=== PATIENT | male | born 1960 | race Caucasian/White ===

== ENCOUNTER 2023-03-26 09:24 | Outpatient (OUT) | payer OTHER, SELFPAY ==
[2023-03-26 09:59] LABS: Basophils Percent Auto 0.5 % (0.2-2.0); Eosinophils Absolute Auto 0.2 10^3/uL (0.0-0.7); Eosinophils Percent Auto 2.4 % (0.9-7.0); Hematocrit 47.6 % (42.0-54.0); Hemoglobin 16.3 g/dL (14.0-18.0); Immature Granulocytes Abs Auto 0.01 10^3/uL (0.00-0.03); Immature Granulocytes Pct Auto 0.2 % (0.0-0.5); Lymphocytes Absolute Auto 1.7 10^3/uL (1.2-3.8); Lymphocytes Percent Auto 26.4 % (20.5-60.0); Mean Corpuscular HGB Conc 34.2 g/dL (29.9-35.2); Mean Corpuscular Hemoglobin 29.2 pg (25.9-34.0); Mean Corpuscular Volume 85.3 fL (80.0-94.0); Mean Platelet Volume 10.1 fL (9.5-13.5); Monocytes Absolute Auto 0.8 10^3/uL (0.3-0.8); Monocytes Percent Auto 11.4 % (1.7-12.0); Neutrophils Absolute Auto 3.9 10^3/uL (1.4-6.5); Neutrophils Percent Auto 59.1 % (43.0-75.0); Platelet Count 147 10^3/uL (150-450); Red Blood Count 5.58 10^6/uL (4.70-6.10); Red Cell Distribution Width 12.5 % (11.0-15.0); White Blood Count 6.6 10^3/uL (4.0-11.0)
[2023-03-26 10:22] LABS: Anion Gap 11.6; Carbon Dioxide 29.7 mmol/L (21.0-32.0); Chloride 99 mmol/L (98-107); Glucose 179 mg/dL (74-106); Potassium 4.3 mmol/L (3.5-5.1); Sodium 136 mmol/L (136-145)
[2023-03-26 10:23] LABS: Alanine Aminotransferase 56 U/L (16-63); Albumin Globulin Ratio 1.2; Albumin Level 4.3 g/dL (3.4-5.0); Alkaline Phosphatase 87 U/L (46-116); Aspartate Amino Transferase 30 U/L (15-37); BUN Creatinine Ratio 24.7; Bilirubin Total 0.9 mg/dL (0.2-1.0); Chol HDL Ratio 3.6; Cholesterol 97 mg/dL (<=200); Creatine Kinase 166 U/L (39-308); Estimated GFR (African America >60 (>=60); Estimated GFR (Non-African Ame >60 (>=60); Globulin 3.7 g/dL; HDL Cholesterol 27 mg/dL (40-60); Triglycerides 213 mg/dL (<=150); VLDL CHOLESTEROL 42.6 mg/dL
[2023-03-26 10:30] LABS: Microalbumin Urine Random 3.5 mg/dL (<=30.0)
[2023-03-26 10:36] LABS: Prostate Specific Antigen Scrn 0.31 ng/mL (<=4.00)
[2023-03-26 10:43] LABS: Estimated Average Glucose 151 mg/dL; Glycohemoglobin A1C 6.9 % (4.5-6.2)
== END 2023-03-26 09:25 ==
LOC: LAB 09:27
PROVIDERS: PCP Internal Medicine; Visit Provider Internal Medicine
DX: Z00.00 Encounter for general adult medical examination without abnormal findings (principal); Z12.5 Encounter for screening for malignant neoplasm of prostate
CPT/HCPCS: 36415; 80053; 80061; 82043; 82550; 83036; 85025; G0103

== ENCOUNTER 2023-06-11 08:44 | Outpatient (OUT) | payer OTHER, SELFPAY ==
--- NOTE | 2023-06-11 | CT_ITS ---
The [address] [address] Patient Name: CHELY SIDDIQI MRN: [id number] date: 1960 Sex: M Assigned Patient Location: CT Current Patient Location: CT Accession/Order Number: [id number] Exam Date: 06/11/2023 08:48 Report Date: 06/11/2023 09:44 At the request of: EMMY ARNOLD Procedure: CT abdomen pelvis wo con EXAMINATION: CT abdomen pelvis wo con HISTORY: KIDNEY STONE COMPARISON: 11/21/2021 TECHNIQUE: Axial, Coronal, and Sagittal images were created without IV contrast. Dose reduction techniques were achieved by using automated exposure control and/or adjustment of mA and/or kV according to patient size and/or use of iterative reconstruction technique. FINDINGS: LUNG BASES: Basilar solid pulmonary nodules measuring up to 5 mm, nonspecific, stable LIVER: Focal hypodensities too small to fully characterize possibly cysts BILIARY: 5 mm layering gallstone axial image [address] evidence of acute cholecystitis PANCREAS: No lesion, fluid collection, ductal dilatation, or atrophy. SPLEEN: No enlargement or focal lesion. ADRENALS: No mass or enlargement. KIDNEYS: Nonobstructing left nephrolithiasis. Left renal cortical hypodensity likely a cyst BOWEL/MESENTERY: Nonobstructive bowel gas pattern. Normal appendix AORTA/VASCULAR: No aneurysm or dissection. RETROPERITONEUM: No mass or adenopathy. LYMPH NODES: No adenopathy. URINARY BLADDER: No visible focal wall thickening, lesion, or calculus. PELVIC ORGANS: Resting calcifications ABDOMINAL WALL: No mass or hernia. BONES: Remote healed left posterior rib fractures OTHER: Negative. CT/CT abdomen pelvis wo con IMPRESSION: Nonobstructing left nephrolithiasis No obstructive uropathy Electronically authenticated by: BRIONNA RODRIGUEZ Date: 06/11/2023 09:44
== END 2023-06-11 08:45 | disposition home or self-care (01) ==
LOC: CT 08:45
PROVIDERS: PCP Internal Medicine; Visit Provider Urology
DX: N20.0 Calculus of kidney (principal)
CPT/HCPCS: 74176

== ENCOUNTER 2023-10-29 08:21 | Outpatient (OUT) | payer OTHER, SELFPAY ==
[2023-10-29 08:54] LABS: Estimated Average Glucose 148 mg/dL; Glycohemoglobin A1C 6.8 % (4.5-6.2)
== END 2023-10-29 08:22 | disposition home or self-care (01) ==
LOC: LAB 08:23
PROVIDERS: PCP Internal Medicine; Visit Provider Internal Medicine
DX: E11.65 Type 2 diabetes mellitus with hyperglycemia (principal)
CPT/HCPCS: 36415; 83036

== ENCOUNTER 2024-03-21 07:23 | Outpatient (OUT) | payer OTHER, SELFPAY ==
--- OUTSIDE RECORDS SUMMARY | 2024-03-21 07:26 | XMS_ITS | CCD ---
Author Organization [facility] Care Team Providers Care Business Administrator Name Role Phone PHYSICIAN, DEFAULT Unavailable Unavailable PHYSICIAN, DEFAULT Unavailable Unavailable EVIN BAZZI Unavailable ISHMAEL Harris Primary Care Physician [phone] Cecil, Ishmael Unavailable LENA ISAAC Consulting Unavailable LENA ISAAC Admitting Unavailable BALL, DR MEIER Primary Care Unavailable LENA ISAAC Attending Unavailable CECIL, DR MEIER Admitting Unavailable BALL, DR MEIER Attending Unavailable BALL, DR MEIER Consulting Unavailable BALL, DR MEIER Primary Care Unavailable ZIEBER, DR ZACH Ballard Consulting Unavailable BALL, DR MEIER Admitting Unavailable BALL, DR MEIER Attending Unavailable BALL, DR MEIER Consulting Unavailable BALL, DR MEIER Primary Care Unavailable BALL, DR MEIER Admitting Unavailable BALL, DR MEIER Attending Unavailable BALL, DR MEIER Consulting Unavailable BALL, DR MEIER Primary Care Unavailable WINKLER, WINCHA Consulting Unavailable REBA DUMONT Attending Unavailable LUMargaret .REBA Admitting Unavailable WINKLER, KENYETTA Consulting Unavailable BALL, DR MEIER Primary Care Unavailable REBA DUMONT Consulting Unavailable BALL, DR MEIER Admitting Unavailable BALL, DR MEIER Attending Unavailable BALL, DR MEIER Consulting Unavailable BALL, DR MEIER Primary Care Unavailable Reba Larios. Attending Unavailable Orzech, Valentina X Attending Unavailable Orzech, Valentina X Attending Unavailable Orzech, Valentina X Admitting Unavailable Reba Larios Attending Unavailable AGUILA ISAACAMAKamari Admitting Unavailable LENA ISAAC Attending Unavailable CHELSI MENARD Attending Unavailable SHUN SPARKS Attending Unavailable STACI GLASS Attending Unavailable CHELSI MENARD Attending Unavailable LENA ISAAC Referring Unavailable Allergies Allergy Classification Reported Allergen(s) Allergy Type Date of Onset Reaction(s) Facility (6 sources) HMG-CoA reductase inhibitor Drug allergy 3 Unknown Hydrelis Other (1 source) Hmg-Coa Reductase Inhibitors (Statins); Translations: [QPICORU-PZA-MA A REDUCTASE INHIBITORS] Propensity to adverse reactions to drug (disorder) 3 [facility] Repository Medications Current Medications Medication Drug Class(es) Dates Sig (Normalized) Sig (Original) 0.25 MG, 0.5 MG Dose 3 ML semaglutide 0.68 MG/ML Pen Injector [Ozempic] (3 sources) Start: 11-03-2023 Ozempic 2 mg/3 mL (0.25 mg or 0.5 mg dose) subcutaneous solution mg, SubCutaneous, qWeek Start Date: 11/03/23 Status: Ordered Start: 08-23-2023 inject 0.5 mg by sub cutaneous injection every week Ozempic (0.25 or 0.5 MG/DOSE) 2 MG/3ML 0.5MG Subcutaneous weekly for 28 days Aug, Active 3 ML semaglutide 1.34 MG/ML Pen Injector [Ozempic] (1 source) Start: 07-11-2023 inject 1 mg by subcutaneous injection every week Ozempic (1 MG/DOSE) 4 MG/3ML 1MG Subcutaneous weekly for 30 days Jul, Active amLODIPine 10 mg / benazepril hydrochloride 20 mg oral capsule (20 sources) Dihydropyridine Calcium Channel Yaquelin, Angiotensin Converting Enzyme Inhibitor Start: 03-12-2024 take 1 capsule by mouth once daily Amlodipine-Benaz epril Active 1 CAP PO Daily March 12, 2024 12:00am Start: 06-28-2022 amlodipine-wilman azepril 10 mg-20 mg oral capsule 1 cap(s) Start Date: 06/28/22 Status: Ordered take 10-20 mg by azul th once daily amLODIPine Besy-Benazepril HCl 10-20 MG TAKE 1 CAPSULE BY MOUTH EVERY DAY Active aspirin 81 mg delayed release oral tablet (20 sources) Platelet Aggregation Inhibitor, Nonsteroidal Anti-inflammatory Drug Start: 03-12-2024 take 81 mg by mouth once daily Aspirin Active 81 MG PO Daily March 12, 2024 12:00am Start: 02-15-2022 take 1 mg by mouth e very four hours aspirin 81 mg oral capsule mg cap(s), Oral, q4hr, Refills(s) 0 Start Date: 02/15/22 Status: Ordered take 1 tablet by azul th every twenty-four hours Aspirin 81 81 MG 1 tablet Orally Once a day Active take 1 tablet by azul th once daily Aspirin 81 81 MG 1 tablet Orally Once a day Active Fish Oils (20 sources) Start: 02-15-2022 take 1 mg by mouth three times daily Fish Oil 1200 mg oral capsule mg cap(s), Oral, TID, Refills(s) 0 Start Date: 02/15/22 Status: Ordered take 1 capsule by mouth once bebeto ly Fish Oil 1200 MG 1 capsule Orally Once a day Active gemfibrozil 600 mg oral tablet (20 sources) Peroxisome Proliferator Receptor alpha Agonist Start: 03-12-2024 take 600 mg by mouth twice daily Gemfibrozil Active 600 MG PO Twice daily March 12, 2024 12:00am Start: 02-15-2022 take 1 mg by mouth twice daily gemfibrozil 600 mg Tab mg tab(s), Oral, BID, Refills(s) 0 Start Date: 02/15/22 Status: Ordered hydroCHLOROthiazide 25 mg oral tablet (19 sources) Thiazide Diuretic Start: 03-12-2024 take 25 mg by mouth once daily Hydrochlorothiazide Active 25 MG PO Daily March 12, 2024 12:00am Start: 02-15-2022 take 1 mg by mouth o nce daily hydrochlorothiazide 25 mg oral tablet mg tab(s), Oral, Daily, Refills(s) 0 Start Date: 02/15/22 Status: Ordered metFORMIN hydrochloride 1000 mg oral tablet (20 sources) Biguanide Start: 11-25-2023 End: 11-25-2023 take 1000 mg by mouth twice daily at mealtime Metformin Active 1000 MG PO Twice daily with meals 180 90 November 25, 2023 4:35pm Start: 02-15-2022 take 1 mg by mouth once daily MetFORMIN (Eqv-Fortamet) 1000 mg oral tablet, extended release mg tab(s), Oral, Daily, Refills(s) 0 Start Date: 02/15/22 Status: Ordered take 1 tablet by azul th twice daily before breakfast metFORMIN HCl 1000 mg TAKE 1 TABLET BEFORE BREAKFAST AND EVENING MEAL Orally bid for 90 days Active 24 hr metoprolol succinate 25 mg extended release oral tablet (20 sources) beta-Adrenergic Yaquelin Start: 03-12-2024 take 25 mg by mouth once daily Metoprolol Succinate Active 25 MG PO Daily March 12, 2024 12:00am Start: 02-15-2022 take 1 mg by mouth once daily metoprolol 25 mg ER Tab mg tab(s), Oral, Daily, Refills(s) 0 Start Date: 02/15/22 Status: Ordered [place] 8-Kee-Rbv-Fish Oil (Fish Oil) 1,200 (144-216) mg capsule (1 source) Start: 03-12-2024 take 1 capsule by mouth once daily [place] 9-Dmo-Lsw-Fish Oil (Fish Oil) 1,200 (144-216) mg capsule Active 1 CAP PO Daily March 12, 2024 12:00am Plextronics Ultra - (17 sources) Plextronics Ultra - USE TO TEST BLOOD SUGAR EVERY DAY for 30 Active [employer] Ultra - as directed In Vitro Active Ozempic (0.25 or 0.5 MG/DOSE ) 2 MG/1.5ML (6 sources) Ozempic (0.25 or 0.5 MG/DOSE) 2 MG/1.5ML 0.5 MG Subcutaneous weekly Active Ozempic (0.25 or 0.5 MG/DOSE) 2 MG/1.5ML 0.5 MG Subcutaneous weekly for 28 days Active rosuvastatin calcium 10 mg oral tablet (11 sources) HMG-CoA Reductase Inhibitor Start: 03-12-2024 take 10 mg by mouth once daily Rosuvastatin Active 10 MG PO Daily March 12, 2024 12:00am Start: 03-08-2023 take 1 tablet by azul every twenty-four hours Rosuvastatin Calcium 10 MG 1 tablet Orally Once a day February, Active Semaglutide (1 source) Start: 01-30-2024 Semaglutide (Ozempic) 0.25 mg or 0.5 mg (2 mg/3 mL) pen injector Active 0.5 MG SUBCUT every week 3 January 30, 2024 1:29pm tamsulosin hydrochloride 0.4 mg oral capsule (20 sources) alpha-Adrenergi c Yaquelin Start: 12-19-2023 take 1 capsule by mouth once daily at dinner Tamsulosin Active 0 .ROUTE .COMPLEX December 19, 2023 1:24pm TAKE 1 CAPSULE BY MOUTH EVERYDAY AFTER EVENING MEAL Start: 12-19-2023 End: 12-19-2023 take 0.4 mg by mouth once daily at bedtime Tamsulosin Discontinued 0.4 MG PO Daily at bedtime December 19, 2023 12:00am December 19, 2023 1:24pm Start: 02-15-2022 take 1 mg by mouth once daily tamsulosin 0.4 mg Cap mg cap(s), Oral, Daily, Refills(s) 0 Start Date: 02/15/22 Status: Ordered Completed/Discontinued Medications Medication Drug Class(es) Dates Sig (Normalized) Sig (Original) benazepril hydrochloride 10 mg oral tablet (19 sources) Angiotensin Converting Enzyme Inhibitor Start: 03-12-2024 End: 03-12-2024 take 10 mg by mouth once daily Benazepril Discontinued 10 MG PO Daily March 12, 2024 12:00am March 12, 2024 3:42pm Start: 02-15-2022 take 1 mg by mouth once daily benazepril 10 mg Tab mg tab(s), Oral, Daily, Refills(s) 0 Start Date: 02/15/22 Status: Ordered 0.25 mg, 0.5 mg dose 1.5 ml semaglutide 1.34 mg/ml pen injector (18 sources) Start: 01-30-2024 End: 01-30-2024 inject 0.5 mg by subcutaneous injection every week Semaglutide Discontinued 0.5 MG SUBCUT every week January 30, 2024 12:00am January 30, 2024 1:30pm Start: 12-28-2022 Ozempic (0.25 or 0.5 MG/DOSE) 2 MG/1.5ML 0.5 MG Subcutaneous weekly for 28 days Dec, Active Start: 12-28-2022 Ozempic (0.25 or 0.5 MG/DOSE) 2 MG/1.5ML 0.25mg Subcutaneous weekly for 28 days Dec, Active Problems Active Problems Problem Classification Problem Date Documented Da te Episodic/Chronic Calculus of urinary tract (20 sources) Kidney stone; Translations: [Calculus of kidney] Onset: 02-15-2022 Episodic Cardiac dysrhythmias (2 sources) Ventricular premature depolarization; Translations: [Ventricular premature depolarization] Onset: 01-06-2023 Chronic Coronary atherosclerosis and other heart disease (20 sources) Coronary arteriosclerosis; Translations: [Atherosclerotic heart disease of [place] coronary artery without angina pectoris] Onset: 12-16-2022 Chronic Diabetes mellitus with complications (20 sources) Type 2 diabetes mellitus; Translations: [Type 2 diabetes mellitus with hyperglycemia] Chronic Diabetes mellitus without complication (4 sources) Diabetes mellitus; Translations: [Type 2 diabetes mellitus without complications] Onset: 01-06-2023 06-28-2022 Chronic Disorders of lipid metabolism (20 sources) Mixed hyperlipidemia; Translations: [Mixed hyperlipidemia] Onset: 01-10-2023 Chronic Essential hypertension (20 sources) Essential hypertension; Translations: [Essential (primary) hypertension] Onset: 01-06-2023 Chronic Genitourinary symptoms and ill-defined conditions (20 sources) Nocturia; Translations: [Nocturia] Onset: 02-15-2022 Episodic Hyperplasia of prostate (10 sources) Nocturia due to benign prostatic hypertrophy; Translations: [Benign prostatic hyperplasia with lower urinary tract symptoms] Chronic Other diseases of kidney and ureters (1 source) Acquired renal cyst without neoplastic change; Translations: [Cyst of kidney, acquired] Onset: 11-03-2023 Episodic Other diseases of kidney and ureters (2 sources) Cyst of kidney 06-28-2022 Episodic Other lower respiratory disease (7 sources) Shortness of breath; Translations: [SHORTNESS OF BREATH] Onset: 11-06-2022 Episodic Other nutritional; endocrine; and metabolic disorders (20 sources) Body mass index 30+ - obesity; Translations: [Obesity, unspecified] Chronic Other nutritional; endocrine; and metabolic disorders (1 source) Obesity, unspecified Chronic Other nutritional; endocrine; and metabolic disorders (6 sources) Obesity caused by energy imbalance; Translations: [Other obesity due to excess calories] Chronic Other nutritional; endocrine; and metabolic disorders (2 sources) Other obesity due to excess calories Chronic Other nutritional; endocrine; and metabolic disorders (2 sources) Body mass index (BMI) 34.0-34.9, adult Chronic Other screening for suspected conditions (not mental disorders or infectious disease) (2 sources) Encounter for screening for malignant neoplasm of prostate; Translations: [ENC SCREEN MALIG NEOPLASM PROSTATE] Onset: 03-18-2022 Episodic Unclassified (3 sources) OTHER VENTRICULAR TACHYCARDIA; Translations: [OTHER VENTRICULAR TACHYCARDIA] Onset: 02-10-2023 Unclassified (1 source) Other ventricular tachycardia; Translations: [Other ventricular tachycardia] Onset: 01-31-2023 Unclassified (2 sources) NSVT Onset: 01-10-2023 Past or Other Problems Problem Classification Problem Date Documented Da te Episodic/Chronic Other diseases of kidney and ureters (1 source) Cyst of kidney, acquired; Translations: [CYST OF KIDNEY ACQUIRED] Onset: 06-25-2022 Episodic Unclassified (2 sources) OTHER VENTRICULAR TACHYCARDIA; Translations: [OTHER VENTRICULAR TACHYCARDIA] Onset: 02-04-2023 Unclassified (3 sources) NSVT (nonsustained ventricular tachycardia) I47.29 Results Test Name Value Interpretation Reference Range Facility Calculus Analysison 11-12-19 24 Calcium oxalate monohydrate (Stone) [Mass fraction] 10 % Invalid Interpretation Code [facility] Comment on above: Performed By: #### 1 [id number] #### [facility] [address] [place] [address] Color (Stone) [place] Invalid Interpretation Code [facility] Comment on above: Performed By: #### 1 [id number] #### [facility] [address] [place] [address] Composition Comment Invalid Interpretation Code [facility] Comment on above: Result Comment: Perc entage (Represents the % composition) Performed By: #### 1 [id number] #### [facility] [address] [place] [address] Disclaimer: Comment Invalid Interpretation Code [facility] Comment on above: Result Comment: This test was developed and its performance characteristics determined by [facility]. It has not been cleared or approved by the Food and Drug Administration. Performed at: [address] [id number] PhD Yuli Rodriguez Performed By: #### 1 [id number] #### [facility] [address] [place] [address] Laboratory comment Omer (Report) Comment Invalid Interpretation Code [facility] Comment on above: Result Comment: Phys silvia questions regarding Calculi Analysis contact [facility] at: [phone]. Performed By: #### 1 [id number] #### [facility] [address] [place] [address] Please Note: Comment Invalid Interpretation Code [facility] Comment on above: Result Comment: Calc dianna report will follow via computer, mail or engineering illustrator delivery. Performed By: #### 1 [id number] #### [facility] [address] [place] [address] Size (Stone) [Entitic vol] 8x6 Invalid Interpretation Code [facility] Comment on above: Result Comment: Sing le piece received. Performed By: #### 1 [id number] #### [facility] [address] [place] [address] Specimen source subject Nom Comment Invalid Interpretation Code [facility] Comment on above: Result Comment: Not provided Performed By: #### 1 [id number] #### [facility] [address] [place] [address] Stone Photo Comment Invalid Interpretation Code [facility] Comment on above: Result Comment: Phot ograph will follow under a separate cover Performed By: #### 1 [id number] #### [facility] [address] [place] [address] Urate (Stone) [Mass fraction] 90 % Invalid Interpretation Code [facility] Comment on above: Performed By: #### 1 [id number] #### [facility] [address] [place] [address] Weight (Stone) 177 mg Invalid Interpretation Code [facility] Comment on above: Performed By: #### 1 [id number] #### [facility] [address] [place] [address] Office Visiton 11-10-2023 Follow-up visit [id number] Chely Meyer 1960 M Date Provider Department Center 11/10/2023 SHUN JACQUES Family History Problem Relation Age of Onset Hypertension Mother Hyperlipidemia Mother Coronary artery disease Father Leukemia Father Hypertension Father Hyperlipidemia Father Family Status - Relation Status Age at Mother Father Level of Service:78808 LA OFFICE/OUTPATIENT ESTABLISHED LOW MDM 20 MIN Normal [facility] Patient Educationon 11-07-19 24 Patient Education Nephrology Dietary Guidelines to Help Prevent Kidney Stones Kidney stones are deposits of minerals and salts that form inside your kidneys. Your risk of developing kidney stones may be greater depending on your diet, your lifestyle, the medicines you take, and whether you have certain medical conditions. Most people can lower their risks of developing kidney stones by following these dietary guidelines. Your dietitian may give you more specific instructions depending on your overall health and the type of kidney stones you tend to develop. What are tips for following this plan? Reading food labels ? Choose foods with no salt added or low-salt labels. Limit your salt (sodium) intake to less than 1,500 mg a day. ? Choose foods with calcium for each meal and snack. Try to eat about 300 mg of calcium at each meal. Foods that contain 200?500 mg of calcium a serving include: ? 8 oz (237 mL) of milk, calcium-fortifiednon -dairy milk, and calcium-fortifiedfru it juice. Calcium-fortified means that calcium has been added to these drinks. ? 8 oz (237 mL) of kefir, yogurt, and soy yogurt. ? 4 oz (114 g) of tofu. ? 1 oz (28 g) of cheese. ? 1 cup (150 g) of dried figs. ? 1 cup (91 g) of cooked broccoli. ? One 3 oz (85 g) can of sardines or mackerel. Most people need 1,000?1,500 mg of calcium a day. Talk to your dietitian about how much calcium is recommended for you. Shopping ? Buy plenty of fresh fruits and vegetables. Most people do not need to avoid fruits and vegetables, even if these foods contain nutrients that may contribute to kidney stones. ? When shopping for convenience foods, choose: ? Whole pieces of fruit. ? Pre-made salads with dressing on the side. ? Low-fat fruit and yogurt smoothies. ? Avoid buying frozen meals or prepared deli foods. These can be high in sodium. ? Look for foods with live cultures, such as yogurt and kefir. ? Choose high-fiber grains, such as whole-wheat breads, oat bran, and wheat cereals. Cooking ? Do not add salt to food when cooking. Place a salt shaker on the table and allow each person to add their own salt to taste. ? Use vegetable protein, such as beans, textured vegetable protein (TVP), or tofu, instead of meat in pasta, casseroles, and soups. Meal planning ? Eat less salt, if told by your dietitian. To do this: ? Avoid eating processed or pre-made food. ? Avoid eating fast food. ? Eat less animal protein, including cheese, meat, poultry, or fish, if told by your dietitian. To do this: ? Limit the number of times you have meat, poultry, fish, or cheese each week. Eat a diet free of meat at least 2 days a week. ? Eat only one serving each day of meat, poultry, fish, or seafood. ? When you prepare animal proteins, cut pieces into small portion sizes. For most meat and fish, one serving is about the size of the palm of your hand. ? Eat at least five servings of fresh fruits and vegetables each day. To do this: ? Keep fruits and vegetables on hand for snacks. ? Eat one piece of fruit or a handful of berries with breakfast. ? Have a salad and fruit at lunch. ? Have two kinds of vegetables at dinner. ? You may be told to limit foods that are high in a substance called oxalate. These include: ? Spinach (cooked), rhubarb, beets, sweet potatoes, and [place] chard. ? Peanuts. ? Potato chips, arabic fries, and baked potatoes with skin on. ? Nuts and nut products. ? Chocolate. ? If you regularly take a diuretic medicine, make sure to eat at least 1 or 2 servings of fruits or vegetables that are high in potassium each day. These include: ? Avocado. ? Banana. ? [place], prune, carrot, or tomato juice. ? Baked potato. ? Cabbage. ? Beans and split peas. Lifestyle ? Drink enough fluid to keep your urine pale yellow. This is the most important thing you can do. Spread your fluid intake throughout the day. ? If you drink alcohol: ? Limit how much you have to: ? 0?1 drink a day for women who are not . ? 0?2 drinks a day for men. ? Know how much alcohol is in your drink. In the [place] one drink equals one 12 oz bottle of beer (355 mL), one 5 oz glass of wine (148 mL), or one 1? oz glass of hard liquor (44 mL). ? Lose weight if told by your health care provider. Work with your dietitian to find an eating plan and weight loss strategies that work best for you. General information ? Talk to your health care provider and dietitian about taking daily supplements. Depending on your health and the cause of your kidney stones, you may be told: ? Do not take high-dose supplements of vitamin C (1,000 mg a day or more). ? To take a calcium supplement. ? To take a daily probiotic supplement. ? To take other supplements such as magnesium, fish oil, or vitamin B6. ? Take swjf-lym-afdgkjd and prescription medicines only as told by your health care provider. These include supplements. What foods sh (more content not included)... Normal Aranda [facility] Urology Office/Clinic Noteon 11-07-2023 Urology Office/Clinic Note Chief Complaint 16 month follow up w/ CT Scan HPI Staff 16 month follow up w/CT SCAN done 06/11/23. * Flomax 0.4mg daily Previous DX: kidney stones and nocturia. Dysuria: denies pain and burning Incomplete bladder emptying: denies Hematuria: denies visible blood Frequency: denies Urgency: denies Nocturia: denies Stream: denies Leaking: denies Post void dripping: denies Wearing pads/ Depends: denies Urge incontinence: denies Stress incontinence: denies Incontinence without Sensory Awareness: denies Abdominal pain: denies Flank pain: denies Sexual complaints: _ History of Present Illness I have reviewed and verified the staff HPI to be accurate for this encounter. Review of Systems PHQ Score Initial Depression Screen Score: 0 SCORE Physical Exam Vitals & Measurements HT: 73 in HT: 185 cm WT: 118.2 kg WT: 260.04 lb BMI: 34.54 General: Well developed, well nourished, in no acute distress. Genitourinary: Flank Pain: none. Bladder: nonpalpable. Assessment/Plan UA neg IPSS 12 - mostly satisfied 1. Kidney stone (N20.0: Calculus of kidney) UA today without signs of blood or infection. Pt denies episode of gross hematuria or urinary infection since last visit. CT scan 11/21/21 shows 3 left sided stones measuring between 2-3 mm, punctate on the right. No hydro. [1] KUB & renal US done 06/19/22 both negative for stones. No hydro [2] CT AP w/o con 06/11/23 - non obstructing left nephrolithiasis. No measurements given. Pt is s/p lithotripsy in 2014. Stone analysis 04/17/21 - 80% uric acid, 20% Ca Ox mono Pt did bring in stone that he passed in July to visit today. Pt requests stone analysis. At prior OV, discussed metabolic workup and medical management of citrate. Pt declined at that time and opted for dietary changes. He is on HCTZ 25 mg for BP management. Reports drinking orange juice, lemonades, eating at least one mandarin orange every day. Does admit that he get sick of citrus flavors. Again discussed purpose of metabolic work-up and use if medication to increase citrate levels, especially given that he has developed stones in the last year. Pt again declines. Discussed generalized stone prevention - pt encouraged to increase fluid intake so that he/she producing 2.5L of urine daily. Add 1/4 cup of lemon juice to water throughout the day or can also drink sugar free lemonade or clear soda. Avoid dark delvin. Restrict sodium intake. Restrict animal protein. -f/u 1 yr w/ KUB and FLORENCIO 2. BPH associated with nocturia (N40.1: Benign prostatic hyperplasia with lower urinary tract symptoms) IPSS 12 Moderate sxs of BPH. Pt reports that he is mostly satisfied w/ urination. Nocturia improved since last visit. Taking tamsulosin 0.4 mg QD, managed by PCP. Denies SEs. Agree with continuation of medication. Continue to limit fluids prior to bed. Pt reports that PCP is checking PSA. PSA 02/21/21 - 0.34 (outside record) Did discuss w/ pt that this appears to be a normal PSA. Has been 3.5 years since I can find record of PSA level. Offered to have it drawn in office today, but pt states he would discuss w/ PCP at f/u visit. 3. Renal cyst (N28.1: Cyst of kidney, acquired) Renal US 06/19/22 shows there are 2 anechoic avascular structures at the lower pole compatible with cysts, measuring 2.1 x 2.0 cm and 0.7 cm. No f/u for simple cysts recommended at this time [3] Nocturia (R35.1: Nocturia) Follow-up With When Contact Information Ric MAY, Reba Smith, URL, [facility] [address], [place] [phone] Additional Instructions: Patient Education Dietary Guidelines to Help Prevent Kidney Stones Benign Prostatic Hyperplasia Kidney Stones, [id number] Problem List/Past Medical History Ongoing Diabetes Hypertension Hypertriglyceridemia Kidney stone Nocturia Renal cyst Historical No qualifying data Procedure/Surgical History Extracorporeal shock wave lithotripsy (ESWL) of tendon using ultrasound (US) guidance (05/10/2015), History of inguinal hernia surgery (11/18/2010), Placement of stent in cardiac conduit (05/04/2006), Cardiac catheterization. Medications amlodipine-benazepri l 10 mg-20 mg oral capsule, 1 cap(s) aspirin 81 mg oral capsule, Oral, q4hr Fish Oil 1200 mg oral capsule, Oral, TID gemfibrozil 600 mg Tab, Oral, BID hydrochlorothiazide 25 mg oral tablet, Oral, Daily MetFORMIN (Eqv-Fortamet) 1000 mg oral tablet, extended release, Oral, Daily metoprolol 25 mg ER Tab, Oral, Daily Ozempic 2 mg/3 mL (0.25 mg or 0.5 mg dose) subcutaneous solution, SubCutaneous, qWeek rosuvastatin 10 mg Tab, Oral, Daily tamsulosin 0.4 mg Cap, Oral, Daily Allergies No Known Allergies Social History Tobacco Never (less than 100 in lifetime) Tobacco Use:. Never Smokeless Tobacco Use:., 11/03/2023 Family History Cancer: Father. Heart disease: Father. Hyperlipidemia: Father. Hypertension: Mother. Psychiatric behavioral disabili (more content not included)... Normal [facility] Comment on above: Result Comment: Elec tronically Signed By: GERARDO Garcia APRN, [place] X\.esha\Date and Time Signed: 11/07/23 14:09 EST [place] 11-04-2023 Screens [id number]#1.00TIFF Normal [facility] Ambulatory Visit Summaryon 0 11-03-2023 Ambulatory Visit Summary CHELY MEYER :1960 Visit Date:11/03/2023 Ambulatory Visit Instructions Your Diagnosis Renal cyst Kidney stone Your Care Team Attending Physician - GERARDO Garcia APRN, Valentina Prabhakar Primary Care Physician - ISHMAEL JACOB DO This Is Your Medications List amlodipine-benazepri l (amlodipine-benazepr il 10 mg-20 mg oral capsule) aspirin (aspirin 81 mg oral capsule) gemfibrozil (gemfibrozil 600 mg Tab) hydrochlorothiazide (hydrochlorothiazide 25 mg oral tablet) metformin (MetFORMIN (Eqv-Fortamet) 1000 mg oral tablet, extended release) metoprolol (metoprolol 25 mg ER Tab) omega-3 polyunsaturated fatty acids (Fish Oil 1200 mg oral capsule) rosuvastatin (rosuvastatin 10 mg Tab) semaglutide (Ozempic 2 mg/3 mL (0.25 mg or 0.5 mg dose) subcutaneous solution) tamsulosin (tamsulosin 0.4 mg Cap) Procedures Performed Extracorporeal shock wave lithotripsy (ESWL) of tendon using ultrasound (US) guidance (05/10/2015), History of inguinal hernia surgery (11/18/2010), Placement of stent in cardiac conduit (05/04/2006), Cardiac catheterization. Discharge Vitals Height 185 cm Height 73 in Weight 118.2 kg Weight 260.04 lb BMI 34.54 What to do next Scheduled Follow-Up Appointments Tuesday 3:15 PM EST With: Ric MAY, Reba Smith Where: [facility] Provider Letteron 11-03-2023 Provider Letter November 03, 2023 CHELY MEYER [address] [place] [id number] : 1960 To Whom It May Concern, Please excuse above patient from work. Had an appointment in our office 11/03/23 at 3:15 PM Restrictions: N/A Comments: Please feel free to contact the office with any questions. Sincerely, [facility] [address] [place] [address] [facility] CT Reporton 06-17-2023 RAD - CT Report [id number] #1.00CD:127 Normal [facility] Office Visiton 05-24-2023 Follow-up visit [id number] Chely Meyer 1960 M Date Provider Department Center 05/24/2023 Aureliano-STACI GLASS EN [place] Family History Problem Relation Age of Onset Hypertension Mother Hyperlipidemia Mother Coronary artery disease Father Leukemia Father Hypertension Father Hyperlipidemia Father Family Status - Relation Status Age at Mother Father Level of Service:35741 LA OFFICE/OUTPATIENT NEW HIGH MDM 60-74 MINUTES Reason for Visit and Comments: Follow-up [538272] - 3 month follow up [facility] Pre-Certification Formon Pre-Certification Form [id number] #1.00CD:127 Normal [facility] Office Visiton 03-01-2023 Follow-up visit [id number] Chely Meyer 1960 M Date Provider Department Center 03/01/2023 CHELSI MALIK EN [facility] Family History Problem Relation Age of Onset Hypertension Mother Hyperlipidemia Mother Coronary artery disease Father Leukemia Father Hypertension Father Hyperlipidemia Father Family Status - Relation Status Age at Mother Father Level of Service:69662 LA OFFICE/OUTPATIENT ESTABLISHED MOD MDM 30-39 MIN Reason for Visit and Comments: Follow-up [851430] - Heart cath [facility] HPon 02-10-2023 Attestation signed by Lena Isaac MD at 02/10/2023 8:16 AM H and P reviewed. No significant changes. Patient presenting with dyspnea on exertion, NSVT. Plan to proceed with cath. Procedure was explained to patient at length and in detail. Risks, benefits, and alternatives were discussed. Patient is informed that risks of this invasive procedure include, but are not limited to, bleeding, hematoma, kidney injury, CVA, arrythmia requiring defibrillation, need for emergent open heart surgery, and . Patient understands these risks and wishes to proceed. Lena Isaac MD History Of Present Illness Chely Meyer is a 62 y.o. male with Medical history significant for coronary disease status post prior PCI, hypertension and hyperlipidemia. He has been experiencing dyspnea on exertion of varying severity and recently underwent treadmill MPI. No perfusion defects were noted but he did have a 6 beat run of nonsustained ventricular tachycardia during the study. Given these findings he was referred for cardiac catheterization. Past Medical History He has a past medical history of Coronary artery disease, Diabetes mellitus ([facility]), Hyperlipidemia, Hypertension, and PVC (premature ventricular contraction). Surgical History He has a past surgical history that includes Cardiac catheterization; Coronary stent placement; Hernia repair; and Kidney stone surgery. Social History He reports that he has never smoked. He has never used smokeless tobacco. He reports current alcohol use. No history on file for drug use. Allergies Urftppm-ptz-zst reductase inhibitors Medications Medications Prior to Admission Medication Sig Dispense Refill Last Dose amLODIPine-benazepri L (Lotrel) 10-20 mg capsule 1 capsule in the morning. 02/10/2023 aspirin 81 mg EC tablet in the morning. 02/10/2023 benazepril (Lotensin) 10 mg tablet Take 10 mg by mouth in the morning. 02/09/2023 gemfibrozil (Lopid) 600 mg tablet Take 600 mg by mouth in the morning and at bedtime. 02/10/2023 hydroCHLOROthiazide (HYDRODiuril) 25 mg tablet Take 25 mg by mouth in the morning. 02/10/2023 metFORMIN (Glucophage) 1,000 mg tablet every 12 (twelve) hours. 02/09/2023 metoprolol succinate XL (Toprol-XL) 25 mg 24 hr tablet metoprolol succinate ER 25 mg tablet,extended release 24 hr 02/10/2023 omega 2-byn-xua-fish oil (Fish OiL) 100-160-1,000 mg capsule Fish Oil 1200mg BID 02/10/2023 semaglutide (OZEMPIC SUBQ) Ozempic Past Week tamsulosin (Flomax) 0.4 mg 24 hr capsule tamsulosin 0.4 mg capsule 02/09/2023 Review of Systems Respiratory: Positive for shortness of breath. All other systems reviewed and are negative. Physical Exam Constitutional General Appearance: well-nourished, well-developed, appears stated age Level of Distress: comfortable Psychiatric Mental Status: alert, normal affect Orientation: oriented to time, place, and person Insight: good judgement Eyes Lids and Conjunctivae: non-injected, no xanthelasma ENMT Ears: no lesions on external ear Nose: no lesions on external nose Oropharynx: no cyanosis, no pallor Neck Neck: supple, trachea midline Carotid Arteries: bilateral normal upstroke, no bruits Jugular Veins: normal jugular venous pressure Thyroid: not enlarged Lungs Respiratory Effort: unlabored Chest Exam: normal curvature, no thoracic deformity Auscultation: clear, no wheezing, no rales, no rhonchi Cardiovascular Rate And Rhythm: regular Heart Sounds: normal S1, normal s2, no gallop Systolic Murmur: not heard Diastolic Murmur: not heard Extremities: no cyanosis, no edema, no peripheral signs of emboli Peripheral Pulses Radial Pulse: normal Abdomen Inspection and Palpation: soft, non distended, no bruit, non tender Musculoskeletal Inspection: no joint swelling Neurologic Gait: normal gait Skin Inspection and Palpation: warm and dry Nails: no clubbing Last Recorded Vitals Blood pressure (!) 172/94, pulse 62, resp. rate 16, SpO2 96 %. Assessment/Plan Principal Problem: NSVT (nonsustained ventricular tachycardia) (CMS/HCC) 1. Nonsustained ventricular tachycardia during treadmill MPI 2. Dyspnea on exertion 3. CAD status post prior LAD PCI, stent noted to be patent and 2012 4. Essential hypertension 5. Hyperlipidemia 6. Type 2 diabetes mellitus Plan: Risks of cardiac catheterization including renal insufficiency, bleeding, arrhythmia, stroke, myocardial infarction and were discussed with the patient. He agrees to proceed. Chance Bunn MD [place] [facility] CBC AUTO DIFFon 02-04-2023 BASO # 0.0 103/ul Normal 0.0-0.1 [facility] Comment on above: Performed By: #### C BC #### [facility] [address] [address] [address] Linda Duran Basophils/100 WBC (Bld) 0.4 % Normal 0.2-2.0 [facility] Comment on above: Performed By: #### C BC #### [facility] [address] [address] [address] Linda Duran EO # 0.1 103/ul Normal 0.0-0.7 [facility] Comment on above: Performed By: #### C BC #### [facility] [address] [place] [address] Dr. Linda Duran Eosinophils/100 WBC (Bld) 2.0 % Normal 0.9-7.0 [facility] Comment on above: Performed By: #### C BC #### [facility] [address] [place] [address] Dr. Linda Duran Erythrocyte distribution width (RBC) [Ratio] 12.5 % Normal 11.0-15.0 [facility] Comment on above: Performed By: #### C BC #### [facility] [address] [place] [address] Dr. Linda Duran Hematocrit (Bld) [Volume fraction] 43.9 % Normal 42.0-54.0 [facility] Comment on above: Performed By: #### C BC #### [facility] [address] [address] [address] Linda Duran Hemoglobin (Bld) [Mass/Vol] 15.0 g/dL Normal 14.0-18.0 [facility] Comment on above: Performed By: #### C BC #### [facility] [address] [address] [address] Linda Duran IG # 0.01 10e3/ul Normal 0.00-0.03 [facility] Comment on above: Performed By: #### C BC #### [facility] [address] [place] [address] Dr. Linda Duran IG % 0.1 % Normal 0.0-0.5 [facility] Comment on above: Performed By: #### C BC #### [facility] [address] [place] [address] Dr. Linda Duran LYMPH # 2.2 103/ul Normal 1.2-3.8 [facility] Comment on above: Performed By: #### C BC #### [facility] [address] [place] [address] Dr. Linda Duran Lymphocytes/100 WBC (Bld) 30.6 % Normal 20.5-60.0 [facility] Comment on above: Performed By: #### C BC #### [facility] [address] [place] [address] Dr. Linda Duran MANUAL DIFF REQ NO Normal [facility] Comment on above: Performed By: #### C BC #### [facility] [address] [place] [address] Dr. Linda Duran MCH (RBC) [Entitic mass] 29.3 pg Normal 25.9-34.0 [facility] Comment on above: Performed By: #### C BC #### [facility] [address] [place] [address] Dr. Linda Duran MCHC (RBC) [Mass/Vol] 34.2 g/dL Normal 29.9-35.2 [facility] Comment on above: Performed By: #### C BC #### [facility] [address] [place] [address] Dr. Linda Duran MCV (RBC) [Entitic vol] 85.7 fL Normal 80.0-94.0 [facility] Comment on above: Performed By: #### C BC #### [facility] [address] [place] [address] Dr. Linda Duran MONO # 0.9 103/ul Critically high 0.3-0.8 [facility] Comment on above: Performed By: #### C BC #### [facility] [address] [place] [address] Dr. Linda Duran Monocytes/100 WBC (Bld) 12.0 % Normal 1.7-12.0 [facility] Comment on above: Performed By: #### C BC #### [facility] [address] [place] [address] Dr. Linda Duran NEUT # 3.9 103/ul Normal 1.4-6.5 [facility] Comment on above: Performed By: #### C BC #### [facility] [address] [place] [address] Dr. Linda Duran Neutrophils/100 WBC (Bld) 54.9 % Normal 43.0-75.0 [facility] Comment on above: Performed By: #### C BC #### [facility] [address] [place] [address] Dr. Linda Duran Platelet mean volume (Bld) [Entitic vol] 10.3 fL Normal 9.5-13.5 [facility] Comment on above: Performed By: #### C BC #### [facility] [address] [place] [address] Dr. Linda Duran PLT 163 103/ul Normal 150-450 [facility] Comment on above: Performed By: #### C BC #### [facility] [address] [place] [address] Dr. Linda Duran RBC 5.12 106/ul Normal 4.70-6.10 [facility] Comment on above: Performed By: #### C BC #### [facility] [address] [place] [address] Dr. Linda Duran WBC 7.1 103/ul Normal 4.0-11.0 [facility] Comment on above: Performed By: #### C BC #### [facility] [address] [place] [address] Dr. Linda Duran PROF CHEM 8 (BAS METB)on Anion gap [Moles/Vol] 12.0 mmol/L Normal [facility] Comment on above: Performed By: #### B MP #### [facility] [address] [place] [address] Dr. Linda Duran Calcium [Mass/Vol] 9.2 mg/dL Normal 8.5-10.1 [facility] Comment on above: Performed By: #### B MP #### [facility] [address] [address] [address] Linda Duran Chloride [Moles/Vol] 101 mmol/L Normal 98-107 [facility] Comment on above: Performed By: #### B MP #### [facility] [address] [address] [address] Linda Duran CO2 [Moles/Vol] 30.0 mmol/L Normal 21.0-32.0 [facility] Comment on above: Performed By: #### B MP #### [facility] [address] [place] [address] Dr. Linda Duran Creatinine [Mass/Vol] 1.13 mg/dL Normal 0.70-1.30 [facility] Comment on above: Performed By: #### B MP #### [facility] [address] [place] [address] Dr. Linda Duran EGFR-AF KITTITIAN >60 Normal >=60 [facility] Comment on above: Performed By: #### B MP #### [facility] [address] [place] [address] Dr. Linda Duran EGFR-NON AF KITTITIAN >60 Normal >=60 [facility] Comment on above: Performed By: #### B MP #### [facility] [address] [place] [address] Dr. Linda Duran Glucose [Mass/Vol] 154 mg/dL Critically high 74-106 [facility] Comment on above: Performed By: #### B MP #### [facility] [address] [address] [address] Linda Duran Potassium [Moles/Vol] 4.0 mmol/L Normal 3.5-5.1 [facility] Comment on above: Performed By: #### B MP #### [facility] [address] [place] [address] Dr. Linda Duran Sodium [Moles/Vol] 139 mmol/L Normal 136-145 [facility] Comment on above: Performed By: #### B MP #### [facility] [address] [place], [place] [address] Dr. Linda Duran Urea nitrogen [Mass/Vol] 30.0 mg/dL Critically high 7.0-18.0 [facility] Comment on above: Performed By: #### B MP #### [facility] [address] [place], [place] [address] Dr. Linda Duran Urea nitrogen/Creatinine [Mass ratio] 26.5 mg/mg Normal [facility] Comment on above: Performed By: #### B MP #### [facility] [address] [place], [place] [address] Dr. Linda Duran Orders Onlyon 02-02-2023 Orders Only [id number] MitchChely E 1960 M Date Provider Department Center 02/02/2023 PABLO NATHAN [facility] Family History Problem Relation Age of Onset Hypertension Mother Hyperlipidemia Mother Coronary artery disease Father Leukemia Father Hypertension Father Hyperlipidemia Father Family Status - Relation Status Age at Mother Father Normal [facility] Office Visiton 01-10-2023 Follow-up visit [id number] MitchChely 1960 Date Provider Department Center 01/10/2023 Augustin6-CHELSI MENARD [facility] Family History Problem Relation Age of Onset Hypertension Mother Hyperlipidemia Mother Coronary artery disease Father Leukemia Father Hypertension Father Hyperlipidemia Father Family Status - Relation Status Age at Mother Father Level of Service:20963 LA OFFICE/OUTPATIENT ESTABLISHED MOD MDM 30-39 MIN Reason for Visit and Comments: NSVT [Other] Coronary Artery Disease [187] Hypertension [130027] PVC's [Other] Hyperlipidemia [182] Normal [facility] In office Testingon 01-06-20 23 In office Testing [id number] #1.00CD:127 Normal [facility] NM STRESS/REST MULTIon 12-16 NM STRESS/REST MULTI Patient: CHELY MEYER Vinny Exam Date: 12/16/2022 : 1960 Gender:M Ordering : DR ISHMAEL JACOB D.O. Admission #: [id number] Family : Order #: [id number] CLICK HERE TO VIEW EXAM RADIOLOGY REPORT PROCEDURE: RADIONUCLIDE IMAGING STRESS/REST MULTI COMPARISON: NM STRESS/REST MULTI, 04/22/2016. INDICATIONS: Atherosclerosis of coronary artery without angina pectoris TECHNIQUE: Exam Description: Stress/Rest one day protocol gated SPECT Rest Imagin.4 mCi Tc-99m Cardiolite IV on 12/16/2022 Stress Imaging 30.5 mCi Tc-99m Cardiolite IV on 12/16/2022 Exercise Protocol: 0.4 mg Lexiscan given IV Heart Rate (bpm): Rest: 76 Max: 107 PMHR: 67 Blood Pressure: Rest: 144/88 Max: 144/88 Symptoms: Rest and peak stress ECG findings were abnormal and the exercise portion of the study was abnormal per attending physician Dr. Wilman Jacob . For more details please see separate cardiac stress test report. FINDINGS: QUALITY OF STUDY: Excellent. PERFUSION DEFECT: None. LOCATION: N/A SIZE: N/A. SEVERITY: N/A. TYPE: N/A. WALL MOTION: Normal. LV SIZE: Normal. 92 mL. TID / TCD: None; 0.8 LVEF: Normal. Calculated EF 63%. SUMMARY: Myocardial perfusion imaging study is NORMAL. CONCLUSION: 1. Normal nuclear medicine myocardial perfusion scan. 2. Abnormal exercise portion of study. Please see Dr. Jacob's report. Dictated by: Zach Salomon M.D. on 12/17/2022 at 06:43 Approved by: Zach Salomon M.D. on 12/17/2022 at 06:45 Normal [facility] ECHOCARDIO M/2D COMPLETEon 0 12-07-2022 ECHOCARDIO M/2D COMPLETE Patient Name Site Name CHELY MEYER [facility] Account No Medical Record Number Age Sex Date Time [id number] [facility]:[id number] M 12/07/2022 07:28 At the Request Of ISHMAEL JACOB ECHOCARDIOGRAM REPORT PROCEDURE: CARDIO PULMONARY ECHOCARDIO M/2D COMP INDICATIONS: ASHD, Shortness of breath COMPARISON: None. DESCRIPTION: COMPLETE ECHOCARDIOGRAM Real-time transthoracic echocardiography with 2D, M-mode, spectral and color flow Doppler performed. QUALITY: Technical quality was good. LEFT VENTRICLE: Normal chamber size. Borderline left ventricular hypertrophy. Global left ventricular systolic function is normal. LV EF: Estimated left ventricular ejection fraction is 65% DIASTOLIC: Normal diastolic function. ATRIAL SEPTUM: LEFT ATRIUM: Normal chamber size. RIGHT ATRIUM: Mild dilatation. RIGHT VENTRICLE: Normal chamber size. Normal right ventricular systolic function. TRICUSPID VALVE: Normal mobility and thickness. No stenosis with trivial regurgitation. No evidence of pulmonary hypertension. RVSP 31 mmHg MITRAL VALVE: Normal mobility and thickness. No mitral valve prolapse. No evidence of mitral valve stenosis. There is no mitral annular calcification. Mild to moderate mitral regurgitation. AORTIC VALVE: Normal trileaflet appearance. No visible sclerosis. Normal leaflet mobility. No evidence of aortic valve stenosis. Mild aortic regurgitation. AORTIC ROOT: Normal diameter and appearance. PULMONIC VALVE: Normal thickness and mobility. Normal with Trivial regurgitation. PERICARDIUM: Small mostly anterior pericardial effusion. IVC: Collapses with inspirations. Normal size. PLEURA: CONCLUSION: 1. Normal ventricular function. LVEF is 65%. 2. Mild to moderate mitral regurgitation. 3. Mild aortic valve regurgitation. 4. Normal right-sided pressures. 5. Small mostly anterior pericardial effusion. Adult Echocardiography Procedure Report Left Ventricle LVEDD (3.7 - 5.6 cm): 5.39 cm LVESD (2.2 - 4.0 cm): 3.56 cm LVIVS thickness (0.6 - 1.2 cm): 1.26 cm LVPW thickness (0.5 - 1.0 cm): 0.84 cm e': 0.10 m/s E - e': 6.86 LVOT Max Gradient: 3.56 mm[Hg] Peak Velocity (LVOT): 0.94 m/s Mean Velocity (LVOT): 0.60 m/s LVOT Diameter 2.19 cm Left Ventricular Ejection Fraction: 65% Left Atrium LA Volume Index (2D A2C): 75.38 ml, 75.38 ml Left Atrium Systolic Dimension: 5.22 cm Mitral Valve MV E to A Ratio: 0.91 Mitral Valve A-Wave Peak Velocity: 0.78 m/s Mitral Valve E-Wave Peak Velocity: 0.71 m/s Right Ventricle RV Internal Diastolic Dimension: 3.48 cm Aorta AO Root Diam: 3.34 cm Ascending Ao Diam: 3.04 cm Aortic Valve AoV Area (Peak Jamaal): 2.61 cm2, 2.61 cm2 AoV Area (VTI): 3.19 cm2, 3.19 cm2 Peak Velocity(Antegrade Flow): 1.36 m/s Peak Gradient(Antegrade Flow): 7.43 mm[Hg] Mean Velocity(Antegrade Flow): 0.85 m/s Mean Gradient(Antegrade Flow): 3.32 mm[Hg] Velocity Time Integral: 26.16 cm Tricuspid Valve Peak Velocity (Regurgitant Flow): 2.46 m/s, 2.42 m/s, 2.24 m/s Peak Velocity: 0.71 m/s Pulmonic Valve Peak Velocity: 1.03 m/s, 0.97 m/s Peak Gradient: 4.26 mm[Hg], 3.75 mm[Hg] Right Atrium Right Atrium Systolic Pressure: 28.10 ml, 28.10 ml Dictated by: Reji Sanford M.D. on 12/07/2022 at 19:01 Approved by: Reji Sanford M.D. on 12/07/2022 at 19:05 Normal [facility] XR CHEST 2 Von 11-06-2022 XR CHEST 2 V EXAM: CHEST 2 VIEWS HISTORY: Dyspnea TECHNIQUE: PA and lateral views chest. COMPARISON: None. FINDINGS: The lungs are clear. There is no focal lung consolidation, pleural effusion or pneumothorax. Pulmonary vasculature is within normal limits. The cardiomediastinal silhouette is normal. There are remote left rib fractures. There are mild degenerative changes of the spine. IMPRESSION: 1. No acute cardiopulmonary disease. Electronically authenticated by: KENYETTA WINKLER Date: 2022-11-06 10:56 Normal [facility] US KIDNEYS BLADDERon 022 US KIDNEYS BLADDER Ultrasound kidneys, bilateral HISTORY: Kidney stone COMPARISON: None. TECHNIQUE: Transabdominal ultrasound imaging of both kidneys was performed. FINDINGS: Both kidneys demonstrate normal echotexture and echogenicity. The right kidney measures 13.7 x 4.9 x 6.0 cm. There is no hydronephrosis of right kidney. The left kidney measures 12.7 x 6.9 x 5.1 cm. There are 2 anechoic avascular structures at the lower pole compatible with cysts, measuring 2.1 x 2.0 cm and 0.7 cm. No hydronephrosis of left kidney. The bladder is incompletely distended with prevoid volume of 118 cc. There is increased echogenicity of the visualized liver. IMPRESSION: 1. Normal size kidneys without hydronephrosis. 2. 2 small left lower pole renal cysts, the larger is 2.1 cm. 3. No discrete renal stone by ultrasound. 4. Fatty infiltration of the liver. Electronically authenticated by: KENYETTA WINKLER Date: 2022-06-19 11:28 Normal [facility] XR KUB 1 VIEWon 06-19-2022 XR KUB 1 VIEW EXAM: XR KUB 1 VIEW HISTORY: Kidney stone COMPARISON: None. TECHNIQUE: Supine abdomen FINDINGS: There is no discrete radiopaque urinary calculus. Bowel gas pattern is normal. Moderate stool burden. There are early degenerative changes of the spine and bony pelvis. IMPRESSION: 1. No discrete radiopaque urinary calculus. 2. Normal bowel gas pattern. Electronically authenticated by: KENYETTA WINKLER Date: 2022-06-19 11:30 Normal [facility] TOTALBILIRUBINon 03-14-2022 Bilirubin [Mass/Vol] 0.8 mg/dL Normal 0.0-1.2 [facility] Comment on above: Performed By: #### T BILLC #### [facility] [address] [place] [address] Dr. Linda Duran CBC AUTO DIFFon 03-13-2022 BASO # 0.0 103/ul Normal 0.0-0.1 [facility] Comment on above: Performed By: #### C BC #### [facility] [address] [place] [address] Dr. Linda Duran Basophils/100 WBC (Bld) 0.6 % Normal 0.2-2.0 [facility] Comment on above: Performed By: #### C BC #### [facility] [address] [place] [address] Dr. Linda Duran EO # 0.2 103/ul Normal 0.0-0.7 [facility] Comment on above: Performed By: #### C BC #### [facility] [address] [place] [address] Dr. Linda Duran Eosinophils/100 WBC (Bld) 3.3 % Normal 0.9-7.0 [facility] Comment on above: Performed By: #### C BC #### [facility] [address] [place] [address] Dr. Linda Duran Erythrocyte distribution width (RBC) [Ratio] 12.1 % Normal 11.0-15.0 [facility] Comment on above: Performed By: #### C BC #### [facility] [address] [place] [address] Dr. Linda Duran Hematocrit (Bld) [Volume fraction] 43.5 % Normal 42.0-54.0 [facility] Comment on above: Performed By: #### C BC #### [facility] [address] [place] [address] Dr. Linda Duran Hemoglobin (Bld) [Mass/Vol] 15.5 g/dL Normal 14.0-18.0 [facility] Comment on above: Performed By: #### C BC #### [facility] [address] [place] [address] Dr. Linda Duran IG # 0.01 10e3/ul Normal 0.00-0.03 [facility] Comment on above: Performed By: #### C BC #### [facility] [address] [place] [address] Dr. Linda Duran IG % 0.2 % Normal 0.0-0.5 [facility] Comment on above: Performed By: #### C BC #### [facility] [address] [place] [address] Dr. Linda Duran LYMPH # 1.5 103/ul Normal 1.2-3.8 [facility] Comment on above: Performed By: #### C BC #### [facility] [address] [place] [address] Dr. Linda Duran Lymphocytes/100 WBC (Bld) 28.5 % Normal 20.5-60.0 [facility] Comment on above: Performed By: #### C BC #### [facility] [address] [place] [address] Dr. Linda Duran MANUAL DIFF REQ NO Normal [facility] Comment on above: Performed By: #### C BC #### [facility] [address] [place] [address] Dr. Linda Duran MCH (RBC) [Entitic mass] 29.8 pg Normal 25.9-34.0 [facility] Comment on above: Performed By: #### C BC #### [facility] [address] [place] [address] Dr. Linda Duran MCHC (RBC) [Mass/Vol] 35.6 g/dL Critically high 29.9-35.2 [facility] Comment on above: Performed By: #### C BC #### [facility] [address] [place] [address] Dr. Linda Duran MCV (RBC) [Entitic vol] 83.7 fL Normal 80.0-94.0 [facility] Comment on above: Performed By: #### C BC #### [facility] [address] [place] [address] Dr. Linda Duran MONO # 0.6 103/ul Normal 0.3-0.8 [facility] Comment on above: Performed By: #### C BC #### [facility] [address] [place] [address] Dr. Linda Duran Monocytes/100 WBC (Bld) 11.1 % Normal 1.7-12.0 [facility] Comment on above: Performed By: #### C BC #### [facility] [address] [place] [address] Dr. Linda Duran NEUT # 2.9 103/ul Normal 1.4-6.5 [facility] Comment on above: Performed By: #### C BC #### [facility] [address] [place] [address] Dr. Linda Duran Neutrophils/100 WBC (Bld) 56.3 % Normal 43.0-75.0 [facility] Comment on above: Performed By: #### C BC #### [facility] [address] [place] [address] Dr. Linda Duran Platelet mean volume (Bld) [Entitic vol] 10.7 fL Normal 9.5-13.5 [facility] Comment on above: Performed By: #### C BC #### [facility] [address] [address] [address] Linda Duran PLT 148 103/ul Critically low 150-450 [facility] Comment on above: Performed By: #### C BC #### [facility] [address] [address] [address] Linda Duran RBC 5.20 106/ul Normal 4.70-6.10 [facility] Comment on above: Performed By: #### C BC #### [facility] [address] [address] [address] Linda Duran WBC 5.1 103/ul Normal 4.0-11.0 [facility] Comment on above: Performed By: #### C BC #### [facility] [address] [address] [address] Linda Duran GLYCOHEMOGLOBIN A1Con 2021 ADA RECOMMENDATION SEE BELOW Normal [facility] Comment on above: Result Comment: ADA RECOMMENDED LIMIT 4.0 - 6.0 ADA THERAPEUTIC TARGET < 7.0 ACTION SUGGESTED > 7.0 Performed By: #### A 1C #### [facility] [address] [address] [address] Linda Duran Glucose [Mass/Vol] 180 mg/dL Normal [facility] Comment on above: Performed By: #### A 1C #### [facility] [address] [address] [address] Linda Duran HbA1c (Bld) [Mass fraction] 7.9 % Critically high 4.5-6.2 [facility] Comment on above: Performed By: #### A 1C #### [facility] [address] [place] [address] Dr. Linda Duran LIPID PROFILEon 03-13-2022 CHOL-HDL RATIO NORM SEE BELOW Normal [facility] Comment on above: Result Comment: 3.3 - 4.4 LOW RISK 4.4 - 7.1 AVERAGE RISK 7.1 - 11.0 MODERATE RISK >11.0 HIGH RISK Performed By: #### L IPID, CMP ####[facility] [address] [address]Dr. Linda Duran Cholesterol [Mass/Vol] 137 mg/dL Normal <=200 [facility] Comment on above: Performed By: #### L IPID, CMP ####[facility] [address] [address]Dr. Linda Duran Cholesterol in HDL [Mass/Vol] 22 mg/dL Critically low 40-60 [facility] Comment on above: Performed By: #### L IPID, CMP ####[facility] [address] [address]Dr. Gladystim Roger Cholesterol in LDL [Mass/Vol] 57.2 mg/dL Normal [facility] Comment on above: Performed By: #### L IPID, CMP ####[facility] [address] [address]Dr. Linda Duran Cholesterol.total/Ch olesterol in HDL [Mass ratio] 6.2 {ratio} Normal [facility] Comment on above: Performed By: #### L IPID, CMP ####[facility] [address] [place], [place] [address]Dr. Linda Duran HDL NORMAL > or = 60 mg/dl - LOW CARDIOVASCULAR RISK <40 mg/dl - HIGH CARDIOVASCULAR RISK Normal [facility] Comment on above: Performed By: #### L IPID, CMP ####[facility] [address] [place], [place] [address]Dr. Linda Duran LDL CALC NORMAL SEE BELOW Normal [facility] Comment on above: Result Comment: <100 mg/dl OPTIMAL 100 - 129 mg/dl NEAR OR ABOVE OPTIMAL 130 - 159 mg/dl BORDERLINE HIGH 160 - 189 mg/dl HIGH >190 mg/dl VERY HIGH Performed By: #### L IPID, CMP ####[facility] [address] [address]Dr. Gladystim Duran Triglyceride [Mass/Vol] 289 mg/dL Critically high <=150 [facility] Comment on above: Performed By: #### L IPID, CMP ####[facility] [address] [address]Dr. Linda Duran VLDL CALC 57.8 mg/dL Normal [facility] Comment on above: Performed By: #### L IPID, CMP ####[facility] [address] [address]Dr. Linda Duran MICROALBUMIN, RAND URon 06-0 mALB 3.8 mg/L Normal <=30.0 [facility] Comment on above: Performed By: #### M ALBR ####[facility] [address] [address]Dr. Linda Duran PROF 14(COMP METB)on 022 Albumin [Mass/Vol] 4.3 g/dL Normal 3.4-5.0 [facility] Comment on above: Performed By: #### L IPID, CMP ####[facility] [address] [address]Dr. Linda uDran Albumin/Globulin [Mass ratio] 1.3 {ratio} Normal [facility] Comment on above: Performed By: #### L IPID, CMP ####[facility] [address] [place], [place] [address]Dr. Linda Duran ALP [Catalytic activity/Vol] 78 U/L Normal 46-116 [facility] Comment on above: Performed By: #### L IPID, CMP ####[facility] [address] [place], [place] [address]Dr. Linda Duran ALT [Catalytic activity/Vol] 56 U/L Normal 16-63 [facility] Comment on above: Performed By: #### L IPID, CMP ####[facility] [address] [address]Dr. Linda Duran Anion gap [Moles/Vol] 14.1 mmol/L Normal [facility] Comment on above: Performed By: #### L IPID, CMP ####[facility] [address] [address]Dr. Linda Duran AST [Catalytic activity/Vol] 40 U/L Critically high 15-37 [facility] Comment on above: Performed By: #### L IPID, CMP ####[facility] [address] [place], [place] [address]Dr. Linda Duran Calcium [Mass/Vol] 8.5 mg/dL Normal 8.5-10.1 [facility] Comment on above: Performed By: #### L IPID, CMP ####[facility] [address] [place], [place] [address]Dr. Linda Duran Chloride [Moles/Vol] 101 mmol/L Normal 98-107 [facility] Comment on above: Performed By: #### L IPID, CMP ####[facility] [address] [place], [place] [address]Dr. Gladystim Roger CO2 [Moles/Vol] 24.9 mmol/L Normal 21.0-32.0 [facility] Comment on above: Performed By: #### L IPID, CMP ####[facility] [address] [place], [place] [address]Dr. Linda Duran Creatinine [Mass/Vol] 0.95 mg/dL Normal 0.70-1.30 [facility] Comment on above: Performed By: #### L IPID, CMP ####[facility] [address] [place], [place] [address]Dr. Linda Duran EGFR-AF KITTITIAN >60 Normal >=60 [facility] Comment on above: Performed By: #### L IPID, CMP ####[facility] [address] [place], [place] [address]Dr. Linda Duran EGFR-NON AF KITTITIAN >60 Normal >=60 [facility] Comment on above: Performed By: #### L IPID, CMP ####[facility] [address] [place], [place] [address]Dr. Linda Duran Globulin (S) [Mass/Vol] 3.3 g/dL Normal [facility] Comment on above: Performed By: #### L IPID, CMP ####[facility] [address] [place], [place] [address]Dr. Linda Duran Glucose [Mass/Vol] 194 mg/dL Critically high 74-106 T [facility] Comment on above: Performed By: #### L IPID, CMP ####[facility] [address] [place], [place] [address]Dr. Linda Duran Potassium [Moles/Vol] 4.0 mmol/L Normal 3.5-5.1 [facility] Comment on above: Performed By: #### L IPID, CMP ####[facility] [address] [address]Dr. Linda Duran Protein [Mass/Vol] 7.6 g/dL Normal 6.4-8.2 [facility] Comment on above: Performed By: #### L IPID, CMP ####[facility] [address] [address]Dr. Linda Duran Sodium [Moles/Vol] 136 mmol/L Normal 136-145 [facility] Comment on above: Performed By: #### L IPID, CMP ####[facility] [address] [address]Dr. Linda Duran Urea nitrogen [Mass/Vol] 25.0 mg/dL Critically high 7.0-18.0 [facility] Comment on above: Performed By: #### L IPID, CMP ####[facility] [address] [place], [place] [address]Dr. Linda Duran Urea nitrogen/Creatinine [Mass ratio] 26.3 mg/mg Normal [facility] Comment on above: Performed By: #### L IPID, CMP ####[facility] [address] [place], [place] [address]Dr. Linda Duran Vital Signs Date Time Vital Sign Value Performing Clinician Facility 03-12-2024 15:43-0400 Body height 180.34 cm [facility] 03-12-2024 15:43-0400 Body mass index (BMI) [Ratio] 34.9 kg/m2 [facility] 03-12-2024 15:43-0400 Body weight 113.45 kg [facility] 03-12-2024 15:43-0400 Diastolic blood pressure 87 mm[Hg] [facility] 03-12-2024 15:43-0400 Heart rate 66 /min [facility] 03-12-2024 15:43-0400 Respiratory rate 12 /min [facility] 03-12-2024 15:43-0400 Systolic blood pressure 144 mm[Hg] [facility] 10-24-2023 15:30-0500 Body height 180.34 cm Ishmael Ball Other [facility] Other 10-24-2023 15:30-0500 Body mass index (BMI) [Ratio] 34.53 kg/m2 Ishmael Ball Other [facility] Other 10-24-2023 15:30-0500 Body weight 112.31 kg Ishmael Ball Other [facility] Other 10-24-2023 15:30-0500 Diastolic blood pressure 84 mm[Hg] Ishmael Ball Other [facility] Other 10-24-2023 15:30-0500 Respiratory rate 12 /min Ishmael Ball Other [facility] Other 10-24-2023 15:30-0500 Systolic blood pressure 138 mm[Hg] Ishmael Ball Other [facility] Other 07-11-2023 15:30-0400 Body height 180.34 cm Ishmael Ball Other [facility] Other 07-11-2023 15:30-0400 Body mass index (BMI) [Ratio] 34.86 kg/m2 Ishmael Ball Other [facility] Other 07-11-2023 15:30-0400 Body weight 113.4 kg Ishmael Ball Other [facility] Other 07-11-2023 15:30-0400 Diastolic blood pressure 84 mm[Hg] Ishmael Ball Other [facility] Other 07-11-2023 15:30-0400 Respiratory rate 12 /min Ishmael Ball Other [facility] Other 07-11-2023 15:30-0400 Systolic blood pressure 135 mm[Hg] Ishmael Ball Other [facility] Other 03-08-2023 15:30-0400 Body height 180.34 cm Ishmael Ball Other [facility] Other 03-08-2023 15:30-0400 Body mass index (BMI) [Ratio] 35.06 kg/m2 Ishmael Ball Other [facility] Other 03-08-2023 15:30-0400 Body weight 114.04 kg Ishmael Ball Other [facility] Other 03-08-2023 15:30-0400 Diastolic blood pressure 82 mm[Hg] Ishmael Ball Other [facility] Other 03-08-2023 15:30-0400 Respiratory rate 12 /min Ishmael Ball Other [facility] Other 03-08-2023 15:30-0400 Systolic blood pressure 142 mm[Hg] Ishmael Ball Other [facility] Other 11-02-2022 16:30-0500 Body height 180.34 cm Ishmael Ball Other [facility] Other 11-02-2022 16:30-0500 Body mass index (BMI) [Ratio] 35.17 kg/m2 Ishmael Ball Other [facility] Other 11-02-2022 16:30-0500 Body weight 114.4 kg Ishmael Ball Other [facility] Other 11-02-2022 16:30-0500 Diastolic blood pressure 70 mm[Hg] Ishmael Ball Other [facility] Other 11-02-2022 16:30-0500 Respiratory rate 12 /min Ishmael Ball Other [facility] Other 11-02-2022 16:30-0500 Systolic blood pressure 122 mm[Hg] Ishmael Ball Other [facility] Other 02-15-2022 14:38-0400 Blood Pressure Location Reba Lue [facility] 02-15-2022 14:38-0400 Diastolic blood pressure 78 mm[Hg] Reba Lue [facility] [place] 02-15-2022 14:38-0400 Heart rate 72 /min [facility] 02-15-2022 14:38-0400 Respiratory rate 16 /min Reba Lue [facility] [place] 02-15-2022 14:38-0400 Systolic blood pressure 130 mm[Hg] [facility] En[facility] Encounter Date Encounter Type Care Provider Facility Start: 10-26-2024 ambulatory Reba Larios [facility] Start: 03-12-2024 End: 03-12-2024 ambulatory [facility] Work Phone: Start: 03-12-2024 End: 03-12-2024 Encounter for general adult medical examination without abnormal findings [facility] Start: 03-12-2024 End: 03-12-2024 Patient encounter procedure [facility] Work Phone: Start: 12-19-2023 Non-patient / Non-visit [facility] Work Phone: Start: 11-21-2023 End: 11-21-2023 ambulatory Ishmael Jacob Other [facility] Other Start: 11-21-2023 Telephone encounter Ishmael RICARDO [facility] Start: 11-16-2023 End: 11-16-2023 ambulatory Ishmael Jacob Other [facility] Other Start: 11-16-2023 Telephone encounter Ishmael RICARDO G [facility] Start: 11-10-2023 ambulatory [facility] Start: 11-03-2023 End: 11-04-2023 ambulatory Valentina X Orzech Facility:[facility] Start: 11-03-2023 End: 11-03-2023 Lab Drop off Valentina X Orzech [facility] Start: 11-03-2023 End: 11-03-2023 Patient encounter procedure Valentina X Orzech [facility] Start: 10-31-2023 End: 10-31-2023 ambulatory Ishmael Jacob Other [facility] Other Start: 10-31-2023 Telephone encounter Ishmael RICARDO G [facility] Start: 10-24-2023 End: 10-24-2023 ambulatory Ishmael Jacob Other [facility] Other Start: 10-24-2023 Office outpatient vi sit 25 minutes Ishmael Jacob [facility] Start: 09-05-2023 ambulatory Reba Larios Facility:[facility] Start: 08-23-2023 End: 08-23-2023 ambulatory Ishmael Jacob Other [facility] Other Start: 08-23-2023 Telephone encounter Ishmael RICARDO [facility] Start: 07-11-2023 End: 07-11-2023 ambulatory Ishmael Jacob Other [facility] Other Start: 07-11-2023 Office outpatient vi sit 25 minutes Ishmael Jacob [facility] Start: 05-24-2023 End: 05-24-2023 ambulatory [facility] Start: 04-05-2023 End: 04-05-2023 ambulatory Ishmael Jacob Other [facility] Other Start: 04-05-2023 Telephone encounter Ishmael RICARDO [facility] Start: 03-08-2023 End: 03-08-2023 ambulatory Ishmael Jacob Other [facility] Other Start: 03-08-2023 Encounter for genera l adult medical examination without abnormal findings Ishmael Jacob [facility] Start: 03-08-2023 Periodic preventive med est patient 40-64yrs Ishmael Jacob [facility] Start: 03-01-2023 End: 03-01-2023 ambulatory [facility] Start: 02-10-2023 End: 02-10-2023 ambulatory [facility] Start: 02-07-2023 End: 02-07-2023 ambulatory Ishmael Jacob Other [facility] Other Start: 02-07-2023 Telephone encounter Ishmael RICARDO [facility] Start: 02-04-2023 End: 02-05-2023 [facility] Start: 01-10-2023 End: 01-10-2023 ambulatory [facility] Start: 12-28-2022 End: 12-28-2022 ambulatory Ishmael Jacob Other [facility] Other Start: 12-28-2022 Telephone encounter Ishmael Jacob FP [facility] Start: 12-20-2022 End: 12-20-2022 ambulatory Ishmael Jacob Other [facility] Other Start: 12-20-2022 Telephone encounter Ishmael Cecil [facility] Start: 12-16-2022 End: 12-17-[address] ISHMAEL JACOB Facility:[facility] Start: 12-14-2022 End: 12-14-2022 ambulatory Ishmael Jacob Other [facility] Other Start: 12-14-2022 Telephone encounter Ishmael Cecil [facility] Start: 12-08-2022 End: 12-08-2022 ambulatory Ishmael Jacob Other [facility] Other Start: 12-08-2022 Telephone encounter Ishmael Jacob [facility] Start: 12-07-2022 End: 12-08-[address] ISHMAEL JACOB Facility:[facility] Start: 11-25-2022 End: 11-25-2022 ambulatory Ishmael Jacob Other [facility] Other Start: 11-25-2022 Telephone encounter Ishmael Cecil [facility] Start: 11-23-2022 End: 11-23-2022 ambulatory Ishmael Jacob Other [facility] Other Start: 11-23-2022 Telephone encounter Ishmael Cecil FP [facility] Start: 11-06-2022 End: 11-07-[address] ISHMAEL JACOB Facility:[facility] Start: 11-02-2022 End: 11-02-2022 ambulatory Ishmael Jacob Other [facility] Other Start: 11-02-2022 Office outpatient vi sit 25 minutes Ishmael Jacob [facility] Start: 10-22-2022 Patient encounter status Ishmael Jacob Other [facility] Other Start: 06-19-2022 End: 06-20-2022 ambulatory REBA LARIOS . Facility:[facility] Start: 03-18-2022 Encounter for genera l adult medical examination without abnormal findings DR ISHMAEL JACOB [facility] Start: 03-13-2022 End: 03-14-[address] ISHMAEL JACOB Facility:[facility] Start: 03-13-2022 End: 03-14-2022 Encounter for general adult medical examination without abnormal findings DR ISHMAEL JACOB Facility:[facility] Start: 02-15-2022 End: 02-15-2022 Patient encounter procedure Reba McfaddenPrabhu Santosmargaret [facility] Start: 05-30-2017 End: 05-31-2017 Ambulatory DEFAULT PHYSICIAN Facility:[facility] Procedures Date Procedure Procedure Detail Performing Clinician Start: 03-13-2022 PSA screening LENA HAUSER Comment on above: Performed By: #### P [facility] #### [facility] [address] [place] [address] Dr. Linda Duran Start: 05-10-2015 Extracorporeal shock wave lithotripsy of tendon using ultrasound guidance Reba Larios Start: 11-18-2010 History of repair of inguinal hernia Reba Larios Start: 05-04-2006 Placement of stent i n cardiac conduit Reba Larios Cardiac catheterization Auro ra Garcia Plan of Treatment Date Care Activity Detail Author Comprehensive metabo lic 2000 panel - Serum or Plasma [facility] enter Microalbumin [Mass/volume] in Urine [facility] Immunizations Immunization Date Immunization Notes Care Provider Fa megan 09-04-2023 influenza virus vaccine, unspecified formulation Valentina Garcia [facility] 06-24-2022 COVID-19 Pfizer (bivalent) Ishmael Jacob Other [facility] 06-24-2022 COVID-19 Vaccine Pfi zer - Documentation Purposes Only Ishmael Jacob Other [facility] 06-24-2022 influenza virus vaccine, split virus (incl. purified surface antigen) Ishmael Jacob Other [facility] Other 06-24-2022 influenza virus vaccine, unspecified formulation Valentina Orzech [facility] 06-24-2022 influenza, injectabl e, quadrivalent, preservative free Ishmael Jacob Other [facility] 08-31-2021 COVID-19 Vaccine Pfi zer - Documentation Purposes Only Ishmael Jacob Other [facility] 08-12-2021 influenza virus vaccine, unspecified formulation Valentina Orzech [facility] 12-19-2020 COVID-19 Vaccine Johana - Documentation Purposes Only Ishmael Jacob Other [facility] 07-02-2020 influenza virus vaccine, unspecified formulation Valentina Orzech [facility] Payers Date Payer Category Payer Private Health Insurance [id number] 1960 Unknown [id number] 1960 Unknown [id number] 1960 Unknown [id number] 1960 Unknown [id number] 1960 Unknown [id number] 1960 Unknown [id number] 1960 Unknown [id number] 1960 Unknown [id number] 1960 Unknown [id number] 1960 Unknown [id number] 1959 Private Health Insurance [id number] Private Health Insurance [id number] Unknown Unknown Other1 (STD) . [id number] Social History Date Type Detail Facility Start: 02-15-2022 End: 11-03-2023 Tobacco smoking status Never smoked tobacco (finding) [facility] Tobacco smoking status Never [facility] Sex Assigned At Male [facility] Start: 1960 Sex Assigned At Male F [facility] Medical Equipment Procedure Code Equipment Code Equipment Original Text Equi pment Identifier Dates Functional Status Date Assessment Result Facility 11-03-2023 Functional Status N/A [facility] Clinical Notes 02-15-2022 to 11-21-2023 Note Date & Type Note Facility 11-21-2023 Evaluation note Encounter Date Diagnosis Assessment Notes Nov, Hyperlipidemi a, mixed (ICD-10 - E78.2) Nov, Type 2 diabetes mellitus with hyperglycemia , without long-term current use of insulin (ICD-10 - E11.65) Nov, ASHD (arterioscler otic heart disease) (ICD-10 - I25.10) [facility] w/ 60% OM - 02/2023 [facility] Other 02-07-2024 Evaluation note* Encounter Date Diagnosis Assessment Notes Treatment Notes Treatment Clinical Notes Nov, Primary hypertension (ICD-10 - I10) [facility] Other 02-02-2024 NoteContinue toprol, no concenring symptoms, palpitations, near syncope or syncope and pt remains quite active [facility] NoteContinue lopid and [facility]-2024 NoteHypertension is well controlled 129/80 Continue lotensin, hydrochlorothiazide and toprolUn[facility]ctors [facility]02-02-2024 NoteCoronary artery disease is stable without concerning symptoms Continue GDMT- ASA, toprol, crestor continue risk factor modifications- heart healthy diet, regular exercise as tolerated and continue all medications.[facility] 11-10-2023 NotePatient here for 6 mo follow up CAD, hypertension, and NSVT. Denies chest pain, SOB, palpitations, and lightheadedness/syncope. Doing very well. Review of Systems All other systems reviewed and are negative.[facility] 11-10-2023 NoteUTP CARDIOLOGY PROGRESS NOTE HPI: Chely Meyer is a 63 y.o. male here for abnormal stress ECG NSVT, hx of LAD stent, recent cardiac cath HPI 62 y.o. year old with past medical history of CAD s/p LAD stent, LKN, recent stress test with NSVT during treadmill portion, history of PVC and NSVT which has been resolved since cath in 2005, abnormal stress test 2010 was normal cath and patent LAD stent. He has had recent TALAMANTES and had a stress test done by her PCP where he went into an NSVT during the exercise portion but abnormal perfusion study. Denies chest pain, SOB, palpitations, and lightheadedness/syncope. Doing very well. Review of Systems All other systems reviewed and are negative. Previous HPI per Dr Steven Reason for visit: PVC/NSVT HPI: Chely Meyer is a 62 y.o. year old with past medical history of CAD s/p LAD stent, LKN, recent stress test with NSVT during treadmill portion, history of PVC and NSVT which has been resolved since cath in 2005, abnormal stress test 2010 was normal cath and patent LAD stent. He has had recent TALAMANTES and had a stress test done by her PCP where he went into an NSVT during the exercise portion but abnormal perfusion study. He has been feeling palpitations more with lightheadedness. Concern is that his PVC and NSVT have returned. He underwent cath showed new stenosis of OM 60%, no intervention required. Patient states he has felt well and has had no symptoms since his stress test. He denies any chest pain, SOB, TALAMANTES, lightheadedness, dizziness. Started low dose crestor post cath - tolerating well, states he think he had mild cramps one day but has not felt anything since. 7-day event monitor March 2023 reveals no evidence of nonsustained VT but occasional PVCs with burden close to 3% No evidence of A-fib but Occasional nonsustained AT of 3-4 beats Previous HPI [address] mallory 2005 had abnormal stress had nsvt on stress with no ischemia cath showed lad lesion with stenting In 2010 had normal treadmill stress with abnormal nuclear and had hypertensive response to excercise cath in oct 2011 showed normal rca and cirx with patent stent stress false positive Now with no symptoms and stress done as routine Excercised 8 mins he had no ischemic ekg changes but ventricular ectopy at excercise including a couplet and single pvc's 10 mets 82 % of mphr NO cp test terminated due to pvc's craig treadmill score of 8 Nuclear reviewed reported as improved from 2011 In summary he had stent in 2005 He had stress in 2010 that nuclear abnormal and cath normal Now with no symptoms and improved nuclear with no cp and no ekg changes on stress that was submaximal but close to 85% mphr and pvc;s He is asymptomatic and does regular heavy work with absolutely no symptoms takes asa and b yaquelin and ccb/stephani Statin intolerant Given all the data I do not feel compelled to recommend repeat angiography at this point I think he should stop his diuretic as he is getting some pre renal and sweats alot doing regular heavy work in heat He will contact urologist who put him on it We can then increase his b yaquelin If he gets symptoms this would change Visit Vitals BP 129/80 (BP Location: Left arm, Patient Position: Sitting) Pulse 71 Ht 1.854 m (6' 1 ) Wt 112 kg (248 lb) SpO2 96% BMI 32.72 kg/m??? Smoking Status Never BSA 2.4 m??? Allergies Allergen Reactions Mjixpos-Sjp-Rig Reductase Inhibitors Medications: Current Outpatient Medications on File Prior to Visit Medication Sig Dispense Refill amLODIPine-benazepriL (Lotrel) 10-20 mg capsule 1 capsule in the morning. aspirin 81 mg EC tablet in the morning. benazepril (Lotensin) 10 mg tablet Take 10 mg by mouth in the morning. gemfibrozil (Lopid) 600 mg tablet Take 600 mg by mouth in the morning and at bedtime. hydroCHLOROthiazide (HYDRODiuril) 25 mg tablet Take 25 mg by mouth in the morning. metFORMIN (Glucophage) 1,000 mg tablet every 12 (twelve) hours. metoprolol succinate XL (Toprol-XL) 25 mg 24 hr tablet metoprolol succinate ER 25 mg tablet,extended release 24 hr omega 1-yrc-wkq-fish oil (Fish OiL) 100-160-1,000 mg capsule Fish Oil 1200mg BID rosuvastatin (Crestor) 10 mg tablet Take 1 tablet (10 mg) by mouth in the morning. 90 tablet 3 semaglutide (OZEMPIC SUBQ) Ozempic tamsulosin (Flomax) 0.4 mg 24 hr capsule tamsulosin 0.4 mg capsule [DISCONTINUED] OneTouch Delica Plus Lancet 33 gauge misc USE TO TEST BLOOD SUGAR ONCE DAILY [DISCONTINUED] OneTouch Ultra Test strip No current facility-administered medications on file prior to visit. Physical Exam: Constitutional: Appearance: Normal appearance. Without apparent distress HENT: Head: Normocephalic and atraumatic. Nose: Nose normal. Mouth/Throat: Mouth: Mucous membranes are moist. Eyes: Extraocular Movements: Extraocular movements intact. Conjunctiva/sclera: Conjunct (more content not included)...[facility]01-15-2024 Evaluation note* Encounter Date Diagnosis Assessment Notes Treatment Notes Treatment Clinical Notes Oct, Type 2 diabetes mellitus with hyperglycemia, without long-term current use of insulin (ICD-10 - E11.65) This patient is following a comprehensive diabetic treatment plan. They are checking their feet daily for calluses and nonhealing ulcers. They are being seen for yearly dilated eye examinations. Goals: SBP less than 130, LDL less than 100, FBS less than 140, A1C less than 7%. They are checking their BS daily, will which are reviewed at the office visit. Continue regular routine monitoring of A1C,] Microalbumin, Dilated eye exam and Foot exam Oct, ASHD (arteriosclerotic heart disease) (ICD-10 - I25.10) [facility] w/ 60% OM - 02/2023 This patient is stable without activity related CP, dyspnea or lightheadedness. They are instructed to continue exercise and AHA diet plan. Continue secondary prevention measures. [facility] w/ 60% OM - medically treated - denies CP, palpitations or SOB f/u Cardiology Oct, Primary hypertension (ICD-10 - I10) This patient is instructed to consume a healthy, low-fat, low-salt diet. They are also encouraged to continue exercise to achieve/maintain a normal BMI. Oct, NSVT (nonsustained ventricular tachycardia) (ICD-10 - I47.29) Denies palpitations or lightheadedness. No hx of syncope. Completed evaluation 02/2023 - normal LVEF - abnormal stress w/ increased PVC, brief run of NSVT - [facility] w/ 60% OM stenosis, medically treated f/u cardiology Oct, Hyperlipidemia, mixe d (ICD-10 - E78.2) Instructed on diet and exercise with continued statin therapy.Discussed the beneficial effects of lowering cholesterol in reducing the risk for cerebrovascular and cardiovascular disease. Oct, Nephrolithiasis (ICD-10 - N20.0) No s/s ureteral stones. Push fluids, avoid pop Oct, Benign prostatic hyperplasia with lower urinary tract symptoms (ICD-10 - N40.1) Symptoms tolerable Oct, Nocturia (ICD-10 - R35.1) Oct, Other obesity due to excess calories (ICD-10 - E66.09) This patient has been instructed on a low-fat, high-fiber diet. They are instructed to reduce calories, portion sizes and snacks. It is recommended that they exercise for 30 minutes, 3-5 times weekly. Oct, Body mass index [BMI ] 34.0-34.9, adult (ICD-10 - Z68.34) [facility] Other 11-14-2023 Evaluation note* Encounter Date Diagnosis Assessment Notes Treatment Notes Treatment Clinical Notes Aug, Type 2 diabetes mellitus with hyperglycemia, without long-term current use of insulin (ICD-10 - E11.65) [facility] Other 10-23-2023 Hospital Discharge instructions Follow Up Care 08/01/2023 16:05:53 With:Ric MAY, TERRENCE Childs, URO Address: [address] [place], [place] [address] [address]- [phone] When: Unknown [facility] Sergio 10-02-2023 Evaluation note* Encounter Date Diagnosis Assessment Notes Treatment Notes Treatment Clinical Notes Jul, Type 2 diabetes mellitus with hyperglycemia, without long-term current use of insulin (ICD-10 - E11.65) This patient is following a comprehensive diabetic treatment plan. They are checking their feet daily for calluses and nonhealing ulcers. They are being seen for yearly dilated eye examinations. Goals: SBP less than 130, LDL less than 100, FBS less than 140, A1C less than 7%. They are checking their BS daily, will which are reviewed at the office visit. Continue regular routine monitoring of A1C,] Microalbumin, Dilated eye exam and Foot exam Increase Ozempic to 1mg weekly Jul, ASHD (arteriosclerotic heart disease) (ICD-10 - I25.10) This patient is stable without activity related CP, dyspnea or lightheadedness. They are instructed to continue exercise and AHA diet plan. Continue secondary prevention measures. Jul, Primary hypertension (ICD-10 - I10) This patient is instructed to consume a healthy, low-fat, low-salt diet. They are also encouraged to continue exercise to achieve/maintain a normal BMI. Jul, NSVT (nonsustained ventricular tachycardia) (ICD-10 - I47.29) Completed holter monitor w/ 2% premature beats. He was completely evaluated by cardiology after having NSVT during stress testing. [facility] w/ 60% narrowing with no intervention. Avoid stimulants, hydrate Jul, Hyperlipidemia, mixe d (ICD-10 - E78.2) Instructed on diet and exercise with continued statin therapy.Discussed the beneficial effects of lowering cholesterol in reducing the risk for cerebrovascular and cardiovascular disease. Jul, Nephrolithiasis (ICD-10 - N20.0) Left sided nephrolithiasis w/o obstruction Push fluids. Avoid Ca supplements. Jul, Benign prostatic hyperplasia with lower urinary tract symptoms (ICD-10 - N40.1) Symptoms tolerable Yearly JOIE and PSA Jul, Nocturia (ICD-10 - R35.1) Jul, Other obesity due to excess calories (ICD-10 - E66.09) This patient has been instructed on a low-fat, high-fiber diet. They are instructed to reduce calories, portion sizes and snacks. It is recommended that they exercise for 30 minutes, 3-5 times weekly. Jul, Body mass index [BMI ] 34.0-34.9, adult (ICD-10 - Z68.34) [facility] Other 08-15-2023 NoteUT Electrophysiology Consult Note Reason for visit: PVC/NSVT HPI: Chely Meyer is a 62 y.o. year old with past medical history of CAD s/p LAD stent, LKN, recent stress test with NSVT during treadmill portion, history of PVC and NSVT which has been resolved since cath in 2005, abnormal stress test 2010 was normal cath and patent LAD stent. He has had recent TALAMANTES and had a stress test done by her PCP where he went into an NSVT during the exercise portion but abnormal perfusion study. He has been feeling palpitations more with lightheadedness. Concern is that his PVC and NSVT have returned. He underwent cath showed new stenosis of OM 60%, no intervention required. Patient states he has felt well and has had no symptoms since his stress test. He denies any chest pain, SOB, TALAMANTES, lightheadedness, dizziness. Started low dose crestor post cath - tolerating well, states he think he had mild cramps one day but has not felt anything since. 7-day event monitor March 2023 reveals no evidence of nonsustained VT but occasional PVCs with burden close to 3% No evidence of A-fib but Occasional nonsustained AT of 3-4 beats Previous HPI [address] mallory 2005 had abnormal stress had nsvt on stress with no ischemia cath showed lad lesion with stenting In 2010 had normal treadmill stress with abnormal nuclear and had hypertensive response to excercise cath in oct 2011 showed normal rca and cirx with patent stent stress false positive Now with no symptoms and stress done as routine Excercised 8 mins he had no ischemic ekg changes but ventricular ectopy at excercise including a couplet and single pvc's 10 mets 82 % of mphr NO cp test terminated due to pvc's craig treadmill score of 8 Nuclear reviewed reported as improved from 2011 In summary he had stent in 2005 He had stress in 2010 that nuclear abnormal and cath normal Now with no symptoms and improved nuclear with no cp and no ekg changes on stress that was submaximal but close to 85% mphr and pvc;s He is asymptomatic and does regular heavy work with absolutely no symptoms takes asa and b yaquelin and ccb/stephani Statin intolerant Given all the data I do not feel compelled to recommend repeat angiography at this point I think he should stop his diuretic as he is getting some pre renal and sweats alot doing regular heavy work in heat He will contact urologist who put him on it We can then increase his b yaquelin If he gets symptoms this would change PMH: Past Medical History: Diagnosis Date Coronary artery disease Diabetes mellitus (CMS/HCC) Hyperlipidemia Hypertension PVC (premature ventricular contraction) PSH: Past Surgical History: Procedure Laterality Date CARDIAC CATHETERIZATION CORONARY STENT PLACEMENT HERNIA REPAIR KIDNEY STONE SURGERY SH: Social Determinants of Health Tobacco Use: Low Risk (05/24/2023) Patient History Smoking Tobacco Use: Never Smokeless Tobacco Use: Never Passive Exposure: Not on file Alcohol Use: Not on file Financial Resource Strain: Not on file Food Insecurity: Not on file Transportation Needs: Not on file Physical Activity: Not on file Stress: Not on file Social Connections: Not on file Intimate Partner Violence: Not on file Depression: Not on file Housing Stability: Not on file Allergies: Allergies Allergen Reactions Kijazzx-Lxw-Avi Reductase Inhibitors Weight: 112kg Visit Vitals BP 116/73 (BP Location: Left arm, Patient Position: Sitting, BP Cuff Size: Large adult) Pulse 63 Ht 1.854 m (6' 1 ) Wt 112 kg (246 lb 3.2 oz) SpO2 95% BMI 32.48 kg/m??? Smoking Status Never BSA 2.4 m??? Meds: Current Outpatient Medications on File Prior to Visit Medication Sig Dispense Refill amLODIPine-benazepriL (Lotrel) 10-20 mg capsule 1 capsule in the morning. aspirin 81 mg EC tablet in the morning. benazepril (Lotensin) 10 mg tablet Take 10 mg by mouth in the morning. gemfibrozil (Lopid) 600 mg tablet Take 600 mg by mouth in the morning and at bedtime. hydroCHLOROthiazide (HYDRODiuril) 25 mg tablet Take 25 mg by mouth in the morning. metFORMIN (Glucophage) 1,000 mg tablet every 12 (twelve) hours. metoprolol succinate XL (Toprol-XL) 25 mg 24 hr tablet metoprolol succinate ER 25 mg tablet,extended release 24 hr omega 4-hlb-fxq-fish oil (Fish OiL) 100-160-1,000 mg capsule Fish Oil 1200mg BID OneTouch Delica Plus Lancet 33 gauge misc USE TO TEST BLOOD SUGAR ONCE DAILY OneTouch Ultra Test strip rosuvastatin (Crestor) 10 mg tablet Take 1 tablet (10 mg) by mouth in the morning. 90 tablet 3 semaglutide (OZEMPIC SUBQ) Ozempic tamsulosin (Flomax) 0.4 mg 24 hr capsule tamsulosin 0.4 mg capsule No current facility-administered medications on file prior to visit. ROS: Cardio Basic Cardiovascular Symptoms: no lightheadedness, no leg edema, no syncope, (more content not included)...[facility]06-27-2023 Evaluation note* Encounter Date Diagnosis Assessment Notes Treatment Notes Treatment Clinical Notes Mar, Type 2 diabetes mellitus with hyperglycemia, without long-term current use of insulin (ICD-10 - E11.65) [facility] Other 05-30-2023 Evaluation note* Encounter Date Diagnosis Assessment Notes Treatment Notes Treatment Clinical Notes February, Wellness examination (ICD-10 - Z00.00) Healthy diet and exercise. Reviewed age-appropriate preventive testing recommended. February, Type 2 diabetes mellitus with hyperglycemia, without long-term current use of insulin (ICD-10 - E11.65) This patient is following a comprehensive diabetic treatment plan. They are checking their feet daily for calluses and nonhealing ulcers. They are being seen for yearly dilated eye examinations. Goals: SBP less than 130, LDL less than 100, FBS less than 140, AC and A1C less than 7%. They are checking their BS daily, will which are reviewed at the office visit. Continue regular routine monitoring of A1C,] Microalbumin, Dilated eye exam and Foot exam February, Primary hypertension (ICD-10 - I10) This patient is instructed to consume a healthy, low-fat, low-salt diet. They are also encouraged to continue exercise to achieve/maintain a normal BMI. Patient is instructed on home BP measurements: - rest for 5 minutes w/o talking- positioned w/ feet on floor and arm supported- average best 2/3 readings w/ goal < 135-85 February, Hyperlipidemia, mixed (ICD-10 - E78.2) Instructed on diet and exercise with continued statin therapy.Discussed the beneficial effects of lowering cholesterol in reducing the risk for cerebrovascular and cardiovascular disease. February, ASHD (arteriosclerotic heart disease) (ICD-10 - I25.10) This patient is stable without activity related CP, dyspnea or lightheadedness. They are instructed to continue exercise and AHA diet plan. February, NSVT (nonsustained ventricular tachycardia) (ICD-10 - I47.29) Holter being ordered w/ f/u in Cardiology Clinic February, Screening PSA (prostate specific antigen) (ICD-10 - Z12.5) Yearly JOIE and PSA [facility] Other 05-23-2023 NotePatient is here today to follow up on a heart cath Review of Systems All other systems reviewed and are negative.[facility] 03-01-2023 NoteUT Electrophysiology Consult Note Reason for visit: abnormal stress ECG NSVT, hx of LAD stent, follow up heart cath HPI: here for follow up of heart cath Heart cath showed new stenosis of OM 60%, no intervention required. Patient states he has felt well and has had 0 symptoms since his stress test. He denies any chest pain, SOB, TALAMANTES, lightheadedness, dizziness. Started low dose crestor post cath - tolerating well, states he think he had mild cramps one day but has not felt anything since 01/10/23 HPI: Chely Meyer is a 62 y.o. year old with past medical history of CAD s/p LAD stent, LKN, recent stress test with NSVT during treadmill portion, history of PVC and NSVT which has been resolved since cath in 2005, abnormal stress test 2010 was normal cath and patent LAD stent. He has had recent TALAMANTES and had a stress test done by her PCP where he went into an NSVT during the exercise portion but abnormal perfusion study. He has been feeling palpitations more with lightheadedness. Concern is that his PVC and NSVT have returned. I discussed with him what to do a left heart cath to rule out ischemia as the cause otherwise we can consider EP study with possible PVC/VT ablation. Patient is agreeable to plan. Denies chest pain, orthopnea, LE edema. Previous HPI [address] mallory 2005 had abnormal stress had nsvt on stress with no ischemia cath showed lad lesion with stenting In 2010 had normal treadmill stress with abnormal nuclear and had hypertensive response to excercise cath in oct 2011 showed normal rca and cirx with patent stent stress false positive Now with no symptoms and stress done as routine Excercised 8 mins he had no ischemic ekg changes but ventricular ectopy at excercise including a couplet and single pvc's 10 mets 82 % of mphr NO cp test terminated due to pvc's craig treadmill score of 8 Nuclear reviewed reported as improved from 2011 In summary he had stent in 2005 He had stress in 2010 that nuclear abnormal and cath normal Now with no symptoms and improved nuclear with no cp and no ekg changes on stress that was submaximal but close to 85% mphr and pvc;s He is asymptomatic and does regular heavy work with absolutely no symptoms takes asa and b yaquelin and ccb/stephani Statin intolerant Given all the data I do not feel compelled to recommend repeat angiography at this point I think he should stop his diuretic as he is getting some pre renal and sweats alot doing regular heavy work in heat He will contact urologist who put him on it We can then increase his b yaquelin If he gets symptoms this would change PMH: Past Medical History: Diagnosis Date Coronary artery disease Diabetes mellitus (CMS/HCC) Hyperlipidemia Hypertension PVC (premature ventricular contraction) PSH: Past Surgical History: Procedure Laterality Date CARDIAC CATHETERIZATION CORONARY STENT PLACEMENT HERNIA REPAIR KIDNEY STONE SURGERY SH: Social Determinants of Health Tobacco Use: Low Risk Smoking Tobacco Use: Never Smokeless Tobacco Use: Never Passive Exposure: Not on file Alcohol Use: Not on file Financial Resource Strain: Not on file Food Insecurity: Not on file Transportation Needs: Not on file Physical Activity: Not on file Stress: Not on file Social Connections: Not on file Intimate Partner Violence: Not on file Depression: Not on file Housing Stability: Not on file Allergies: Allergies Allergen Reactions Slfgrdh-Tkx-Xvi Reductase Inhibitors Weight: No weight available Visit Vitals Smoking Status Never Meds: Current Outpatient Medications on File Prior to Visit Medication Sig Dispense Refill amLODIPine-benazepriL (Lotrel) 10-20 mg capsule 1 capsule in the morning. aspirin 81 mg EC tablet in the morning. benazepril (Lotensin) 10 mg tablet Take 10 mg by mouth in the morning. gemfibrozil (Lopid) 600 mg tablet Take 600 mg by mouth in the morning and at bedtime. hydroCHLOROthiazide (HYDRODiuril) 25 mg tablet Take 25 mg by mouth in the morning. metFORMIN (Glucophage) 1,000 mg tablet every 12 (twelve) hours. metoprolol succinate XL (Toprol-XL) 25 mg 24 hr tablet metoprolol succinate ER 25 mg tablet,extended release 24 hr omega 1-jqq-skd-fish oil (Fish OiL) 100-160-1,000 mg capsule Fish Oil 1200mg BID rosuvastatin (Crestor) 10 mg tablet Take 1 tablet (10 mg) by mouth in the morning. 90 tablet 3 semaglutide (OZEMPIC SUBQ) Ozempic tamsulosin (Flomax) 0.4 mg 24 hr capsule tamsulosin 0.4 mg capsule No current facility-administered medications on file prior to visit. ROS: Cardio Basic Cardiovascular Symptoms: no lightheadedness, no leg edema, no syncope, no orthopnea, no PND, no claudication, Constitutional Constitutional: no fever, no night sweats (more content not included)... [facility]05-04-2023 NotePatient: Chely Meyer Procedure Information Date/Time: 02/10/23 0830 Procedures: CORONARY ANGIOGRAPHY Left heart cath Location: [facility] / [facility] (Cath) Providers: Lena Isaac MD Clinical information reviewed: Allergies Meds Physical Exam Airway Mallampati: II Cardiovascular Dental Pulmonary Abdominal Anesthesia Plan ASA 3 other (moderate) Anesthetic plan and risks discussed with patient. Use of blood products discussed with patient who consented to blood products. Plan discussed with attending. [facility]* Encounter Date Diagnosis Assessment Notes Treatment Notes Treatment Clinical Notes February, Type 2 diabetes mellitus with hyperglycemia, without long-term current use of insulin (ICD-10 - E11.65) [facility] Other 04-20-2023 Note-will rule out worsening CAD, if negative we can consider [facility]-states he has been controlled, Do not have an A1C to reference -not on insulin, [facility] Note-hx of this which resolved with stent and managed with medications -with return of PVC and NSVT will need LHC to rule out additional ischemia consdering hx of LAD stent -if no new concerns for CAD will then [facility] with [facility]23 Note- Blood pressure is mildly elevated today -he will trend BP for me at home as he states he is typically not elevated -ct hydrochlorothiazide 25mg,amlodipine/benazapril 10-20mg, toprol xl 25mg [facility]04-20-2023 Note- Last heart cath 2011 patent LAD stent and otherwise normal coronaries -We will order left heart cath to rule out any additional ischemia and if left heart cath negative for anything new we will then proceed with PVC/VT ablation [facility]04-03-2023 NoteNew patient here to re- establish care. Ref from Dr. Jacob for NSVT. Patient was last seen by Dr. Mallory in Jul 2018.He had stress test last month and echo in Nov 2022. Denies chest pain, but states testing was ordered for SOB w/wo exertion. Review of Systems Cardiovascular: Positive for dyspnea on exertion. Respiratory: Positive for shortness of breath. All other systems reviewed and are negative.[facility] 01-10-2023 NoteUT Electrophysiology Consult Note Reason for visit: abnormal stress ECG NSVT, hx of LAD stent HPI: Chely Meyer is a 62 y.o. year old with past medical history of CAD s/p LAD stent, LKN, recent stress test with NSVT during treadmill portion, history of PVC and NSVT which has been resolved since cath in 2005, abnormal stress test 2010 was normal cath and patent LAD stent. He has had recent TALAMANTES and had a stress test done by her PCP where he went into an NSVT during the exercise portion but abnormal perfusion study. He has been feeling palpitations more with lightheadedness. Concern is that his PVC and NSVT have returned. I discussed with him what to do a left heart cath to rule out ischemia as the cause otherwise we can consider EP study with possible PVC/VT ablation. Patient is agreeable to plan. Denies chest pain, orthopnea, LE edema. Previous HPI [address] mallory 2005 had abnormal stress had nsvt on stress with no ischemia cath showed lad lesion with stenting In 2010 had normal treadmill stress with abnormal nuclear and had hypertensive response to excercise cath in oct 2011 showed normal rca and cirx with patent stent stress false positive Now with no symptoms and stress done as routine Excercised 8 mins he had no ischemic ekg changes but ventricular ectopy at excercise including a couplet and single pvc's 10 mets 82 % of mphr NO cp test terminated due to pvc's craig treadmill score of 8 Nuclear reviewed reported as improved from 2011 In summary he had stent in 2005 He had stress in 2010 that nuclear abnormal and cath normal Now with no symptoms and improved nuclear with no cp and no ekg changes on stress that was submaximal but close to 85% mphr and pvc;s He is asymptomatic and does regular heavy work with absolutely no symptoms takes asa and b yaquelin and ccb/stephani Statin intolerant Given all the data I do not feel compelled to recommend repeat angiography at this point I think he should stop his diuretic as he is getting some pre renal and sweats alot doing regular heavy work in heat He will contact urologist who put him on it We can then increase his b yaquelin If he gets symptoms this would change PMH: Past Medical History: Diagnosis Date Coronary artery disease Diabetes mellitus ([facility]) Hyperlipidemia Hypertension PVC (premature ventricular contraction) PSH: Past Surgical History: Procedure Laterality Date CARDIAC CATHETERIZATION CORONARY STENT PLACEMENT HERNIA REPAIR KIDNEY STONE SURGERY SH: Social Determinants of Health Tobacco Use: Low Risk Smoking Tobacco Use: Never Smokeless Tobacco Use: Never Passive Exposure: Not on file Alcohol Use: Not on file Financial Resource Strain: Not on file Food Insecurity: Not on file Transportation Needs: Not on file Physical Activity: Not on file Stress: Not on file Social Connections: Not on file Intimate Partner Violence: Not on file Depression: Not on file Housing Stability: Not on file Allergies: Allergies Allergen Reactions Engnrtu-Dok-Ebc Reductase Inhibitors Weight: 112kg Visit Vitals BP 156/90 (BP Location: Right arm, Patient Position: Sitting) Pulse 72 Ht 1.88 m (6' 2 ) Wt 112 kg (247 lb) SpO2 97% BMI 31.71 kg/m??? Smoking Status Never BSA 2.42 m??? Meds: Current Outpatient Medications on File Prior to Visit Medication Sig Dispense Refill amLODIPine-benazepriL (Lotrel) 10-20 mg capsule 1 capsule in the morning. aspirin 81 mg EC tablet in the morning. benazepril (Lotensin) 10 mg tablet Take 10 mg by mouth in the morning. gemfibrozil (Lopid) 600 mg tablet Take 600 mg by mouth in the morning and at bedtime. hydroCHLOROthiazide (HYDRODiuril) 25 mg tablet Take 25 mg by mouth in the morning. metFORMIN (Glucophage) 1,000 mg tablet every 12 (twelve) hours. metoprolol succinate XL (Toprol-XL) 25 mg 24 hr tablet metoprolol succinate ER 25 mg tablet,extended release 24 hr omega 9-pmm-ikj-fish oil (Fish OiL) 100-160-1,000 mg capsule Fish Oil 1200mg BID semaglutide (OZEMPIC SUBQ) Ozempic tamsulosin (Flomax) 0.4 mg 24 hr capsule tamsulosin 0.4 mg capsule [DISCONTINUED] triamcinolone (Kenalog) 0.1 % cream every 12 (twelve) hours. No current facility-administered medications on file prior to visit. ROS: Cardio Basic Cardiovascular Symptoms: no lightheadedness, no leg edema, no syncope, no orthopnea, no PND, no claudication, Constitutional Constitutional: no fever, no night sweats, no significant weight gain, no significant weight loss, no exercise intolerance Eyes Eyes: no dry eyes, no irritation, no vision change ENMT Ears: no difficulty hearing, no ear pain Nose: no frequent nosebleeds, Mouth/Throat: no sore throat, no bleeding gums, no snoring, no dry mouth, no mouth ulcers, no oral abnormalities, no teeth problems Respirato (more content not included)...[facility] 12-28-2022 Evaluation note* Encounter Date Diagnosis Assessment Notes Treatment Notes Treatment Clinical Notes Dec, Type 2 diabetes mellitus with hyperglycemia, without long-term current use of insulin (ICD-10 - E11.65) [facility] Other 02-16-2023 Evaluation note* Encounter Date Diagnosis Assessment Notes Treatment Notes Treatment Clinical Notes Nov, ASHD (arteriosclerotic heart disease) (ICD-10 - I25.10) Nov, Shortness of breath (ICD-10 - R06.02) [place] [email or web address] Other 01-24-2023 Evaluation note* Encounter Date Diagnosis Assessment Notes Treatment Notes Treatment Clinical Notes Oct, Type 2 diabetes mellitus with hyperglycemia, without long-term current use of insulin (ICD-10 - E11.65) This patient is following a comprehensive diabetic treatment plan. They are checking their feet daily for calluses and nonhealing ulcers. They are being seen for yearly dilated eye examinations. Goals: SBP less than 130, LDL less than 100, FBS less than 140, AC and A1C less than 7%. They are checking their BS daily, will which are reviewed at the office visit. A1C: due Oct, ASHD (arteriosclerotic heart disease) (ICD-10 - I25.10) This patient is stable without activity related CP, dyspnea or lightheadedness. They are instructed to continue exercise and AHA diet plan. Oct, Primary hypertension (ICD-10 - I10) This patient is instructed to consume a healthy, low-fat, low-salt diet. They are also encouraged to continue exercise to achieve/maintain a normal BMI. Oct, Hyperlipidemia, mixed (ICD-10 - E78.2) Diet and exercise with continued statin therapy. Oct, Shortness of breath (ICD-10 - R06.02) Likely related to pneumoconiosis, would check CXR. Unlikely due to myocardial ischemia but was asymptomatic Oct, Obesity (BMI 30-39.9) (ICD-10 - E66.9) This patient has been instructed on a low-fat, high-fiber diet. They are instructed to reduce calories, portion sizes and snacks. It is recommended that they exercise for 30 minutes, 3-5 times weekly. [facility] Other 05-09-2022 Hospital Discharge instructions Patient Education 02/15/2022 15:13:26 Kidney Stones, Qhyb-jt-Clsm Kidney Stones Kidney stones are rock-like masses that form inside of the kidneys. Kidneys are organs that make pee (urine). A kidney stone may move into other parts of the urinary tract, including: The tubes that connect the kidneys to the bladder (ureters). The bladder. The tube that carries urine out of the body (urethra). Kidney stones can cause very bad pain and can block the flow of pee. The stone usually leaves your body (passes) through your pee. You may need to have a doctor take out the stone. What are the causes? Kidney stones may be caused by: A condition in which certain glands make too much parathyroid hormone (primary hyperparathyroidism). A buildup of a type of crystals in the bladder made of a chemical called uric acid. The body makes uric acid when you eat certain foods. Narrowing (stricture) of one or both of the ureters. A kidney blockage that you were born with. Past surgery on the kidney or the ureters, such as gastric bypass surgery. What increases the risk? You are more likely to develop this condition if: You have had a kidney stone in the past. You have a family history of kidney stones. You do not drink enough water. You eat a diet that is high in protein, salt (sodium), or sugar. You are overweight or very overweight (obese). What are the signs or symptoms? Symptoms of a kidney stone may include: Pain in the side of the belly, right below the ribs (flank pain). Pain usually spreads (radiates) to the groin. Needing to pee often or right away (urgently). Pain when going pee (urinating). Blood in your pee (hematuria). Feeling like you may vomit (nauseous). Vomiting. Fever and chills. How is this treated? Treatment depends on the size, location, and makeup of the kidney stones. The stones will often pass out of the body through peeing. You may need to: Drink more fluid to help pass the stone. In some cases, you may be given fluids through an IV tube put into one of your veins at the hospital. Take medicine for pain. Make changes in your diet to help keep kidney stones from coming back. Sometimes, medical procedures are needed to remove a kidney stone. This may involve: A procedure to break up kidney stones using a beam of light (laser) or shock waves. Surgery to remove the kidney stones. Follow these instructions at home: Medicines Take lxyp-zcu-wbnujyf and prescription medicines only as told by your doctor. Ask your doctor if the medicine prescribed to you requires you to avoid driving or using heavy machinery. Eating and drinking Drink enough fluid to keep your pee pale yellow. You may be told to drink at least 8 10 glasses of water each day. This will help you pass the stone. If told by your doctor, change your diet. This may include: ?Limiting how much salt you eat. ?Eating more fruits and vegetables. ?Limiting how much meat, poultry, fish, and eggs you eat. Follow instructions from your doctor about eating or drinking restrictions. General instructions Collect pee samples as told by your doctor. You may need to collect a pee sample: ?24 hours after a stone comes out. ?8 12 weeks after a stone comes out, and every 6 12 months after that. Strain your pee every time you pee (urinate), for as long as told. Use the strainer that your doctor recommends. Do not throw out the stone. Keep it so that it can be tested by your doctor. Keep all follow-up visits as told by your doctor. This is important. You may need follow-up tests. How is this prevented? To prevent another kidney stone: Drink enough fluid to keep your pee pale yellow. This is the best way to prevent kidney stones. Eat healthy foods. Avoid certain foods as told by your doctor. You may be told to eat less protein. Stay at a healthy weight. Where to find more information National Kidney Foundation (NKF): www.kidney.org Urology Care Foundation (UCF): www.urologyhealth.org Contact a doctor if: You have pain that gets worse or does not get better with medicine. Get help right away if: You have a fever or chills. You get very bad pain. You get new pain in your belly (abdomen). You pass out (faint). You cannot pee. Summary Kidney stones are rock-like masses that form inside of the kidneys. Kidney stones can cause very bad pain and can block the flow of pee. The stones will often pass out of the body through peeing. Drink enough fluid to keep your pee pale yellow. This information is not intended to replace advice given to you by your health care provider. Make sure you discuss any questions you have with your health care provider. Document Released: 03/14/2009 Document Revised: 02/12/2020 Document Reviewed: 02/12/2020 [employer] Patient Education 2019 [employer]. Follow Up Care 01/28/2022 10:44:14 With:Ric MAY, Reba Smith, URL, URO Address: [facility] Ranjit Jernigan, [address] [address]- When:05/18/2022 Comments:w/ renal us and kub [facility] Evaluation + Plan note Future Appointments Appointment Date:04/26/2022 03:15:00 PM Scheduled Provider:Reba Larios MD Location:[facility] Appointment Type:URO Office Visit [facility] Evaluation + Plan note Future Appointments Appointment Date:10/26/2024 03:15:00 PM Scheduled Provider:Reba Larios MD Location:[facility] Appointment Type:URO Office Visit [facility] Evaluation + Plan note Future Appointments Appointment Date:10/26/2024 03:15:00 PM Scheduled Provider:Reba Larios MD Location:[facility] Appointment Type:URO Office Visit Diagnostic Tests Pending * Calculi Analysis Urinary 11/03/[address] [facility] [email or web address] Other Evaluation note* Diagnosis Onset Date Resolution Status ASHD (arteriosclerotic heart disease) acute Benign prostatic hyperplasia with lower urinary tract symptoms acute History of nephrolithiasis a cute Hypercholesterolemia acute Hypertension acute Type 2 diabetes mellitus with hyperglycemia acute Wellness examination noneact [facility] Work Phone: History general Narrative - Reported* Type Description Date Medical History obesity Medical History type 2 diabetes nani itus with hyperglycemia without jail current use of insulin Medical History hypertension Medical History hyperlipidemia Medical History arteriosclerotic heart disease Medical History gross hematuria Medical History nephrolithiasis Medical History uric acid kidney stone Surgical History heart cath stent Surgical History hernia repair Surgical History lithotripsy Hospitalization History see above surgeries [facility] Other History general Narrative - Reported* Type Description Date Medical History obesity Medical History type 2 diabetes nani itus with hyperglycemia without jail current use of insulin Medical History hypertension Medical History hyperlipidemia Medical History arteriosclerotic heart disease Medical History gross hematuria Medical History nephrolithiasis Medical History uric acid kidney stone Surgical History heart cath stent Surgical History hernia repair Surgical History lithotripsy Surgical History LHC: 60% OM, 02/2023` Hospitalization History see above surgeries [facility] Other Hospital course Narrative No data available for this section [facility] Discharge instructions No data available for this section [facility] No data available for this section [facility] Sergio Reason for referral (narrative)* Reason 01/10/23 Referral for dyspnea and abnormal cardiac stress test Diagnosis 1 NSVT (nonsustained v entricular tachycardia) (I47.29) Diagnosis 2 ASHD (arteriosclerot ic heart disease) (I25.10) Referral Organization [facility] kimani Referring Provider First Name Ishmael Referring Provider Last Name Cecil Referring Provider Specialty Internal Me dicine Referred Organization [facility] Referred Provider CHELSI MENARD Referred Address [address], [place],[address] Referred Provider Specialty Cardiology Referral Priority Routine Referral Appointment Date 2023-01-10 General Notes Mr. Meyer is being referred for symptoms of dyspnea and NSVT. Mr. Meyer c/o vague dyspnea, which is not associated with exertion. He denies chest pain, palpitations or lightheadedness or any additional activity limiting symptoms. He has a history of CAD, undergoing PCI/stent placement of the LAD in 2005. His risk factors include HTN, hyperlipidemia, T2DM and obesity. Raquel Robert 12/21/2022 01:17:10 PM >received today, attachments made, [phone] Raquel Robert 12/28/2022 11:37:48 AM >faxed first attempt letter Raquel Robert 12/29/2022 10:15:49 AM >RECEIVED FAX WITH APPT DATE Clinical Notes Mr. Meyer's echocar diogram revealed normal LVEF. During stress testing, he had an increase number of PVCs and at near completion developed an 8 beat run of NSVT. His test was terminated and he completed a Lexiscan stress test. His NM images did not reveal reversible defect. Mr. Meyer doesn't have classic angina symptoms and has a normal LVEF and cardiac perfusion. The episode of NSVT and history of CAD is worrisome to me. [facility] Other Summary Purpose Family History No Family History Records FoundNo Family History Records Found No data available for this section No data available for this section No Family History Records FoundNo Family History Records Found Advance Directives Advance Directive Response Recorded Date/ Time Advance Directives No November 02, 2023 3:23pm Chief Complaint and Reason for Visit Chief Complaint Amb Documentation Wellness Reason for Visit ASHD (arteriosclerot ic heart disease) Benign prostatic hyperplasia with lower urinary tract symptoms History of nephrolithiasis Hypercholesterolemia Hypertension Type 2 diabetes mellitus with hyperglycemia Wellness examination Additional Source Comments (unrecognized sect ion and content) No Status Records FoundNo Status Records FoundNo Status Records FoundNo Status Records Found INFORMATION SOURCE (unrecogn ized section and content) DATE CREATED AUTHOR 04/05/2018 [facility] DATE CREATED AUTHOR AUTHOR'S ORGANIZ ATION 02/11/2023 [facility] DATE CREATED AUTHOR AUTHOR'S ORGANIZ ATION 11/13/2023 [facility] DATE CREATED AUTHOR AUTHOR'S ORGANIZ ATION 11/14/2023 [facility] REASON FOR VISIT (unrecogniz ed section and content) 4 MONTH FOLLOW UPNo Informat ionxray resultsEchocardiogram resultsStress TestCardiologistNo InformationNo InformationNo InformationWellnessLab Results4 month check upOzempic3 month Follow upA1C resultsNo Informationrefill Patient Care team informatio n (unrecognized section and content) Team Status: Active Member Role Status Dates Ishmael Jacob , DO Primary Care Provider Active Team Status: Active Member Role Status Dates Ishmael Jacob , Primary Care Provider Active Start: December 19, 2023 BUDDY Bailey Attending Provider Active Start : December 19, 2023 Team Status: Inactive Member Role Status Dates Ishmael Cecil , DO Primary Care Provide r, Attending Provider Active Start: March 12, 2024 End: March 12, 2024 Goals (unrecognized section and content) Goals may be documented in a n alternate section FOR RECORDS PERTAINING TO PATIENTS WHO ARE OR HAVE BEEN ENROLLED IN A CHEMICAL DEPENDENCY/SUBSTANCEABUSE PROGRAM, SOME INFORMATION MAY BE OMITTED. This clinical summary was aggregated from multiple sources. Caution should be exercised in using it in the provision of clinical care. This summary normalizes information from multiple sources, and as a consequence, information in this document may materially change the coding, format and clinical context of patient data. In addition, data may be omitted in some cases. CLINICAL DECISIONS SHOULD BE BASED ON THE PRIMARY CLINICAL RECORDS. [facility] [employer] provides no warranty or guarantee of the accuracy or completeness of information in this document.
[2024-03-21 08:01] LABS: Basophils Percent Auto 0.5 % (0.2-2.0); Eosinophils Absolute Auto 0.1 10^3/uL (0.0-0.7); Hematocrit 46.2 % (42.0-54.0); Hemoglobin 15.9 g/dL (14.0-18.0); Immature Granulocytes Abs Auto 0.02 10^3/uL (0.00-0.03); Immature Granulocytes Pct Auto 0.3 % (0.0-0.5); Lymphocytes Absolute Auto 1.6 10^3/uL (1.2-3.8); Lymphocytes Percent Auto 26.4 % (20.5-60.0); Mean Corpuscular HGB Conc 34.4 g/dL (29.9-35.2); Mean Corpuscular Volume 84.2 fL (80.0-94.0); Mean Platelet Volume 10.3 fL (9.5-13.5); Monocytes Absolute Auto 0.6 10^3/uL (0.3-0.8); Neutrophils Absolute Auto 3.7 10^3/uL (1.4-6.5); Neutrophils Percent Auto 60.8 % (43.0-75.0); Platelet Count 165 10^3/uL (150-450); Red Blood Count 5.49 10^6/uL (4.70-6.10); Red Cell Distribution Width 12.3 % (11.0-15.0); White Blood Count 6.1 10^3/uL (4.0-11.0)
[2024-03-21 08:48] LABS: Estimated Average Glucose 157 mg/dL; Glycohemoglobin A1C 7.1 % (4.5-6.2)
[2024-03-21 09:50] LABS: Alanine Aminotransferase 44 U/L (16-63); Albumin Globulin Ratio 1.3; Albumin Level 4.4 g/dL (3.4-5.0); Alkaline Phosphatase 67 U/L (46-116); Aspartate Amino Transferase 31 U/L (15-37); BUN Creatinine Ratio 24.7; Calcium 8.9 mg/dL (8.5-10.1); Carbon Dioxide 27.7 mmol/L (21.0-32.0); Chloride 101 mmol/L (98-107); Chol HDL Ratio 3.1; Cholesterol 90 mg/dL (<=200); Estimated GFR (African America >60 (>=60); Estimated GFR (Non-African Ame >60 (>=60); Globulin 3.5 g/dL; Glucose 176 mg/dL (74-106); HDL Cholesterol 29 mg/dL (40-60); Potassium 3.7 mmol/L (3.5-5.1); Sodium 138 mmol/L (136-145); Total Protein 7.9 g/dL (6.4-8.2); Triglycerides 155 mg/dL (<=150)
[2024-03-21 10:05] LABS: Microalbumin Urine Random 4.6 mg/dL (<=30.0)
[2024-03-21 10:20] LABS: Prostate Specific Antigen Scrn 0.43 ng/mL (<=4.00)
== END 2024-03-21 07:24 | disposition home or self-care (01) ==
LOC: LAB 07:24
PROVIDERS: PCP Internal Medicine; Visit Provider Internal Medicine
DX: Z00.00 Encounter for general adult medical examination without abnormal findings (principal)
CPT/HCPCS: 36415; 80053; 80061; 82043; 83036; 85025; G0103

== ENCOUNTER 2024-07-17 07:49 | Outpatient (OUT) | payer OTHER, SELFPAY ==
--- OUTSIDE RECORDS SUMMARY | 2024-07-17 07:56 | XMS_ITS | CCD ---
Author Organization [facility] Care Team Providers Care Pct Name Role Phone PHYSICIAN, DEFAULT Unavailable Unavailable PHYSICIAN, DEFAULT Unavailable EVIN Barreto Unavailable Unavailable ISHMAEL JACOB Primary Care Physician [phone] Ishmael Jacob Unavailable LENA ISAAC Consulting Unavailable LENA ISAAC Admitting Unavailable BALL, DR MEIER Primary Care Unavailable LENA ISAAC Attending Unavailable BALL, DR MEIER Admitting Unavailable BALL, DR MEIER Attending Unavailable BALL, DR MEIER Consulting Unavailable BALL, DR MEIER Primary Care Unavailable ZIEBER, DR ZACH Ballard Consulting Unavailable CECIL, DR MEIER Admitting Unavailable BALL, DR MEIER Attending Unavailable BALL, DR MEIER Consulting Unavailable BALL, DR MEIER Primary Care Unavailable BALL, DR MEIER Admitting Unavailable BALL, DR MEIER Attending Unavailable BALL, DR MEIER Consulting Unavailable BALL, DR MEIER Primary Care Unavailable WINKLER, WINCHA Consulting Unavailable REBA DUMONT Attending Unavailable REBA DUMONT Admitting Unavailable WINKLER, KENYETTA Consulting Unavailable BALL, DR MEIER Primary Care Unavailable REBA DUMONT Consulting Unavailable BALL, DR MEIER Admitting Unavailable BALL, DR MEIER Attending Unavailable BALL, DR MEIER Consulting Unavailable BALL, DR MEIER Primary Care Unavailable Reba Larios. Attending Unavailable Orzech, Valentina X Attending Unavailable Orzech, Valentina X Attending Unavailable Orzech, Valentina X Admitting Unavailable Reba Larios Attending Unavailable STANLEYHOJULIAN MOHAMAD Admitting Unavailable LENA ISAAC Attending Unavailable CHELSI MENARD Attending Unavailable SHUN SPARKS Attending Unavailable STACI HARRIS Attending Unavailable CHELSI MENARD Attending Unavailable RADHA MOHAMAQuincy Referring Unavailable Allergies Allergy Classification Reported Allergen(s) Allergy Type Date of Onset Reaction(s) Facility (6 sources) HMG-CoA reductase inhibitor Drug allergy 3 Unknown [employer] Other (1 source) Hmg-Coa Reductase Inhibitors (Statins); Translations: [FJUSEOK-SSK-OQ A REDUCTASE INHIBITORS] Propensity to adverse reactions to drug (disorder) [facility] Repository Medications Current Medications Medication Drug [...] Channel Yaquelin, Angiotensin Converting Enzyme Inhibitor Start: 04-02-2024 take 1 capsule by mouth once daily Amlodipine-Benaz epril Active 0 .ROUTE .COMPLEX 90 April 02, 2024 6:48am TAKE 1 CAPSULE BY MOUTH EVERY DAY Start: 03-12-2024 End: 04-02-2024 take 1 capsule by mouth once daily Amlodipine-Benazepril Discontinued 1 CAP PO Daily March 12, 2024 12:00am April 02, 2024 6:48am Start: 06-28-2022 amlodipine-wilman azepril 10 mg-20 mg [...] 1 tablet Orally Once a day Active benazepril (20 sources) Angiotensin Converting Enzyme Inhibitor Start: 04-02-2024 take 1 tablet by mouth once daily Benazepril Active 0 .ROUTE .COMPLEX 90 April 02, 2024 6:48am TAKE 1 TABLET BY MOUTH EVERY DAY Start: 03-12-2024 End: 04-02-2024 take 10 mg by mouth once daily Benazepril Discontinued 10 MG PO Daily March 12, 2024 12:00am March 12, 2024 3:42pm Start: 02-15-2022 take 1 mg by mouth once daily benazepril 10 mg Tab mg tab(s), Oral, Daily, Refills(s) 0 Start Date: 02/15/22 Status: Ordered Fish Oils (20 sources) Start: 02-15-2022 take [...] Status: Ordered hydroCHLOROthiazide 25 mg oral tablet (20 sources) Thiazide Diuretic Start: 03-12-2024 take 25 [...] Status: Ordered take 1 tablet by azul twice daily before breakfast metFORMIN HCl 1000 [...] Refills(s) 0 Start Date: 02/15/22 Status: Ordered Hadley 0-Eqj-Xnd-Fish Oil (Fish Oil) 1,200 (144-216) mg capsule (2 sources) Start: 03-12-2024 take 1 capsule by mouth once daily Hadley 4-Ogx-Zxp-Fish Oil (Fish Oil) 1,200 (144-216) mg capsule Active 1 CAP PO Daily March 12, 2024 12:00am [employer] Ultra - (17 sources) DineroTaxiuch Ultra - USE TO TEST BLOOD SUGAR EVERY DAY for 30 Active OneTouch Ultra - as directed In Vitro Active Ozempic (0.25 or 0.5 MG/DOSE ) 2 MG/1.5ML (6 sources) Ozempic (0.25 or 0.5 MG/DOSE) 2 MG/1.5ML 0.5 MG Subcutaneous weekly Active Ozempic (0.25 or 0.5 MG/DOSE) 2 MG/1.5ML 0.5 MG Subcutaneous weekly for 28 days Active rosuvastatin calcium 10 mg oral tablet (12 sources) HMG-CoA Reductase Inhibitor Start: 03-12-2024 take 10 mg by mouth once daily Rosuvastatin Active 10 MG PO Daily March 12, 2024 12:00am Start: 03-08-2023 take 1 tablet by azul th every twenty-four hours Rosuvastatin Calcium 10 MG 1 tablet Orally Once a day February, Active Semaglutide (2 sources) Start: 01-30-2024 Semaglutide (Ozempic) 0.25 mg or 0.5 mg (2 mg/3 mL) pen injector Active 0.5 MG SUBCUT every week 3 January 30, 2024 1:29pm tamsulosin hydrochloride 0.4 mg oral capsule (20 sources) alpha-Adrenergi c Yaquelin Start: 12-19-2023 take 1 capsule by mouth once daily at dinner Tamsulosin Active 0 .ROUTE .COMPLEX 90 December 19, 2023 1:24pm TAKE 1 CAPSULE [...] Class(es) Dates Sig (Normalized) Sig (Original) 0.25 mg, 0.5 mg dose 1.5 ml semaglutide 1.34 mg/ml pen injector (19 sources) Start: 01-30-2024 End: 01-30-2024 inject 0.5 [...] Coronary arteriosclerosis; Translations: [Atherosclerotic heart disease of [place] coronary artery without angina pectoris] Onset: 12-16-2022 [...] [Nocturia] Onset: 02-15-2022 Episodic Hyperplasia of prostate (12 sources) Nocturia due to benign prostatic hypertrophy; [...] nutritional; endocrine; and metabolic disorders (2 sources) Obesity, unspecified; Translations: [Obesity, unspecified] Chronic Other nutritional; endocrine; and metabolic disorders (6 sources) Obesity caused by energy imbalance; Translations: [Other obesity due to excess calories] Chronic Other nutritional; endocrine; and metabolic disorders (2 sources) Other obesity due to excess calories Chronic Other nutritional; endocrine; and metabolic disorders (2 sources) Body mass index (BMI) 34.0-34.9, adult Chronic Other nutritional; endocrine; and metabolic disorders (1 source) Obesity; Translations: [Obesity, unspecified] 07-11-2024 Chronic Other screening for suspected conditions (not [...] Interpretation Reference Range Facility Calculus Analysison 11-12-19 Calcium oxalate monohydrate (Stone) [Mass fraction] 10 % Invalid Interpretation Code [facility] Comment on above: Performed By: #### 1 [id number] #### [facility] [address] [place] [address] Color (Stone) [place] Invalid Interpretation Code [facility] Comment on above: Performed By: #### 1 [id number] #### [facility] [address] [place] [address] Composition Comment Invalid Interpretation Code [facility] Comment on above: Result Comment: Perc entage (Represents the % composition) Performed By: #### 1 [id number] #### [facility] [address] [place] [address] Disclaimer: Comment Invalid Interpretation Code [facility] Comment on above: Result Comment: This test was developed and its performance characteristics determined by [employer]. It has not been cleared or approved by the Food and Drug Administration. Performed at: [facility] [address] [place], [place] [id number] PhD Yuli Rodriguez Performed By: #### 1 [id number] #### [facility] [address] [place] [address] Laboratory comment Omer (Report) Comment Invalid Interpretation Code [facility] Comment on above: Result Comment: Jesus vega questions regarding Calculi Analysis contact [facility] at: [phone]. Performed By: #### 1 [id number] #### [facility] [address] [place] [address] Please Note: Comment Invalid Interpretation Code [facility] Comment on above: Result Comment: Calc dianna report will follow via computer, mail or electron gun assembler delivery. Performed By: #### 1 [id number] #### [facility] [address] [place] [address] Size (Stone) [Entitic vol] 8x6 Invalid Interpretation Code [facility] Comment on above: Result Comment: Sing le piece received. Performed By: #### 1 [id number] #### [facility] [address] [place] [address] Specimen source subject Nom Comment Invalid Interpretation Code [facility] Comment on above: Result Comment: Not provided Performed By: #### 1 [id number] #### [facility] [address] [place] [address] Stone Photo Comment Invalid Interpretation Code [facility] Comment on above: Result Comment: Phot ograph will follow under a separate cover Performed By: #### 1 [id number] #### [facility] [address] [facility] [place] [address] Urate (Stone) [Mass fraction] 90 % Invalid Interpretation Code [facility] Comment on above: Performed By: #### 1 [id number] #### [facility] [address] [facility] [place] [address] Weight (Stone) 177 mg Invalid Interpretation Code [facility] Comment on above: Performed By: #### 1 [id number] #### [facility] [address] [facility] [place] [address] Office Visiton 11-10-2023 Follow-up visit [id number] Chely Meyer 1960 M Date Provider Department Center 11/10/2023 SHUN JACQUES EN [facility] Family History Problem Relation Age of Onset Hypertension Mother Hyperlipidemia Mother Coronary artery disease Father Leukemia Father Hypertension Father Hyperlipidemia Father Family Status - Relation Status Age at Mother Father Level of Service:86768 IN OFFICE/OUTPATIENT ESTABLISHED LOW MDM 20 MIN Normal [facility] Patient Educationon 11-07-19 24 Patient Education [...] Spinach (cooked), rhubarb, beets, sweet potatoes, and Guamanian chard. ? Peanuts. ? Potato chips, central african fries, and baked potatoes with skin on. ? Nuts and nut products. ? Chocolate. ? If you regularly take a diuretic medicine, make sure to eat at least 1 or 2 servings of fruits or vegetables that are high in potassium each day. These include: ? Avocado. ? Banana. ? [place], prune, carrot, or tomato juice. ? Baked [...] fish oil, or vitamin B6. ? Take pjir-wis-aisdpka and prescription medicines only as told by your health care provider. These include supplements. What foods sh (more content not included)... Normal [facility] Urology Office/Clinic Noteon 11-07-2023 Urology Office/Clinic Note [...] Information Ric MAY, Reba Smith, URL, [facility] [address], [place] [address] [phone] Additional Instructions: Patient Education Dietary Guidelines to Help Prevent Kidney Stones Benign Prostatic Hyperplasia Kidney Stones, Jdzx-sa-Zyla Problem List/Past Medical History Ongoing Diabetes Hypertension [...] Psychiatric behavioral disabili (more content not included)... [facility] Comment on above: Result Comment: Elec tronically Signed By: GERARDO Garcia APRN, [place] X\.br\Date and Time Signed: 11/07/23 14:09 EST [place] 11-04-2023 Screens [id number] 1#1.00TIFF [facility] Ambulatory Visit Summaryon 0 11-03-2023 Ambulatory Visit Summary CHELY MEYER :1960 Visit Date:11/03/2023 Ambulatory Visit Instructions Your Diagnosis Renal cyst Kidney stone Your Care Team Attending Physician - GERARDO Garcia APRN, [place] [facility] Primary Care Physician - ISHMAEL JACOB DO [...] MAY, Reba Smith [facility] Provider Letteron 11-03-2023 Provider Letter November 03, 2023 CHELY MEYER [address] [place] [address] : 1960 To Whom It May Concern, Please excuse above patient from work. Had an appointment in our office 11/03/23 at 3:15 PM Restrictions: N/A Comments: Please feel free to contact the office with any questions. Sincerely, [facility] [address] [address] [facility] RAD - CT Reporton 06-17-2023 RAD - CT Report [id number] #1.00CD:127 [facility] Office Visiton 05-24-2023 Follow-up visit [id number] Chely Meyer 1960 M [facility] Provider Department Center 05/24/2023 [facility] Family History Problem Relation Age of Onset Hypertension Mother Hyperlipidemia Mother Coronary artery disease Father Leukemia Father Hypertension Father Hyperlipidemia Father Family Status - Relation Status Age at Mother Father Level of Service:20234 IN OFFICE/OUTPATIENT NEW HIGH MDM 60-74 MINUTES Reason for Visit and Comments: Follow-up [184456] - 3 month follow up [facility] Pre-Certification Formon Pre-Certification Form [id number] #1.00CD:127 [facility] Office Visiton 03-01-2023 Follow-up visit [id number] Chely Meyer 1960 M Date Provider Department Center 03/01/2023 CHELSI MALIK [facility] Family History Problem Relation Age of Onset Hypertension Mother Hyperlipidemia Mother Coronary artery disease Father Leukemia Father Hypertension Father Hyperlipidemia Father Family Status - Relation Status Age at Mother Father Level of Service:44851 IN OFFICE/OUTPATIENT ESTABLISHED MOD MDM 30-39 MIN Reason for Visit and Comments: Follow-up [012134] - Heart cath [facility] HPon 02-10-2023 HP Attestation signed by Lena Isaac MD at [...] history of Coronary artery disease, Diabetes mellitus ([facility]), Hyperlipidemia, Hypertension, and PVC (premature ventricular contraction). Surgical History He has a past surgical history that includes Cardiac catheterization; Coronary stent placement; Hernia repair; and Kidney stone surgery. Social History He reports that he has never smoked. He has never used smokeless tobacco. He reports current alcohol use. No history on file for drug use. Allergies Uhxnedt-kfa-bge reductase inhibitors Medications Medications Prior to Admission [...] mg tablet,extended release 24 hr 02/10/2023 omega 1-xjz-lnh-fish oil (Fish OiL) 100-160-1,000 mg capsule Fish [...] Assessment/Plan Principal Problem: NSVT (nonsustained ventricular tachycardia) (CMS/[facility]) 1. Nonsustained ventricular tachycardia during treadmill MPI 2. Dyspnea on exertion 3. CAD status post prior LAD PCI, stent noted to be patent and 2012 4. Essential hypertension 5. Hyperlipidemia 6. Type 2 diabetes mellitus Plan: Risks of cardiac catheterization including renal insufficiency, bleeding, arrhythmia, stroke, myocardial infarction and were discussed with the patient. He agrees to proceed. Chance Bunn MD [place] [facility] CBC AUTO DIFFon 02-04-2023 BASO # 0.0 103/ul Normal 0.0-0.1 [facility] Comment on above: Performed By: #### C BC #### [facility] [address] [place] [address] Dr. Linda Duran Basophils/100 WBC (Bld) 0.4 % Normal 0.2-2.0 [facility] Comment on above: Performed By: #### C BC #### [facility] [address] [address] [address] Linda Duran EO # 0.1 103/ul Normal 0.0-0.7 [facility] Comment on above: Performed By: #### C BC #### [facility] [address] [place] [address] Dr. Linda Duran Eosinophils/100 WBC (Bld) 2.0 % Normal 0.9-7.0 [facility] Comment on above: Performed By: #### C BC #### [facility] [address] [address] [address] Linda Duran Erythrocyte distribution width (RBC) [Ratio] 12.5 % Normal 11.0-15.0 [facility] Comment on above: Performed By: #### C BC #### [facility] [address] [place] [address] Dr. Linda Duran Hematocrit (Bld) [Volume fraction] 43.9 % Normal 42.0-54.0 [facility] Comment on above: Performed By: #### C BC #### [facility] [address] [place] [address] Dr. Linda Duran Hemoglobin (Bld) [Mass/Vol] 15.0 g/dL Normal 14.0-18.0 [facility] Comment on above: Performed By: #### C BC #### [facility] [address] [place] [address] Dr. Linda Duran IG # 0.01 10e3/ul Normal 0.00-0.03 [facility] Comment on above: Performed By: #### C BC #### [facility] [address] [place] [address] Dr. Linda Duran IG % 0.1 % Normal 0.0-0.5 [facility] Comment on above: Performed By: #### C BC #### [facility] [address] [place] [address] Dr. Linda Duran LYMPH # 2.2 103/ul Normal 1.2-3.8 [facility] Comment on above: Performed By: #### C BC #### [facility] [address] [place] [address] Dr. Linda Duran Lymphocytes/100 WBC (Bld) 30.6 % Normal 20.5-60.0 [facility] Comment on above: Performed By: #### C BC #### [facility] [address] [place] [address] Dr. Linda Duran MANUAL DIFF REQ NO Normal [facility] Comment on above: Performed By: #### C BC #### [facility] [address] [place] [address] Dr. Linda Duran MCH (RBC) [Entitic mass] 29.3 pg Normal 25.9-34.0 [facility] Comment on above: Performed By: #### C BC #### [facility] [address] [place] [address] Dr. Linda Duran MCHC (RBC) [Mass/Vol] 34.2 g/dL Normal 29.9-35.2 [facility] Comment on above: Performed By: #### C BC #### [facility] [address] [place] [address] Dr. Linda Duran MCV (RBC) [Entitic vol] 85.7 fL Normal 80.0-94.0 [facility] Comment on above: Performed By: #### C BC #### [facility] [address] [place] [address] Dr. Linda Duran MONO # 0.9 103/ul Critically high 0.3-0.8 [facility] Comment on above: Performed By: #### C BC #### [facility] [address] [place] [address] Dr. Linda Duran Monocytes/100 WBC (Bld) 12.0 % Normal 1.7-12.0 [facility] Comment on above: Performed By: #### C BC #### [facility] [address] [place] [address] Dr. Linda Duran NEUT # 3.9 103/ul Normal 1.4-6.5 [facility] Comment on above: Performed By: #### C BC #### [facility] [address] [place] [address] Dr. Linda Duran Neutrophils/100 WBC (Bld) 54.9 % Normal 43.0-75.0 [facility] Comment on above: Performed By: #### C BC #### [facility] [address] [place] [address] Dr. Linda Duran Platelet mean volume (Bld) [Entitic vol] 10.3 fL Normal 9.5-13.5 [facility] Comment on above: Performed By: #### C BC #### [facility] [address] [place] [address] Dr. Linda Duran PLT 163 103/ul Normal 150-450 [facility] Comment on above: Performed By: #### C BC #### [facility] [address] [place] [address] Dr. Linda Duran RBC 5.12 106/ul Normal 4.70-6.10 [facility] Comment on above: Performed By: #### C BC #### [facility] [address] [place] [address] Dr. Linda Duran WBC 7.1 103/ul Normal 4.0-11.0 [facility] Comment on above: Performed By: #### C BC #### [facility] [address] [place] [address] Dr. Linda Duran PROF CHEM 8 (BAS METB)on Anion gap [Moles/Vol] 12.0 mmol/L Normal [facility] Comment on above: Performed By: #### B MP #### [facility] [address] [place] [address] Dr. Linda Duran Calcium [Mass/Vol] 9.2 mg/dL Normal 8.5-10.1 [facility] Comment on above: Performed By: #### B MP #### [facility] [address] [place] [address] Dr. Linda Duran Chloride [Moles/Vol] 101 mmol/L Normal 98-107 [facility] Comment on above: Performed By: #### B MP #### [facility] [address] [place] [address] Dr. Linda Duran CO2 [Moles/Vol] 30.0 mmol/L Normal 21.0-32.0 [facility] Comment on above: Performed By: #### B MP #### [facility] [address] [place] [address] Dr. Linda Duran Creatinine [Mass/Vol] 1.13 mg/dL Normal 0.70-1.30 [facility] Comment on above: Performed By: #### B MP #### [facility] [address] [place] [address] Dr. Linda Duran EGFR-AF SRI LANKAN >60 Normal >=60 [facility] Comment on above: Performed By: #### B MP #### [facility] [address] [place] [address] Dr. Linda Duran EGFR-NON AF SRI LANKAN >60 Normal >=60 [facility] Comment on above: Performed By: #### B MP #### [facility] [address] [place] [address] Dr. Linda Duran Glucose [Mass/Vol] 154 mg/dL Critically high 74-106 T [facility] Comment on above: Performed By: #### B MP #### [facility] [address] [address] [address] Linda Duran Potassium [Moles/Vol] 4.0 mmol/L Normal 3.5-5.1 [facility] Comment on above: Performed By: #### B MP #### [facility] [address] [address] [address] Linda Duran Sodium [Moles/Vol] 139 mmol/L Normal 136-145 [facility] Comment on above: Performed By: #### B MP #### [facility] [address] [address] [address] Linda Duran Urea nitrogen [Mass/Vol] 30.0 mg/dL Critically high 7.0-18.0 [facility] Comment on above: Performed By: #### B MP #### [facility] [address] [address] [address] Linda Duran Urea nitrogen/Creatinine [Mass ratio] 26.5 mg/mg Normal [facility] Comment on above: Performed By: #### B MP #### [facility] [address] [address] [address] Linda Duran Orders Onlyon 02-02-2023 Orders Only [id number] Chely Meyer 1960 M Date Provider Department Center 02/02/2023 PABLO NATHAN [facility] Family History Problem Relation Age of Onset Hypertension Mother Hyperlipidemia Mother Coronary artery disease Father Leukemia Father Hypertension Father Hyperlipidemia Father Family Status - Relation Status Age at Mother Father Normal [facility] Office Visiton 01-10-2023 Follow-up visit [id number] Chely Meyer 1960 M Date Provider Department Center 01/10/2023 Karen-CHELSI MENARD [facility] Family History Problem Relation Age of Onset Hypertension Mother Hyperlipidemia Mother Coronary artery disease Father Leukemia Father Hypertension Father Hyperlipidemia Father Family Status - Relation Status Age at Mother Father Level of Service:11514 IN OFFICE/OUTPATIENT ESTABLISHED MOD MDM 30-39 MIN Reason for Visit and Comments: NSVT [Other] Coronary Artery Disease [187] Hypertension [706943] PVC's [Other] Hyperlipidemia [182] Normal [facility] In office Testingon 01-06-20 23 In office Testing [id number] #1.00CD:127 Normal [facility] NM STRESS/REST MULTIon 12-16 NM STRESS/REST MULTI Patient: CHELY MEYER Exam Date: 12/16/2022 : 1960 Gender:M Ordering : DR ISHMAEL JACOB D.O. Admission #: [id number] Family : Order #: [id number] CLICK HERE TO VIEW EXAM RADIOLOGY REPORT [...] Salomon M.D. on 12/17/2022 at 06:45 Normal [facility] ECHOCARDIO M/2D COMPLETEon 0 12-07-2022 ECHOCARDIO M/2D COMPLETE Patient Name Site Name CHELY MEYER [facility] Account No Medical Record Number Age Sex Date Time [id number] [facility]:[id number] M 12/07/2022 07:28 At the Request [...] Sanford M.D. on 12/07/2022 at 19:05 Normal [facility] XR CHEST 2 Von 11-06-2022 XR [...] by: KENYETTA WINKLER Date: 2022-11-06 10:56 Normal [facility] [facility] US KIDNEYS BLADDERon 022 US KIDNEYS BLADDER [...] KENYETTA WINKLER Date: 2022-06-19 11:28 Normal [facility] XR KUB 1 VIEWon 06-19-2022 [...] KENYETTA WINKLER Date: 2022-06-19 11:30 Normal [facility] TOTALBILIRUBINon 03-14-2022 Bilirubin [Mass/Vol] 0.8 mg/dL Normal 0.0-1.2 [facility] Comment on above: Performed By: #### T BILLC #### [facility] [address] [address] [address] Linda Duran CBC AUTO DIFFon 03-13-2022 BASO # 0.0 103/ul Normal 0.0-0.1 [facility] Comment on above: Performed By: #### C BC #### [facility] [address] [address] [address] Linda Duran Basophils/100 WBC (Bld) 0.6 % Normal 0.2-2.0 [facility] Comment on above: Performed By: #### C BC #### [facility] [address] [place] [address] Dr. Linda Duran EO # 0.2 103/ul Normal 0.0-0.7 [facility] Comment on above: Performed By: #### C BC #### [facility] [address] [place] [address] Dr. Linda Duran Eosinophils/100 WBC (Bld) 3.3 % Normal 0.9-7.0 [facility] Comment on above: Performed By: #### C BC #### [facility] [address] [place] [address] Dr. Linda Duran Erythrocyte distribution width (RBC) [Ratio] 12.1 % Normal 11.0-15.0 [facility] Comment on above: Performed By: #### C BC #### [facility] [address] [place] [address] Dr. Linda Duran Hematocrit (Bld) [Volume fraction] 43.5 % Normal 42.0-54.0 [facility] Comment on above: Performed By: #### C BC #### [facility] [address] [place] [address] Dr. Linda Duran Hemoglobin (Bld) [Mass/Vol] 15.5 g/dL Normal 14.0-18.0 [facility] Comment on above: Performed By: #### C BC #### [facility] [address] [place] [address] Dr. Linda Duran IG # 0.01 10e3/ul Normal 0.00-0.03 [facility] Comment on above: Performed By: #### C BC #### [facility] [address] [place] [address] Dr. Linda Duran IG % 0.2 % Normal 0.0-0.5 [facility] Comment on above: Performed By: #### C BC #### [facility] [address] [place] [address] Dr. Linda Duran LYMPH # 1.5 103/ul Normal 1.2-3.8 [facility] Comment on above: Performed By: #### C BC #### [facility] [address] [address] [address] Linda Duran Lymphocytes/100 WBC (Bld) 28.5 % Normal 20.5-60.0 [facility] Comment on above: Performed By: #### C BC #### [facility] [address] [place] [address] Dr. Linda Duran MANUAL DIFF REQ NO Normal [facility] Comment on above: Performed By: #### C BC #### [facility] [address] [address] [address] Linda Duran MCH (RBC) [Entitic mass] 29.8 pg Normal 25.9-34.0 [facility] Comment on above: Performed By: #### C BC #### [facility] [address] [place] [address] Dr. Linda Duran MCHC (RBC) [Mass/Vol] 35.6 g/dL Critically high 29.9-35.2 [facility] Comment on above: Performed By: #### C BC #### [facility] [address] [place] [address] Dr. Linda Duran MCV (RBC) [Entitic vol] 83.7 fL Normal 80.0-94.0 [facility] Comment on above: Performed By: #### C BC #### [facility] [address] [place] [address] Dr. Linda Duran MONO # 0.6 103/ul Normal 0.3-0.8 [facility] Comment on above: Performed By: #### C BC #### [facility] [address] [place] [address] Dr. Linda Duran Monocytes/100 WBC (Bld) 11.1 % Normal 1.7-12.0 [facility] Comment on above: Performed By: #### C BC #### [facility] [address] [place] [address] Dr. Linda Duran NEUT # 2.9 103/ul Normal 1.4-6.5 [facility] Comment on above: Performed By: #### C BC #### [facility] [address] [place] [address] Dr. Linda Duran Neutrophils/100 WBC (Bld) 56.3 % Normal 43.0-75.0 [facility] Comment on above: Performed By: #### C BC #### [facility] [address] [address] [address] Linda Duran Platelet mean volume (Bld) [Entitic vol] 10.7 fL Normal 9.5-13.5 [facility] Comment on above: Performed By: #### C BC #### [facility] [address] [address] [address] Linda Duran PLT 148 103/ul Critically low 150-450 [facility] Comment on above: Performed By: #### C BC #### [facility] [address] [address] [address] Linda Duran RBC 5.20 106/ul Normal 4.70-6.10 [facility] Comment on above: Performed By: #### C BC #### [facility] [address] [address] [address] Linda Duran WBC 5.1 103/ul Normal 4.0-11.0 [facility] Comment on above: Performed By: #### C BC #### [facility] [address] [place] [address] Dr. Linda Duran GLYCOHEMOGLOBIN A1Con 2021 ADA RECOMMENDATION SEE BELOW Normal [facility] Comment on above: Result Comment: ADA RECOMMENDED LIMIT 4.0 - 6.0 ADA THERAPEUTIC TARGET < 7.0 ACTION SUGGESTED > 7.0 Performed By: #### A 1C #### [facility] [address] [place] [address] Dr. Linda Duran Glucose [Mass/Vol] 180 mg/dL Normal [facility] Comment on above: Performed By: #### A 1C #### [facility] [address] [place] [address] Dr. Linda Duran HbA1c (Bld) [Mass fraction] 7.9 % Critically high 4.5-6.2 [facility] Comment on above: Performed By: #### A 1C #### [facility] [address] [place], [place] [address] Dr. Linda Duran LIPID PROFILEon 03-13-2022 CHOL-HDL RATIO NORM SEE BELOW Normal [facility] Comment on above: Result Comment: 3.3 - 4.4 LOW RISK 4.4 - 7.1 AVERAGE RISK 7.1 - 11.0 MODERATE RISK >11.0 HIGH RISK Performed By: #### L IPID, CMP ####[facility] [address] [place], [place] [address]Jw. Linda Duran Cholesterol [Mass/Vol] 137 mg/dL Normal <=200 [facility] Comment on above: Performed By: #### L IPID, CMP ####[facility] [address] [place], [place] [address]Xq. Linda Duran Cholesterol in HDL [Mass/Vol] 22 mg/dL Critically low 40-60 [facility] Comment on above: Performed By: #### L IPID, CMP ####[facility] [address] [id number]. Linda Duran Cholesterol in LDL [Mass/Vol] 57.2 mg/dL Normal [facility] Comment on above: Performed By: #### L IPID, CMP ####[facility] [address] [id number]. Linda Duran Cholesterol.total/Ch olesterol in HDL [Mass ratio] 6.2 {ratio} Normal [facility] Comment on above: Performed By: #### L IPID, CMP ####[facility] [address] [place], [place] [address]Zw. Linda Duran HDL NORMAL > or = 60 mg/dl - LOW CARDIOVASCULAR RISK <40 mg/dl - HIGH CARDIOVASCULAR RISK Normal [facility] Comment on above: Performed By: #### L IPID, CMP ####[facility] [address] [place], [place] [address]Rc. Linda Duran LDL CALC NORMAL SEE BELOW Normal [facility] Comment on above: Result Comment: <100 mg/dl OPTIMAL 100 - 129 mg/dl NEAR OR ABOVE OPTIMAL 130 - 159 mg/dl BORDERLINE HIGH 160 - 189 mg/dl HIGH >190 mg/dl VERY HIGH Performed By: #### L IPID, CMP ####[facility] [address] [address]Dr. Linda Duran Triglyceride [Mass/Vol] 289 mg/dL Critically high <=150 [facility] Comment on above: Performed By: #### L IPID, CMP ####[facility] [address] [address]Dr. Linda Duran VLDL CALC 57.8 mg/dL Normal [facility] Comment on above: Performed By: #### L IPID, CMP ####[facility] [address] [address]Dr. Linda Duran MICROALBUMIN, RAND URon mALB 3.8 mg/L Normal <=30.0 [facility] Comment on above: Performed By: #### M ALBR ####[facility] [address] [place], [place] [address]Dr. Linda Duran PROF 14(COMP METB)on 022 Albumin [Mass/Vol] 4.3 g/dL Normal 3.4-5.0 [facility] Comment on above: Performed By: #### L IPID, CMP ####[facility] [address] [place], [place] [address]Dr. Linda Duran Albumin/Globulin [Mass ratio] 1.3 {ratio} Normal [facility] Comment on above: Performed By: #### L IPID, CMP ####[facility] [address] [place], [place] [address]Dr. Linda Duran ALP [Catalytic activity/Vol] 78 U/L Normal 46-116 [facility] Comment on above: Performed By: #### L IPID, CMP ####[facility] [address] [place], [place] [address]Dr. Linda Duran ALT [Catalytic activity/Vol] 56 U/L Normal 16-63 [facility] Comment on above: Performed By: #### L IPID, CMP ####[facility] [address] [place], [place] [address]Dr. Linda Duran Anion gap [Moles/Vol] 14.1 mmol/L Normal [facility] Comment on above: Performed By: #### L IPID, CMP ####[facility] [address] [place], [place] [address]Dr. Linda uDran AST [Catalytic activity/Vol] 40 U/L Critically high 15-37 [facility] Comment on above: Performed By: #### L IPID, CMP ####[facility] [address] [place], [place] [address]Dr. Linda Duran Calcium [Mass/Vol] 8.5 mg/dL Normal 8.5-10.1 [facility] Comment on above: Performed By: #### L IPID, CMP ####[facility] [address] [place], [place] [address]Dr. Linda Duran Chloride [Moles/Vol] 101 mmol/L Normal 98-107 [facility] Comment on above: Performed By: #### L IPID, CMP ####[facility] [address] [place], [place] [address]Dr. Linda Duran CO2 [Moles/Vol] 24.9 mmol/L Normal 21.0-32.0 [facility] Comment on above: Performed By: #### L IPID, CMP ####[facility] [address] [place], [place] [address]Dr. Linda Duran Creatinine [Mass/Vol] 0.95 mg/dL Normal 0.70-1.30 [facility] Comment on above: Performed By: #### L IPID, CMP ####[facility] [address] [place], [place] [address]Dr. Linda Duran EGFR-AF SRI LANKAN >60 Normal >=60 [facility] Comment on above: Performed By: #### L IPID, CMP ####[facility] [address] [place], [place] [address]Dr. Linda Duran EGFR-NON AF SRI LANKAN >60 Normal >=60 [facility] Comment on above: Performed By: #### L IPID, CMP ####[facility] [address] [place], [place] [address]Dr. Linda Duran Globulin (S) [Mass/Vol] 3.3 g/dL Normal [facility] Comment on above: Performed By: #### L IPID, CMP ####[facility] [address] [place], [place] [address]Dr. Linda Duran Glucose [Mass/Vol] 194 mg/dL Critically high 74-106 T [facility] Comment on above: Performed By: #### L IPID, CMP ####[facility] [address] [place], [place] [address]Dr. Linda Duran Potassium [Moles/Vol] 4.0 mmol/L Normal 3.5-5.1 [facility] Comment on above: Performed By: #### L IPID, CMP ####[facility] [address] [place], [place] [address]Dr. Linda Duran Protein [Mass/Vol] 7.6 g/dL Normal 6.4-8.[address] [facility] Comment on above: Performed By: #### L IPID, CMP ####[facility] [address] [place], [place] [address]Dr. Linda Duran Sodium [Moles/Vol] 136 mmol/L Normal 136-145 [facility] Comment on above: Performed By: #### L IPID, CMP ####[facility] [address] [place], [place] [address]Dr. Linda Duran Urea nitrogen [Mass/Vol] 25.0 mg/dL Critically high 7.0-18.0 [facility] Comment on above: Performed By: #### L IPID, CMP ####[facility] [address] [place], [place] [address]Dr. Linda Duran Urea nitrogen/Creatinine [Mass ratio] 26.3 mg/mg Normal [facility] Comment on above: Performed By: #### L IPID, CMP ####[facility] [address] [place], [place] [address]Dr. Linda Duran Vital Signs Date Time Vital Sign Value Performing Clinician Facility 07-11-2024 09:37-0400 Body mass index (BMI) [Ratio] 34.7 kg/m2 [facility] 07-11-2024 09:37-0400 Diastolic blood pressure 80 mm[Hg] [facility] 07-11-2024 09:37-0400 Systolic blood pressure 130 mm[Hg] [facility] 07-11-2024 09:16-0400 Body height 180.34 cm [facility] 07-11-2024 09:16-0400 Body weight 112.94 kg [facility] 07-11-2024 09:16-0400 Heart rate 65 /min [facility] 07-11-2024 09:16-0400 Respiratory rate 12 /min [facility] 03-12-2024 15:43-0400 Body height 180.34 cm [facility] 03-12-2024 15:43-0400 Body mass index (BMI) [Ratio] 34.9 kg/m2 [facility] 03-12-2024 15:43-0400 Body weight 113.45 kg [facility] 03-12-2024 15:43-0400 Diastolic blood pressure 87 mm[Hg] [facility] 03-12-2024 15:43-0400 Heart rate 66 /min [facility] 03-12-2024 15:43-0400 Respiratory rate 12 /min [facility] 03-12-2024 15:43-0400 Systolic blood pressure 144 mm[Hg] [facility] 10-24-2023 15:30-0500 Body height 180.34 cm Ishmael Ball Other [facility] Other 10-24-2023 15:30-0500 Body mass index (BMI) [Ratio] 34.53 kg/m2 Ishmael Ball Other [facility] Other 10-24-2023 15:30-0500 Body weight 112.31 kg Ishmael Ball Other [facility] Other 10-24-2023 15:30-0500 Diastolic blood pressure 84 mm[Hg] Ishmael Ball Other [facility] Other 10-24-2023 15:30-0500 Respiratory rate 12 /min Ishmael Ball Other [employer] Other 10-24-2023 15:30-0500 Systolic blood pressure 138 mm[Hg] Ishmael Ball Other [employer] Other 07-11-2023 15:30-0400 Body height 180.34 cm Ishmael Ball Other [employer] Other 07-11-2023 15:30-0400 Body mass index (BMI) [Ratio] 34.86 kg/m2 Ishmael Ball Other [employer] Other 07-11-2023 15:30-0400 Body weight 113.4 kg Ishmael Ball Other [employer] Other 07-11-2023 15:30-0400 Diastolic blood pressure 84 mm[Hg] Ishmael Ball Other [employer] Other 07-11-2023 15:30-0400 Respiratory rate 12 /min Ishmael Ball Other [employer] Other 07-11-2023 15:30-0400 Systolic blood pressure 135 mm[Hg] Ishmael Ball Other [employer] Other 03-08-2023 15:30-0400 Body height 180.34 cm Ishmael Ball Other [employer] Other 03-08-2023 15:30-0400 Body mass index (BMI) [Ratio] 35.06 kg/m2 Ishmael Ball Other [employer] Other 03-08-2023 15:30-0400 Body weight 114.04 kg Ishmael Ball Other [employer] Other 03-08-2023 15:30-0400 Diastolic blood pressure 82 mm[Hg] Ishmael Ball Other [employer] Other 03-08-2023 15:30-0400 Respiratory rate 12 /min Ishmael Ball Other [employer] Other 03-08-2023 15:30-0400 Systolic blood pressure 142 mm[Hg] Ishmael Ball Other [employer] Other 11-02-2022 16:30-0500 Body height 180.34 cm Ishmael Ball Other [employer] Other 11-02-2022 16:30-0500 Body mass index (BMI) [Ratio] 35.17 kg/m2 Ishmael Ball Other [employer] Other 11-02-2022 16:30-0500 Body weight 114.4 kg Ishmael Ball Other [employer] Other 11-02-2022 16:30-0500 Diastolic blood pressure 70 mm[Hg] Ishmael Ball Other [employer] Other 11-02-2022 16:30-0500 Respiratory rate 12 /min Ishmael Ball Other [employer] Other 11-02-2022 16:30-0500 Systolic blood pressure 122 mm[Hg] Ishmael Ball Other [employer] Other 02-15-2022 14:38-0400 Blood Pressure Location Reba Daniellee [facility] 02-15-2022 14:38-0400 Diastolic blood pressure 78 mm[Hg] Reba Lue [facility] 02-15-2022 14:38-0400 Heart rate 72 /min Reba Lue [facility] 02-15-2022 14:38-0400 Respiratory rate 16 /min Reba Lue [facility] 02-15-2022 14:38-0400 Systolic blood pressure 130 mm[Hg] Reba Lue [facility] Encounters Encounter Date Encounter Type Care Provider Facility Start: 10-26-2024 ambulatory Reba M. Lue Facility:[facility] Start: 07-11-2024 End: 07-11-2024 ambulatory [facility] Work Phone: Start: 07-11-2024 End: 07-11-2024 Patient encounter procedure [facility] Work Phone: Start: 03-12-2024 End: 03-12-2024 ambulatory [facility] Work Phone: Start: 03-12-2024 End: 03-12-2024 Encounter for general adult medical examination without abnormal findings [facility] Start: 03-12-2024 End: 03-12-2024 Patient encounter procedure [facility] Work Phone: Start: 12-19-2023 Non-patient / Non-visit [facility] Work Phone: Start: 11-21-2023 End: 11-21-2023 ambulatory [facility] Other [employer] Other Start: 11-21-2023 Telephone encounter Ishmael RICARDO [facility] Start: 11-16-2023 End: 11-16-2023 ambulatory Ishmael Jacob Other [employer] Other Start: 11-16-2023 Telephone encounter Ishmael RICARDO [facility] Start: 11-10-2023 ambulatory [facility] Start: 11-03-2023 End: 11-04-2023 ambulatory Valentina X Orzech Facility:[facility] Start: 11-03-2023 End: 11-03-2023 Lab Drop off Valentina X Orzech [facility] Start: 11-03-2023 End: 11-03-2023 Patient encounter procedure Valentina X Orzech [facility] Start: 10-31-2023 End: 10-31-2023 ambulatory Ishmael Jacob Other [employer] Other Start: 10-31-2023 Telephone encounter Ishmael RICARDO [facility] Start: 10-24-2023 End: 10-24-2023 ambulatory Ishmael Jacob Other [employer] Other Start: 10-24-2023 Office outpatient vi sit 25 minutes Ishmael Cecil [facility] Start: 09-05-2023 ambulatory Reba Larios Facility[facility] Start: 08-23-2023 End: 08-23-2023 ambulatory Ishmael Jacob Other [employer] Other Start: 08-23-2023 Telephone encounter Ishmael RICARDO [facility] Start: 07-11-2023 End: 07-11-2023 ambulatory Ishmael Jacob Other [employer] Other Start: 07-11-2023 Office outpatient vi sit 25 minutes Ishmael Ball [facility] Start: 05-24-2023 End: 05-24-2023 ambulatory STACI HARRIS [facility] Start: 04-05-2023 End: 04-05-2023 ambulatory Ishmael Jacob Other [employer] Other Start: 04-05-2023 Telephone encounter Ishmael RICARDO [facility] Start: 03-08-2023 End: 03-08-2023 ambulatory Ishmael Jacob Other [employer] Other Start: 03-08-2023 Encounter for genera l adult medical examination without abnormal findings Ishmael Cecil [facility] Start: 03-08-2023 Periodic preventive med est patient 40-64yrs Ishmael Jacob [facility] Start: 03-01-2023 End: 03-01-2023 ambulatory [facility] Start: 02-10-2023 End: 02-10-[address] [facility] Start: 02-07-2023 End: 02-07-2023 ambulatory Ishmael Jacob Other [employer] Other Start: 02-07-2023 Telephone encounter Ishmael RICARDO [facility] Start: 02-04-2023 End: 02-05-2023 [facility] Start: 01-10-2023 End: 01-10-2023 ambulatory [facility] Start: 12-28-2022 End: 12-28-2022 ambulatory Ishmael Cecil Other [employer] Other Start: 12-28-2022 Telephone encounter Ishmael RICARDO [facility] Start: 12-20-2022 End: 12-20-2022 ambulatory Ishmael Jacob Other [employer] Other Start: 12-20-2022 Telephone encounter Ishmael RICARDO [facility] Start: 12-16-2022 End: 12-17-[address] ISHMAEL JACOB Facility:[facility] Start: 12-14-2022 End: 12-14-2022 ambulatory Ishmael Jacob Other [employer] Other Start: 12-14-2022 Telephone encounter Ishmael Jacob [facility] Start: 12-08-2022 End: 12-08-2022 ambulatory Ishmael Jacob Other [employer] Other Start: 12-08-2022 Telephone encounter Ishmael Jacob [facility] Start: 12-07-2022 End: 12-08-[address] ISHMAEL JACOB Facility:[facility] Start: 11-25-2022 End: 11-25-2022 ambulatory Ishmael Jacob Other [employer] Other Start: 11-25-2022 Telephone encounter Ishmael Jacob [facility] Start: 11-23-2022 End: 11-23-2022 ambulatory Ishmael Jacob Other [employer] Other Start: 11-23-2022 Telephone encounter Ishmael Jacob [facility] Start: 11-06-2022 End: 11-07-[address] ISHMAEL JACOB Facility:[facility] Start: 11-02-2022 End: 11-02-2022 ambulatory Ishmael Jacob Other [employer] Other Start: 11-02-2022 Office outpatient vi sit 25 minutes Ishmael Jacob [facility] Start: 10-22-2022 Patient encounter status Ishmael Jacob Other [employer] Other Start: 06-19-2022 End: 06-20-2022 ambulatory REBA LARIOS . Facility:[facility] Start: 03-18-2022 Encounter for genera l adult medical examination without abnormal findings DR ISHMAEL JACOB [facility] Start: 03-13-2022 End: 03-14-[address] ISHMAEL JACOB Facility:[facility] Start: 03-13-2022 End: 03-14-2022 Encounter for general adult medical examination without abnormal findings DR ISHMAEL JACOB Facility:[facility] Start: 02-15-2022 End: 02-15-2022 Patient encounter procedure Reba Sarah Santosmargaret [facility] Start: 05-30-2017 End: 05-31-2017 Ambulatory DEFAULT PHYSICIAN Facility:[facility] Procedures Date Procedure Procedure Detail Performing Clinician Start: 03-13-2022 PSA screening LENA HAUSER Comment on above: Performed By: #### P [facility] #### [facility] [address] [place] [address] Dr. Linda Duran Start: 05-10-2015 Extracorporeal shock wave lithotripsy of tendon using ultrasound guidance Rebaluana Larios Start: 11-18-2010 History of repair of inguinal hernia Rebaluana Larios Start: 05-04-2006 Placement of stent i n cardiac conduit Rebaluana Larios Cardiac catheterization Auro ra Garcia Plan of Treatment Date Care Activity Detail Author Comprehensive metabo lic 2000 panel - Serum or Plasma [facility] enter Microalbumin [Mass/volume] in Urine [facility] Immunizations Immunization Date Immunization Notes Care Provider Josephine guzman 07-11-2024 influenza, seasonal, injectable, preservative free [facility] 09-04-2023 influenza virus vaccine, unspecified formulation [employer]ina [employer] [facility] 06-24-2022 COVID-19 Pfizer (bivalent) Ishmael Jacob Other [facility] 06-24-2022 COVID-19 Vaccine Pfi zer - Documentation Purposes Only Ishmael Jacob Other [facility] 06-24-2022 influenza virus vaccine, split virus (incl. purified surface antigen) Ishmael Jacob Other [employer] Other 06-24-2022 influenza virus vaccine, unspecified formulation Valentina Orzech [facility] 06-24-2022 influenza, injectabl e, quadrivalent, preservative free Ishmael Jacob Other [facility] 08-31-2021 COVID-19 Vaccine Pfi zer - Documentation Purposes Only Ishmael Jacob Other [facility] 08-12-2021 influenza virus vaccine, unspecified formulation Valentina Orzech [facility] 12-19-2020 COVID-19 Vaccine Johana - Documentation Purposes Only Ishmael Jacob Other [facility] 07-02-2020 influenza virus vaccine, unspecified formulation Valentina Orzech [facility] Payers Date Payer Category Payer Private Health Insurance [id number] 1960 Unknown [id number] 1960 Unknown [id number] 1960 Unknown [id number] 1960 Unknown [id number] 1960 Unknown [id number] 1960 Unknown [id number] 1960 Unknown [id number] 1960 Unknown [id number] [id number] 1960 Unknown [id number] 1960 Unknown [id number] 1959 Private Health Insurance [id number] Private Health Insurance [id number] Unknown Unknown Other1 (STD) . [id number] Social History Date Type Detail Facility Start: 02-15-2022 End: 11-03-2023 Tobacco smoking status Never smoked tobacco (finding) [facility] Tobacco smoking status Never [facility] Sex Assigned At Male [facility] Start: 1960 Sex Assigned At Male F [facility] Medical Equipment Procedure Code Equipment Code Equipment Original Text Equi pment Identifier Dates Functional Status Date Assessment Result Facility 11-03-2023 Functional Status N/A [facility] Clinical Notes 02-15-2022 to 11-21-2023 Note Date & Type Note Facility 11-21-2023 Evaluation note Encounter Date Diagnosis Assessment Notes Nov, Hyperlipidemi a, mixed (ICD-10 - E78.2) Nov, Type 2 diabetes mellitus with hyperglycemia , without long-term current use of insulin (ICD-10 - E11.65) Nov, ASHD (arterioscler otic heart disease) (ICD-10 - I25.10) [facility] w/ 60% OM - 02/2023 [employer] Other 02-07-2024 Evaluation note* Encounter Date Diagnosis Assessment Notes Treatment Notes Treatment Clinical Notes Nov, Primary hypertension (ICD-10 - I10) [employer] Other 02-02-2024 NoteContinue toprol, no concenring symptoms, palpitations, near syncope or syncope and pt remains quite active without limiting symptomsUnPremier [facility]02-02-2024 NoteContinue lopid and crestorUnPremier [facility]02-02-2024 NoteHypertension is well controlled 129/80 Continue lotensin, hydrochlorothiazide and toprolUnPremier Health [facility]02-02-2024 NoteCoronary artery disease is stable without concerning symptoms Continue GDMT- ASA, toprol, crestor continue risk factor modifications- heart healthy diet, regular exercise as tolerated and continue all medications.[facility] 11-10-2023 NotePatient here for 6 mo follow up CAD, hypertension, and NSVT. Denies chest pain, SOB, palpitations, and lightheadedness/syncope. Doing very well. Review of Systems All other systems reviewed and are negative.[facility] 11-10-2023 NoteUTP CARDIOLOGY PROGRESS NOTE HPI: [...] and are negative. Previous HPI per Dr Harris Reason for visit: PVC/NSVT HPI: Chely Meyer is a 62 y.o. year old with past medical history of CAD s/p LAD stent, LKN, recent stress test with NSVT during treadmill portion, history of PVC and NSVT which has been resolved since cath in 2005, abnormal stress test 2011 was normal cath and patent LAD stent. [...] Never BSA 2.4 m??? Allergies Allergen Reactions Rbidaav-Zvw-Luu Reductase Inhibitors Medications: Current Outpatient Medications on [...] 25 mg tablet,extended release 24 hr omega 8-ekl-sfn-fish oil (Fish OiL) 100-160-1,000 mg capsule Fish [...] movements intact. Conjunctiva/sclera: Conjunct (more content not included)...[facility]01-15-2024 Evaluation note* Encounter Date Diagnosis Assessment [...] ASHD (arteriosclerotic heart disease) (ICD-10 - I25.10) [facility] w/ 60% OM - 02/2023 This patient is stable without activity related CP, dyspnea or lightheadedness. They are instructed to continue exercise and AHA diet plan. Continue secondary prevention measures. [facility] w/ 60% OM - medically treated - [...] increased PVC, brief run of NSVT - [facility] w/ 60% OM stenosis, medically treated f/u [...] [BMI ] 34.0-34.9, adult (ICD-10 - Z68.34) [employer] Other 11-14-2023 Evaluation note* Encounter Date Diagnosis Assessment Notes Treatment Notes Treatment Clinical Notes Aug, Type 2 diabetes mellitus with hyperglycemia, without long-term current use of insulin (ICD-10 - E11.65) [employer] Other 10-23-2023 Hospital Discharge instructions Follow Up Care 08/01/2023 16:05:53 With:Ric MAY, TERRENCE Childs, U[facility] Address: [address], [place] [phone] When: Unknown [facility] 10-02-2023 Evaluation note* Encounter Date Diagnosis [...] cardiology after having NSVT during stress testing. LHC w/ 60% narrowing with no intervention. Avoid stimulants, hydrate Jul, Hyperlipidemia, mixe quincy (ICD-10 - E78.2) Instructed on diet and [...] [BMI ] 34.0-34.9, adult (ICD-10 - Z68.34) [employer] Other 08-15-2023 NoteUT Electrophysiology Consult Note Reason [...] Diagnosis Date Coronary artery disease Diabetes mellitus ([facility]/HCC) Hyperlipidemia Hypertension PVC (premature ventricular contraction) PSH: [...] Not on file Allergies: Allergies Allergen Reactions Zmqyvwb-Qfn-Mgt Reductase Inhibitors Weight: 112kg Visit Vitals BP [...] 25 mg tablet,extended release 24 hr omega 2-erc-gxz-fish oil (Fish OiL) 100-160-1,000 mg capsule Fish [...] leg edema, no syncope, (more content not included)...[facility]06-27-2023 Evaluation note* Encounter Date Diagnosis Assessment Notes Treatment Notes Treatment Clinical Notes Mar, Type 2 diabetes mellitus with hyperglycemia, without long-term current use of insulin (ICD-10 - E11.65) [employer] Other 05-30-2023 Evaluation note* Encounter Date Diagnosis [...] (ICD-10 - Z12.5) Yearly JOIE and PSA [employer] Other 05-23-2023 NotePatient is here today to follow up on a heart cath Review of Systems All other systems reviewed and are negative.[facility] 03-01-2023 NoteUT Electrophysiology Consult Note Reason [...] 2011 In summary he had stent in 2006 He had stress in 2011 that nuclear abnormal and cath normal Now [...] Not on file Allergies: Allergies Allergen Reactions Yrjdcqn-Bzp-Mzr Reductase Inhibitors Weight: No weight available Visit [...] 25 mg tablet,extended release 24 hr omega 8-bam-jvn-fish oil (Fish OiL) 100-160-1,000 mg capsule Fish [...] no night sweats (more content not included)... [facility]05-04-2023 NotePatient: Chely Meyer Procedure Information Date/Time: 02/10/23 0830 Procedures: CORONARY ANGIOGRAPHY Left heart cath Location: [facility] 3 / [facility] (Cath) Providers: Lena Isaac MD Clinical information reviewed: Allergies Meds Physical Exam Airway Mallampati: II Cardiovascular Dental Pulmonary Abdominal Anesthesia Plan ASA 3 other (moderate) Anesthetic plan and risks discussed with patient. Use of blood products discussed with patient who consented to blood products. Plan discussed with attending. Additional Equipment RequestsUnPremier Health [facility]05-01-2023 Evaluation note* Encounter Date Diagnosis Assessment Notes Treatment Notes Treatment Clinical Notes February, Type 2 diabetes mellitus with hyperglycemia, without long-term current use of insulin (ICD-10 - E11.65) [employer] Other 04-20-2023 Note-will rule out worsening CAD, if negative we can consider ablation for PVC/VTUnPremier Health [facility] 01-27-2023 Note-states he has been controlled, Do not have an A1C to reference -not on insulin, managed per PCPUnPremier Health [facility]04-20-2023 Note-hx of this which resolved with stent and managed with medications -with return of PVC and NSVT will need [facility] to rule out additional ischemia consdering hx of LAD stent -if no new concerns for CAD will then proceed with ablationUnPremier Health [facility]04-20-2023 Note- Blood pressure is mildly elevated today -he will trend BP for me at home as he states he is typically not elevated -ct hydrochlorothiazide 25mg,amlodipine/benazapril 10-20mg, toprol xl 25mg [facility]04-20-2023 Note- Last heart cath 2011 patent LAD stent and otherwise normal coronaries -We will order left heart cath to rule out any additional ischemia and if left heart cath negative for anything new we will then proceed with PVC/VT ablation [facility]04-03-2023 NoteNew patient here to re- establish [...] breath. All other systems reviewed and are negative.[facility] 01-10-2023 NoteUT Electrophysiology Consult Note Reason for visit: abnormal stress ECG NSVT, hx of LAD stent HPI: Chely Meyer is a 62 y.o. year old with past medical history of CAD s/p LAD stent, LKN, recent stress test with NSVT during treadmill portion, history of PVC and NSVT which has been resolved since cath in 2005, abnormal stress test 2011 was normal cath and patent LAD stent. [...] Not on file Allergies: Allergies Allergen Reactions Oaouras-Kef-Cgz Reductase Inhibitors Weight: 112kg Visit Vitals BP [...] 25 mg tablet,extended release 24 hr omega 5-rfy-oes-fish oil (Fish OiL) 100-160-1,000 mg capsule Fish [...] no teeth problems Respirato (more content not included)...[facility] 12-28-2022 Evaluation note* Encounter Date Diagnosis Assessment Notes Treatment Notes Treatment Clinical Notes Dec, Type 2 diabetes mellitus with hyperglycemia, without long-term current use of insulin (ICD-10 - E11.65) [employer] Other 02-16-2023 Evaluation note* Encounter Date Diagnosis Assessment Notes Treatment Notes Treatment Clinical Notes Nov, ASHD (arteriosclerotic heart disease) (ICD-10 - I25.10) Nov, Shortness of breath (ICD-10 - R06.02) [employer] Other 01-24-2023 Evaluation note* Encounter Date Diagnosis [...] exercise for 30 minutes, 3-5 times weekly. [employer] Other 05-09-2022 Hospital Discharge instructions Patient Education 02/15/2022 15:13:26 Kidney Stones, Ofnr-kt-Rsot Kidney Stones Kidney stones are rock-like masses [...] Follow these instructions at home: Medicines Take umqz-zva-qkudipu and prescription medicines only as told by [...] 03/14/2009 Document Revised: 02/12/2020 Document Reviewed: 02/12/2020 [employer] Patient Education 2020 [employer]. Follow Up Care 01/28/2022 10:44:14 With:Ric MAY, Reba Smith, URL, [facility] Address: [facility] [address] [address]- When:05/18/2022 Comments:w/ renal us and kub [facility] Evaluation + Plan note Future Appointments Appointment Date:04/26/2022 03:15:00 PM Scheduled Provider:Reba Larios MD Location:[facility] Appointment Type:URO Office Visit [facility] Evaluation + Plan note Future Appointments Appointment Date:10/26/2024 03:15:00 PM Scheduled Provider:Reba Larios MD Location:[facility] Appointment Type:URO Office Visit [facility] Evaluation + Plan note Future Appointments Appointment Date:10/26/2024 03:15:00 PM Scheduled Provider:Reba Larios MD Location:[facility] Appointment Type:URO Office Visit Diagnostic Tests Pending * Calculi Analysis Urinary 11/03/23 [facility] noteNo Major [employer]ideBer[facility] [employer] Other Evaluation note* Diagnosis Onset Date Resolution Status ASHD (arteriosclerotic heart disease) acute Benign prostatic hyperplasia with lower urinary tract symptoms acute History of nephrolithiasis a cute Hypercholesterolemia acute Hypertension acute Type 2 diabetes mellitus with hyperglycemia acute Wellness examination noneact chrissy [facility] Work Phone: Evaluation note* Diagnosis Onset Date Resolution Status ASHD (arteriosclerotic heart disease) acute Benign prostatic hyperplasia with lower urinary tract symptoms acute History of nephrolithiasis a cute Hypercholesterolemia acute Hypertension acute Obesity acute Type 2 diabetes mellitus with hyperglycemia acute [facility] Work Phone: History general Narrative - Reported* Type Description Date Medical History obesity Medical History type 2 diabetes nani itus with hyperglycemia without nursing home current use of insulin Medical History hypertension Medical History hyperlipidemia Medical History arteriosclerotic heart disease Medical History gross hematuria Medical History nephrolithiasis Medical History uric acid kidney stone Surgical History heart cath stent Surgical History hernia repair Surgical History lithotripsy Hospitalization History see above surgeries [employer] Other History general Narrative - Reported* Type Description Date Medical History obesity Medical History type 2 diabetes nani itus with hyperglycemia without nursing home current use of insulin Medical History hypertension Medical History hyperlipidemia Medical History arteriosclerotic heart disease Medical History gross hematuria Medical History nephrolithiasis Medical History uric acid kidney stone Surgical History heart cath stent Surgical History hernia repair Surgical History lithotripsy Surgical History LHC: 60% OM, 02/2023` Hospitalization History see above surgeries [employer] Other Hospital course Narrative No data available for this section [facility] Hospital Discharge instructions No data available for this section [facility] note No data available for this section [facility] Reason for referral (narrative)* Reason 01/10/23 Referral for dyspnea and abnormal cardiac stress test Diagnosis 1 NSVT (nonsustained v entricular tachycardia) (I47.29) Diagnosis 2 ASHD (arteriosclerot ic heart disease) (I25.10) Referral Organization [facility] Referring Provider First Name Ishmael Referring Provider Last Name Cecil Referring Provider [facility]ty [facility] Referred Organization [facility] Referred Provider CHELSI MENARD Referred Address [address] [place] [id number] Referred Provider Specialty Cardiology Referral Priority Routine [...] 12/21/2022 01:17:10 PM >received today, attachments made, [phone] Raquel Robert 12/28/2022 11:37:48 AM >faxed first [...] history of CAD is worrisome to me. [employer] Other Summary Purpose Family History No Family [...] 2 diabetes mellitus with hyperglycemia Wellness examination Chief Complaint 4 month f/u Reason for Visit ASHD (arteriosclerot ic heart disease) Benign prostatic hyperplasia with lower urinary tract symptoms History of nephrolithiasis Hypercholesterolemia Hypertension Obesity Type 2 diabetes mellitus with hyperglycemia Additional Source Comments (unrecognized sect ion and content) No Status Records FoundNo Status Records FoundNo Status Records FoundNo Status Records Found INFORMATION SOURCE (unrecogn ized section and content) DATE CREATED AUTHOR 04/05/2018 [facility] DATE CREATED AUTHOR AUTHOR'S ORGANIZ ATION 02/11/2023 [facility] DATE CREATED AUTHOR AUTHOR'S ORGANIZ ATION 11/13/2023 [facility] DATE CREATED AUTHOR AUTHOR'S ORGANIZ ATION 11/14/2023 [facility] REASON FOR VISIT (unrecogniz ed section and content) 4 MONTH FOLLOW UPNo Informat ionxray resultsEchocardiogram resultsStress TestCardiologistNo InformationNo InformationNo InformationWellnessLab Results4 month check upOzempic3 month Follow upA1C resultsNo Informationrefill Patient Care team informatio n (unrecognized section and content) Team Status: Active Member Role Status Dates Ishmael Jacob , DO Primary Care Provider Active Team Status: Inactive Member Role Status Dates Ishmael Jacob , DO Primary Care Provide r, Attending Provider Active Start: July 11, 2024 End: July 11, 2024 Team Status: Active Member Role Status Dates Ishmael Jacob , DO Primary Care Provider Active Team Status: Active Member Role Status Dates Ishmael Jacob , DO Primary Care Provider Active Start: December 19, 2023 BUDDY Bailey Attending Provider Active Start : December 19, 2023 Team Status: Inactive Member Role Status Dates Ishmael Jacob , DO Primary Care Provide r, Attending Provider Active Start: March 12, 2024 End: March 12, 2024 Team Status: Inactive Member Role Status Dates Ishmael Jacob , DO Primary Care Provide r, Attending Provider Active Start: July 11, 2024 End: July 11, 2024 Goals (unrecognized section and content) Goals [...] BE BASED ON THE PRIMARY CLINICAL RECORDS. [employer] [facility]. provides no warranty or guarantee of the accuracy or completeness of information in this document.
[2024-07-17 09:33] LABS: Estimated Average Glucose 177 mg/dL; Glycohemoglobin A1C 7.8 % (4.5-6.2)
== END 2024-07-17 07:50 | disposition home or self-care (01) ==
LOC: LAB 07:50
PROVIDERS: PCP Internal Medicine; Visit Provider Internal Medicine
DX: E11.65 Type 2 diabetes mellitus with hyperglycemia (principal)
CPT/HCPCS: 36415; 83036

== ENCOUNTER 2024-10-24 07:28 | Outpatient (OUT) | payer OTHER, SELFPAY ==
--- OUTSIDE RECORDS SUMMARY | 2024-10-24 07:31 | XMS_ITS | CCD ---
Author Organization [facility] Care Team Providers Care Screen Tender Name Role Phone PHYSICIAN, DEFAULT Unavailable Unavailable PHYSICIAN, DEFAULT Unavailable EVIN Barreto Unavailable Unavailable ISHMAEL JACOB Primary Care Physician [phone] Ishmael Jacob Unavailable LENA ISAAC Consulting Unavailable STANLEYHOJULIAN, MOHABD Admitting Unavailable BALL, DR MEIER Primary Care Unavailable STANLEYHOJULIAN, LENA Attending Unavailable BALL, DR MEIER Admitting Unavailable BALL, DR MEIER Attending Unavailable BALL, DR MEIER Consulting Unavailable CECIL, DR MEIER Primary Care Unavailable ZIEBER, DR ZACH Ballard Consulting Unavailable CECIL, DR MEIER Admitting Unavailable BALL, DR MEIER Attending Unavailable BALL, DR MEIER Consulting Unavailable BALL, DR MEIER Primary Care Unavailable BALL, DR MEIER Admitting Unavailable BALL, DR MEIER Attending Unavailable BALL, DR MEIER Consulting Unavailable CECIL, DR MEIER Primary Care Unavailable WINKLER, GEORGECHA Consulting Unavailable REBA DUMONT Attending Unavailable REBA DUMONT Admitting Unavailable KENYETTA WINKLER Consulting Unavailable CECIL, DR MEIER Primary Care Unavailable ERBA DUMONT Consulting Unavailable CECIL, DR MEIER Admitting Unavailable BALL, DR MEIER Attending Unavailable BALL, DR MEIER Consulting Unavailable CECIL, DR MEIER Primary Care Unavailable ALGHOJULIAN, MOHAMAD Admitting Unavailable RADHA MOHAMAD Attending Unavailable CHELSI MENARD Attending Unavailable SHUN SPARKS Attending Unavailable STACI HARRIS Attending Unavailable CHELSI MENARD Attending Unavailable STANLEYHOJULIAN, MOHAMAD Referring Unavailable Reba Larios Attending Unavailable Valentina Garcia Attending Unavailable Reba Larios Attending Unavailable Valentina Garcia Admitting Unavailable Valentina Garcia Attending Unavailable Allergies Allergy Classification Reported Allergen(s) Allergy Type Date of Onset Reaction(s) Facility (6 sources) HMG-CoA reductase inhibitor Drug allergy 3 Unknown [employer] Other (1 source) Hmg-Coa Reductase Inhibitors (Statins); Translations: [YSUIPJI-VPQ-CY A REDUCTASE INHIBITORS] Propensity to adverse reactions to drug (disorder) [facility] Repository Medications Current Medications Medication Drug [...] Refills(s) 0 Start Date: 02/15/22 Status: Ordered [place] 8-Kdz-Yjd-Fish Oil (Fish Oil) 1,200 (144-216) mg capsule (2 sources) Start: 03-12-2024 take 1 capsule by mouth once daily [place] 0-Qcr-Umb-Fish Oil (Fish Oil) 1,200 (144-216) mg capsule Active 1 CAP PO Daily March 12, 2024 12:00am [employer] Ultra - (17 sources) Riskifieduch Ultra - USE TO TEST BLOOD SUGAR [...] Coronary arteriosclerosis; Translations: [Atherosclerotic heart disease of iqugmiut coronary artery without angina pectoris] Onset: 12-16-2022 [...] [Mass fraction] 10 % Invalid Interpretation Code [facility] Comment on above: Performed By: #### 1 [id number] #### [facility] Laboratory [address] [place] [address] Color (Stone) Perryman Invalid Interpretation Code [facility] Comment on above: Performed By: #### 1 [id number] #### [facility] Laboratory [address] [place] [address] Composition Comment Invalid Interpretation Code [facility] Comment on above: Result Comment: Perc entage (Represents the % composition) Performed By: #### 1 [id number] #### [facility] Laboratory [address] [place] [address] Disclaimer: Comment Invalid Interpretation Code [facility] Comment on above: Result Comment: This test was developed and its performance characteristics determined by [employer]. It has not been cleared or approved by the Food and Drug Administration. Performed at: [facility] [address] [place], [place] [id number] PhD Yuli Rodrgiuez Performed By: #### 1 [id number] #### [facility] Laboratory [address] [place] [address] Laboratory comment Omer (Report) Comment Invalid Interpretation Code [facility] Comment on above: Result Comment: Jesus vega questions regarding Calculi Analysis contact [facility] at: [phone]. Performed By: #### 1 [id number] #### [facility] [address] [place] [address] Please Note: Comment Invalid Interpretation Code [facility] Comment on above: Result Comment: Calc dianna report will follow via computer, mail or regional sales representative delivery. Performed By: #### 1 [id number] #### [facility] [address] [place] [address] Size (Stone) [Entitic vol] 8x6 Invalid Interpretation Code [facility] Comment on above: Result Comment: Sing le piece received. Performed By: #### 1 [id number] #### [facility] [address] [place] [address] Specimen source subject Nom Comment Invalid Interpretation Code [facility] Comment on above: Result Comment: Not provided Performed By: #### 1 [id number] #### [facility] Laboratory [address] [facility] [place] [address] Stone Photo Comment Invalid Interpretation Code [facility] Comment on above: Result Comment: Phot ograph will follow under a separate cover Performed By: #### 1 [id number] #### [facility] Laboratory [address] [place] [address] Urate (Stone) [Mass fraction] 90 % Invalid Interpretation Code [facility] Comment on above: Performed By: #### 1 [id number] #### [facility] Laboratory [address] [place] [address] Weight (Stone) 177 mg Invalid Interpretation Code [facility] Comment on above: Performed By: #### 1 [id number] #### [facility] Laboratory [address] [facility] [place] [address] Office Visiton 11-10-2023 Follow-up visit [id number] Chely Meyer 1960 M Date Provider Department Center 11/10/2023 SHUN JACQUES EN [facility] Family History Problem Relation Age of Onset Hypertension Mother Hyperlipidemia Mother Coronary artery disease Father Leukemia Father Hypertension Father Hyperlipidemia Father Family Status - Relation Status Age at Mother Father Level of Service:14831 MI OFFICE/OUTPATIENT ESTABLISHED LOW MDM 20 MIN Normal [facility] Patient Educationon 11-07-19 24 Patient Education [...] Spinach (cooked), rhubarb, beets, sweet potatoes, and Sri Lankan chard. ? Peanuts. ? Potato chips, japanese fries, and baked potatoes with skin on. ? Nuts and nut products. ? Chocolate. ? If you regularly take a diuretic medicine, make sure to eat at least 1 or 2 servings of fruits or vegetables that are high in potassium each day. These include: ? Avocado. ? Banana. ? Perryman, prune, carrot, or tomato juice. ? Baked [...] fish oil, or vitamin B6. ? Take ecgp-sea-fcxpdbk and prescription medicines only as told by your health care provider. These include supplements. What foods sh (more content not included)... Normal [facility] Urology Office/Clinic Noteon 11-07-2023 Urology Office/Clinic Note [...] Information Ric MAY, Reba Smith, URL, [facility] [address], [place] [address] [phone] Additional Instructions: Patient Education Dietary Guidelines to Help Prevent Kidney Stones Benign Prostatic Hyperplasia Kidney Stones, Nfoz-df-Sjuh Problem List/Past Medical History Ongoing Diabetes Hypertension [...] Psychiatric behavioral disabili (more content not included)... [facility] Comment on above: Result Comment: Elec tronically Signed By: GERARDO Garcia APRN, [place] X\.br\Date and Time Signed: 11/07/23 14:09 EST [place] 11-04-2023 Screens [id number] 1#[id number] [facility] Ambulatory Visit Summaryon 0 11-03-2023 Ambulatory Visit [...] MAY, Reba Smith [facility] Provider Letteron 11-03-2023 Provider Letter November 03, 2023 CHELY MEYER [address] [place] [address] : 1960 To Whom It May Concern, Please excuse above patient from work. Had an appointment in our office 11/03/23 at 3:15 PM Restrictions: N/A Comments: Please feel free to contact the office with any questions. Sincerely, [facility] [address] [place] [address] [facility] Office Visiton 05-24-2023 Follow-up visit [id number] Chely Meyer 1960 M Date Provider Department Center 05/24/2023 Aureliano-STACI HARRIS [facility] Family History Problem Relation Age of Onset Hypertension Mother Hyperlipidemia Mother Coronary artery disease Father Leukemia Father Hypertension Father Hyperlipidemia Father Family Status - Relation Status Age at Mother Father Level of Service:97059 MI OFFICE/OUTPATIENT NEW HIGH MDM 60-74 MINUTES Reason for Visit and Comments: Follow-up [661351] - 3 month follow up Normal [facility] Office Visiton 03-01-2023 Follow-up visit [id number] Chely Meyer 1960 M Date Provider Department Center 03/01/2023 CHELSI MALIK EN [facility] Family History Problem Relation Age of Onset Hypertension Mother Hyperlipidemia Mother Coronary artery disease Father Leukemia Father Hypertension Father Hyperlipidemia Father Family Status - Relation Status Age at Mother Father Level of Service:75950 MI OFFICE/OUTPATIENT ESTABLISHED MOD MDM 30-39 MIN Reason for Visit and Comments: Follow-up [003980] - Heart cath Normal [facility] HPon 02-10-2023 HP Attestation signed by Lena [...] history of Coronary artery disease, Diabetes mellitus ([facility]), Hyperlipidemia, Hypertension, and PVC (premature ventricular contraction). Surgical History He has a past surgical history that includes Cardiac catheterization; Coronary stent placement; Hernia repair; and Kidney stone surgery. Social History He reports that he has never smoked. He has never used smokeless tobacco. He reports current alcohol use. No history on file for drug use. Allergies Oiutvwq-xme-nsk reductase inhibitors Medications Medications Prior to Admission [...] mg tablet,extended release 24 hr 02/10/2023 omega 1-tsb-azk-fish oil (Fish OiL) 100-160-1,000 mg capsule Fish [...] He agrees to proceed. Chance Bunn MD OR Cardiovascular Fellow [facility] CBC AUTO DIFFon 02-04-2023 BASO # 0.0 103/ul Normal 0.0-0.1 [facility] Comment on above: Performed By: #### C BC #### [facility] [address] [place] [address] Dr. Linda Duran Basophils/100 WBC (Bld) 0.4 % Normal 0.2-2.0 [facility] Comment on above: Performed By: #### C BC #### [facility] [address] [place] [address] Dr. Linda Duran EO # 0.1 103/ul Normal 0.0-0.7 [facility] Comment on above: Performed By: #### C BC #### [facility] [address] [place] [address] Dr. Linda Duran Eosinophils/100 WBC (Bld) 2.0 % Normal 0.9-7.0 [facility] Comment on above: Performed By: #### C BC #### [facility] [address] [place] [address] Dr. Linda Duran Erythrocyte distribution width (RBC) [Ratio] 12.5 % Normal 11.0-15.0 [facility] Comment on above: Performed By: #### C BC #### [facility] [address] [place] [address] Dr. Linda Duran Hematocrit (Bld) [Volume fraction] 43.9 % Normal 42.0-54.0 [facility] Comment on above: Performed By: #### C BC #### [facility] [address] [place] [address] Dr. Linda Duran Hemoglobin (Bld) [Mass/Vol] 15.0 g/dL Normal 14.0-18.0 [facility] Comment on above: Performed By: #### C BC #### [facility] [address] [place] [address] Dr. Linda Duran IG # 0.01 10e3/ul Normal 0.00-0.03 [facility] Comment on above: Performed By: #### C BC #### [facility] [address] [place] [address] Dr. Linda Duran IG % 0.1 % Normal 0.0-0.5 [facility] Comment on above: Performed By: #### C BC #### [facility] [address] [place] [address] Dr. Linda Duran LYMPH # 2.2 103/ul Normal 1.2-3.8 [facility] Comment on above: Performed By: #### C BC #### [facility] [address] [place] [address] Dr. Linda Duran Lymphocytes/100 WBC (Bld) 30.6 % Normal 20.5-60.0 [facility] Comment on above: Performed By: #### C BC #### [facility] [address] [place] [address] Dr. Linda Duran MANUAL DIFF REQ NO Normal [facility] Comment on above: Performed By: #### C BC #### [facility] [address] [place] [address] Dr. Linda Duran MCH (RBC) [Entitic mass] 29.3 pg Normal 25.9-34.0 [facility] Comment on above: Performed By: #### C BC #### [facility] [address] [place] [address] Dr. Linda Duran MCHC (RBC) [Mass/Vol] 34.2 g/dL Normal 29.9-35.2 [facility] Comment on above: Performed By: #### C BC #### [facility] [address] [place] [address] Dr. Linda Duran MCV (RBC) [Entitic vol] 85.7 fL Normal 80.0-94.0 [facility] Comment on above: Performed By: #### C BC #### [facility] [address] [place] [address] Dr. Linda Duran MONO # 0.9 103/ul Critically high 0.3-0.8 [facility] Comment on above: Performed By: #### C BC #### [facility] [address] [address] [address] Linda Duran Monocytes/100 WBC (Bld) 12.0 % Normal 1.7-12.0 [facility] Comment on above: Performed By: #### C BC #### [facility] [address] [address] [address] Linda Duran NEUT # 3.9 103/ul Normal 1.4-6.5 [facility] Comment on above: Performed By: #### C BC #### [facility] [address] [address] [address] Linda Duran Neutrophils/100 WBC (Bld) 54.9 % Normal 43.0-75.0 [facility] Comment on above: Performed By: #### C BC #### [facility] [address] [place] [address] Dr. Linda Duran Platelet mean volume (Bld) [Entitic vol] 10.3 fL Normal 9.5-13.5 [facility] Comment on above: Performed By: #### C BC #### [facility] [address] [place] [address] Dr. Linda Duran PLT 163 103/ul Normal 150-450 [facility] Comment on above: Performed By: #### C BC #### [facility] [address] [place] [address] Dr. Linda Duran RBC 5.12 106/ul Normal 4.70-6.10 [facility] Comment on above: Performed By: #### C BC #### [facility] [address] [place] [address] Dr. Linda Duran WBC 7.1 103/ul Normal 4.0-11.0 [facility] Comment on above: Performed By: #### C BC #### [facility] [address] [place] [address] Dr. Linda Duran PROF CHEM 8 (BAS METB)on Anion gap [Moles/Vol] 12.0 mmol/L Normal [facility] Comment on above: Performed By: #### B MP #### [facility] [address] [address] [address] Linda Duran Calcium [Mass/Vol] 9.2 mg/dL Normal 8.5-10.1 [facility] Comment on above: Performed By: #### B MP #### [facility] [address] [address] [address] Linda Duran Chloride [Moles/Vol] 101 mmol/L Normal 98-107 [facility] Comment on above: Performed By: #### B MP #### [facility] [address] [address] [address] Linda Duran CO2 [Moles/Vol] 30.0 mmol/L Normal 21.0-32.0 [facility] Comment on above: Performed By: #### B MP #### [facility] [address] [address] [address] Linda Duran Creatinine [Mass/Vol] 1.13 mg/dL Normal 0.70-1.30 [facility] Comment on above: Performed By: #### B MP #### [facility] [address] [address] [address] Linda Duran EGFR-AF ESTONIAN >60 Normal >=60 [facility] Comment on above: Performed By: #### B MP #### [facility] [address] [address] [address] Linda Duran EGFR-NON AF ESTONIAN >60 Normal >=60 [facility] Comment on above: Performed By: #### B MP #### [facility] [address] [address] [address] Linda Duran Glucose [Mass/Vol] 154 mg/dL Critically high 74-106 [facility] Comment on above: Performed By: #### B MP #### [facility] [address] [address] [address] Linda Duran Potassium [Moles/Vol] 4.0 mmol/L Normal 3.5-5.1 [facility] Comment on above: Performed By: #### B MP #### [facility] [address] [address] [address] Linda Duran Sodium [Moles/Vol] 139 mmol/L Normal 136-145 [facility] Comment on above: Performed By: #### B MP #### [facility] [address] [address] [address] Linda Duran Urea nitrogen [Mass/Vol] 30.0 mg/dL Critically high 7.0-18.0 [facility] Comment on above: Performed By: #### B MP #### [facility] [address] [address] [address] Linda Duran Urea nitrogen/Creatinine [Mass ratio] 26.5 mg/mg Normal [facility] Comment on above: Performed By: #### B MP #### [facility] [address] [address] [address] Linda Duran Orders Onlyon 02-02-2023 Orders Only [id number] MitchChely Margaret 1960 [facility] Provider Department Center 02/02/2023 PABLO NATHAN [facility] LAB OR [facility] Family History Problem Relation Age of Onset Hypertension Mother Hyperlipidemia Mother Coronary artery disease Father Leukemia Father Hypertension Father Hyperlipidemia Father Family Status - Relation Status Age at Mother Father Normal [facility] Office Visiton 01-10-2023 Follow-up visit [id number] Alex Meyerald Margaret 1960 Date Provider Department Center 01/10/2023 Karen-CHELSI MENARD [facility] Family History Problem Relation Age of Onset Hypertension Mother Hyperlipidemia Mother Coronary artery disease Father Leukemia Father Hypertension Father Hyperlipidemia Father Family Status - Relation Status Age at Mother Father Level of Service:23650 MI OFFICE/OUTPATIENT ESTABLISHED MOD MDM 30-39 MIN Reason for Visit and Comments: NSVT [Other] Coronary Artery Disease [187] Hypertension [123740] PVC's [Other] Hyperlipidemia [182] Normal [facility] NM STRESS/REST MULTIon 12-16 NM STRESS/REST MULTI Patient: CHELY MEYER Vinny Exam Date: 12/16/2022 : 1960 Gender:M Ordering : DR ISHMAEL JACOB D.O. Admission #: [id number] Family : Order #: [id number] CLICK HERE TO VIEW EXAM RADIOLOGY REPORT [...] Salomon M.D. on 12/17/2022 at 06:45 Normal [facility] ECHOCARDIO M/2D COMPLETEon 0 12-07-2022 ECHOCARDIO M/2D COMPLETE Patient Name Site Name CHELY MEYER [facility] Account No Medical Record Number Age Sex Date Time [id number] [facility]:[id number] M 12/07/2022 07:28 At the Request [...] Sanford M.D. on 12/07/2022 at 19:05 Normal [facility] XR CHEST 2 Von 11-06-2022 XR [...] KENYETTA WINKLER Date: 2022-11-06 10:56 Normal [facility] US KIDNEYS BLADDERon 06-19-2 022 US KIDNEYS BLADDER Ultrasound kidneys, bilateral [...] KENYETTA WINKLER Date: 2022-06-19 11:28 Normal [facility] XR KUB 1 VIEWon 06-19-2022 XR KUB [...] KENYETTA WINKLER Date: 2022-06-19 11:30 Normal [facility] TOTALBILIRUBINon 03-14-2022 Bilirubin [Mass/Vol] 0.8 mg/dL Normal 0.0-1.2 [facility] Comment on above: Performed By: #### T BILLC #### [facility] [address] [place] [address] Dr. Linda Duran CBC AUTO DIFFon 03-13-2022 BASO # 0.0 103/ul Normal 0.0-0.1 [facility] Comment on above: Performed By: #### C BC #### [facility] [address] [place] [address] Dr. Linda Duran Basophils/100 WBC (Bld) 0.6 % Normal 0.2-2.0 [facility] Comment on above: Performed By: #### C BC #### [facility] [address] [place] [address] Dr. Linda Duran EO # 0.2 103/ul Normal 0.0-0.7 [facility] Comment on above: Performed By: #### C BC #### [facility] [address] [place] [address] Dr. Linda Duran Eosinophils/100 WBC (Bld) 3.3 % Normal 0.9-7.0 [facility] Comment on above: Performed By: #### C BC #### [facility] [address] [place] [address] Dr. Linda Duran Erythrocyte distribution width (RBC) [Ratio] 12.1 % Normal 11.0-15.0 [facility] Comment on above: Performed By: #### C BC #### [facility] [address] [place] [address] Dr. Linda Duran Hematocrit (Bld) [Volume fraction] 43.5 % Normal 42.0-54.0 [facility] Comment on above: Performed By: #### C BC #### [facility] [address] [place] [address] Dr. Linda Duran Hemoglobin (Bld) [Mass/Vol] 15.5 g/dL Normal 14.0-18.0 [facility] Comment on above: Performed By: #### C BC #### [facility] [address] [place] [address] Dr. Linda Duran IG # 0.01 10e3/ul Normal 0.00-0.03 [facility] Comment on above: Performed By: #### C BC #### [facility] [address] [place] [address] Dr. Linda Duran IG % 0.2 % Normal 0.0-0.5 [facility] Comment on above: Performed By: #### C BC #### [facility] [address] [place] [address] Dr. Linda Duran LYMPH # 1.5 103/ul Normal 1.2-3.8 [facility] Comment on above: Performed By: #### C BC #### [facility] [address] [place] [address] Dr. Linda Duran Lymphocytes/100 WBC (Bld) 28.5 % Normal 20.5-60.0 [facility] Comment on above: Performed By: #### C BC #### [facility] [address] [place] [address] Dr. Linda Duran MANUAL DIFF REQ NO Normal [facility] Comment on above: Performed By: #### C BC #### [facility] [address] [place] [address] Dr. Linda Duran MCH (RBC) [Entitic mass] 29.8 pg Normal 25.9-34.0 [facility] [facility] Comment on above: Performed By: #### C BC #### [facility] [address] [place] [address] Dr. Linda Duran MCHC (RBC) [Mass/Vol] 35.6 g/dL Critically high 29.9-35.2 [facility] Comment on above: Performed By: #### C BC #### [facility] [address] [place] [address] Dr. Linda Duran MCV (RBC) [Entitic vol] 83.7 fL Normal 80.0-94.0 [facility] Comment on above: Performed By: #### C BC #### [facility] [address] [place] [address] Dr. Linda Duran MONO # 0.6 103/ul Normal 0.3-0.8 [facility] Comment on above: Performed By: #### C BC #### [facility] [address] [place] [address] Dr. Linda Duran Monocytes/100 WBC (Bld) 11.1 % Normal 1.7-12.0 [facility] Comment on above: Performed By: #### C BC #### [facility] [address] [place] [address] Dr. Linda Duran NEUT # 2.9 103/ul Normal 1.4-6.5 [facility] Comment on above: Performed By: #### C BC #### [facility] [address] [place] [address] Dr. Linda Duran Neutrophils/100 WBC (Bld) 56.3 % Normal 43.0-75.0 [facility] Comment on above: Performed By: #### C BC #### [facility] [address] [place] [address] Dr. Linda Duran Platelet mean volume (Bld) [Entitic vol] 10.7 fL Normal 9.5-13.5 [facility] Comment on above: Performed By: #### C BC #### [facility] [address] [place] [address] Dr. Linda Duran PLT 148 103/ul Critically low 150-450 [facility] Comment on above: Performed By: #### C BC #### [facility] [address] [address] [address] Linda Duran RBC 5.20 106/ul Normal 4.70-6.10 [facility] Comment on above: Performed By: #### C BC #### [facility] [address] [address] [address] Lnida Duran WBC 5.1 103/ul Normal 4.0-11.0 [facility] Comment on above: Performed By: #### C BC #### [facility] [address] [address] [address] Linda Duran GLYCOHEMOGLOBIN A1Con 2021 ADA RECOMMENDATION SEE BELOW Normal [facility] Comment on above: Result Comment: ADA RECOMMENDED LIMIT 4.0 - 6.0 ADA THERAPEUTIC TARGET < 7.0 ACTION SUGGESTED > 7.0 Performed By: #### A 1C #### [facility] [address] [address] [address] Linda Duran Glucose [Mass/Vol] 180 mg/dL Normal [facility] Comment on above: Performed By: #### A 1C #### [facility] [address] [address] [address] Linda Duran HbA1c (Bld) [Mass fraction] 7.9 % Critically high 4.5-6.2 [facility] Comment on above: Performed By: #### A 1C #### [facility] [address] [address] [address] Linda Duran LIPID PROFILEon 03-13-2022 CHOL-HDL RATIO NORM SEE BELOW Normal [facility] Comment on above: Result Comment: 3.3 - 4.4 LOW RISK 4.4 - 7.1 AVERAGE RISK 7.1 - 11.0 MODERATE RISK >11.0 HIGH RISK Performed By: #### L IPID, CMP ####[facility] [address] [address]Dr. Linda Duran Cholesterol [Mass/Vol] 137 mg/dL Normal <=200 [facility] Comment on above: Performed By: #### L IPID, CMP ####[facility] [address] [id number]. Linda Duran Cholesterol in HDL [Mass/Vol] 22 mg/dL Critically low 40-60 [facility] Comment on above: Performed By: #### L IPID, CMP ####[facility] [address] [id number]. Linda Duran Cholesterol in LDL [Mass/Vol] 57.2 mg/dL Normal [facility] Comment on above: Performed By: #### L IPID, CMP ####[facility] [address] [id number]. Linda Duran Cholesterol.total/Ch olesterol in HDL [Mass ratio] 6.2 {ratio} Normal [facility] Comment on above: Performed By: #### L IPID, CMP ####[facility] [address] [id number]. Linda Duran HDL NORMAL > or = 60 mg/dl - LOW CARDIOVASCULAR RISK <40 mg/dl - HIGH CARDIOVASCULAR RISK Normal [facility] Comment on above: Performed By: #### L IPID, CMP ####[facility] [address] [place], [place] [address]Dr. Linda Duran LDL CALC NORMAL SEE BELOW Normal [facility] Comment on above: Result Comment: <100 mg/dl OPTIMAL 100 - 129 mg/dl NEAR OR ABOVE OPTIMAL 130 - 159 mg/dl BORDERLINE HIGH 160 - 189 mg/dl HIGH >190 mg/dl VERY HIGH Performed By: #### L IPID, CMP ####[facility] [address] [id number]. Linda Duran Triglyceride [Mass/Vol] 289 mg/dL Critically high <=150 [facility] Comment on above: Performed By: #### L IPID, CMP ####[facility] [address] [id number]. Linda Duran VLDL CALC 57.8 mg/dL Normal [facility] Comment on above: Performed By: #### L IPID, CMP ####[facility] [address] [address]Dr. Linda Duran MICROALBUMIN, RAND URon 06-0 mALB 3.8 mg/L Normal <=30.0 [facility] Comment on above: Performed By: #### M ALBR ####[facility] [address] [address]Dr. Linda Duran PROF 14(COMP METB)on 022 Albumin [Mass/Vol] 4.3 g/dL Normal 3.4-5.0 [facility] Comment on above: Performed By: #### L IPID, CMP ####[facility] [address] [place], [place] [address]Dr. Linda Duran Albumin/Globulin [Mass ratio] 1.3 {ratio} Normal [facility] Comment on above: Performed By: #### L IPID, CMP ####[facility] [address] [place], [place] [address]Dr. Linda Duran ALP [Catalytic activity/Vol] 78 U/L Normal 46-116 [facility] Comment on above: Performed By: #### L IPID, CMP ####[facility] [address] [place], [place] [address]Dr. Linda Duran ALT [Catalytic activity/Vol] 56 U/L Normal 16-63 [facility] Comment on above: Performed By: #### L IPID, CMP ####[facility] [address] [address]Dr. Linda Duran Anion gap [Moles/Vol] 14.1 mmol/L Normal [facility] Comment on above: Performed By: #### L IPID, CMP ####[facility] [address] [address]Dr. Linda Duran AST [Catalytic activity/Vol] 40 U/L Critically high 15-37 [facility] Comment on above: Performed By: #### L IPID, CMP ####[facility] [address] [place], [place] [address]Dr. Linda Duran Calcium [Mass/Vol] 8.5 mg/dL Normal 8.5-10.1 [facility] Comment on above: Performed By: #### L IPID, CMP ####[facility] [address] [address]Dr. Linda Duran Chloride [Moles/Vol] 101 mmol/L Normal 98-107 [facility] Comment on above: Performed By: #### L IPID, CMP ####[facility] [address] [address]Dr. Linda Duran CO2 [Moles/Vol] 24.9 mmol/L Normal 21.0-32.0 [facility] Comment on above: Performed By: #### L IPID, CMP ####[facility] [address] [place], [place] [address]Dr. Linda Duran Creatinine [Mass/Vol] 0.95 mg/dL Normal 0.70-1.30 [facility] Comment on above: Performed By: #### L IPID, CMP ####[facility] [address] [place], [place] [address]Dr. Linda Duran EGFR-AF ESTONIAN >60 Normal >=60 [facility] Comment on above: Performed By: #### L IPID, CMP ####[facility] [address] [place], [place] [address]Dr. Linda Duran EGFR-NON AF ESTONIAN >60 Normal >=60 [facility] Comment on above: Performed By: #### L IPID, CMP ####[facility] [address] [place], [place] [address]Dr. Linda Duran Globulin (S) [Mass/Vol] 3.3 g/dL Normal [facility] Comment on above: Performed By: #### L IPID, CMP ####[facility] [address] [address]Dr. Linda Roger Glucose [Mass/Vol] 194 mg/dL Critically high 74-106 [facility] Comment on above: Performed By: #### L IPID, CMP ####[facility] [address] [place], [place] [address]Dr. Linda Duran Potassium [Moles/Vol] 4.0 mmol/L Normal 3.5-5.1 [facility] Comment on above: Performed By: #### L IPID, CMP ####[facility] [address] [address]Dr. Linda Duran Protein [Mass/Vol] 7.6 g/dL Normal 6.4-8.2 [facility] Comment on above: Performed By: #### L IPID, CMP ####[facility] [address] [address]Dr. Linda Duran Sodium [Moles/Vol] 136 mmol/L Normal 136-145 [facility] Comment on above: Performed By: #### L IPID, CMP ####[facility] [address] [address]Dr. Gladystim Roger Urea nitrogen [Mass/Vol] 25.0 mg/dL Critically high 7.0-18.0 [facility] Comment on above: Performed By: #### L IPID, CMP ####[facility] [address] [place], [place] [address]Dr. Linda Duran Urea nitrogen/Creatinine [Mass ratio] 26.3 mg/mg Normal [facility] Comment on above: Performed By: #### L IPID, CMP ####[facility] [address] [place], [place] [address]Dr. Linda Roger Vital Signs Date Time Vital Sign Value Performing Clinician Facility 07-11-2024 09:37-0400 Body mass index (BMI) [Ratio] 34.7 kg/m2 [facility] 07-11-2024 09:37-0400 Diastolic blood pressure 80 mm[Hg] [facility] 07-11-2024 09:37-0400 Systolic blood pressure 130 mm[Hg] [facility] 07-11-2024 09:160400 Body height 180.34 cm [facility] 07-11-2024 09:16040 Body weight 112.94 kg [facility] 07-11-2024 09:160400 Heart rate 65 /min [facility] 07-11-2024 09:160400 Respiratory rate 12 /min [facility] 03-12-2024 15:43-0400 Body height 180.34 cm [facility] 03-12-2024 15:43-0400 Body mass index (BMI) [Ratio] 34.9 kg/m2 [facility] 03-12-2024 15:43-0400 Body weight 113.45 kg [facility] 03-12-2024 15:43-0400 Diastolic blood pressure 87 mm[Hg] [facility] 03-12-2024 15:43-0400 Heart rate 66 /min [facility] 03-12-2024 15:43-0400 Respiratory rate 12 /min [facility] 03-12-2024 15:43-0400 Systolic blood pressure 144 mm[Hg] [facility] 10-24-2023 15:30-0500 Body height 180.34 cm Ishmael Ball Other [facility] Other 10-24-2023 15:30-0500 Body mass index (BMI) [Ratio] 34.53 kg/m2 Ishmael Ball Other [facility] Other 10-24-2023 15:30-0500 Body weight 112.31 kg Ishmael Ball Other [facility] Other 10-24-2023 15:30-0500 Diastolic blood pressure 84 mm[Hg] Ishmael Ball Other [facility] Other 10-24-2023 15:30-0500 Respiratory rate 12 /min Ishmael Ball Other [facility] Other 10-24-2023 15:30-0500 Systolic blood pressure 138 mm[Hg] Ishmael Ball Other [facility] Other 07-11-2023 15:30-0400 Body height 180.34 cm Ishmael Ball Other [facility] Other 07-11-2023 15:30-0400 Body mass index (BMI) [Ratio] 34.86 kg/m2 Ishmael Ball Other [facility] Other 07-11-2023 15:30-0400 Body weight 113.4 kg Ishmael Ball Other [facility] Other 07-11-2023 15:30-0400 Diastolic blood pressure 84 mm[Hg] Ishmael Ball Other [facility] Other 07-11-2023 15:30-0400 Respiratory rate 12 /min Ishmael Ball Other [facility] Other 07-11-2023 15:30-0400 Systolic blood pressure 135 mm[Hg] Ishmael Ball Other [facility] Other 03-08-2023 15:30-0400 Body height 180.34 cm Ishmael Ball Other [facility] Other 03-08-2023 15:30-0400 Body mass index (BMI) [Ratio] 35.06 kg/m2 Ishmael Ball Other [facility] Other 03-08-2023 15:30-0400 Body weight 114.04 kg Ishmael Ball Other [facility] Other 03-08-2023 15:30-0400 Diastolic blood pressure 82 mm[Hg] Ishmael Ball Other [facility] Other 03-08-2023 15:30-0400 Respiratory rate 12 /min Ishmael Ball Other [facility] Other 03-08-2023 15:30-0400 Systolic blood pressure 142 mm[Hg] Ishmael Ball Other [facility] Other 11-02-2022 16:30-0500 Body height 180.34 cm Ishmael Ball Other [facility] Other 11-02-2022 16:30-0500 Body mass index (BMI) [Ratio] 35.17 kg/m2 Ishmael Ball Other [facility] Other 11-02-2022 16:30-0500 Body weight 114.4 kg Ishmael Ball Other [facility] Other 11-02-2022 16:30-0500 Diastolic blood pressure 70 mm[Hg] Ishmael Ball Other [facility] Other 11-02-2022 16:30-0500 Respiratory rate 12 /min Ishmael Ball Other [facility] Other 11-02-2022 16:30-0500 Systolic blood pressure 122 mm[Hg] Ishmael Ball Other [facility] Other 02-15-2022 14:38-0400 Blood Pressure Location Reba Lue [facility] 02-15-2022 14:38-0400 Diastolic blood pressure 78 mm[Hg] Reba Lue [facility] 02-15-2022 14:38-0400 Heart rate 72 /min Reba Lue [facility] 02-15-2022 14:38-0400 Respiratory rate 16 /min Reba Lue [facility] 02-15-2022 14:38-0400 Systolic blood pressure 130 mm[Hg] Reba Larios [facility] Encounters Encounter Date Encounter Type Care Provider Facility Start: 10-31-2024 ambulatory Reba M. Lue Facility:[facility] Start: 10-26-2024 ambulatory Reba M. Lue Facility:[facility] Start: 07-11-2024 End: 07-11-2024 ambulatory [facility] Work Phone: Start: 07-11-2024 End: 07-11-2024 Patient encounter procedure [facility] Work Phone: Start: 03-12-2024 End: 03-12-2024 ambulatory [facility] Work Phone: Start: 03-12-2024 End: 03-12-2024 Encounter for general adult medical examination without abnormal findings [facility] Start: 03-12-2024 End: 03-12-2024 Patient encounter procedure [facility] Work Phone: Start: 12-19-2023 Non-patient / Non-visit [facility] Work Phone: Start: 11-21-2023 End: 11-21-2023 ambulatory Ishmael Jacob Other [facility] Other Start: 11-21-2023 Telephone encounter Ishmael RICARDO [facility] Start: 11-16-2023 End: 11-16-2023 ambulatory Ishmael Jacob Other [facility] Other Start: 11-16-2023 Telephone encounter Ishmael RICARDO [facility] Start: 11-10-2023 ambulatory [facility] Start: 11-03-2023 End: 11-03-2023 Lab Drop off Valentina Garcia [facility] Start: 11-03-2023 End: 11-03-2023 ambulatory Valentina Garcia Facility:[facility] Start: 11-03-2023 End: 11-03-2023 Patient encounter procedure Valentina Garcia [facility] Start: 10-31-2023 End: 10-31-2023 ambulatory Ishmael Jacob Other [facility] Other Start: 10-31-2023 Telephone encounter Ishmael RICARDO [facility] Start: 10-24-2023 End: 10-24-2023 ambulatory Ishmael Jacob Other [facility] Other Start: 10-24-2023 Office outpatient vi sit 25 minutes Ishmael Jacob [facility] Start: 08-23-2023 End: 08-23-2023 ambulatory Ishmael Jacob Other [facility] Other Start: 08-23-2023 Telephone encounter Ishmael Jacob [facility] Start: 07-11-2023 End: 07-11-2023 ambulatory Ishmael Jacob Other [facility] Other Start: 07-11-2023 Office outpatient vi sit 25 minutes Ishmael Cecil [facility] Start: 05-24-2023 End: 05-24-2023 ambulatory [facility] Start: 04-05-2023 End: 04-05-2023 ambulatory Ishmael Jacob Other [facility] Other Start: 04-05-2023 Telephone encounter Ishmael Jacob [facility] Start: 03-08-2023 End: 03-08-2023 ambulatory Ishmael Jacob Other [facility] Other Start: 03-08-2023 Encounter for genera l adult medical examination without abnormal findings Ishmael Jacob [facility] Start: 03-08-2023 Periodic preventive med est patient 40-64yrs Ishmael Jacob [facility] Start: 03-01-2023 End: 03-01-2023 ambulatory [facility] Start: 02-10-2023 End: 02-10-2023 ambulatory [facility] Start: 02-07-2023 End: 02-07-2023 ambulatory Ishmael Jacob Other [facility] Other Start: 02-07-2023 Telephone encounter Ishmael Jacob [facility] Start: 02-04-2023 End: 02-05-2023 ambulatory [facility] Facility:[facility] Start: 01-10-2023 End: 01-10-2023 ambulatory [facility] Start: 12-28-2022 End: 12-28-2022 ambulatory Ishmael Jacob Other [facility] Other Start: 12-28-2022 Telephone encounter Ishmael Jacob [facility] Start: 12-20-2022 End: 12-20-2022 ambulatory Ishmael Jacob Other [facility] Other Start: 12-20-2022 Telephone encounter Ishmael RICARDO [facility] Start: 12-16-2022 End: 12-17-[address] ISHMAEL JACOB Facility:[facility] Start: 12-14-2022 End: 12-14-2022 ambulatory Ishmael Jacob Other [facility] Other Start: 12-14-2022 Telephone encounter Ishmael RICARDO [facility] Start: 12-08-2022 End: 12-08-2022 ambulatory Ishmael Jacob Other [facility] Other Start: 12-08-2022 Telephone encounter Ishmael Jacob [facility] Start: 12-07-2022 End: 12-08-[address] ISHMAEL JACOB Facility:[facility] Start: 11-25-2022 End: 11-25-2022 ambulatory Ishmael Jacob Other [facility] Other Start: 11-25-2022 Telephone encounter [facility]hmael [facility] Start: 11-23-2022 End: 11-23-2022 ambulatory Ishmael Jacob Other [facility] Other Start: 11-23-2022 Telephone encounter Ishmael Jacob [facility] Start: 11-06-2022 End: 11-07-[address] ISHMAEL JACOB Facility:[facility] Start: 11-02-2022 End: 11-02-2022 ambulatory Ishmael Jacob Other [facility] Other Start: 11-02-2022 Office outpatient vi sit 25 minutes Ishmael Jacob [facility] Start: 10-22-2022 Patient encounter status Ishmael Jacob Other [facility] Other Start: 06-19-2022 End: 06-20-2022 ambulatory REBA LARIOS . Facility:[facility] Start: 03-18-2022 Encounter for genera l adult medical examination without abnormal findings DR ISHMAEL JACOB [facility] Start: 03-13-2022 End: 03-14-[address] ISHMAEL JACOB Facility:[facility] Start: 03-13-2022 End: 03-14-2022 Encounter for general adult medical examination without abnormal findings DR ISHMAEL JACOB Facility:[facility] Start: 02-15-2022 End: 02-15-2022 Patient encounter procedure Reba Larios [facility] Start: 05-30-2017 End: 05-31-2017 Ambulatory DEFAULT PHYSICIAN Facility:[facility] Procedures Date Procedure Procedure Detail Performing Clinician Start: 03-13-2022 PSA screening LENA HAUSER Comment on above: Performed By: #### [facility] #### [facility] [address] [place] [address] Dr. Linda Duran Start: 05-10-2015 Extracorporeal shock wave lithotripsy of tendon using ultrasound guidance Reba Larios Start: 11-18-2010 History of repair of inguinal hernia Reba Larios Start: 05-04-2006 Placement of stent i n cardiac conduit Reba Larios Cardiac catheterization Auro ra Ornitzach Plan of Treatment Date Care Activity Detail Author Comprehensive metabo lic 2000 panel - Serum or Plasma [facility] enter Microalbumin [Mass/volume] in Urine [facility] Immunizations Immunization Date Immunization Notes Care Provider Josephine guzman 07-11-2024 influenza, seasonal, injectable, preservative free [facility] 09-04-2023 influenza virus vaccine, unspecified formulation Valentina Orzech [facility] 06-24-2022 COVID-19 Pfizer (bivalent) Ishmael Jacob Other [facility] 06-24-2022 COVID-19 Vaccine Pfi zer - Documentation Purposes Only Ishmael Jacob Other [facility] 06-24-2022 influenza virus vaccine, split virus (incl. purified surface antigen) Ishmael Jacob Other [facility] Other 06-24-2022 influenza virus vaccine, unspecified formulation Valentina Orzech [facility] 06-24-2022 influenza, injectabl e, quadrivalent, preservative free Ishmael Jacob Other [facility] 08-31-2021 COVID-19 Vaccine Pfi zer - Documentation Purposes Only Ishmael Jacob Other [facility] 08-12-2021 influenza virus vaccine, unspecified formulation Valentina Orzech [facility] 12-19-2020 COVID-19 Vaccine Johana - Documentation Purposes Only Ishmael Jacob Other [facility] 07-02-2020 influenza virus vaccine, unspecified formulation Valentina Valles [facility] Payers Date Payer Category Payer Private Health Insurance [id number] 1960 Unknown [id number] 1960 Unknown [id number] 1960 Unknown [id number] 1960 Unknown [id number] 1960 Unknown [id number] 1960 Unknown [id number] 1960 Unknown [id number] 1960 Unknown [id number] 1960 Unknown [id number] 1960 Unknown [id number] 1959 Private Health Insurance [id number] Private Health Insurance [id number] Unknown Unknown Other1 (STD) . [id number] Social History Date Type Detail Facility Start: 02-15-2022 End: 11-03-2023 Tobacco smoking status Never smoked tobacco (finding) [facility] Tobacco smoking status Never [facility] Sex Assigned At Male [facility] Start: 1960 Sex Assigned At Male [facility] Medical Equipment Procedure Code Equipment Code Equipment Original Text Equi pment Identifier Dates Functional Status Date Assessment Result Facility 11-03-2023 Functional Status N/A [facility] Clinical Notes 02-15-2022 to 11-21-2023 Note Date & Type Note Facility 11-21-2023 Evaluation note Encounter Date Diagnosis Assessment Notes Nov, Hyperlipidemi a, mixed (ICD-10 - E78.2) Nov, Type 2 diabetes mellitus with hyperglycemia , without long-term current use of insulin (ICD-10 - E11.65) Nov, ASHD (arterioscler otic heart disease) (ICD-10 - I25.10) [facility] w/ 60% OM - 02/2023 [facility] Other 02-07-2024 Evaluation note* Encounter Date Diagnosis Assessment Notes Treatment Notes Treatment Clinical Notes Nov, Primary hypertension (ICD-10 - I10) [facility] Other 02-02-2024 NoteContinue toprol, no concenring symptoms, palpitations, near syncope or syncope and pt remains quite active [facility] NoteContinue lopid and crestorUn[facility]02-[facility]-2024 NoteHypertension is well controlled 129/80 Continue lotensin, hydrochlorothiazide and toprolUnPike [facility]02-02-2024 NoteCoronary artery disease is stable without concerning symptoms Continue GDMT- ASA, toprol, crestor continue risk factor modifications- heart healthy diet, regular exercise as tolerated and continue all medications.[facility] 11-10-2023 NotePatient here for 6 mo follow up CAD, hypertension, and NSVT. Denies chest pain, SOB, palpitations, and lightheadedness/syncope. Doing very well. Review of Systems All other systems reviewed and are negative.[facility] 11-10-2023 NoteUTP CARDIOLOGY PROGRESS NOTE HPI: [...] Never BSA 2.4 m??? Allergies Allergen Reactions Gxoeqzb-Miw-Olf Reductase Inhibitors Medications: Current Outpatient Medications on [...] 25 mg tablet,extended release 24 hr omega 3-wgp-rbx-fish oil (Fish OiL) 100-160-1,000 mg capsule Fish [...] movements intact. Conjunctiva/sclera: Conjunct (more content not included)...[facility]01-15-2024 Evaluation note* Encounter Date Diagnosis Assessment [...] ASHD (arteriosclerotic heart disease) (ICD-10 - I25.10) [facility] w/ 60% OM - 02/2023 This patient is stable without activity related CP, dyspnea or lightheadedness. They are instructed to continue exercise and AHA diet plan. Continue secondary prevention measures. [facility] w/ 60% OM - medically treated [...] increased PVC, brief run of NSVT - [facility] w/ 60% OM stenosis, medically treated [...] [BMI ] 34.0-34.9, adult (ICD-10 - Z68.34) [facility] Other 11-14-2023 Evaluation note* Encounter Date Diagnosis Assessment Notes Treatment Notes Treatment Clinical Notes Aug, Type 2 diabetes mellitus with hyperglycemia, without long-term current use of insulin (ICD-10 - E11.65) [facility] Other 10-23-2023 Hospital Discharge instructions Follow Up Care 08/01/2023 16:05:53 With:Ric MAY, TERRENCE Childs, URO Address: [address], [place] [address] [phone] When: Unknown [facility] 10-02-2023 Evaluation note* Encounter Date Diagnosis [...] [BMI ] 34.0-34.9, adult (ICD-10 - Z68.34) [facility] Other 08-15-2023 NoteUT Electrophysiology Consult Note Reason [...] Diagnosis Date Coronary artery disease Diabetes mellitus ([facility]) Hyperlipidemia Hypertension PVC (premature ventricular contraction) PSH: [...] Not on file Allergies: Allergies Allergen Reactions Vxaikay-Oba-Pjx Reductase Inhibitors Weight: 112kg Visit Vitals BP [...] 25 mg tablet,extended release 24 hr omega 3-gju-jlr-fish oil (Fish OiL) 100-160-1,000 mg capsule Fish Oil 1200mg BID OneTouch Delica Plus Lancet 33 gauge mis USE TO TEST BLOOD SUGAR ONCE DAILY [...] leg edema, no syncope, (more content not included)...[facility]06-27-2023 Evaluation note* Encounter Date Diagnosis Assessment Notes Treatment Notes Treatment Clinical Notes Mar, Type 2 diabetes mellitus with hyperglycemia, without long-term current use of insulin (ICD-10 - E11.65) [facility] Other 05-30-2023 Evaluation note* Encounter Date Diagnosis [...] (ICD-10 - Z12.5) Yearly JOIE and PSA [facility] Other 05-23-2023 NotePatient is here today to follow up on a heart cath Review of Systems All other systems reviewed and are negative.[facility] 03-01-2023 NoteUT Electrophysiology Consult Note Reason [...] stent in 2006 He had stress in 2010 that nuclear [...] Not on file Allergies: Allergies Allergen Reactions Xrjymqd-Gij-Mjj Reductase Inhibitors Weight: No weight available Visit [...] 25 mg tablet,extended release 24 hr omega 0-jii-lwf-fish oil (Fish OiL) 100-160-1,000 mg capsule Fish [...] no night sweats (more content not included)... [facility]05-04-2023 NotePatient: Chely Meyer Procedure Information Date/Time: 02/10/2330 Procedures: CORONARY ANGIOGRAPHY Left heart cath Location: [facility] CHIEF PROGRAM OFFICER 3 / [facility] (Cath) Providers: Lena Isaac MD Clinical information reviewed: Allergies Meds Physical Exam Airway Mallampati: II Cardiovascular Dental Pulmonary Abdominal Anesthesia Plan ASA 3 other (moderate) Anesthetic plan and risks discussed with patient. Use of blood products discussed with patient who consented to blood products. Plan discussed with attending. [facility]* Encounter Date Diagnosis Assessment Notes Treatment Notes Treatment Clinical Notes February, Type 2 diabetes mellitus with hyperglycemia, without long-term current use of insulin (ICD-10 - E11.65) [facility] Other 04-20-2023 Note-will rule out worsening CAD, if negative we can consider ablation for PVC/[facility] 01-27-[facility]23 Note-states he has been controlled, Do not have an A1C to reference -not on insulin, managed [facility] Note-hx of this which resolved with stent and managed with medications -with return of PVC and NSVT will need LHC to rule out additional ischemia consdering hx of LAD stent -if no new concerns for CAD will then proceed with [facility]Un[facility]04-[facility]-2023 Note- Blood pressure is mildly elevated today -he will trend BP for me at home as he states he is typically not elevated -ct hydrochlorothiazide 25mg,amlodipine/benazapril 10-20mg, toprol xl 25mg [facility]04-20-2023 Note- Last heart cath 2011 patent LAD stent and otherwise normal coronaries -We will order left heart cath to rule out any additional ischemia and if left heart cath negative for anything new we will then proceed with PVC/VT ablation [facility]04-03-2023 NoteNew patient here to re- establish [...] breath. All other systems reviewed and are negative.[facility] 01-10-2023 NoteUT Electrophysiology Consult Note Reason [...] Not on file Allergies: Allergies Allergen Reactions Gbfcary-Chl-Mzc Reductase Inhibitors Weight: 112kg Visit Vitals BP [...] 25 mg tablet,extended release 24 hr omega 8-frp-rgp-fish oil (Fish OiL) 100-160-1,000 mg capsule Fish [...] no teeth problems Respirato (more content not included)...[facility] 12-28-2022 Evaluation note* Encounter Date Diagnosis Assessment Notes Treatment Notes Treatment Clinical Notes Dec, Type 2 diabetes mellitus with hyperglycemia, without long-term current use of insulin (ICD-10 - E11.65) [facility] Other 02-16-2023 Evaluation note* Encounter Date Diagnosis Assessment Notes Treatment Notes Treatment Clinical Notes Nov, ASHD (arteriosclerotic heart disease) (ICD-10 - I25.10) Nov, Shortness of breath (ICD-10 - R06.02) [place] [employer] Other 01-24-2023 Evaluation note* Encounter Date Diagnosis [...] exercise for 30 minutes, 3-5 times weekly. [facility] Other 05-09-2022 Hospital Discharge instructions Patient Education 02/15/2022 15:13:26 Kidney Stones, Bfpp-dc-Rofn Kidney Stones Kidney stones are rock-like masses [...] Follow these instructions at home: Medicines Take wmtx-gwq-bxmiatn and prescription medicines only as told by [...] 03/14/2009 Document Revised: 02/12/2020 Document Reviewed: 02/12/2020 [employer] Patient Education [address] [employer] Follow Up Care 01/28/2022 10:44:14 With:Reba Larios MD, TERRENCE, URO Address: [address] [place], [place] [address] [address]- When:05/18/2022 Comments:w/ renal us and kub [facility] Evaluation + Plan note Future Appointments Appointment Date:04/26/2022 03:15:00 PM Scheduled Provider:Reba Larios MD Location:[facility] Appointment Type:URO Office Visit [facility] Evaluation + Plan note Future Appointments Appointment Date:10/26/2024 03:15:00 PM Scheduled Provider:Reba Larios MD Location:[facility] Appointment Type:URO Office Visit [facility] Evaluation + Plan note Future Appointments Appointment Date:10/26/2024 03:15:00 PM Scheduled Provider:Reba Larios MD Location:[facility] Appointment Type:URO Office Visit Diagnostic Tests Pending * Calculi Analysis Urinary [facility]23 [facility] [facility] Other Evaluation note* Diagnosis Onset Date Resolution Status ASHD (arteriosclerotic heart disease) acute Benign prostatic hyperplasia with lower urinary tract symptoms acute History of nephrolithiasis a cute Hypercholesterolemia acute Hypertension acute Type 2 diabetes mellitus with hyperglycemia acute Wellness examination noneact chrissy [facility] Work Phone: Evaluation note* Diagnosis Onset Date Resolution Status ASHD (arteriosclerotic heart disease) acute Benign prostatic hyperplasia with lower urinary tract symptoms acute History of nephrolithiasis a cute Hypercholesterolemia acute Hypertension acute Obesity acute Type 2 diabetes mellitus with hyperglycemia acute [facility] Work Phone: Hiszmzj general Narrative - Reported* Type Description Date Medical History obesity Medical History type 2 diabetes nani itus with hyperglycemia without chcf current use of insulin Medical History hypertension Medical History hyperlipidemia Medical History arteriosclerotic heart disease Medical History gross hematuria Medical History nephrolithiasis Medical History uric acid kidney stone Surgical History heart cath stent Surgical History hernia repair Surgical History lithotripsy Hospitalization History see above surgeries [place] [employer] Other Hisjzck general Narrative - Reported* Type Description Date Medical History obesity Medical History type 2 diabetes nani itus with hyperglycemia without chcf current use of insulin Medical History hypertension Medical History hyperlipidemia Medical History arteriosclerotic heart disease Medical History gross hematuria Medical History nephrolithiasis Medical History uric acid kidney stone Surgical History heart cath stent Surgical History hernia repair Surgical History lithotripsy Surgical History LHC: 60% OM, 02/2023` Hospitalization History see above surgeries [employer] Other Hospital course Narrative No data available for this section [facility] Discharge instructions No data available for this section [facility] No data available for this section [facility] Reason for referral (narrative)* Reason 01/10/23 Referral for dyspnea and abnormal cardiac stress test Diagnosis 1 NSVT (nonsustained v entricular tachycardia) (I47.29) Diagnosis 2 ASHD (arteriosclerot ic heart disease) (I25.10) Referral Organization [facility] kimani Referring Provider First Name Ishmael Referring Provider Last Name Cecil Referring Provider Specialty Internal Me stephani Referred Organization [facility] Referred Provider SHAHLATreeCHELSI Referred Address [address] [place], [place],[address] Referred Provider Specialty Cardiology Referral Priority Routine [...] 12/21/2022 01:17:10 PM >received today, attachments made, [id number] Raquel Robert 12/28/2022 11:37:48 AM >faxed first [...] history of CAD is worrisome to me. [employer] Other Summary Purpose Family History No Family History Records FoundNo Family History Records Found No data available for this section No data available for this section No Family History Records FoundNo Family History Records Found Advance Directives No Advanced Directives Records Found Advance Directive Response Recorded Date/ Time Advance [...] section and content) DATE CREATED AUTHOR 04/05/2018 [facility] DATE CREATED AUTHOR AUTHOR'S ORGANIZ ATION 02/11/2023 [facility] DATE CREATED AUTHOR AUTHOR'S ORGANIZ ATION 11/14/2023 [facility] DATE CREATED AUTHOR AUTHOR'S ORGANIZ ATION 10/22/2024 [facility] REASON FOR VISIT (unrecogniz ed section and content) 4 MONTH FOLLOW UPNo Informat ionxray resultsEchocardiogram resultsStress TestCardiologistNo InformationNo InformationNo InformationWellnessLab Results4 month check upOzempic3 month Follow upA1C resultsNo Informationrefill Patient Care team informatio n (unrecognized section and content) Team Status: Active Member Role Status Dates Ishmael Jacob DO Primary Care Provider Active Team Status: Inactive Member Role Status Dates Ishmael Jacob DO Primary Care Provide r, Attending Provider Active Start: July 11, 2024 End: July 11, 2024 Team Status: Active Member Role Status Dates Ishmael Jacob DO Primary Care Provider Active Start: December 19, 2023 BUDDY Bailey Attending Provider Active Start : December 19, 2023 Team Status: Inactive Member Role Status Dates Ishmael Jacob DO Primary Care Provide r, Attending Provider [...] BE BASED ON THE PRIMARY CLINICAL RECORDS. [facility] [employer] [facility]. provides no warranty or guarantee of the accuracy or completeness of information in this document.
--- NOTE | 2024-10-24 07:34 | US_ITS ---
The [address] [address] Patient Name: CHELY SIDDIQI MRN: [id number] date: 1960 Sex: M Assigned Patient Location: US Current Patient Location: [place] Accession/Order Number: [id number] Exam Date: 10/24/2024 07:36 Report Date: 10/24/2024 08:31 At the request of: EMMY ARNOLD Procedure: US renal BI EXAMINATION: US renal BI HISTORY: Kidney Stone COMPARISON: No relevant comparison available. TECHNIQUE: Ultrasound examination was performed of the bladder. FINDINGS: Right Kidney: Normal in size, contour and cortical echotexture. The cortex measures 1.4 cm. Multiple echogenic foci measuring up to 6 mm, nonobstructing nephrolithiasis. No solid cortical mass or hydronephrosis. Height: 6.38 cm Length: 13.48 cm Width: 6.25 cm Left Kidney: Normal in size, contour and cortical echotexture. The cortex measures 1.7 cm. Areas of anechoic echogenicity measuring up to 2.7 cm, simple cortical cyst. No solid mass or obstructing nephrolithiasis. Height: 6.06 cm Length: 12.12 cm Width: 5.42 cm The urinary bladder measures 2.8 x 6.3 x 6 cm a volume of 72 cubic centimeters. No ascites US/US renal BI IMPRESSION: Nonobstructing right nephrolithiasis Left renal simple cysts Electronically authenticated by: BRIONNA RODRIGUEZ Date: 10/24/2024 08:31
--- NOTE | 2024-10-24 07:57 | XR_ITS ---
The [address] [address] Patient Name: CHELY SIDDIQI MRN: [id number] date: 1960 Sex: M Assigned Patient Location: US Current Patient Location: US Accession/Order Number: [id number] Exam Date: 10/24/2024 07:53 Report Date: 10/24/2024 08:38 At the request of: EMMY ARNOLD Procedure: XR abdomen 1V EXAMINATION: XR abdomen 1V HISTORY: Kidney Stone COMPARISON: No relevant comparison available. FINDINGS: KIDNEY/URETER - RIGHT: No visible renal or ureteral calcifications. KIDNEY/URETER - LEFT: No visible renal or ureteral calcifications. PELVIS: No visible ureteral calcifications. Any visible calcifications favor phleboliths. BOWEL: No abnormal dilation or deviation. BONES: No acute abnormality. OTHER: Negative. No abnormal gaseous collections. XR/XR abdomen 1V IMPRESSION: No urinary tract calculi Electronically authenticated by: BRIONNA RODRIGUEZ Date: 10/24/2024 08:38
== END 2024-10-24 07:29 | disposition home or self-care (01) ==
LOC: US 07:28
PROVIDERS: PCP Internal Medicine; Visit Provider Urology
DX: N20.0 Calculus of kidney (principal); N28.1 Cyst of kidney, acquired
CPT/HCPCS: 74018; 76775

== ENCOUNTER 2025-03-25 08:59 | Outpatient (OUT) | payer OTHER, SELFPAY ==
--- OUTSIDE RECORDS SUMMARY | 2025-03-14 06:38 | XMS_ITS | Continuity of Care Document ---
Author Organization [facility] Address [address] [place] [address] Phone Support Name Relationship Address Phone Davida Bynum Emergency Contact Unknown [phone] Ishmael Jacob DO Personal Relationship [address] [place] [address] Care Teams Patient Care Team Team Status: Active Member Role Status Dates Ishmael Jacob DO Primary Care Provider Active Patient Care Team Team Status: Inactive Member Role Status Dates Ishmael Jacob DO Primary Care Provide r, Attending Provider Active Start: March 14, 2025 End: March 14, 2025 Chief Complaint and Reason for Visit Chief Complaint Admit Date Wellness March 14, 2025 9:56a m Reason for Visit Admit Date ASHD (arteriosclerotic heart disease) Ju 2024 9:56am Benign prostatic hyperplasia with lower urinary tract symptoms March 14, 2025 9:56am History of nephrolithiasis March 14 9:56am Hypercholesterolemia March 14, 2025 9:56 am Hypertension March 14, 2025 9:56a m Screening PSA (prostate specific antigen ) March 14, 2025 9:56am Type 2 diabetes mellitus with hyperglyce randi March 14, 2025 9:56am Wellness examination March 14, 2025 9:56 am Allergies, Adverse Reactions, Alerts Allergen Type Severity Reaction Last Updated Verified Status Comments Jcifcyp-DFQ-Wg A Reductase Inhibitor Allergy Unknown Unknown Reaction March 14, 2025 10:05am Yes Active Onset Date: 07/16/2013 Social History Smoking Status Unknown if ever smoked Observation Status Observation Response Date of Response Patient Sex Male March 14, 2025 1 0:37am Assigned Sex Male 1960 Problems Active Problems Medical Problem Onset Date Status Comments Screening PSA (prostate spec ific antigen) Active Type 2 diabetes mellitus wit h hyperglycemia Active Hypercholesterolemia Active Benign prostatic hyperplasia with lower urinary tract symptoms Active History of nephrolithiasis Active Hypertension Active Obesity Active ASHD (arteriosclerotic heart disease) Act chrissy - [facility], PCI/stent LAD - 2005- [facility] normal w/o intervention - 2010- Echo: LVEF 65%, normal RV size/function, RVSP 31, mod MR - 11/2022- Stress test w/ NSVT, NM stress: no ischemia - 12/2022- LHC: OM 60% - 02/2023 Medications Medication Status Dose Units Route Directions Qty Days St art Date Stop Date End Date Instructions Tamsulosin 0.4 mg capsule Discont inued 0 .ROUTE .COMPLEX December 19, 2023 1:24pm Febru 2024 8:34a m TAKE 1 CAPSULE BY MOUTH EVERYDAY AFTER EVENING MEAL Semaglutide (Ozempic) 0.25 mg or 0.5 mg (2 mg/3 mL) pen injector Discont inued 0.5 MG SUBCUT every week 01 04January 30, 2024 1:29pm Octob er 2023 1:06p m Benazepril 10 mg tablet Discont inued 10 MG PO Daily March 12, 2024 12:00a m March 12, 2024 3:42p m Benazepril 10 mg tablet Discont inued 0 .ROUTE .COMPLEX April 02, 2024 6:48am February 04, 2025 7:41a m TAKE 1 TABLET BY MOUTH EVERY DAY Amlodipine-B enazepril 10-20 mg capsule Active 0 .ROUTE .COMPLEX April 02, 2024 6:48am TAKE 1 CAPSULE BY MOUTH EVERY DAY Semaglutide (Rybelsus) 3 mg tablet Discont inued 3 MG PO Daily Julobe r 2023 12:00a m Octob er 2023 9:53a m Empagliflozi n (Jardiance) 10 mg tablet Discont inued 10 MG PO Daily Julobe r 2023 12:00a m Octob er 2023 9:53a m Semaglutide (Rybelsus) 3 mg tablet Discont inued 3 MG PO Daily Julobe r 2023 9:53am 2023 2:37p m Empagliflozi n (Jardiance) 10 mg tablet Discont inued 10 MG PO Daily Julobe r 2023 9:53am December 30, 2024 5:09p m Hydrochlorot hiazide 25 mg tablet Discont inued 0 .ROUTE .COMPLEX 90 Octobe r 2023 8:36am March 11, 2025 10:40 pm TAKE 1 TABLET BY MOUTH EVERY DAY Metformin 1,000 mg tablet Active 0 .ROUTE .COMPLEX 180 Novemb er 2023 2:37pm TAKE 1 TABLET BY MOUTH TWICE A DAY WITH MEALS Semaglutide (Rybelsus) 3 mg tablet Discont inued 0 .ROUTE .COMPLEX 30 Novemb er 2023 2:37pm Febru meredith 2024 10:48 am TAKE 1 TABLET BY MOUTH EVERY DAY Gemfibrozil 600 mg tablet Active 0 .ROUTE .COMPLEX 180 Octuar y 2024 7:59am TAKE 1 TABLET BY MOUTH TWICE A DAY Metoprolol Succinate 25 mg tablet extended release 24 hr Active 0 .ROUTE .COMPLEX 90 Octuar y 2024 7:59am TAKE 1 TABLET BY MOUTH EVERY DAY Blood Sugar Diagnostic (Onetouch Ultra Test) strip Discont inued 0 .ROUTE .MEDSUPPLY 100 Februa 2024 1:00am Febru meredith2024 2:06p m Use to test home BS qd Blood Sugar Diagnostic (Onetouch Ultra Test) strip Active 0 .ROUTE .COMPLEX 50 Februa 2024 2:06pm USE TO TEST BLOOD SUGAR EVERY DAY Lancets 33 gauge misc Discont inued 0 .Route 100 Februa ry 2024 1:00am Febru meredith 2024 2:15p m to test blood sugar once daily Lancets (Onetouch Delica Plus Lancet) 33 gauge misc Active 0 .ROUTE .COMPLEX 100 Februa ry 2024 2:14pm USE TO TEST BLOOD SUGAR ONCE DAILY Tamsulosin 0.4 mg capsule Active 0 .ROUTE .COMPLEX 90 ua ry 2024 8:34am TAKE 1 CAPSULE BY MOUTH EVERYDAY AFTER EVENING MEAL Semaglutide 14 mg tablet Discont inued 14 MG PO Daily December 24, 2024 10:49a m December 24, 2024 2:04p m Semaglutide 14 mg tablet Discont inued 14 MG PO Daily December 24, 2024 2:03pm March 14, 2025 10:21 am Empagliflozi n (Jardiance) 10 mg tablet Active 0 .ROUTE .COMPLEX December 30, 2024 5:09pm TAKE 1 TABLET BY MOUTH EVERY DAY Benazepril 10 mg tablet Active 0 .ROUTE .COMPLEX February 04, 2025 7:40am TAKE 1 TABLET BY MOUTH EVERY DAY Amlodipine-B enazepril 10-20 mg capsule Discont inued 1 CAP PO Daily March 12, 2024 12:00a m April 02, 2024 6:48a m Metoprolol Succinate 25 mg tablet extended release 24 hr Discont inued 25 MG PO Daily March 12, 2024 12:00a m Octua 2024 7:59a m Hydrochlorot hiazide 25 mg tablet Discont inued 25 MG PO Daily March 12, 2024 12:00a m Octob er 2023 8:36a m Gemfibrozil 600 mg tablet Discont inued 600 MG PO Twice daily March 12, 2024 12:00a m 2024 7:59a m Aspirin 81 mg tablet,delay ed release (DR/EC) Active 81 MG PO Daily March 12, 2024 12:00a m [place] 9-Zeq-Agc-Fi sh Oil (Fish Oil) 1,200 (144-216) mg capsule Active 1 CAP PO Daily March 12, 2024 12:00a m Rosuvastatin 10 mg tablet Active 10 MG PO Daily March 12, 2024 12:00a m Benazepril 10 mg tablet Discont inued 10 MG PO Daily March 12, 2024 12:00a m April 02, 2024 6:48a m Metformin 1,000 mg tablet Discont inued 1000 MG PO Twice daily with meals 2023 1:00am Febru meredith 2023 4:36p m Metformin 1,000 mg tablet Discont inued 1000 MG PO Twice daily with meals 180 90 2023 4:35pm Novem ady 2023 2:37p m Semaglutide 0.25 mg or 0.5 mg(2 mg/1.5 mL) pen injector Discont inued 0.5 MG SUBCUT every week January 30, 2024 12:00a m January 30, 2024 1:30p m Tamsulosin 0.4 mg capsule Discont inued 0.4 MG PO Daily at bedtime December 19, 2023 12:00a m December 19, 2023 1:24p m Potassium Citrate 15 mEq tablet extended release Active 15 MEQ PO Twice daily 2024 1:00am Semaglutide 7 mg tablet Discont inued 7 MG PO Daily 30 2024 10:46a m December 24, 2024 12:45 pm Semaglutide 7 mg tablet Active 7 MG PO Daily 30 30 March 14, 2025 10:21a m Immunizations Immunization Event Date Not Given Reason Dose Number Plumbing Assembler Installer Lot Number Vaccine Information Statement (VIS) Detail COVID-19 [id number].S (Poke'n Call) December 19, 2020 COVID-19 mRNA, Comirnaty ([email or web address].COM) August 31, 2021 COVID-19 mRNA, Comirnaty (DUQI.COM) June 24, 2022 COVID-19 mRNA Bivalent Booster (DUQI[employer]COM) June 24, 2022 Influenza, seasonal, injectable, pf July 11, 2024 [id number] influenza, unspecified formulation June 24, 2022 Quadrivalent Influenza June 24, 2022 Vital Signs Vital Reading Result Reference Range Collection Date/Time Height 71 [in_i] March 14, 2025 10:10am Weight 114.98 kg March 14, 2025 10:10am Heart Rate 72 /min 60-100 March 14, 2025 10:10am Respiratory rate 12 /min 12-24 March 14, 2 025 10:10am BP Systolic 134 mm[Hg] 100-140 March 14, 2025 10:10am BP Diastolic 85 mm[Hg] 60-100 March 14, 2025 10:10am BMI (Body Mass Index) 35.3 kg/m2 March 142024 10:10am Advance Directives Advance Directive Response Recorded Date/ Time Advance Directives No November 02, 2023 3:23pm Insurance Providers Guarantor Fran Meyer Address [address] [address] Contact Info. Home Phone: Payer Policy Id Coverage Id Subscriber's Name Subscriber Id Effective Date Expiration Date [employer] [id number] 1 Fran Meyer [id number] Encounters Encounter Location(s) Arrival/Admit Date Discharge/Depart Date Provider(s) Departed Physician/Prov ider Office Visit [facility] March 14, 2025 9:56am March 14, 2025 10:37am Ishmael Cecil , Recent Diagnosis Onset Date Admit Date ASHD (arteriosclerotic heart disease) March 14, 2025 9:56am Benign prostatic hyperplasia with lower urinary tract symptoms March 14, 2025 9:56am History of nephrolithiasis March 14, 2025 9:56am Hypercholesterolemia March 14 9:56am Hypertension March 14, 2025 9 :56am Screening PSA (prostate specific antigen) March 14, 2025 9:56am Type 2 diabetes mellitus with hyperglycemia March 14, 2025 9:56am Wellness examination March 14 9:56am Assessments Diagnosis Onset Date Resolution Status Admit Date ASHD (arteriosclerotic heart disease) acute March 14, 2025 9:56am Benign prostatic hyperplasia with lower urinary tract symptoms acute Jony 2024 9:56am History of nephrolithiasis acute March 14, 2025 9:56am Hypercholesterolemia acute March 14, 2025 9:56am Hypertension acute March 14 9:56am Screening PSA (prostate spec ific antigen) acute March 14, 2025 9:56am Type 2 diabetes mellitus wit h hyperglycemia acute March 14, 2025 9:56am Wellness examination noneactive March 14, 2025 9:56am Plan of Treatment Author Ishmael Jacob [facility] Authored March 14, 2025 10:33 am I have instructed this patie nt on a healthy diet and exercise program. I have also reviewed age-appropriate preventive testing recommended. This patient is stable without activity related chest pain, dyspnea or lightheadedness. I instructed them to continue exercise at least 3x weekly and consume a low salt, low fat, high fiber diet. I instructed them to continue secondary prevention measures in reducing risks for recurrent events. - LHC, PCI/stent LAD - 2005 - LHC normal w/o intervention - 2010 - Echo: LVEF 65%, normal RV size/function, RVSP 31, mod MR - 11/2022 - Stress test w/ NSVT, NM stress: no ischemia - 12/2022 - C: OM 60% - 02/2023 I have instructed this patient to follow a comprehensive diabetic treatment plan. I have also instructed them to check their feet daily for calluses and nonhealing ulcers. I have instructed them to have a yearly dilated eye examination. I have reviewed their treatment goals: SBP less than 130, LDL less than 100, FBS less than 140, A1C less than 7%. I have instructed them to maintain a home BS log and bring the results to each of their office visits for review. I have explained the importance of routine monitoring of their A1C, Microalbumin and Lipids. I have explained the benefits of well controlled diabetes in preventing micro and macrovascular complications. Continue Rybelsus, Jardiance and Metformin without interruption Order for A1C and ACR I have instructed this patient to consume a healthy, low-fat, low-salt diet. I have also encouraged them to continue exercise with weight loss to achieve/maintain a BMI < 30. I have instructed this patient on the correct procedure for obtaining home BP measurements: - rest for 5 minutes w/o talking. - positioned w/ feet on floor and arms supported. - average best 2/3 readings w/ goal < 135/85. - update office w/ home readings in 2 weeks. Continue Lotrel and Metoprolol without interruption I have instructed this patient on a low fat, high fiber diet and exercise. I have discussed the primary and secondary prevention benefits attributed to lowering LDL cholesterol. I have also discussed the medical treatment of elevated cholesterol, which is based on the 10 year ASCVD risk. Continue Rosuvastatin without interruption Symptoms tolerable, monitor yearly PSA Continue Tamsulosin without interruption I have instructed this patient to consume a healthy, low-fat, low-salt diet. I have also encouraged them to continue exercise with weight loss to achieve/maintain a BMI < 30. I have instructed this patient on the correct procedure for obtaining home BP measurements: - rest for 5 minutes w/o talking. - positioned w/ feet on floor and arms supported. - average best 2/3 readings w/ goal < 135/85. - update office w/ home readings in 2 weeks. I have recommended yearly PSA testing. I have informed him that the PSA can be elevated w/ cancer, infection and enlarged prostates. I have explained to the patient, that If his PSA is elevated, while there are many causes, referral will be recommended to r/o cancer. He would be referred to Urology, who may recommend an MRI, TRUS/bx or possibly continued monitoring. He is agreeable to this plan of action PSA: 0.43 - 03/2024 Future Tests Future scheduled test information is unavailable Pending Tests Test Name Ordered Date Scheduled Date Comprehensive Metabolic Panel March 14, 2025 10: 27am Future Visits Future appointment information is unavailable Referrals to Other Providers Referral information is unavailable Future Procedures Procedure Name Ordered Date Scheduled Date A1C with Estimated Average Glu March 14, 2025 10 :27am Complete Blood Count Auto Diff March 14, 2025 10 :27am Lipid Panel March 14, 2025 10:27am MicroAlb Creat Ratio,U March 14, 2025 10:27am PSA Screen (Yearly Only) March 14, 2025 10:27am Future Medications Future medication information is unavailable Patient Instructions Patient instructions are unavailable
--- OUTSIDE RECORDS SUMMARY | 2025-03-25 09:02 | XMS_ITS | Clinical Summary ---
Author Organization [facility] tem Address [id number] [address] [place] [address] Care Team Providers Care Mail Carrier Technician Name Role Phone Unavailable Primary Care Provider Unavailabl e Encounters Date Type Department Care Team Description 03/15/2025 - 03/15/2025 10:24 AM EDT Emergency [facility] -Emergency Dept [address] [place] [id number] Discharge Disposition: ED Dismiss - Never Arrived from Last 3 Months Social History Tobacco Use Types Packs/Day Years Used Date Smoking Tobacco: Never Assessed Childcare Answer Date Recorded Childcare Unknown 03/19/2019 Employment Answer Date Recorded Employment Unknown 03/19/2019 Sex and Gender Information Value Date Recorded Sex Assigned at Not on file Legal Sex Male 1:12 PM EDT Gender Identity Not on file Sexual Orientation Not on file Plan of Treatment Not on file Medical Devices Not on file
--- OUTSIDE RECORDS SUMMARY | 2025-03-25 09:02 | XMS_ITS | Clinical Summary ---
Author Organization [facility] Address [address] [place] [address] Care Team Providers Care Grain Merchandising Manager Name Role Phone Ishmael Jacob DO Primary Care Provider [phone] Allergies Active Allergy Reactions Criticality Noted Date Comments Bzmydcm-Sio-Tgx Reductase Inhibitors 01/10/2023 Medications tamsulosin (Flomax) 0.4 mg 24 hr capsule tamsulosin 0.4 mg capsule Active metoprolol succinate XL (Toprol-XL) 25 mg 24 hr tablet metoprolol succinate ER 25 mg tablet,extende d release 24 hr Active metFORMIN (Glucophage) 1,000 mg tablet every 12 (twelve) hours. Active gemfibrozil (Lopid) 600 mg tablet Take 600 mg by mouth in the morning and at bedtime. Active aspirin 81 mg EC tablet in the morning. Active amLODIPine-benazepri L (Lotrel) 10-20 mg capsule 1 capsule in the morning. 07/14/20 18 Active omega 0-slc-dqt-fish oil (Fish OiL) 100-160-1,000 mg capsule Fish Oil 1200mg BID Active benazepril (Lotensin) 10 mg tablet Take 10 mg by mouth in the morning. Active Jardiance 10 mg Take 10 mg by mouth in the morning. Active potassium citrate CR (Urocit-K-15) 15 mEq ER tablet Take 15 mEq by mouth in the morning and at bedtime. Active semaglutide (Rybelsus) 7 mg tablet Take 7 mg by mouth in the morning. Active rosuvastatin (Crestor) 10 mg tabletIndications:Co ronary arteriosclerosis TAKE 1 TABLET BY MOUTH EVERY DAY IN THE MORNING 90 tablet 3 02/05/20 25 Active Active Problems Problem Noted Date Diagnosed Date Nocturia 05/24/2023 05/24/2023 Hypertriglyceridemia 05/24/2023 05/24/2023 Assessment & Plan (11/11/2023 12:27 PM EST): Continue lopid and crestor Cyst of kidney, acquired 05/24/2023 023 NSVT (nonsustained ventricular tachycardia) 01/09 Assessment & Plan (11/11/2023 12:28 PM EST): Continue toprol, no concenring symptoms, palpitations, near syncope or syncope and pt remains quite active without limiting symptoms Assessment & Plan (01/27/2023 12:44 PM EDT): -will rule out worsening CAD, if negative we can consider ablation for PVC/VT Atopic dermatitis 01/06/2023 Ventricular premature beats 10/29/2016 Assessment & Plan (01/27/2023 12:43 PM EDT): -hx of this which resolved with stent and managed with medications -with return of PVC and NSVT will need LHC to rule out additional ischemia consdering hx of LAD stent -if no new concerns for CAD will then proceed with ablation Type 2 diabetes mellitus 10/29/2016 Assessment & Plan (01/27/2023 12:43 PM EDT): -states he has been controlled, Do not have an A1C to reference -not on insulin, managed per PCP Essential hypertension 10/29/2016 Assessment & Plan (11/11/2023 12:27 PM EST): Hypertension is well controlled 129/80 Continue lotensin, hydrochlorothiazide and toprol Assessment & Plan (01/27/2023 12:42 PM EDT): - Blood pressure is mildly elevated today -he will trend BP for me at home as he states he is typically not elevated -ct hydrochlorothiazide 25mg,amlodipine/benazapril 10-20mg, toprol xl 25mg Dyslipidemia 10/29/2016 Drug intolerance 10/29/2016 Coronary arteriosclerosis 10/29/2016 Assessment & Plan (11/11/2023 12:26 PM EST): Coronary artery disease is stable without concerning symptoms Continue GDMT- ASA, toprol, crestor continue risk factor modifications- heart healthy diet, regular exercise as tolerated and continue all medications. Assessment & Plan (01/27/2023 12:37 PM EDT): - Last heart cath 2011 patent LAD stent and otherwise normal coronaries -We will order left heart cath to rule out any additional ischemia and if left heart cath negative for anything new we will then proceed with PVC/VT ablation Calculus of kidney and ureter 10/29/2016 Encounters Date Type Department Care Team Description 02/04/2025 Refill [facility] Cardiology [address] [place] [phone] Lena Isaac MD Coronary arteriosclerosis from Last 3 Months Immunizations Immunization Administration Dates Next Due Covid (Pfizer) Bivalent Booster =>12 YRS 022 Influenza, injectable, MDCK, preservative free, quadrivalent 08/12/2021,07/02/2020 Influenza, injectable, quadrivalent, preservativ e free 06/24/2022 Pfizer SARS-CoV-2 Vaccination 08/31/2021 Family History Medical History Relation Name Comments Coronary artery disease Father Hyperlipidemia Father Hypertension Father Leukemia Father Hyperlipidemia Mother Hypertension Mother Relation Name Status Comments Father Mother Social History Tobacco Use Types Packs/Day Years Used Date Smoking Tobacco: Never Smokeless Tobacco: Never Tobacco Cessation:Counseling Given: Not Answered Alcohol Use Standard Drinks/Week Comments Yes 0 (1 standard drink = 0.6 oz pur e alcohol) occasional [place] Safety & Environment Answer Date Rec orded Fear of Current or Ex-Partner Not on file Emotionally Abused Not on file 12/01/2023 Physically Abused Not on file 12/01/2023 Sexually Abused Not on file 12/01/2023 Physically or Sexually Abused Not on file Sex and Gender Information Value Date Recorded Sex Assigned at Not on file Legal Sex Male 10:19 PM EDT Gender Identity Not on file Sexual Orientation Not on file Last Filed Vital Signs Vital Sign Reading Time Taken Comments Blood Pressure 146/82 12/06/2024 9:50 AM EST Pulse 70 12/06/2024 9:50 AM EST Temperature - - Respiratory Rate 16 02/10/2023 12:19 PM EDT Oxygen Saturation 97% 12/06/2024 9:50 AM EST Inhaled Oxygen Concentration - - Weight 114 kg (251 lb) 12/06/2024 9:50 AM EST Height 185.4 cm (6' 1 ) 12/06/2024 9:50 AM EST Body Mass Index 33.12 12/06/2024 9:50 AM EST Plan of Treatment Health Maintenance Due Date Last Done Comments CT Colonography 1960 Colonoscopy 1960 Diabetes: Hemoglobin A1C 1960 FIT-DNA 1960 FOBT 1960 Medicare Initial Physical (IPPE) 1960 Sigmoidoscopy 1960 Diabetes: Retinopathy Screening 1970 Depression Screening 1972 Diabetes: Urine Protein Screening 1979 Pneumococcal Vaccine: Pediatrics (0 to 5 Years) and At-Risk Patients (6 to 64 Years) (1 of 2 - PCV) 1979 Adult Tetanus 1982 Zoster Vaccines (1 of 2) 2010 Colorectal Cancer Screening 03/29/2023 FIT 03/29/2023 03/29/2022 COVID-19 Vaccine ( season) 2024 09/04/2023, 06/24/2022, 08/31/2021, Additional history exists Influenza Vaccine Completed 07/11/2024, , 09/04/2023, Additional history exists HIB Vaccines Aged Out No longer eligi ble based on patient's age to complete this topic HPV Vaccines Aged Out No longer eligi ble based on patient's age to complete this topic IPV Vaccines Aged Out No longer eligi ble based on patient's age to complete this topic Meningococcal B Vaccine Aged Out No l onger eligible based on patient's age to complete this topic Meningococcal Vaccine Aged Out No germán josé eligible based on patient's age to complete this topic Rotavirus Vaccines Aged Out No longer eligible based on patient's age to complete this topic Insurance AETNA Care Teams Grain Merchandising Manager Relationship Specialty Start Date End Date Ishmael Jacob DO [address] [facility] [place] [address] PCP - General 01/05/23
--- OUTSIDE RECORDS SUMMARY | 2025-03-25 09:02 | XMS_ITS | Encounter Summary ---
Author Organization [facility] tem Address [id number] [address] [place] [address] Care Team Providers Care Store Detective Name Role Phone Unavailable Primary Care Provider Unavailabl e Encounter Details Date Type Department Care Team (Late st Contact Info) Description 03/15/2025 - 03/15/2025 10:24 AM EDT Emergency [facility] -Emergency Dept [address] [place] [id number] Discharge Disposition: ED Dismiss - Never Arrived Social History Tobacco Use Types Packs/Day Years Used Date Smoking Tobacco: Never Assessed Childcare Answer Date Recorded Childcare Unknown 03/19/2019 Employment Answer Date Recorded Employment Unknown 03/19/2019 Sex and Gender Information Value Date Recorded Sex Assigned at Not on file Legal Sex Male 1:12 PM EDT Gender Identity Not on file Sexual Orientation Not on file documented as of this encounter Plan of Treatment Not on file documented as of this encounter Visit Diagnoses Not on filedocumented in this encounter
--- OUTSIDE RECORDS SUMMARY | 2025-03-25 09:02 | XMS_ITS | Referral Summary ---
Author Organization [facility] Address [address] [place] [address] Care Team Providers Care Chief Investment Officer Name Role Phone Ishmael Jacob DO Primary Care Provider [phone] Encounters Date Type Department Care Team Description 02/04/2025 Refill [facility] Cardiology [address] [place] [phone] Lena Isaac MD Coronary arteriosclerosis from Last 3 Months Allergies Active Allergy Reactions Criticality Noted Date Comments Wicdnqe-Nrs-Aqi Reductase Inhibitors 01/10/2023 Medications tamsulosin (Flomax) 0.4 [...] in the morning. 07/14/20 18 Active omega 0-bgy-gew-fish oil (Fish OiL) 100-160-1,000 mg capsule Fish [...] 12:37 PM EDT): - Last heart cath 2012 patent LAD stent and otherwise normal coronaries -We will order left heart cath to rule out any additional ischemia and if left heart cath negative for anything new we will then proceed with PVC/VT ablation Calculus of kidney and ureter 10/29/2016 Immunizations Immunization Administration Dates Next Due Covid (Pfizer) Bivalent Booster =>12 YRS 022 Influenza, injectable, MDCK, preservative free, quadrivalent 08/12/2021,07/02/2020 Influenza, injectable, quadrivalent, preservativ e free 06/24/2022 Pfizer SARS-CoV-2 Vaccination 08/31/2021 Social History Tobacco Use Types Packs/Day Years [...] 12/06/2024 9:50 AM EST Plan of Treatment Not on file Insurance [employer] Care Teams Chief Investment Officer Relationship Specialty Start Date End Date Ishmael Jacob DO [address] [facility] [place] [id number] PCP - General 01/05/23
[2025-03-25 09:38] LABS: Estimated Average Glucose 197 mg/dL; Glycohemoglobin A1C 8.5 % (4.5-6.2)
[2025-03-25 09:38] LABS: Creatinine Urine Random 106.93 mg/dL (20.00-300.00); Microalbum Creatinine Ratio Ur 93.5 mg/g (0.0-29.9)
[2025-03-25 09:39] LABS: Basophils Percent Auto 0.5 % (0.2-2.0); Eosinophils Absolute Auto 0.2 10^3/uL (0.0-0.7); Eosinophils Percent Auto 2.9 % (0.9-7.0); Hematocrit 51.3 % (42.0-54.0); Immature Granulocytes Abs Auto 0.01 10^3/uL (0.00-0.03); Immature Granulocytes Pct Auto 0.2 % (0.0-0.5); Lymphocytes Absolute Auto 1.7 10^3/uL (1.2-3.8); Lymphocytes Percent Auto 27.3 % (20.5-60.0); Mean Corpuscular HGB Conc 35.1 g/dL (29.9-35.2); Mean Corpuscular Hemoglobin 29.6 pg (25.9-34.0); Mean Corpuscular Volume 84.2 fL (80.0-94.0); Mean Platelet Volume 10.7 fL (9.5-13.5); Monocytes Absolute Auto 0.7 10^3/uL (0.3-0.8); Monocytes Percent Auto 10.4 % (1.7-12.0); Neutrophils Absolute Auto 3.7 10^3/uL (1.4-6.5); Neutrophils Percent Auto 58.7 % (43.0-75.0); Platelet Count 142 10^3/uL (150-450); Red Blood Count 6.09 10^6/uL (4.70-6.10); Red Cell Distribution Width 13.2 % (11.0-15.0); White Blood Count 6.2 10^3/uL (4.0-11.0)
[2025-03-25 09:48] LABS: Alanine Aminotransferase 49 U/L (16-63); Albumin Globulin Ratio 1.3; Albumin Level 4.3 g/dL (3.4-5.0); Alkaline Phosphatase 100 U/L (46-116); Anion Gap 16.5; Aspartate Amino Transferase 29 U/L (15-37); BUN Creatinine Ratio 19.4; Bilirubin Total 0.8 mg/dL (0.2-1.0); Calcium 8.8 mg/dL (8.5-10.1); Carbon Dioxide 23.5 mmol/L (21.0-32.0); Chloride 102 mmol/L (98-107); Chol HDL Ratio 3.6; Cholesterol 103 mg/dL (<=200); Estimated GFR (African America >60 (>=60 mL/min/1.73m^2); Estimated GFR (Non-African Ame >60 (>=60 mL/min/1.73m^2); Globulin 3.2 g/dL; Glucose 209 mg/dL (74-106); HDL Cholesterol 29 mg/dL (40-60); Sodium 138 mmol/L (136-145); Total Protein 7.5 g/dL (6.4-8.2); Triglycerides 233 mg/dL (<=150); VLDL CHOLESTEROL 46.6 mg/dL
[2025-03-25 10:35] LABS: Prostate Specific Antigen Scrn 0.33 ng/mL (<=4.00)
== END 2025-03-25 09:00 | disposition home or self-care (01) ==
PROVIDERS: PCP Internal Medicine; Visit Provider Internal Medicine
DX: E78.00 Pure hypercholesterolemia, unspecified (principal); I25.10 Atherosclerotic heart disease of native coronary artery without angina pectoris; E11.65 Type 2 diabetes mellitus with hyperglycemia; I10 Essential (primary) hypertension; Z12.5 Encounter for screening for malignant neoplasm of prostate
CPT/HCPCS: 36415; 80053; 80061; 82043; 82570; 83036; 85025; G0103

== ENCOUNTER 2025-07-16 17:08 | Inpatient (IN) | payer MEDICARE, SELFPAY ==
[2025-07-16] VITALS (33 sets, daily range): BP systolic 147–193; BP diastolic 79–107; PULSE 61–88; TEMP 36.4–36.8; O2SAT 93–99; BMI 33.0
--- NOTE | 2025-07-16 17:31 | ECG_ITS ---
[facility] Test Date: 2025-07-16 Pat Name: CHELY SIDDIQI Department: Room: - Gender: Male Awning Finisher: : 1960 Requested By: [id number] Order Number: [id number] Reading MD: YOU BOND M.D. Measurements Intervals [place] Rate: 82 P: -70957 CT: 150 QRS: -34 QRSD: 88 T: 45 QT: 368 QTc: 406 Interpretive Statements Sinus rhyhtm with frequent ventricular premature complexes 3423 Possible septal myocardial infarction, probably old 7200 Abnormal left axis deviation 9150 abnormal ECG No previous ECG available for comparison Electronically Signed On 07-16-2025 18:17:23 EDT by YOU BOND M.D.
--- NOTE | 2025-07-16 17:35 | ECG_ITS ---
The [facility] Test Date: 2025-07-16 Pat Name: CHELY SIDDIQI Department: Room: - Gender: Male Potato Chip Cooker Machine: : 1960 Requested By: [id number] Order Number: [id number] Reading MD: YOU BOND M.D. Measurements Intervals [place] Rate: 72 P: 53 WV: 174 QRS: -29 QRSD: 94 T: 52 QT: 392 QTc: 417 Interpretive Statements 1100 Sinus rhythm 1570 with occasional ventricular premature complexes 7202 Moderate left axis deviation 9140 abnormal rhythm ECG Compared to ECG 07/16/2025 17:15:22 Myocardial infarct finding no longer present Electronically Signed On 07-17-2025 7:55:50 EDT by YOU BOND M.D.
--- NOTE | 2025-07-16 17:41 | XR_ITS ---
The [place] [id number] Patient Name: CHELY SIDDIQI MRN: [id number] date: 1960 Sex: M Assigned Patient Location: ED.MAIN Current Patient Location: ED.MAIN Accession/Order Number: [id number] Exam Date: 07/16/2025 17:55 Report Date: 07/16/2025 18:25 At the request of: RENUKA KANG DO Procedure: XR chest 2V PA AND LATERAL CHEST: CLINICAL HISTORY: CP COMPARISON: 11/06/2022 FINDINGS: Unremarkable cardiomediastinal silhouette. Lungs are clear. No effusion or pneumothorax XR/XR chest 2V IMPRESSION: NO ACUTE CARDIOPULMONARY ABNORMALITY. Impression dictated by: Andre Espinoza M.D. 07/16/2025 6:25 PM Dictation Location: [place] [address] Electronically authenticated by: [id number] Y Date: 07/16/2025 18:25
[2025-07-16 17:50] LABS: Hemoglobin 18.6 g/dL (14.0-18.0); Red Blood Count 6.36 10^6/uL (4.70-6.10); White Blood Count 8.3 10^3/uL (4.0-11.0)
[2025-07-16 17:51] LABS: Hematocrit 53.2 % (42.0-54.0); Mean Corpuscular HGB Conc 35.0 g/dL (29.9-35.2); Mean Corpuscular Hemoglobin 29.2 pg (25.9-34.0); Mean Corpuscular Volume 83.6 fL (80.0-94.0); Platelet Count 155 10^3/uL (150-450)
[2025-07-16 17:52] LABS: INR 1.00; Immature Granulocytes Pct Auto 0.1 % (0.0-0.5); Lymphocytes Absolute Auto 2.8 10^3/uL (1.2-3.8); Partial Thromboplastin Time 27.8 sec (22.3-36.2); Prothrombin Time 10.6 sec (9.0-11.6)
[2025-07-16 17:53] LABS: Anion Gap 19.9; Blood Urea Nitrogen 24.0 mg/dL (7.0-18.0); Calcium 9.3 mg/dL (8.5-10.1); Carbon Dioxide 21.9 mmol/L (21.0-32.0); Chloride 101 mmol/L (98-107); Estimated GFR (African America >60 (>=60 mL/min/1.73m^2); Estimated GFR (Non-African Ame >60 (>=60 mL/min/1.73m^2); Glucose 227 mg/dL (74-106); Immature Granulocytes Abs Auto 0.01 10^3/uL (0.00-0.03); Magnesium 2.5 mg/dL (1.8-2.4); Potassium 3.8 mmol/L (3.5-5.1); Sodium 139 mmol/L (136-145)
--- NOTE | 2025-07-16 17:56 | CT_ITS ---
The [address] [address] Patient Name: CHELY SIDDIQI MRN: [id number] date: 1960 Sex: M Assigned Patient Location: ED.MAIN Current Patient Location: ED.MAIN Accession/Order Number: [id number] Exam Date: 07/16/2025 18:15 Report Date: 07/16/2025 19:00 At the request of: RENUKA KANG DO Procedure: CT angio abdomen pelvis CTA chest and CTA abdomen and pelvis . CLINICAL DATA: Acute onset chest pain, rule out dissection. TECHNIQUE: Intravenous contrast-enhanced CT angiography of the chest and CT angiography of the abdomen and pelvis were performed. Axial, sagittal, coronal, and 3D-dimensional reconstructions were created and reviewed. These CT exams were performed using one or more of the following dose reduction techniques: Automated exposure control, adjustment of the mA and/or kV according to patient size, or use of iterative reconstruction technique. COMPARISON: Chest x-ray 07/16/2025. FINDINGS: Chest: Mediastinum:Cardiomegaly. Coronary artery calcifications. Involving the LAD the. Trace pericardial effusion. Small hiatal hernia. No aortic dissection. No central pulmonary emboli. Lungs:Hypoventilatory changes. Interstitial thickening. No confluent airspace disease effusion or pneumothorax. Soft tissues/Bones: Remote healed left sided rib fractures. Abdomen and pelvis: Organs:Fatty parenchymal liver with likely areas of focal fatty sparing. Left lower pole renal lesion exophytic 25 HU likely a cyst. Right medial kidney hypodensity likely a cyst. Recommend ultrasound correlation for documentation/confirmation. Otherwise spleen, adrenals, kidneys, and pancreas are unremarkable. Cholelithiasis.[ GI: Mild to moderate retained stool. No bowel obstruction[colonic diverticulosis Pelvis:[Bladder unremarkable. Prostate unremarkable.] Peritoneum/Retroperitoneum:No free air or free fluid. Aorta is not aneurysmal. Mild plaque involving the aorta and mesenteric and iliac vessels without high-grade or critical narrowing identified. No dissection.[ Abd wall/Bones:Multilevel degenerative changes. Minimal anterolisthesis L4-5 likely related to the facet arthropathy greatest lumbar spine.[ CT/CT angio abdomen pelvis IMPRESSION: Negative for aortic dissection or aneurysm. Cardiomegaly with predominantly left main LAD coronary calculations Small hiatal hernia. Fatty liver. Colonic diverticulosis. Cholelithiasis. Impression dictated by: Andre Espinoza M.D. 07/16/2025 7:00 PM Dictation Location: [place] [address] Electronically authenticated by: [id number] Y Date: 07/16/2025 19:00
--- NOTE | 2025-07-16 17:56 | CT_ITS ---
The [address] [address] Patient Name: CHELY SIDDIQI MRN: [id number] date: 1960 Sex: M Assigned Patient Location: ED.MAIN Current Patient Location: ED.MAIN Accession/Order Number: [id number] Exam Date: 07/16/2025 18:15 Report Date: 07/16/2025 19:00 At the request of: RENUKA KANG DO Procedure: CT angio abdomen pelvis CTA chest and CTA abdomen and pelvis . CLINICAL DATA: Acute onset chest pain, rule out dissection. TECHNIQUE: Intravenous contrast-enhanced CT angiography of the chest and CT angiography of the abdomen and pelvis were performed. Axial, sagittal, coronal, and 3D-dimensional reconstructions were created and reviewed. These CT exams were performed using one or more of the following dose reduction techniques: Automated exposure control, adjustment of the mA and/or kV according to patient size, or use of iterative reconstruction technique. COMPARISON: Chest x-ray 07/16/2025. FINDINGS: Chest: Mediastinum:Cardiomegaly. Coronary artery calcifications. Involving the LAD the. Trace pericardial effusion. Small hiatal hernia. No aortic dissection. No central pulmonary emboli. Lungs:Hypoventilatory changes. Interstitial thickening. No confluent airspace disease effusion or pneumothorax. Soft tissues/Bones: Remote healed left sided rib fractures. Abdomen and pelvis: Organs:Fatty parenchymal liver with likely areas of focal fatty sparing. Left lower pole renal lesion exophytic 25 HU likely a cyst. Right medial kidney hypodensity likely a cyst. Recommend ultrasound correlation for documentation/confirmation. Otherwise spleen, adrenals, kidneys, and pancreas are unremarkable. Cholelithiasis.[ GI: Mild to moderate retained stool. No bowel obstruction[colonic diverticulosis Pelvis:[Bladder unremarkable. Prostate unremarkable.] Peritoneum/Retroperitoneum:No free air or free fluid. Aorta is not aneurysmal. Mild plaque involving the aorta and mesenteric and iliac vessels without high-grade or critical narrowing identified. No dissection.[ Abd wall/Bones:Multilevel degenerative changes. Minimal anterolisthesis L4-5 likely related to the facet arthropathy greatest lumbar spine.[ CT/CT angio chest IMPRESSION: Negative for aortic dissection or aneurysm. Cardiomegaly with predominantly left main LAD coronary calculations Small hiatal hernia. Fatty liver. Colonic diverticulosis. Cholelithiasis. Impression dictated by: Andre Espinoza M.D. 07/16/2025 7:00 PM Dictation Location: [place] [address] Electronically authenticated by: [id number] Y Date: 07/16/2025 19:00
[2025-07-16] MEDS: ASPIRIN 81 MG TAB.CHEW 162 MG PO (17:59)
--- NOTE | 2025-07-16 18:49 | ED_ITS ---
HPI HPI - General Adult General Chief complaint: Chest Pain Stated complaint: CHEST PAINS Time Seen by Provider: 07/16/25 17:16 Source: patient Mode of arrival: Wheelchair Limitations: no limitations History of Present Illness HPI narrative: Patient is a 64-year-old male presenting to the emergency department for evaluation of chest pain. Patient states he was eating dinner today when he started experiencing hiccups. Shortly thereafter, he started experiencing chest pain. He states the pain is located in the center of his chest and folic a squeezing sensation. He states he became nauseous, but did not vomit. He did not radiate to his back, arm, or jaw. He has never had pain like this in the past. He did not have associated shortness of breath. He does have a history of CAD s/p coronary stents on a daily aspirin. Patient has a history of diabetes, hypertension. Related Data Allergies Allergy/AdvReac Type Severity Reaction Status Date / Time No Known Drug Allergies Allergy Verified 07/16/25 17:17 Opioid HPI Opioid Management Most Recent Opioid Data: Last Pain Scale 3 Today, 17:18 Review of Systems ROS Status of ROS 10 or more systems reviewed and unremark able except as noted in history and below Exam Narrative Exam Narrative: CONSTITUTIONAL: Patient appears flushed and in moderate distress, rates chest pain 2/10 currently, answering questions and following commands appropriately SKIN: Was warm and mildly diaphoretic/flushed EYES: No conjunctival pallor. EARS, NOSE, THROAT: No JVD. RESPIRATORY: Clear to auscultation bilaterally, no wheezes, crackles, or stridor, no use of accessory muscles CARDIOVASCULAR: Normal rate and regular rhythm. There is no S3, S4, murmur, rub. Radial and dorsalis pedis pulses are 2+ and symmetrical. GASTROINTESTINAL: Abdomen was soft, non-tender, and non-distended. There is no guarding or rebound tenderness MUSCULOSKELETAL: There was no lower extremity edema, erythema, or tenderness. NEUROLOGIC: Patient is awake and alert. Facies were symmetrical. Constitutional Vital Signs, click to edit/add: Last Vital Signs Temp 97.6 F 07/16/25 17:18 Pulse 80 07/16/25 17:18 Resp 10 L 07/16/25 17:18 BP 193/92 H 07/16/25 17:18 Pulse Ox 98 07/16/25 17:18 O2 Del Method Room Air 07/16/25 17:18 Course Vital Signs Vital signs: Vital Signs Temperature 97.6 F 07/16/25 17:18 Pulse Rate 80 07/16/25 17:18 Respiratory Rate 10 L 07/16/25 17:18 Blood Pressure 193/92 H 07/16/25 17:18 Pulse Oximetry 98 07/16/25 17:18 Oxygen Delivery Method Room Air 07/16/25 17:18 Temperature 97.6 F 07/16/25 17:18 Pulse Rate 80 07/16/25 17:18 Respiratory Rate 10 L 07/16/25 17:18 Blood Pressure 193/92 H 07/16/25 17:18 Pulse Oximetry 98 07/16/25 17:18 Oxygen Delivery Method Room Air 07/16/25 17:18 Medical Decision Making MDM Narrative Medical decision making narrative: Patient is a 64-year-old male, history significant for CAD s/p coronary stents, hypertension, diabetes, presenting to the emergency department for evaluation of acute onset retrosternal chest pain. His symptoms have improved, but his chest pain still remains a 2 out of 10 in severity. His vital signs on arrival were significant for hypertension, otherwise were within normal limits. He is afeb rile hemodynamically stable. Physical examination was unremarkable other than him appearing flushed and moderately distressed. Differential diagnosis includes ACS, arrhythmia, aortic dissection, esophageal rupture, or other electrolyte/metabolic derangement. IV was established and laboratory studies were obtained. CT angio of the chest/abdomen/pelvis was ordered. He was [id number] mg of aspirin as he took 2 aspirin prior to his arrival. 12 Lead EKG: Normal sinus rhythm at a rate of 72. Normal axis. Occasional PVCs. No ST segment elevations. QRS, [place], and QTc interval within normal limits. Final impression: normal sinus rhythm with occasional PVCs. No evidence of acute myocardial ischemia. Laboratory studies were overall unrevealing. His initial troponin was within normal limits at 7.7. He is hyperglycemic without acidosis. No electrolyte or metabolic derangement otherwise. No evidence of acute renal injury. No anemia or leukocytosis. No thrombocytopenia. Chest x-ray independently reviewed/interpreted by myself demonstrated no acute cardiopulmonary process. My shift is now coming to an end. At the time of signout to Dr. Davis, the patient is walking around the emergency department and his symptoms seem to improving spontaneously. Final reads of the CT angio are pending, however my preliminary review demonstrated no evidence of acute aortic dissection. He does have a HEART score of 5, making him high risk for 30 day MACE. He will likely need a cardiology consult/observation stay. FINAL IMPRESSION: #Acute chest pain #History of CAD s/p coronary stent DISPOSITION: Signed out oncoming ED physician CONDITION: Fair Medical Records Medical records reviewed: Yes I reviewed the patient's medical records Lab Data Lab results reviewed: Yes I reviewed the patient's lab results Labs: Lab Results 07/16/25 Range/Units 17:24 WBC 8.3 (4.0-11.0) 10^3/uL RBC 6.36 H (4.70-6.10) 10^6/uL Hgb 18.6 H (14.0-18.0) g/dL Hct 53.2 (42.0-54.0) % MCV 83.6 (80.0-94.0) fL MCH 29.2 (25.9-34.0) pg MCHC 35.0 (29.9-35.2) g/dL RDW 13.1 (11.0-15.0) % Plt Count 155 (150-450) 10^3/uL MPV 10.9 (9.5-13.5) fL Neut % (Auto) 52.6 (43.0-75.0) % Lymph % (Auto) 34.1 (20.5-60.0) % [place] % (Auto) 11.0 (1.7-12.0) % Eos % (Auto) 1.8 (0.9-7.0) % Baso % (Auto) 0.4 (0.2-2.0) % Neut # (Auto) 4.4 (1.4-6.5) 10^3/uL Lymph # (Auto) 2.8 (1.2-3.8) 10^3/uL [place] # (Auto) 0.9 H (0.3-0.8) 10^3/uL Eos # (Auto) 0.2 (0.0-0.7) 10^3/uL Baso # (Auto) 0.0 (0.0-0.1) 10^3/uL Abs Immat Gran (auto) 0.01 (0.00-0.03) 10^3/uL Imm/Tot Granulo (auto) 0.1 (0.0-0.5) % PT 10.6 (9.0-11.6) sec INR 1.00 APTT 27.8 (22.3-36.2) sec Sodium 139 (136-145) mmol/L Potassium 3.8 (3.5-5.1) mmol/L Chloride 101 (98-107) mmol/L Carbon Dioxide 21.9 (21.0-32.0) mmol/L Anion Gap 19.9 BUN 24.0 H (7.0-18.0) mg/dL Creatinine 1.18 (0.70-1.30) mg/dL Est GFR ( Amer) >60 (>=60 mL/min/1.73m^2) Est GFR (Non-Af Amer) >60 (>=60 mL/min/1.73m^2) BUN/Creatinine Ratio 20.3 Glucose 227 H (74-106) mg/dL Calcium 9.3 (8.5-10.1) mg/dL Magnesium 2.5 H (1.8-2.4) mg/dL Troponin I High Sens 7.7 (4.0-76.1) pg/mL Imaging Data Chest x-ray: Attestation: I personally reviewed and interpreted this imaging study as follows: Radiologist's impression: ITS Impressions Chest X-Ray 07/16/25 17:41 IMPRESSION: NO ACUTE CARDIOPULMONARY ABNORMALITY. Impression dictated by: Andre Espinoza M.D. 07/16/2025 6:25 PM Dictation Location: [place] [address] Electronically authenticated by: [id number] Y Date: 07/16/2025 18:25 ECG Data Attestation: I personally reviewed and interpreted this ECG as follows: Discharge Plan Discharge Patient Disposition: Still a Patient
--- OUTSIDE RECORDS SUMMARY | 2025-07-16 21:25 | XMS_ITS | CCD ---
Author Organization [facility] [place] [facility] Care Team Providers Care Tongue And Quarter Stitcher Name Role Phone PHYSICIAN, DEFAULT Unavailable Unavailable PHYSICIAN, DEFAULT Unavailable EVIN Barreto Unavailable Unavailable ISHMAEL JACOB Primary Care Physician [phone] Elsy, Ishmael Unavailable LEV GARCIA Consulting Unavailable LEV GARCIA Admitting Unavailable ELSY, DR MEIER Primary Care Unavailable LEV GARCIA Attending Unavailable BALL, DR MEIER Admitting Unavailable BALL, DR MEIER Attending Unavailable BALL, DR MEIER Consulting Unavailable BALL, DR MEIER Primary Care Unavailable ZIEBER, DR OLIVIA Ballard Consulting Unavailable BALL, DR MEIER Admitting Unavailable BALL, DR MEIER Attending Unavailable BALL, DR MEIER Consulting Unavailable BALL, DR MEIER Primary Care Unavailable BALL, DR MEIER Admitting Unavailable BALL, DR MEIER Attending Unavailable BALL, DR MEIER Consulting Unavailable BALL, DR MEIER Primary Care Unavailable WINKLER, GEORGECHA Consulting Unavailable LUMargaret .REBA Attending Unavailable LUE .REBA Admitting Unavailable WINKLER, KENYETTA Consulting Unavailable BALL, DR MEIER Primary Care Unavailable LUE .REBA Consulting Unavailable BALL, DR MEIER Admitting Unavailable BALL, DR MEIER Attending Unavailable BALL, DR MEIER Consulting Unavailable BALL, DR MEIER Primary Care Unavailable Unavailable Primary Care Provider UnavailBRAN Majano Attending Unavailable PANKAJ CHADWICK Attending Unavailable PANKAJ CHADWICK Attending Unavailable Reba Larios Admitting Unavailable LueReba Attending Unavailable Chung ABDALLA Attending Unavailable LueReba MPrabhu Attending Unavailable LueReab Attending Unavailable MD VLADIMIR PALMER Admitting Unav ailable MD VLADIMIR PALMRE Attending Unav ailable Reba Larios Admitting Unavailable LueReba Attending Unavailable LueReba Attending Unavailable LuReba chin Attending Unavailable Reba Larios Attending Unavailable Reba Larios Admitting Unavailable Reba Larios Attending Unavailable Reba Larios Attending Unavailable VLADIMIR PALMER Admitting Unavail able VLADIMIR PALMER Attending Unavail able Allergies Allergy Classification Reported Allergen(s) Allergy Type Date of Onset Reaction(s) Facility (11 sources) HMG-CoA reductase inhibitor Drug allergy 3 Unknown [place] Other (5 sources) Other Allergy to substance 5 Other [facility] Healthcare (1 source) Hmg-Coa Reductase Inhibitors (Statins); Translations: [FISQASE-YWE-WG A REDUCTASE INHIBITORS] Propensity to adverse reactions to drug (disorder) 3 [facility] Repository Medications Current Medications Medication Drug Class(es) Dates Sig (Normalized) Sig (Original) 0.25 MG, 0.5 MG Dose 3 ML semaglutide 0.68 MG/ML Pen Injector [Ozempic] (7 sources) Start: 10-31-2024 Ozempic 2 mg/3 mL (0.25 mg or 0.5 mg dose) subcutaneous solution SubCutaneous, qWeek, Refills(s) 0 Start Date: 10/31/24 Status: Ordered Repeat number: 1 Start: 10-31-2024 Ozempic 2 mg/3 mL (0.25 mg or 0.5 mg dose) subcutaneous solution SubCutaneous, qWeek, Refills(s) 0 Start Date: 10/31/24 Status: Ordered Start: 11-03-2023 Ozempic 2 mg/3 mL (0.25 [...] oral capsule (20 sources) Dihydropyridine Calcium Channel Hayde, Angiotensin Converting Enzyme Inhibitor Start: 04-02-2024 take 1 capsule by mouth once daily Amlodipine-Benaz epril 10-20 mg capsule Active 0 .ROUTE .COMPLEX April 02, 2024 6:48am TAKE 1 CAPSULE BY MOUTH EVERY DAY Start: 03-12-2024 End: 04-02-2024 take 1 capsule by mouth once daily Amlodipine-Benazepril 10-20 mg capsule Discontinued 1 CAP PO Daily March 12, 2024 12:00am April 02, 2024 6:48am Start: 06-28-2022 amlodipine-wilman azepril 10 mg-20 mg oral capsule 1 cap(s) Start Date: 06/28/22 Status: Ordered Repeat number: 1 take 10-20 mg by azul th once daily amLODIPine Besy-Benazepril HCl 10-20 MG TAKE 1 CAPSULE BY MOUTH EVERY DAY Active aspirin 81 mg delayed release oral tablet (20 sources) Platelet Aggregation Inhibitor, Nonsteroidal Anti-inflammatory Drug Start: 03-12-2024 take 1 tablet by mouth once daily Aspirin 81 mg tablet,delayed release (DR/EC) Active 81 MG PO Daily March 12, 2024 12:00am Start: 02-15-2022 take 1 mg by mouth e very four hours aspirin 81 mg oral capsule mg cap(s), Oral, q4hr, Refills(s) 0 Start Date: 02/15/22 Status: Ordered Repeat number: 1 take 1 tablet by azul th once daily Aspirin 81 81 MG 1 tablet Orally Once a day Active benazepril hydrochloride 10 mg oral tablet (20 sources) Angiotensin Converting Enzyme Inhibitor Start: 04-02-2024 End: 02-04-2025 take 1 tablet by mouth once daily Benazepril 10 mg tablet Active 0 .ROUTE .COMPLEX February 04, 2025 7:40am TAKE 1 TABLET BY MOUTH EVERY DAY Start: 04-02-2024 take 1 tablet by azul th once daily Benazepril Active 0 .ROUTE .COMPLEX April 02, 2024 6:48am TAKE 1 TABLET BY MOUTH EVERY DAY Start: 02-15-2022 End: 04-02-2024 take 1 tablet by mouth once daily Benazepril 10 mg tablet Discontinued 10 MG PO Daily March 12, 2024 12:00am April 02, 2024 6:48am docosahexaenoic acid 120 mg / eicosapentaenoic acid 180 mg oral capsule (5 sources) omega-3 (fish oi l) 1000 MG capsule Fish Oil 1200mg BID Active empagliflozin 10 mg oral tablet (14 sources) Sodium-Glucose Cotransporter 2 Inhibitor Start: 025 take 1 tablet by mouth once daily Empagliflozin (Jardiance) 10 mg tablet Active 0 .ROUTE .COMPLEX December 30, 2024 5:09pm TAKE 1 TABLET BY MOUTH EVERY DAY Start: 07-17-2024 End: 12-30-2024 Jardiance 10 mg oral tablet 10 mg = 1 tab(s), Refills(s) 0 Start Date: 10/31/24 Status: Ordered Repeat number: 1 Fish Oils (20 sources) Start: 02-15-2022 take 1 mg by mouth three times daily Fish Oil 1200 mg oral capsule mg cap(s), Oral, TID, Refills(s) 0 Start Date: 02/15/22 Status: Ordered Repeat number: 1 Start: 02-15-2022 take 1 mg by mouth t hree times daily Fish Oil 1200 mg oral capsule mg cap(s), Oral, TID, Refills(s) 0 Start Date: 02/15/22 Status: Ordered take 1 capsule by mo [facility] once daily Fish Oil 1200 MG 1 capsule Orally Once a day Active gemfibrozil 600 mg oral tablet (20 sources) Peroxisome Proliferator Receptor alpha Agonist Start: 10-19-2024 take 1 tablet by mouth twice daily Gemfibrozil 600 mg tablet Active 0 .ROUTE .COMPLEX 180 October 19, 2024 7:59am TAKE 1 TABLET BY MOUTH TWICE A DAY Start: 02-15-2022 End: 10-19-2024 take 1 mg by mouth twice daily gemfibrozil 600 mg Tab mg tab(s), Oral, BID, Refills(s) 0 Start Date: 02/15/22 Status: Ordered Repeat number: 1 metFORMIN hydrochloride 1000 mg oral tablet (20 sources) Biguanide Start: 09-05-2024 take 1 tablet by mouth twice daily at mealtime Metformin 1,000 mg tablet Active 0 .ROUTE .COMPLEX 180 September 05, 2024 2:37pm TAKE 1 TABLET BY MOUTH TWICE A DAY WITH MEALS Start: 11-25-2023 End: 09-05-2024 take 1 tablet by mouth twice daily at mealtime Metformin 1,000 mg tablet Discontinued 1000 MG PO Twice daily with meals 180 90 November 25, 2023 4:35pm September 05, 2024 2:37pm Start: 02-15-2022 take 1 mg by mouth once daily MetFORMIN (Eqv-Fortamet) 1000 mg oral tablet, extended release mg tab(s), Oral, Daily, Refills(s) 0 Start Date: 02/15/22 Status: Ordered Repeat number: 1 take 1 tablet by azul twice daily before breakfast metFORMIN HCl 1000 mg TAKE 1 TABLET BEFORE BREAKFAST AND EVENING MEAL Orally bid for 90 days Active 24 hr metoprolol succinate 25 mg extended release oral tablet (20 sources) beta-Adrenergic Hayde Start: 10-19-2024 take 1 tablet by mouth once daily Metoprolol Succinate 25 mg tablet extended release 24 hr Active 0 .ROUTE .COMPLEX 90 October 19, 2024 7:59am TAKE 1 TABLET BY MOUTH EVERY DAY Start: 02-15-2022 End: 10-19-2024 take 1 mg by mouth once daily metoprolol 25 mg ER Tab mg tab(s), Oral, Daily, Refills(s) 0 Start Date: 02/15/22 Status: Ordered Repeat number: 1 [place] 2-Lta-Lad-Fish Oil (Fish Oil) 1,200 (144-216) mg capsule (4 sources) Start: 03-12-2024 take 1 capsule by mouth once daily [place] 0-Byq-Hbv-Fish Oil (Fish Oil) 1,200 (144-216) mg capsule Active 1 CAP PO Daily March 11, 2024 11:00pm Start: 03-12-2024 take 1 capsule by mo [facility] once daily [place] 7-Anh-Wgn-Fish Oil (Fish Oil) 1,200 (144-216) mg capsule Active 1 CAP PO Daily March 12, 2024 12:00am OneTouch Ultra - (17 sources) OneTouch Ultra - USE TO TEST BLOOD SUGAR EVERY DAY for 30 Active OneTouch Ultra - as directed In Vitro Active Ozempic (0.25 or 0.5 MG/DOSE ) 2 MG/1.5ML (6 sources) Ozempic (0.25 or 0.5 MG/DOSE) 2 MG/1.5ML 0.5 MG Subcutaneous weekly Active Ozempic (0.25 or 0.5 MG/DOSE) 2 MG/1.5ML 0.5 MG Subcutaneous weekly for 28 days Active rosuvastatin calcium 10 mg oral tablet (20 sources) HMG-CoA Reductase Inhibitor Start: 03-08-2023 take 1 mg by mouth once daily rosuvastatin 10 mg Tab mg tab(s), Oral, Daily Start Date: 11/03/23 Status: Ordered Repeat number: 1 semaglutide 14 mg oral tablet (20 sources) Start: 01-30-2025 Rybelsus 14 mg oral tablet 14 mg = 1 tab(s) Start Date: 01/30/25 Status: Ordered Repeat number: 1 Start: 10-31-2024 Rybelsus 3 mg oral tablet 3 mg = 1 tab(s), Refills(s) 0 Start Date: 10/31/24 Status: Ordered Repeat number: 1 Start: 01-30-2024 End: 01-30-2024 Semaglutide 0.25 mg or 0.5 m g(2 mg/1.5 mL) pen injector Discontinued 0.5 MG SUBCUT every week January 30, 2024 12:00am January 30, 2024 1:30pm Start: 01-30-2024 End: 01-30-2024 inject 0.5 mg by subcutaneous injection every week Semaglutide Discontinued 0.5 MG SUBCUT every week January 30, 2024 12:00am January 30, 2024 1:30pm Start: 12-28-2022 Ozempic (0.25 or 0.5 MG/DOSE) 2 MG/1.5ML 0.5 MG Subcutaneous weekly for 28 days Dec, Active Start: 12-28-2022 Ozempic (0.25 or 0.5 MG/DOSE) 2 MG/1.5ML 0.25mg Subcutaneous weekly for 28 days Dec, Active Semaglutide 7 mg tablet (3 sources) Start: 03-14-2025 take 1 tablet by mouth once daily Semaglutide 7 mg tablet Active 7 MG PO Daily March 14, 2025 10:21am Start: 11-23-2024 End: 12-24-2024 take 1 tablet by mouth once daily Semaglutide 7 mg tablet Discontinued 7 MG PO Daily November 23, 2024 10:46am December 24, 2024 12:45pm Start: 11-23-2024 take 1 tablet by azul th once daily Semaglutide 7 mg tablet Active 7 MG PO Daily November 23, 2024 9:46am tamsulosin hydrochloride 0.4 mg oral capsule (20 sources) alpha-Adrenergic Hayde Start: 12-19-2023 End: 12-05-2024 take 1 capsule by mouth once daily at dinner Tamsulosin 0.4 mg capsule Active 0 .ROUTE .COMPLEX December 05, 2024 8:34am TAKE 1 CAPSULE BY MOUTH EVERYDAY AFTER EVENING MEAL Start: 02-15-2022 End: 12-19-2023 take 1 mg by mouth once daily tamsulosin 0.4 mg Cap mg cap(s), Oral, Daily, Refills(s) 0 Start Date: 02/15/22 Status: Ordered Repeat number: 1 Completed/Discontinued Medications Medication Drug Class(es) Dates Sig (Normalized) Sig (Original) hydroCHLOROthiazide 25 mg oral tablet (20 sources) Thiazide Diuretic Start: End: take 1 tablet by mouth once daily Hydrochlorothiazide 25 mg tablet Discontinued 0 .ROUTE .COMPLEX July 24, 2024 8:36am March 11, 2025 10:40pm TAKE 1 TABLET BY MOUTH EVERY DAY Start: 02-15-2022 End: 07-24-2024 take 1 tablet by mouth once daily Hydrochlorothiazide 25 mg tablet Discontinued 25 MG PO Daily March 12, 2024 12:00am July 24, 2024 8:36am potassium citrate 15 meq extended release oral tablet (11 sources) Start: 01-30-2025 take 2 tablets by mouth twice daily potassium citrate 15 mEq oral tablet, extended release 30 mEq = 2 tab(s), Oral, BID, # 120 tab(s), Refills(s) 6, Pharmacy: [facility]/pharmacy #[id number], 185, cm, 01/30/25 8:17:00 EDT, Height/Length Dosing, 106.1, kg, 01/30/25 8:17:00 EDT, Weight Dosing Start Date: 01/30/25 Status: Ordered Quantity: 120.0 Unit: tab(s) Repeat number: 7 Start: 10-31-2024 take 1 tablet by azul th twice daily Potassium Citrate 15 mEq tablet extended release Active 15 MEQ PO Twice daily November 23, 2024 1:00am Semaglutide (4 sources) Start: 01-30-2024 End: 07-17-2024 Semaglutide (Ozempic) 0.25 m g or 0.5 mg (2 mg/3 mL) pen injector Discontinued 0.5 MG SUBCUT every week 3 January 30, 2024 1:29pm July 17, 2024 1:06pm Start: 01-30-2024 End: 07-17-2024 Semaglutide (Ozempic) 0.25 m g or 0.5 mg (2 mg/3 mL) pen injector Discontinued 0.5 MG SUBCUT every week 3 January 30, 2024 12:29pm July 17, 2024 12:06pm Start: 01-30-2024 Semaglutide (O zempic) 0.25 mg or 0.5 mg (2 mg/3 mL) pen injector Active 0.5 MG SUBCUT every week 3 January 30, 2024 1:29pm Semaglutide (Rybelsus) 3 mg tablet (6 sources) Start: 09-05-2024 End: 11-23-2024 take 1 tablet by mouth once daily Semaglutide (Rybelsus) 3 mg tablet Discontinued 0 .ROUTE .COMPLEX September 05, 2024 2:37pm November 23, 2024 10:48am TAKE 1 TABLET BY MOUTH EVERY DAY Start: 09-05-2024 End: 11-23-2024 take 1 tablet by mouth once daily Semaglutide (Rybelsus) 3 mg tablet Discontinued 0 .ROUTE .COMPLEX September 05, 2024 1:37pm November 23, 2024 9:48am TAKE 1 TABLET BY MOUTH EVERY DAY Start: 2024 End: 09-05-2024 take 1 tablet by mouth once daily Semaglutide (Rybelsus) 3 mg tablet Discontinued 3 MG PO Daily 2024 9:53am September 05, 2024 2:37pm Start: 2024 End: 09-05-2024 take 1 tablet by mouth once daily Semaglutide (Rybelsus) 3 mg tablet Discontinued 3 MG PO Daily 2024 8:53am September 05, 2024 1:37pm Start: 07-17-2024 End: 2024 take 1 tablet by mouth once daily Semaglutide (Rybelsus) 3 mg tablet Discontinued 3 MG PO Daily July 17, 2024 12:00am 2024 9:53am Start: 07-17-2024 End: 2024 take 1 tablet by mouth once daily Semaglutide (Rybelsus) 3 mg tablet Discontinued 3 MG PO Daily July 16, 2024 11:00pm 2024 8:53am Semaglutide 14 mg tablet (2 sources) Start: 12-24-2024 End: 03-14-2025 take 1 tablet by mouth once daily Semaglutide 14 mg tablet Discontinued 14 MG PO Daily December 24, 2024 2:03pm March 14, 2025 10:21am Start: 12-24-2024 End: 12-24-2024 take 1 tablet by mouth once daily Semaglutide 14 mg tablet Discontinued 14 MG PO Daily December 24, 2024 10:49am December 24, 2024 2:04pm Problems Active Problems Problem Classification Problem Date Documented Da te Episodic/Chronic Allergic reactions (2 sources) Atopic dermatitis; Translations: [Atopic dermatitis, unspecified] Onset: 01-06-2023 01-09-2025 Chronic Calculus of urinary tract (20 sources) Kidney stone; Translations: [Calculus of kidney] Onset: 10-29-2016 Episodic Cardiac dysrhythmias (8 sources) Nonsustained ventricular tachycardia ; Translations: [NSVT (nonsustained ventricular tachycardia)] Onset: 10-29-2016 10-29-2024 Chronic Coronary atherosclerosis and other heart disease (20 sources) Coronary arteriosclerosis; Translations: [Atherosclerotic heart disease of [place] coronary artery without angina pectoris] Onset: 10-29-2016 Chronic Comment on above: - LHC, PCI/stent LAD - 2005- [facility] normal w/o intervention - 2010- Echo: LVEF 65%, normal RV size/function, RVSP 31, mod MR - 11/2022- Stress test w/ NSVT, NM stress: no ischemia - 12/2022- LHC: OM 60% - 02/2023 Diabetes mellitus with complications (20 sources) Type 2 diabetes mellitus; Translations: [Type 2 diabetes mellitus with hyperglycemia] Onset: 10-29-2016 Chronic Diabetes mellitus without complication (8 sources) Diabetes mellitus; Translations: [Type 2 diabetes mellitus without complications] Onset: 01-09-2025 06-28-2022 Chronic Disorders of lipid metabolism (20 sources) Mixed hyperlipidemia; Translations: [Mixed hyperlipidemia] Onset: 10-29-2016 Chronic Essential hypertension (20 sources) Essential hypertension; Translations: [Essential (primary) hypertension] Onset: 10-29-2016 Chronic Genitourinary symptoms and ill-defined conditions (20 sources) Nocturia; Translations: [Nocturia] Onset: 02-15-2022 Episodic Hyperplasia of prostate (20 sources) Nocturia due to benign prostatic hypertrophy; Translations: [Benign prostatic hyperplasia with lower urinary tract symptoms] Onset: 10-31-2024 Chronic Neoplasms of unspecified nature or uncertain behavior (2 sources) Neoplastic disease; Translations: [Neoplasm of unspecified behavior of bone, soft tissue, and skin] 12-06-2024 Episodic Other diseases of kidney and ureters (3 sources) Acquired renal cyst without neoplastic change; Translations: [Cyst of kidney, acquired] Onset: 11-03-2023 Episodic Other diseases of kidney and ureters (8 sources) Cyst of kidney; Translations: [Cyst of kidney, acquired] Onset: 01-09-2025 06-28-2022 Episodic Other lower respiratory disease (7 sources) Shortness of breath; Translations: [SHORTNESS OF BREATH] Onset: 11-06-2022 Episodic Other nutritional; endocrine; and metabolic disorders (20 sources) Body mass index 30+ - obesity; Translations: [Obesity, unspecified] Chronic Other nutritional; endocrine; and metabolic disorders (3 sources) Obesity, unspecified; Translations: [Obesity, unspecified] Chronic [...] Chronic Other nutritional; endocrine; and metabolic disorders (3 sources) Obesity; Translations: [Obesity, unspecified] 07-11-2024 Chronic Other screening for suspected conditions (not mental disorders or infectious disease) (4 sources) Encounter for screening for malignant neoplasm of prostate; Translations: [Patient encounter status] Onset: 03-18-2022 Episodic Other skin disorders (2 sources) Actinic keratosis; Translations: [Actinic keratosis] 01-09-2025 Episodic Unclassified (3 sources) OTHER VENTRICULAR TACHYCARDIA; Translations: [OTHER VENTRICULAR TACHYCARDIA] Onset: 02-10-2023 Past or Other Problems Problem Classification Problem Date Documented Da te Episodic/Chronic Other diseases of kidney and ureters (1 source) Cyst of kidney, acquired; Translations: [CYST OF KIDNEY ACQUIRED] Onset: 06-25-2022 Episodic Other diseases of kidney and ureters (6 sources) Acquired renal cystic disease; Translations: [Cyst of kidney, acquired] Onset: 05-24-2023 10-29-2024 Episodic Residual codes; unclassified (2 sources) Intolerance to drug; Translations: [Other specified health status] Onset: 10-29-2016 01-09-2025 Episodic Unclassified (1 source) OTHER VENTRICULAR TACHYCARDIA; Translations: [OTHER VENTRICULAR TACHYCARDIA] Onset: 02-04-2023 Unclassified (3 sources) NSVT (nonsustained ventricular tachycardia) I47.29 Results Test Name Value Interpretation Reference Range Facility Ambulatory Visit Summaryon 0 05-03-2025 Ambulatory Visit Summary Ambulatory Visit Summary SEVERO MEYERAMINTA Chin :1960 Visit Date:05/03/2025 Ambulatory Visit Instructions Your Diagnosis Renal cyst Your Care Team Attending Physician - Chung ABDALLA MD Primary Care Physician - ISHMAEL JACOB DO This Is Your Medications List amlodipine-benazepril (amlodipine-benazepril 10 mg-20 mg oral capsule) aspirin (aspirin 81 mg oral capsule) empagliflozin (Jardiance 10 mg oral tablet) gemfibrozil (gemfibrozil 600 mg Tab) metformin (MetFORMIN (Eqv-Fortamet) 1000 mg oral tablet, extended release) metoprolol (metoprolol 25 mg ER Tab) omega-3 polyunsaturated fatty acids (Fish Oil 1200 mg oral capsule) potassium citrate (potassium citrate 15 mEq oral tablet, extended release) rosuvastatin (rosuvastatin 10 mg Tab) semaglutide (Ozempic 2 mg/3 mL (0.25 mg or 0.5 mg dose) subcutaneous solution) semaglutide (Rybelsus 14 mg oral tablet) tamsulosin (tamsulosin 0.4 mg Cap) Procedures Performed Extracorporeal shock wave lithotripsy (ESWL) of tendon using ultrasound (US) guidance (05/10/2015), History of inguinal hernia surgery (11/18/2010), Placement of stent in cardiac conduit (05/04/2006), Cardiac catheterization. What to do next Scheduled Follow-Up Appointments Tuesday2025 8:00 AM EST With: Ric MAY, Reba Smith Where: [facility] [id number]- Medications What How Much When Instructions Unchanged amlodipine-benazepril (amlodipine-benazepril 10 mg-20 mg oral capsule) 1 Capsules Unchanged aspirin (aspirin 81 mg oral capsule) By Mouth Every 4 hours Unchanged empagliflozin (Jardiance 10 mg oral tablet) 1 Tablets Unchanged gemfibrozil (gemfibrozil 600 mg Tab) By Mouth 2 times a day Unchanged metformin (MetFORMIN (Eqv-Fortamet) 1000 mg oral tablet, extended release) By Mouth Every day Unchanged metoprolol (metoprolol 25 mg ER Tab) By Mouth Every day Unchanged omega-3 polyunsaturated fatty acids (Fish Oil 1200 mg oral capsule) By Mouth 3 times a day Unchanged potassium citrate (potassium citrate 15 mEq oral tablet, extended release) 2 Tablets By Mouth 2 times a day Unchanged rosuvastatin (rosuvastatin 10 mg Tab) By Mouth Every day Unchanged semaglutide (Ozempic 2 mg/ 3 mL (0.25 mg or 0.5 mg dose) subcutaneous solution) Subcutaneous Every week Unchanged semaglutide (Rybelsus 14 mg oral tablet) 14 Milligram Unchanged tamsulosin (tamsulosin 0.4 mg Cap) By Mouth Every day Allergies No Known Allergies Problems Ongoing - Any problem that you are currently receiving treatment for. 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 Please share your experience with us by completing your survey. We appreciate your feedback and thank you for choosing us for your care. Patient Portal You may access all of your results and other medical record information on our secure patient portal. If you are not signed up for this yet, please contact [employer] at [phone] to get signed up today. Language Information Language assistance services are available as needed. Normal [facility] BMPon 05-03-2025 Anion gap [Moles/Vol] 13 mmol/L Normal 6-16 [facility] Comment on above: Performed By: #### [id number] #### [facility] [address] [place] [address] BUN/Creat Ratio 17 No Units Normal 10-20 [facility] Comment on above: Performed By: #### [id number] #### [facility] [address] [place] [address] Calcium [Mass/Vol] 9.8 mg/dL Normal 8.9-11.1 [facility] Comment on above: Performed By: #### 2 [id number] #### [facility] [address] [place] [address] Chloride [Moles/Vol] 99 mmol/L Low 101-111 [facility] Comment on above: Performed By: #### 2 [id number] #### [facility] [address] [place] [address] CO2 [Moles/Vol] 24 mmol/L Normal 21-31 [facility] Comment on above: Performed By: #### 2 [id number] #### [facility] [address] [place] [address] Creatinine [Mass/Vol] 1.1 mg/dL Normal 0.5-1.3 [facility] Comment on above: Performed By: #### 2 [id number] #### [facility] [address] [place] [address] Glucose [Mass/Vol] 218 mg/dL High 55-199 [facility] Comment on above: Performed By: #### 2 [id number] #### [facility] [address] [place] [address] Potassium [Moles/Vol] 4.1 mmol/L Normal 3.5-5.3 [facility] Comment on above: Performed By: #### 2 [id number] #### [facility] [address] [place] [address] Sodium [Moles/Vol] 132 mmol/L Low 135-145 [facility] Comment on above: Performed By: #### 2 [id number] #### [facility] [address] [place] [address] Urea nitrogen [Mass/Vol] 19 mg/dL Normal 5-21 [facility] Comment on above: Performed By: #### 2 [id number] #### [facility] [address] [place] [address] eGFRon 05-03-2025 eGFR 75 mL/min/1.73 m2 Normal >=59 [facility] Comment on above: Performed By: #### 1 [id number] #### [facility] [address] [place] [address] Ambulatory Visit Summaryon 0 05-01-2025 Ambulatory Visit Summary Ambulatory Visit Summary CHELY MEYER :1960 Visit Date:05/01/2025 Ambulatory Visit Instructions Your Diagnosis Nocturia BPH associated with nocturia Your Care Team Attending Physician - Ric MAY, Reba Smith Primary Care Physician - ISHMAEL JACOB DO This Is Your Medications List amlodipine-benazepril (amlodipine-benazepril 10 mg-20 mg oral capsule) aspirin (aspirin 81 mg oral capsule) empagliflozin (Jardiance 10 mg oral tablet) gemfibrozil (gemfibrozil 600 mg Tab) metformin (MetFORMIN (Eqv-Fortamet) 1000 mg oral tablet, extended release) metoprolol (metoprolol 25 mg ER Tab) omega-3 polyunsaturated fatty acids (Fish Oil 1200 mg oral capsule) potassium citrate (potassium citrate 15 mEq oral tablet, extended release) rosuvastatin (rosuvastatin 10 mg Tab) semaglutide (Ozempic 2 mg/3 mL (0.25 mg or 0.5 mg dose) subcutaneous solution) semaglutide (Rybelsus 14 mg oral tablet) tamsulosin (tamsulosin 0.4 mg Cap) Procedures Performed Extracorporeal shock wave lithotripsy (ESWL) of tendon using ultrasound (US) guidance (05/10/2015), History of inguinal hernia surgery (11/18/2010), Placement of stent in cardiac conduit (05/04/2006), Cardiac catheterization. What to do next Scheduled Follow-Up Appointments Tuesday2025 8:00 AM EST With: Ric MAY, Reba Smith Where: [facility] [address] [place] [address]- Medications What How Much When Instructions Unchanged amlodipine-benazepril (amlodipine-benazepril 10 mg-20 mg oral capsule) 1 Capsules Unchanged aspirin (aspirin 81 mg oral capsule) By Mouth Every 4 hours Unchanged empagliflozin (Jardiance 10 mg oral tablet) 1 Tablets Unchanged gemfibrozil (gemfibrozil 600 mg Tab) By Mouth 2 times a day Unchanged metformin (MetFORMIN (Eqv-Fortamet) 1000 mg oral tablet, extended release) By Mouth Every day Unchanged metoprolol (metoprolol 25 mg ER Tab) By Mouth Every day Unchanged omega-3 polyunsaturated fatty acids (Fish Oil 1200 mg oral capsule) By Mouth 3 times a day Unchanged potassium citrate (potassium citrate 15 mEq oral tablet, extended release) 2 Tablets By Mouth 2 times a day Unchanged rosuvastatin (rosuvastatin 10 mg Tab) By Mouth Every day Unchanged semaglutide (Ozempic 2 mg/ 3 mL (0.25 mg or 0.5 mg dose) subcutaneous solution) Subcutaneous Every week Unchanged semaglutide (Rybelsus 14 mg oral tablet) 14 Milligram Unchanged tamsulosin (tamsulosin 0.4 mg Cap) By Mouth Every day Allergies No Known Allergies Problems Ongoing - Any problem that you are currently receiving treatment for. 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 Please share your experience with us by completing your survey. We appreciate your feedback and thank you for choosing us for your care. Patient Portal You may access all of your results and other medical record information on our secure patient portal. If you are not signed up for this yet, please contact [employer] at [phone] to get signed up today. Language Information Language assistance services are available as needed. [facility] Ambulatory Visit Summaryon 0 01-30-2025 Ambulatory Visit Summary Ambulatory Visit Summary CHELY MEYER :1960 Visit Date:01/30/2025 Ambulatory Visit Instructions Your Diagnosis Kidney stones BPH associated with nocturia Renal cyst Tests Performed US Renal -- Results Pending -- Please visit your patient portal for your results or contact your primary care physician. Your Care Team Attending Physician - Ric MAY, Reba Smith Primary Care Physician - ELSY PALOMINO ISHMAEL This Is Your Medications List potassium citrate (potassium citrate 15 mEq oral tablet, extended release) semaglutide (Rybelsus 14 mg oral tablet) Contact prescribing physician if questions or concerns amlodipine-benazepril (amlodipine-benazepril 10 mg-20 mg oral capsule) aspirin (aspirin 81 mg oral capsule) empagliflozin (Jardiance 10 mg oral tablet) gemfibrozil (gemfibrozil 600 mg Tab) metformin (MetFORMIN (Eqv-Fortamet) 1000 mg oral tablet, [...] Height 185 cm Height 73 in Weight 106.1 kg Weight 233.91 lb BMI 31 What to do next Scheduled Follow-Up Appointments Tuesday 8:00 AM EDT With: Where: [facility] [address] [place] [address]- Tuesday2025 8:00 AM EST With: Reba Larios MD Where: [facility] [address] [facility] [place] [address]- You Need to Schedule the Following Appointments Follow Up with Ric MAY, Reba Smith, URL, URO When: Where: You Need to Complete the Following Electrolyte Panel, Blood, Routine collect, 03/10/25, Order for future visit, Lab Collect, Kidney stones, Print Label By Order Location Medications What How Much When Instructions Unchanged potassium citrate (potassium citrate 15 mEq oral tablet, extended release) 1 Tablets By Mouth 2 times a day Unchanged semaglutide (Rybelsus 14 mg oral tablet) 1 Tablets Unchanged amlodipine-benazepril (amlodipine-benazepril 10 mg-20 mg oral capsule) 1 Capsules Contact prescribing physician if questions or concerns Unchanged aspirin (aspirin 81 mg oral capsule) By Mouth Every 4 hours Contact prescribing physician if questions or concerns Unchanged empagliflozin (Jardiance 10 mg oral tablet) 1 Tablets Contact prescribing physician if questions or concerns Unchanged gemfibrozil (gemfibrozil 600 mg Tab) By Mouth 2 times a day Contact prescribing physician if questions or concerns Unchanged metformin (MetFORMIN (Eqv-Fortamet) 1000 mg oral tablet, extended release) By Mouth Every day Contact prescribing physician if questions or concerns Unchanged metoprolol (metoprolol 25 mg ER Tab) By Mouth Every day Contact prescribing physician if questions or concerns Unchanged omega-3 polyunsaturated fatty acids (Fish Oil 1200 mg oral capsule) By Mouth 3 times a day Contact prescribing physician if questions or concerns Unchanged rosuvastatin (rosuvastatin 10 mg Tab) By Mouth Every day Contact prescribing physician if questions or concerns Unchanged semaglutide (Ozempic 2 mg/ 3 mL (0.25 mg or 0.5 mg dose) subcutaneous solution) Subcutaneous Every week Contact prescribing physician if questions or concerns Unchanged tamsulosin (tamsulosin 0.4 mg Cap) By Mouth Every day Contact prescribing physician if questions or concerns Allergies No Known Allergies Problems Ongoing - Any problem that you are currently receiving treatment for. 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 Please share your experience with us by completing your survey. We appreciate your feedback and thank you for choosing us for your care. Education Materials Dietary Guidelines to Help Prevent Kidney Stones [...] Your dietitian may give you more specific in (more content not included)... Normal [facility] Reminderson 01-30-2025 Reminders Reminders From: Debbi Webster To: MEGHAN Larios; Sent: 01/30/2025 08:33:59 EDT Show up: 10/01/2025 07:33:00 EST Subject: FLORENCIO at [facility] Due Date/Time: 10/01/2025 07:33:00 EST Reminder Message FLORENCIO prior to appt in 10/2025. [facility]. Oder placed. Normal [facility] Urology Office/Clinic Noteon 01-30-2025 Urology Office/Clinic Note Urology Office/Clinic Note Chief Complaint 3 month f/u HPI Staff 64 year old male patient here for 3 month follow up with BMP. Previous dx: kidney stone, BOH associated with nocturia, renal cyst, nocturia * flomax 0.4 mg qd (PCP), Potassium citrate 15 mEq BID. IPSS 14 Pt. denies having pain with urination or gross hematuria Pt. denies having abd pain or flank pain History of Present Illness Tests reviewed: reviewed UA and BMP. I have reviewed the previous health record information and history for this patient from Dr. Larios I have reviewed and verified the staff HPI to be accurate for this encounter. There have been no associated fever, chills, flank pain, or blood in the urine. Denies any urinary infections since last encounter. Review of Systems PHQ Score Initial Depression Screen Score: 0 SCORE ROS - Provider Constitutional: denies weight loss, denies hot flashes. Eyes: denies eye problems. Gastrointestinal: denies nausea, denies vomiting. Cardiovascular: denies chest pain or angina. Integumentary: no dryness Musculoskeletal: denies musculoskeletal symptoms. ENMT: denies otolaryngeal symptoms. Respiratory: no shortness of breath. Heme/Lymph: denies easy bleeding tendency, denies easy bruising tendency. Psychiatric: no confusion, no anxiety. Genitourinary: See HPI. Physical Exam Vitals & Measurements HT: 185 cm HT: 73 in WT: 233.91 lb WT: 106.1 kg BMI: 31 General Appearance: alert, no distress, well nourished, well developed male. Assessment/Plan 64-year-old male initially referred for kidney stones and BPH with nocturia. Here for follow-up of kidney stones. On baby Aspirin and semiglutide for DM. A1c 07/17/24 - 7.8. No recent level. Wellness visit scheduled for March. ANIYAH N/A - declines discussion. 1. Kidney stones (N20.0: Calculus of kidney) S/p lithotripsy 2014. CT scan 11/21/21 - 3 left sided stones measuring between 2-3 mm, punctate on the right. No hydro. KUB & renal US 06/19/22 - neg CT AP w/o con 06/11/23 - left nephrolithiasis. No measurements given. Stone analysis 04/17/21 - 80% uric acid, 20% Ca Ox mono. Stone Analysis 11/03/23 (Passed in Jul 2023) - 90% Uric Acid, 10% CaOx [place]. No longer taking HCTZ for blood pressure mgmt- was getting dizzy. Reports drinking orange juice, lemonades, eating at least one mandarin orange every day. Does admit that he get sick of citrus flavors. KUB 10/24/24 - neg for stones. FLORENCIO 10/24/24 - 5mm and 6mm nonobstructing Rt stones in the RMP and RLP. Started on Potassium citrate 15mEq bid at prior OV. BMP 01/23/25 - wnl. Urine pH 5.5. No improvement despite starting Potassium Citrate. Will increase dosage to 30mEq bid. -Fluids, lemon and/or robinson as tolerated, moderate animal proteins -Potassium citrate increased to 30mEq bid -BMP and UA to check pH in 3 mos (sched nurse visit), goal pH urine >6. Call with results -FLORENCIO 10/2025 Follow up in 9 mos or sooner if needed. 2. BPH associated with nocturia (N40.1: Benign prostatic hyperplasia with lower urinary tract symptoms) PSA 02/21/21 - 0.34 (outside record). 03/21/24 - 0.43 Primary care checking PSAs. UA today shows trace-intact blood. Denies gross hematuria. IPSS 14 (16) Taking Flomax 0.4mg qd through primary care. No bothersome urinary complaints. Declines changes at this time He understands how diabetes affects his urination (A1c 07/17/24 - 7.8). -Cont alpha hayde wo changes, cont symptomatic monitoring, DM control 3. Renal cyst (N28.1: Cyst of kidney, acquired) FLORENCIO 06/19/22 - 2 anechoic avascular structures at the lower pole compatible with cysts, measuring 2.1 x 2.0 cm and 0.7 cm. FLORENCIO 10/24/24 - L renal simple cysts. -No f/u for simple cysts recommended at this time Follow-up With When Contact Information Ric MAY, Reba Smith, URL, URO Additional Instructions: 9 mos w/ FLORENCIO (nurse visit in 3 mos for lytes and UA) Patient Education Dietary Guidelines to Help Prevent Kidney Stones Debbi Leavitt, personally scribed for Dr. Larios on 01/30/2025 08:26:25. . Documentation recorded by the scribe, Debbi Webster, accurately reflects the services(s) I performed and decisions made by me. Authenticated by Dr. Larios on 01/30/2025 08:33:27. 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 Medications amlodipine-benazepril 10 mg-20 mg oral capsul (more content not included)... Normal [facility] Comment on above: Result Comment: Elec tronically Signed By: Reba Larios MD\.br\Date and Time Signed: 01/30/25 08:33 EDT\.br\Electronically Co-Signed By: Debbi Webster\.br\Date and Time Co-Signed: 01/30/25 08:26 EDT\.br\Electronically Co-Signed By: Debbi Webster\.br\Date and Time Co-Signed: 01/30/25 08:28 EDT BMPon 01-23-2025 Anion gap [Moles/Vol] 15 mmol/L Normal 6-16 [facility] Comment on above: Performed By: #### 2 [id number] #### [facility] [address] [place] [address] Calcium [Mass/Vol] 9.2 mg/dL Normal 8.9-11.1 [facility] Comment on above: Performed By: #### 2 [id number] #### [facility] [address] [place] [address] Chloride [Moles/Vol] 101 mmol/L Normal 101-111 [facility] Comment on above: Performed By: #### 2 [id number] #### [facility] [address] [place] [address] CO2 [Moles/Vol] 22 mmol/L Normal 21-31 [facility] Comment on above: Performed By: #### 2 [id number] #### [facility] [address] [place] [address] Creatinine [Mass/Vol] 1.0 mg/dL Normal 0.5-1.3 [facility] Comment on above: Performed By: #### 2 [id number] #### [facility] [address] [place] [address] Glucose [Mass/Vol] 264 mg/dL High 55-199 [facility] Comment on above: Performed By: #### 2 [id number] #### [facility] [address] [place] [address] Potassium [Moles/Vol] 4.2 mmol/L Normal 3.5-5.3 [facility] Comment on above: Performed By: #### 2 [id number] #### [facility] [address] [place] [address] Sodium [Moles/Vol] 134 mmol/L Low 135-145 [facility] Comment on above: Performed By: #### 2 [id number] #### [facility] [address] [place] [address] Urea nitrogen [Mass/Vol] 19 mg/dL Normal 5-21 [facility] Comment on above: Performed By: #### 2 [id number] #### [facility] [address] [place] [address] Urea nitrogen/Creatinine [Mass ratio] 19 No Units Normal 10-20 [facility] Comment on above: Performed By: #### 2 [id number] #### [facility] [address] [place] [address] CHEMISTRYOrdered By: SYSTEM SYSTEM on 01-23-2025 Anion gap [Moles/Vol] 15 mmol/L Normal 6 - 16 mEq/L [facility] Calcium [Mass/Vol] 9.2 mg/dL Normal 8.9 - 11. 1 mg/dL [facility] Chloride [Moles/Vol] 101 mmol/L Normal 101 - 1 11 mmol/L [facility] CO2 [Moles/Vol] 22 mmol/L Normal 21 - 31 mmol/L [facility] Creatinine [Mass/Vol] 1.0 mg/dL Normal 0.5 - 1.3 mg/dL [facility] eGFR 84 mL/min/1.73 m2 Normal >=59mL/min /1. 73 m2 [facility] Glucose [Mass/Vol] 264 mg/dL High 55 - 199 mg/dL [facility] Potassium [Moles/Vol] 4.2 mmol/L Normal 3.5 - 5.3 mmol/L [facility] Sodium [Moles/Vol] 134 mmol/L Low 135 - 145 mmol/L [facility] Urea nitrogen [Mass/Vol] 19 mg/dL Normal 5 - 21 mg/dL [facility] Urea nitrogen/Creatinine [Mass ratio] 19 mg/mg Normal 10 - 20 [facility] eGFRon 01-23-2025 eGFR 84 mL/min/1.73 m2 Normal >=59 [facility] Comment on above: Performed By: #### 1 [id number] #### [facility] [address] [place] [address] No Panel Informationon 01-09 [facility] No Panel Informationon 12-06 Type of biopsy: tangential Informed consent: discussed and consent obtained Informed consent comment: The risks and benefits of the biopsy were discussed. Risks include but are not limited to bleeding, infection, scarring, pain, and nerve damage. An opportunity to ask questions prior to the procedure was permitted and all questions were answered. Patient was prepped and draped in usual sterile fashion: area cleansed with alcohol. Anesthesia: the lesion was anesthetized in a standard fashion Anesthetic: 1% lidocaine w/ epinephrine 1-100,000 buffered w/ 8.4% NaHCO3 Instrument used: DermaBlade Hemostasis achieved with: electrodesiccation Outcome: patient tolerated procedure well Outcome comment: The specimen was placed in a prelabeled formalin container to be sent for pathology Post-procedure details: sterile dressing applied and wound care instructions given Post-procedure details comment: Emphasized need to contact clinic for any signs of infection, uncontrollable bleeding, or complications. Dressing type: bandage Additional details: Photo taken Amount of lidocaine used: 0.3 cc [facility] Office Visiton 12-06-2024 Follow-up visit [id number] Renay Meyer 1960 M Date Provider Department Center 12/06/2024 [facility] Family History Problem Relation Age of Onset Hypertension Mother Hyperlipidemia Mother Coronary artery disease Father Leukemia Father Hypertension Father Hyperlipidemia Father Family Status - Relation Status Age at Mother Father Level of Service:54284 [place] OFFICE/OUTPATIENT ESTABLISHED LOW MDM 20 MIN Reason for Visit and Comments: Hypertension [849448] Coronary Artery Disease [187] Hyperlipidemia [182] Normal [facility] Ambulatory Visit Summaryon 0 10-31-2024 Ambulatory Visit Summary Ambulatory Visit Summary CHELY MEYER :1960 Visit Date:10/31/2024 Ambulatory Visit Instructions Your Diagnosis Kidney stone, Uric acid kidney stone BPH associated with nocturia Renal cyst Nocturia Your Care Team Attending Physician - Reba Larios MD Primary Care Physician - ISHMAEL JACOB DO This Is Your Medications List potassium citrate (potassium citrate 15 mEq oral tablet, extended release) Contact prescribing physician if questions or concerns amlodipine-benazepril (amlodipine-benazepril 10 mg-20 mg oral capsule) aspirin (aspirin 81 mg oral capsule) empagliflozin (Jardiance 10 mg oral tablet) gemfibrozil (gemfibrozil 600 mg Tab) hydrochlorothiazide (hydrochlorothiazide 25 mg oral tablet) metformin (MetFORMIN (Eqv-Fortamet) 1000 mg oral tablet, extended release) metoprolol (metoprolol 25 mg ER Tab) omega-3 polyunsaturated fatty acids (Fish Oil 1200 mg oral capsule) rosuvastatin (rosuvastatin 10 mg Tab) semaglutide (Ozempic 2 mg/3 mL (0.25 mg or 0.5 mg dose) subcutaneous solution) semaglutide (Rybelsus 3 mg oral tablet) tamsulosin (tamsulosin 0.4 mg Cap) Procedures Performed Extracorporeal shock wave lithotripsy (ESWL) of tendon using ultrasound (US) guidance (05/10/2015), History of inguinal hernia surgery (11/18/2010), Placement of stent in cardiac conduit (05/04/2006), Cardiac catheterization. Discharge Vitals Temperature (Oral) 37 ???C Heart Rate (Peripheral) 78 Respiratory Rate 18 Blood Pressure 140/89 Height 185 cm Height 73 in Weight 112.6 kg Weight 248.24 lb BMI 32.9 What to do next Scheduled Follow-Up Appointments Tuesday 8:00 AM EDT With: Where: [facility] [address] [address]- Tuesday 8:00 AM EDT With: Reba Larios MD Where: [facility] [address] [place] [address]- You Need to Schedule the Following Appointments Follow Up with Ric MAY, Reba Smith, URL, URO When: In 3 months Comments: w/BMP Where: You Need to Complete the Following Basic Metabolic Panel, Blood, Routine collect, *Est. 01/29/25 +/- 21 day(s), Order for future visit, Lab Collect, Kidney stone, Print Label By Order Location Medications What How Much When Instructions New potassium citrate (potassium citrate 15 mEq oral tablet, extended release) 1 Tablets By Mouth 2 times a day Refills: 11 Pickup at [facility]/pharmacy #[id number] Unchanged amlodipine-benazepril (amlodipine-benazepril 10 mg-20 mg oral capsule) 1 Capsules Contact prescribing physician if questions or concerns Unchanged aspirin (aspirin 81 mg oral capsule) By Mouth Every 4 hours Contact prescribing physician if questions or concerns Unchanged empagliflozin (Jardiance 10 mg oral tablet) 1 Tablets Contact prescribing physician if questions or concerns Unchanged gemfibrozil (gemfibrozil 600 mg Tab) By Mouth 2 times a day Contact prescribing physician if questions or concerns Unchanged hydrochlorothiazide (hydrochlorothiazide 25 mg oral tablet) By Mouth Every day Contact prescribing physician if questions or concerns Unchanged metformin (MetFORMIN (Eqv-Fortamet) 1000 mg oral tablet, extended release) By Mouth Every day Contact prescribing physician if questions or concerns Unchanged metoprolol (metoprolol 25 mg ER Tab) By Mouth Every day Contact prescribing physician if questions or concerns Unchanged omega-3 polyunsaturated fatty acids (Fish Oil 1200 mg oral capsule) By Mouth 3 times a day Contact prescribing physician if questions or concerns Unchanged rosuvastatin (rosuvastatin 10 mg Tab) By Mouth Every day Contact prescribing physician if questions or concerns Unchanged semaglutide (Ozempic 2 mg/ 3 mL (0.25 mg or 0.5 mg dose) subcutaneous solution) Subcutaneous Every week Contact prescribing physician if questions or concerns Unchanged semaglutide (Rybelsus 3 mg oral tablet) 1 Tablets Contact prescribing physician if questions or concerns Unchanged tamsulosin (tamsulosin 0.4 mg Cap) By Mouth Every day Contact prescribing physician if questions or concerns Pharmacy Information [facility]/pharmacy #[id number]: [address], [place] [id number] [phone] Allergies No Known Allergies Problems Ongoing - Any problem that you are currently receiving treatment for. 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 Please share your experience with us by completing your survey. We appreciate your feedback and thank you for choosing us for your care. Education Materials [place] (more content not included)... Normal [facility] Urology Office/Clinic Noteon 10-31-2024 Urology Office/Clinic Note Urology Office/Clinic Note Chief Complaint 1yr f/u KUB/FLORENCIO HPI Staff 64 year old male patient here for one year follow up with KUB/ FLORENCIO. KUB/FLORENCIO done 10/24/24. Pt states family doctor usually checks the prostate but no longer does that. Just goes by PSA levels, which he had drawn with annual labs. Denies all urinary symptoms. Previous Dx: kidney stone, BPH associated with nocturia, renal cyst. *Flomax 0.4 mg qd PSA 03/21/24 - 0.43 History of Present Illness Tests reviewed: reviewed UA, KUB and FLORENCIO, stone analysis I have reviewed the previous health record information and history for this patient from . I have reviewed and verified the staff HPI to be accurate for this encounter. There have been no associated fever, chills, flank pain, or blood in the urine. Denies any urinary infections since last encounter. Review of Systems PHQ Score Initial Depression Screen Score: 0 SCORE ROS - Provider Constitutional: denies weight loss, denies hot flashes. Eyes: denies eye problems. Gastrointestinal: denies nausea, denies vomiting. Cardiovascular: denies chest pain or angina. Integumentary: no dryness Musculoskeletal: denies musculoskeletal symptoms. ENMT: denies otolaryngeal symptoms. Respiratory: no shortness of breath. Heme/Lymph: denies easy bleeding tendency, denies easy bruising tendency. Psychiatric: no confusion, no anxiety. Genitourinary: See HPI. Physical Exam Vitals & Measurements T: 37 ???C(Oral) HR: 78(Peripheral) RR: 18 BP: 140/89 HT: 73 in HT: 185 cm WT: 112.6 kg WT: 248.24 lb BMI: 32.9 General Appearance: alert, no distress, well nourished, well developed male. Assessment/Plan 64-year-old male initially referred for kidney stones and BPH with nocturia. Here for follow-up of kidney stones. 1. Kidney stone, (N20.0: Calculus of kidney) CT scan 11/21/21 shows 3 left sided stones measuring between 2-3 mm, punctate on the right. No hydro. KUB & renal US done 06/19/22 both negative for stones. No hydro CT AP w/o con 06/11/23 - non obstructing left nephrolithiasis. No measurements given. Pt is s/p lithotripsy in 2014. Stone analysis 04/17/21 - 80% uric acid, 20% Ca Ox mono Stone Analysis 11/03/23 (Passed in Jul 2023) - 90% Uric Acid, 10% CaOx [place] Discussed metabolic workup and medical management of citrate. Pt declined at that time and opted for dietary changes. He is on HCTZ 25 mg for BP management. Reports drinking orange juice, lemonades, eating at least one mandarin orange every day. Does admit that he get sick of citrus flavors. KUB 10/24/24 - neg for stones FLORENCIO 10/24/24 - 5mm and 6mm nonobstructing Rt stones in the RMP and RLP Pt denies episode of gross hematuria or urinary infection since last visit. Potassium level 03/21/24 - 3.7 A1c 07/17/24 - 7.8 Urine pH today is 5.5. Pt states that the last time he passed a stone was in 07/2023. Discussed imaging results with pt-declined surgical intervention at this time. Counseled pt on behavioral and dietary modifications to prevent future stones from forming and the current stones from growing. Discussed starting a med to help. Pt states that he would like to start this. Advised pt that we will continue to monitor the stones. Follow up in 3 mos w/BMP. All questions/concerns were discussed. Pt to call the office if he encounters any issues prior. Pt acknowledges understanding. -Will start Potassium Citrate 15mEq BID. Discussed the medication side effects, and the patient will monitor closely for these, as well as for symptom improvement. If severe side effects occur, the medication should be stopped and the office notified. -Will order BMP, pt is getting this done IO the week prior to OV. -DM management. -f/u 1 yr FLORENCIO Uric acid kidney stone See #1 Patient patient does have a high-protein diet which she does not want to change at this time. Increased risk for low citrate due to hydrochlorothiazide. Discussed risk factors for uric stone formation. Patient is unable to keep up with citrus intake. Discussed risk and benefits of treatments for stone prevention and dissolution. Patient opts to proceed with medical management at this time. -Will start Potassium Citrate 15mEq BID. Discussed the medication side effects, and the patient will monitor closely for these, as well as for symptom improvement. If severe side effects occur, the medication should be stopped and the office notified. -Will order BMP, pt is getting this done IO the week prior to OV. Ordered: Basic Metabolic Panel Body Mass Index (BMI) documented 3008F Current tobacco non-user 1036F Depression Screening Negative 3352F Influenza immunization status assessed 1030F Medication list documented in medical record 1159F Most recent diastolic blood pressure 80-89 mm Hg 3079F Most recent systolic blood pressure >= 140 mm Hg 3077F Review of all meds by a prescribing practitioner or clinical pharmacist documented in EHR 1160F Urnls Dip Stick Auto w/o Microscopy (more content not included)... Normal [facility] Comment on above: Result Comment: Elec tronically Signed By: Reba Larios MD\.br\Date and Time Signed: 10/31/24 10:08 EST\.br\Electronically Co-Signed By: Yolanda Zheng\.br\Date and Time Co-Signed: 10/31/24 09:44 EST CBC AUTO DIFFon 02-04-2023 BASO # 0.0 103/ul Normal 0.0-0.1 [facility] Comment on above: Performed By: #### C BC #### [facility] [address] [address] [address] Linda Duran Basophils/100 WBC (Bld) 0.4 % Normal 0.2-2.0 [facility] Comment on above: Performed By: #### C BC #### [facility] [address] [address] [address] Linda Duran EO # 0.1 103/ul Normal 0.0-0.7 [facility] Comment on above: Performed By: #### C BC #### [facility] [address] [place] [address] Dr. Linda Duran Eosinophils/100 WBC (Bld) 2.0 % Normal 0.9-7.0 [facility] Comment on above: Performed By: #### C BC #### [facility] [address] [place] [address] Dr. Linda Duran Erythrocyte distribution width (RBC) [Ratio] 12.5 % Normal 11.0-15.0 [facility] Comment on above: Performed By: #### C BC #### [facility] [address] [place] [address] Dr. Linda Duran Hematocrit (Bld) [Volume fraction] 43.9 % Normal 42.0-54.0 [facility] Comment on above: Performed By: #### C BC #### [facility] [address] [place] [address] Dr. Linda Duran Hemoglobin (Bld) [Mass/Vol] 15.0 g/dL Normal 14.0-18.0 [facility] Comment on above: Performed By: #### C BC #### [facility] [address] [place] [address] Dr. Linda Duran IG # 0.01 10e3/ul Normal 0.00-0.03 [facility] Comment on above: Performed By: #### C BC #### [facility] [address] [place] [address] Dr. Linda Duran IG % 0.1 % Normal 0.0-0.5 [facility] Comment on above: Performed By: #### C BC #### [facility] [address] [place] [address] Dr. Linda Duran LYMPH # 2.2 103/ul Normal 1.2-3.8 [facility] Comment on above: Performed By: #### C BC #### [facility] [address] [place] [address] Dr. Linda Duran Lymphocytes/100 WBC (Bld) 30.6 % Normal 20.5-60.0 [facility] Comment on above: Performed By: #### C BC #### [facility] [address] [place] [address] Dr. Linda Duran MANUAL DIFF REQ NO Normal [facility] Comment on above: Performed By: #### C BC #### [facility] [address] [place] [address] Dr. Linda Duran MCH (RBC) [Entitic mass] 29.3 pg Normal 25.9-34.0 [facility] Comment on above: Performed By: #### C BC #### [facility] [address] [place] [address] Dr. Linda Duran MCHC (RBC) [Mass/Vol] 34.2 g/dL Normal 29.9-35.2 [facility] Comment on above: Performed By: #### C BC #### [facility] [address] [place] [address] Dr. Linda Duran MCV (RBC) [Entitic vol] 85.7 fL Normal 80.0-94.0 [facility] Comment on above: Performed By: #### C BC #### [facility] [address] [place] [address] Dr. Linda Duran MONO # 0.9 103/ul Critically high 0.3-0.8 [facility] Comment on above: Performed By: #### C BC #### [facility] [address] [place] [address] Dr. Linda Duran Monocytes/100 WBC (Bld) 12.0 % Normal 1.7-12.0 [facility] Comment on above: Performed By: #### C BC #### [facility] [address] [place] [address] Dr. Linda Duran NEUT # 3.9 103/ul Normal 1.4-6.5 [facility] Comment on above: Performed By: #### C BC #### [facility] [address] [place] [address] Dr. Linda Duran Neutrophils/100 WBC (Bld) 54.9 % Normal 43.0-75.0 [facility] Comment on above: Performed By: #### C BC #### [facility] [address] [place] [address] Dr. Linda Duran Platelet mean volume (Bld) [Entitic vol] 10.3 fL Normal 9.5-13.5 [facility] Comment on above: Performed By: #### C BC #### [facility] [address] [place] [address] Dr. Linda Duran PLT 163 103/ul Normal 150-450 [facility] Comment on above: Performed By: #### C BC #### [facility] [address] [place] [address] Dr. Linda Duran RBC 5.12 106/ul Normal 4.70-6.10 [facility] Comment on above: Performed By: #### C BC #### [facility] [address] [place] [address] Dr. Linda Duran WBC 7.1 103/ul Normal 4.0-11.0 [facility] Comment on above: Performed By: #### C BC #### [facility] [address] [place] [address] Dr. Linda Duran PROF CHEM 8 (BAS METB)on Anion gap [Moles/Vol] 12.0 mmol/L Normal [facility] Comment on above: Performed By: #### B MP #### [facility] [address] [place] [address] Dr. Linda Duran Calcium [Mass/Vol] 9.2 mg/dL Normal 8.5-10.1 [facility] Comment on above: Performed By: #### B MP #### [facility] [address] [place] [address] Dr. Linda Duran Chloride [Moles/Vol] 101 mmol/L Normal 98-107 [facility] Comment on above: Performed By: #### B MP #### [facility] [address] [place] [address] Dr. Linda Duran CO2 [Moles/Vol] 30.0 mmol/L Normal 21.0-32.0 [facility] Comment on above: Performed By: #### B MP #### [facility] [address] [place] [address] Dr. Linda Duran Creatinine [Mass/Vol] 1.13 mg/dL Normal 0.70-1.30 [facility] Comment on above: Performed By: #### B MP #### [facility] [address] [address] [address] Linda Duran EGFR-AF CHILEAN >60 Normal >=60 [facility] Comment on above: Performed By: #### B MP #### [facility] [address] [address] [address] Linda Duran EGFR-NON AF CHILEAN >60 Normal >=60 [facility] Comment on above: Performed By: #### B MP #### [facility] [address] [address] [address] Linda Duran Glucose [Mass/Vol] 154 mg/dL Critically high 74-106 [facility] Comment on above: Performed By: #### B MP #### [facility] [address] [place] [address] Dr. Linda Duran Potassium [Moles/Vol] 4.0 mmol/L Normal 3.5-5.1 [facility] Comment on above: Performed By: #### B MP #### [facility] [address] [place] [address] Dr. Linda Duran Sodium [Moles/Vol] 139 mmol/L Normal 136-145 [facility] Comment on above: Performed By: #### B MP #### [facility] [address] [address] [address] Linda Duran Urea nitrogen [Mass/Vol] 30.0 mg/dL Critically high 7.0-18.0 [facility] Comment on above: Performed By: #### B MP #### [facility] [address] [address] [address] Linda Duran Urea nitrogen/Creatinine [Mass ratio] 26.5 mg/mg Normal [facility] Comment on above: Performed By: #### B MP #### [facility] [address] [place] [address] Dr. Linda Duran NM STRESS/REST MULTIon 12-16 NM STRESS/REST MULTI Patient: STONEY MEYER Exam Date: 12/16/2022 : 1960 Gender:M Ordering : DR ISHMAEL JACOB D.O. Admission #: [id number] Family : Order #: [id number] CLICK HERE TO VIEW EXAM RADIOLOGY REPORT [...] Please see Dr. Jacob's report. Dictated by: Olivia Salomon M.D. on 12/17/2022 at 06:43 Approved by: Olivia Salomon M.D. on 12/17/2022 at 06:45 Normal [facility] ECHOCARDIO M/2D COMPLETEon 0 12-07-2022 ECHOCARDIO M/2D COMPLETE Patient Name Site Name CHELY MEYER [facility] Account No Medical Record Number Age Sex Date Time [id number] [facility]:[id number] M 12/07/2022 07:28 At the Request [...] Sanford M.D. on 12/07/2022 at 19:05 Normal [facility] XR CHEST 2 Von 11-06-2022 XR [...] by: KENYETTA WINKLER Date: 2022-11-06 10:56 Normal [facility] US KIDNEYS BLADDERon 06-19- 022 US KIDNEYS BLADDER Ultrasound kidneys, bilateral [...] KENYETTA WINKLER Date: 2022-06-19 11:28 Normal [facility] XR KUB 1 VIEWon 06-19-2022 XR [...] KENYETTA WINKLER Date: 2022-06-19 11:30 Normal [facility] TOTALBILIRUBINon 03-14-2022 Bilirubin [Mass/Vol] 0.8 mg/dL Normal 0.0-1.2 [facility] Comment on above: Performed By: #### T BILLC #### [facility] [address] [place] [address] Dr. Linda Duran CBC AUTO DIFFon 03-13-2022 BASO # 0.0 103/ul Normal 0.0-0.1 [facility] Comment on above: Performed By: #### C BC #### [facility] [address] [place] [address] Dr. Linda Duran Basophils/100 WBC (Bld) 0.6 % Normal 0.2-2.0 [facility] Comment on above: Performed By: #### C BC #### [facility] [address] [place] [address] Dr. Linda Duran EO # 0.2 103/ul Normal 0.0-0.7 [facility] Comment on above: Performed By: #### C BC #### [facility] [address] [place] [address] Dr. Linda Duran Eosinophils/100 WBC (Bld) 3.3 % Normal 0.9-7.0 [facility] Comment on above: Performed By: #### C BC #### [facility] [address] [place] [address] Dr. Linda Duran Erythrocyte distribution width (RBC) [Ratio] 12.1 % Normal 11.0-15.0 [facility] Comment on above: Performed By: #### C BC #### [facility] [address] [place] [address] Dr. Linda Duran Hematocrit (Bld) [Volume fraction] 43.5 % Normal 42.0-54.0 [facility] Comment on above: Performed By: #### C BC #### [facility] [address] [place] [address] Dr. Linda Duran Hemoglobin (Bld) [Mass/Vol] 15.5 g/dL Normal 14.0-18.0 [facility] Comment on above: Performed By: #### C BC #### [facility] [address] [place] [address] Dr. Linda Duran IG # 0.01 10e3/ul Normal 0.00-0.03 [facility] Comment on above: Performed By: #### C BC #### [facility] [address] [place] [address] Dr. Linda Duran IG % 0.2 % Normal 0.0-0.5 [facility] Comment on above: Performed By: #### C BC #### [facility] [address] [place] [address] Dr. Linda Duran LYMPH # 1.5 103/ul Normal 1.2-3.8 [facility] Comment on above: Performed By: #### C BC #### [facility] [address] [place] [address] Dr. Linda Duran Lymphocytes/100 WBC (Bld) 28.5 % Normal 20.5-60.0 [facility] Comment on above: Performed By: #### C BC #### [facility] [address] [place] [address] Dr. Linda Duran MANUAL DIFF REQ NO Normal [facility] Comment on above: Performed By: #### C BC #### [facility] [address] [place] [address] Dr. Linda Duran MCH (RBC) [Entitic mass] 29.8 pg Normal 25.9-34.0 [facility] Comment on above: Performed By: #### C BC #### [facility] [address] [place] [address] Dr. Linda Duran MCHC (RBC) [Mass/Vol] 35.6 g/dL Critically high 29.9-35.2 [facility] Comment on above: Performed By: #### C BC #### [facility] [address] [place] [address] Dr. Linda Duran MCV (RBC) [Entitic vol] 83.7 fL Normal 80.0-94.0 [facility] Comment on above: Performed By: #### C BC #### [facility] [address] [place] [address] Dr. Linda Duran MONO # 0.6 103/ul Normal 0.3-0.8 [facility] Comment on above: Performed By: #### C BC #### [facility] [address] [place] [address] Dr. Linda Duran Monocytes/100 WBC (Bld) 11.1 % Normal 1.7-12.0 [facility] Comment on above: Performed By: #### C BC #### [facility] [address] [place] [address] Dr. Linda Duran NEUT # 2.9 103/ul Normal 1.4-6.5 [facility] Comment on above: Performed By: #### C BC #### [facility] [address] [place] [address] Dr. Linda Duran Neutrophils/100 WBC (Bld) 56.3 % Normal 43.0-75.0 [facility] Comment on above: Performed By: #### C BC #### [facility] [address] [place] [address] Dr. Linda Duran Platelet mean volume (Bld) [Entitic vol] 10.7 fL Normal 9.5-13.5 [facility] Comment on above: Performed By: #### C BC #### [facility] [address] [place] [address] Dr. Linda Duran PLT 148 103/ul Critically low 150-450 [facility] Comment on above: Performed By: #### C BC #### [facility] [address] [place] [address] Dr. Linda Duran RBC 5.20 106/ul Normal 4.70-6.10 [facility] Comment on above: Performed By: #### C BC #### [facility] [address] [place] [address] Dr. Linda Duran WBC 5.1 103/ul Normal 4.0-11.0 [facility] Comment on above: Performed By: #### C BC #### [facility] [address] [place] [address] Dr. Linda Duran GLYCOHEMOGLOBIN A1Con 2021 ADA RECOMMENDATION SEE BELOW Normal [facility] Comment on above: Result Comment: ADA RECOMMENDED LIMIT 4.0 - 6.0 ADA THERAPEUTIC TARGET < 7.0 ACTION SUGGESTED > 7.0 Performed By: #### A 1C #### [facility] [address] [place] [address] Dr. Linda Duran Glucose [Mass/Vol] 180 mg/dL Normal [facility] Comment on above: Performed By: #### A 1C #### [facility] [address] [place] [address] Dr. Linda Duran HbA1c (Bld) [Mass fraction] 7.9 % Critically high 4.5-6.2 [facility] Comment on above: Performed By: #### A 1C #### [facility] [address] [place] [address] Dr. Linda Duran LIPID PROFILEon 03-13-2022 CHOL-HDL RATIO NORM SEE BELOW Normal [facility] Comment on above: Result Comment: 3.3 - 4.4 LOW RISK 4.4 - 7.1 AVERAGE RISK 7.1 - 11.0 MODERATE RISK >11.0 HIGH RISK Performed By: #### L IPID, CMP ####[facility] [address] [id number] Linda Duran Cholesterol [Mass/Vol] 137 mg/dL Normal <=200 [facility] Comment on above: Performed By: #### L IPID, CMP ####[facility] [address] [id number][address] Linda Duran Cholesterol in HDL [Mass/Vol] 22 mg/dL Critically low 40-60 [facility] Comment on above: Performed By: #### L IPID, CMP ####[facility] [address] [id number][address] Linda Duran Cholesterol in LDL [Mass/Vol] 57.2 mg/dL Normal [facility] Comment on above: Performed By: #### L IPID, CMP ####[facility] [address] [address]Dr. Linda Duran Cholesterol.total/Ch olesterol in HDL [Mass ratio] 6.2 {ratio} Normal [facility] Comment on above: Performed By: #### L IPID, CMP ####[facility] [address] [id number]. Linda Duran HDL NORMAL > or = 60 mg/dl - LO W CARDIOVASCULAR RISK <40 mg/dl - HIGH CARDIOVASCULAR RISK Normal [facility] Comment on above: Performed By: #### L IPID, CMP ####[facility] [address] [address]Dr. Linda Duran LDL CALC NORMAL SEE BELOW Normal [facility] Comment on above: Result Comment: <100 mg/dl OPTIMAL 100 - 129 mg/dl NEAR OR ABOVE OPTIMAL 130 - 159 mg/dl BORDERLINE HIGH 160 - 189 mg/dl HIGH >190 mg/dl VERY HIGH Performed By: #### L IPID, CMP ####[facility] [address] [address]Dr. Linda Duran Triglyceride [Mass/Vol] 289 mg/dL Critically high <=150 [facility] Comment on above: Performed By: #### L IPID, CMP ####[facility] [address] [address]Dr. Linda Duran VLDL CALC 57.8 mg/dL Normal [facility] Comment on above: Performed By: #### L IPID, CMP ####[facility] [address] [address]Dr. Linda Duran MICROALBUMIN, RAND URon 06-0 mALB 3.8 mg/L Normal <=30.0 [facility] Comment on above: Performed By: #### M ALBR ####[facility] [address] [place], [place] [address]Dr. Linda Duran PROF 14(COMP METB)on 022 Albumin [Mass/Vol] 4.3 g/dL Normal 3.4-5.0 [facility] Comment on above: Performed By: #### L IPID, CMP ####[facility] [address] [place], [place] [address]Dr. Linda Duran Albumin/Globulin [Mass ratio] 1.3 {ratio} Normal [facility] Comment on above: Performed By: #### L IPID, CMP ####[facility] [address] [place], [place] [address]Dr. Linda Duran ALP [Catalytic activity/Vol] 78 U/L Normal 46-116 [facility] Comment on above: Performed By: #### L IPID, CMP ####[facility] [address] [place], [place] [address]Dr. Linda Duran ALT [Catalytic activity/Vol] 56 U/L Normal 16-63 [facility] Comment on above: Performed By: #### L IPID, CMP ####[facility] [address] [place], [place] [address]Dr. Linda Duran Anion gap [Moles/Vol] 14.1 mmol/L Normal [facility] Comment on above: Performed By: #### L IPID, CMP ####[facility] [address] [address]Dr. Linda Duran AST [Catalytic activity/Vol] 40 U/L Critically high 15-37 [facility] Comment on above: Performed By: #### L IPID, CMP ####[facility] [address] [address]Dr. Linda Duran Calcium [Mass/Vol] 8.5 mg/dL Normal 8.5-10.1 [facility] Comment on above: Performed By: #### L IPID, CMP ####[facility] [address] [address]Dr. Linda Duran Chloride [Moles/Vol] 101 mmol/L Normal 98-107 [facility] Comment on above: Performed By: #### L IPID, CMP ####[facility] [address] [place], [place] [address]Dr. Linda Duran CO2 [Moles/Vol] 24.9 mmol/L Normal 21.0-32.0 [facility] Comment on above: Performed By: #### L IPID, CMP ####[facility] [address] [place], [place] [address]Dr. Linda Duran Creatinine [Mass/Vol] 0.95 mg/dL Normal 0.70-1.30 [facility] Comment on above: Performed By: #### L IPID, CMP ####[facility] [address] [place], [place] [address]Dr. Linda Duran EGFR-AF CHILEAN >60 Normal >=60 [facility] Comment on above: Performed By: #### L IPID, CMP ####[facility] [address] [place], [place] [address]Dr. Linda Duran EGFR-NON AF CHILEAN >60 Normal >=60 [facility] Comment on above: Performed By: #### L IPID, CMP ####[facility] Dzodcjowed[address] [place], [place] [address]Dr. Linda Duran Globulin (S) [Mass/Vol] 3.3 g/dL Normal [facility] Comment on above: Performed By: #### L IPID, CMP ####[facility] S[address] [place], [place] [address]Dr. Linda Duran Glucose [Mass/Vol] 194 mg/dL Critically high 74-106 [facility] Comment on above: Performed By: #### L IPID, CMP ####[facility] [address] [address]Dr. Linda Roger Potassium [Moles/Vol] 4.0 mmol/L Normal 3.5-5.1 [facility] Comment on above: Performed By: #### L IPID, CMP ####[facility] [address] [address]Dr. Linda Duran Protein [Mass/Vol] 7.6 g/dL Normal 6.4-8.2 [facility] Comment on above: Performed By: #### L IPID, CMP ####[facility] [address] [address]Dr. Linda Duran Sodium [Moles/Vol] 136 mmol/L Normal 136-145 [facility] Comment on above: Performed By: #### L IPID, CMP ####[facility] [address] [place], [place] [address]Dr. Linda Duran Urea nitrogen [Mass/Vol] 25.0 mg/dL Critically high 7.0-18.0 [facility] Comment on above: Performed By: #### L IPID, CMP ####[facility] Ez[address] [place], [place] [address]Dr. Linda Duran Urea nitrogen/Creatinine [Mass ratio] 26.3 mg/mg Normal [facility] Comment on above: Performed By: #### L IPID, CMP ####[facility] N[address] [place], [place] [address]Dr. Linda Roger Vital Signs Date Time Vital Sign Value Performing Clinician Facility 03-14-2025 10: Body height 180.34 cm [facility] 03-14-2025 10: Body mass index (BMI) [Ratio] 35.3 kg/m2 [facility] 03-14-2025 10: Body weight 114.98 kg [facility] 03-14-2025 10: Diastolic blood pressure 85 mm[Hg] [facility] 03-14-2025 10:10-0400 Heart rate 72 /min [facility] 03-14-2025 10:10-0400 Respiratory rate 12 /min [facility] 03-14-2025 10:10-0400 Systolic blood pressure 134 mm[Hg] [facility] 11-23-2024 09:27-0500 Body height 180.34 cm [facility] 11-23-2024 09:27-0500 Body mass index (BMI) [Ratio] 34.3 kg/m2 [facility] 11-23-2024 09:27-0500 Body weight 111.81 kg [facility] 11-23-2024 09:27-0500 Diastolic blood pressure 89 mm[Hg] [facility] 11-23-2024 09:27-0500 Heart rate 80 /min [facility] 11-23-2024 09:27-0500 Respiratory rate 12 /min [facility] 11-23-2024 09:27-0500 Systolic blood pressure 139 mm[Hg] [facility] 10-31-2024 08:59-0500 Blood Pressure Location Reba Lue [facility] 10-31-2024 08:59-0500 Body temperature 98.6 [degF] Reba Lue [facility] 10-31-2024 08:59-0500 Diastolic blood pressure 89 mm[Hg] Reba Lue [facility] 10-31-2024 08:59-0500 Heart rate 78 /min Reba Lue [facility] 10-31-2024 08:59-0500 Respiratory rate 18 /min Reba Lue [facility] 10-31-2024 08:59-0500 Systolic blood pressure 140 mm[Hg] Reba Lue [facility] 07-11-2024 09:37-0400 Body mass index (BMI) [Ratio] 34.7 kg/m2 [facility] 07-11-2024 09:37-0400 Diastolic blood pressure 80 mm[Hg] [facility] 07-11-2024 09:37-0400 Systolic blood pressure 130 mm[Hg] [facility] 07-11-2024 09:16-0400 Body height 180.34 cm [facility] 07-11-2024 09:16-0400 Body weight 112.94 kg [facility] 07-11-2024 09:16-0400 Heart rate 65 /min [facility] 07-11-2024 09:16-0400 Respiratory rate 12 /min [facility] 03-12-2024 15:43-0400 Body height 180.34 cm [facility] 03-12-2024 15:43-0400 Body mass index (BMI) [Ratio] 34.9 kg/m2 [facility] 03-12-2024 15:43-0400 Body weight 113.45 kg [facility] 03-12-2024 15:43-0400 Diastolic blood pressure 87 mm[Hg] [facility] 03-12-2024 15:43-0400 Heart rate 66 /min [facility] 03-12-2024 15:43-0400 Respiratory rate 12 /min [facility] 03-12-2024 15:43-0400 Systolic blood pressure 144 mm[Hg] [facility] 10-24-2023 15:30-0500 Body height 180.34 cm Ishmael Ball Other [employer] [facility] [employer] Other 10-24-2023 15:30-0500 Body mass index (BMI) [Ratio] 34.53 kg/m2 Ishmael Ball Other [employer] [facility] [employer] Other 10-24-2023 15:30-0500 Body weight 112.31 kg Ishmael Ball Other [employer] [facility] [employer] Other 10-24-2023 15:30-0500 Diastolic blood pressure 84 mm[Hg] Ishmael Ball Other [employer] Other 10-24-2023 15:30-0500 Respiratory rate 12 /min Ishmael Ball Other [employer] Other 10-24-2023 15:30-0500 Systolic blood pressure 138 mm[Hg] Ishmael Ball Other [employer] Other 07-11-2023 15:30-0400 Body height 180.34 cm Ishmael Ball Other [employer] Other 07-11-2023 15:30-0400 Body mass index (BMI) [Ratio] 34.86 kg/m2 Ishmael Ball Other [employer] Other 07-11-2023 15:30-0400 Body weight 113.4 kg Ishmael Ball Other [employer] Other 07-11-2023 15:30-0400 Diastolic blood pressure 84 mm[Hg] Ishmael Ball Other [employer] Other 07-11-2023 15:30-0400 Respiratory rate 12 /min Ishmael Ball Other [employer] Other 07-11-2023 15:30-0400 Systolic blood pressure 135 mm[Hg] Ishmael Ball Other [employer] Other 03-08-2023 15:30-0400 Body height 180.34 cm Ishmael Ball Other [employer] Other 03-08-2023 15:30-0400 Body mass index (BMI) [Ratio] 35.06 kg/m2 Ishmael Ball Other [employer] Other 03-08-2023 15:30-0400 Body weight 114.04 kg Ishmael Ball Other [employer] Other 03-08-2023 15:30-0400 Diastolic blood pressure 82 mm[Hg] Ishmael Ball Other [employer] Other 03-08-2023 15:30-0400 Respiratory rate 12 /min Ishmael Ball Other [employer] Other 03-08-2023 15:30-0400 Systolic blood pressure 142 mm[Hg] Ishmael Ball Other [employer] Other 11-02-2022 16:30-0500 Body height 180.34 cm Ishmael Ball Other [employer] Other 11-02-2022 16:30-0500 Body mass index (BMI) [Ratio] 35.17 kg/m2 Ishmael Ball Other [employer] Other 11-02-2022 16:30-0500 Body weight 114.4 kg Ishmael Ball Other [employer] Other 11-02-2022 16:30-0500 Diastolic blood pressure 70 mm[Hg] Ishmael Ball Other [employer] Other 11-02-2022 16:30-0500 Respiratory rate 12 /min Ishmael Ball Other [employer] Other 11-02-2022 16:30-0500 Systolic blood pressure 122 mm[Hg] Ishmael Ball Other [employer] Other 02-15-2022 14:38-0400 Blood Pressure Location Reba Larios [facility] [place] Jike Xueyuan 02-15-2022 14:38-0400 Diastolic blood pressure 78 mm[Hg] Reba Lue [facility] [place]aela Jike Xueyuan 02-15-2022 14:38-0400 Heart rate 72 /min Reba Lue [facility] [place] Jike Xueyuan 02-15-2022 14:38-0400 Respiratory rate 16 /min Reba Lue [facility] [place] Jike Xueyuan 02-15-2022 14:38-0400 Systolic blood pressure 130 mm[Hg] Reba Lue [facility] [place] Jike Xueyuan Encounters Encounter Date Encounter Type Care Provider Facility Start: 11-06-2025 ambulatory Reba M. Lue Facility:[facility] Start: 05-03-2025 End: 05-03-2025 ambulatory Chung ABDALLA Facility:[facility] Start: 05-03-2025 End: 05-03-2025 Patient encounter procedure Chung ABDALLA [facility] [place] Start: 05-01-2025 End: 05-01-2025 ambulatory Reba M. Lue Facility:[facility] Start: 05-01-2025 End: 05-01-2025 Patient encounter procedure Reba M. Lue [facility] Start: 03-15-2025 End: 03-15-2025 Emergency department patient visit [facility] Start: 03-14-2025 End: 03-14-2025 ambulatory [facility] Work Phone: Start: 03-14-2025 End: 03-14-2025 Encounter for general adult medical examination without abnormal findings [facility] Start: 03-14-2025 End: 03-14-2025 [facility] Start: 01-30-2025 End: 01-30-2025 ambulatory Reba BogdanPrabhu Santosmargaret Facility:[facility] Start: 01-23-2025 End: 01-23-2025 Lab Drop off Reba Larios [facility] Start: 01-23-2025 End: 01-23-2025 ambulatory Reba McfaddenPrabhu Ric Facility:[facility] Start: 01-09-2025 End: 01-09-2025 Bamboo flowsinder Chadwick MD Work Phone: [facility] Start: 01-09-2025 End: 01-09-2025 Bamboo flowsinder Chadwick MD Work Phone: [facility] Start: 01-09-2025 End: 01-09-2025 Patient encounter procedure aPnkaj Chadwick MD Work Phone: [facility] Comment on above: Actinic keratosis (P rimary Dx) Start: 01-09-2025 End: 01-09-2025 ambulatory PANKAJ A PETITTI Not Available Start: 12-06-2024 End: 12-06-2024 Patient encounter procedure Pankaj Chadwick MD Work Phone: [facility] Comment on above: Neoplasm of unspecif ied behavior of bone, soft tissue, and skin (Primary Dx) Start: 12-06-2024 End: 12-06-2024 ambulatory PANKAJ A PETITTI Not Available Start: 12-06-2024 End: 12-06-2024 Bamboo flowsinder Chadwick MD Work Phone: [facility] Start: 12-06-2024 End: 12-06-2024 Eugne[employer]oboo flowsheet Pankaj Chadwick MD Work Phone: [facility] Start: 12-06-2024 End: 12-06-2024 ambulatory BRAN [facility] Start: 11-23-2024 End: 11-23-2024 ambulatory [facility] Work Phone: Start: 11-23-2024 End: 11-23-2024 Patient encounter procedure [facility] Work Phone: Start: 10-31-2024 End: 10-31-2024 ambulatory Reba Larios Facility:[facility] Start: 10-31-2024 End: 10-31-2024 Patient encounter procedure Reba Larios [facility] Start: 10-26-2024 ambulatory Reba Larios Facility:[facility] Start: 07-11-2024 End: 07-11-2024 ambulatory [facility] Work Phone: Start: 07-11-2024 End: 07-11-2024 Patient encounter procedure [facility] Work Phone: Start: 03-12-2024 End: 03-12-2024 ambulatory [facility] Work Phone: Start: 03-12-2024 End: 03-12-2024 Encounter for general adult medical examination without abnormal findings [facility] Start: 03-12-2024 End: 03-12-2024 Patient encounter procedure [facility] Work Phone: Start: 12-19-2023 Non-patient / Non-visit [facility] [employer] Work Phone: Start: 11-21-2023 End: 11-21-2023 ambulatory Ishmael Jacob Other [employer] Other Start: 11-21-2023 Telephone encounter Ishmael Ball [facility] Start: 11-16-2023 End: 11-16-2023 ambulatory Ishmael Ball Other [employer] Other Start: 11-16-2023 Telephone encounter Ishmael Ball [facility] Start: 11-03-2023 End: 11-03-2023 Lab Drop off Valentina X Orzech [facility] Start: 11-03-2023 End: 11-03-2023 Patient encounter procedure Valetnina X Orzech [facility] [place] Start: 10-31-2023 End: 10-31-2023 ambulatory Ishmael Ball Other [employer] Other Start: 10-31-2023 Telephone encounter Ishmael Ball [facility] Start: 10-24-2023 End: 10-24-2023 ambulatory Ishmael Ball Other [employer] Other Start: 10-24-2023 Office outpatient vi sit 25 minutes Ishmael Ball [facility] Start: 08-23-2023 End: 08-23-2023 ambulatory Ishmael Ball Other [employer] Other Start: 08-23-2023 Telephone encounter Ishmael Ball [facility] Start: 07-11-2023 End: 07-11-2023 ambulatory Ishmael Ball Other [employer] Other Start: 07-11-2023 Office outpatient vi sit 25 minutes Ishmael Ball [facility] Start: 04-05-2023 End: 04-05-2023 ambulatory Ishmael Ball Other [employer] Other Start: 04-05-2023 Telephone encounter Ishmael Ball [facility] Start: 03-08-2023 End: 03-08-2023 ambulatory Ishmael Jacob Other [employer] Other Start: 03-08-2023 Encounter for genera l adult medical examination without abnormal findings Ishmael Jacob [facility] Start: 03-08-2023 Periodic preventive med est patient 40-64yrs Ishmael Jacob [facility] Start: 02-07-2023 End: 02-07-2023 ambulatory Ishmael Jacob Other [employer] Other Start: 02-07-2023 Telephone encounter Ishmael Jacob [facility] Start: 02-04-2023 End: 02-05-2023 ambulatory LEV GARCIA Facility:[facility] Start: 12-28-2022 End: 12-28-2022 ambulatory Ishmael Jacob Other [employer] Other Start: 12-28-2022 Telephone encounter Ishmael Jacob [facility] Start: 12-20-2022 End: 12-20-2022 ambulatory Ishmael Jacob Other [employer] Other Start: 12-20-2022 Telephone encounter Ishmael Jacob [facility] Start: 12-16-2022 End: 12-17-[address] ISHMAEL JACOB Facility:[facility] Start: 12-14-2022 End: 12-14-2022 ambulatory Ishmael Elsy Other [employer] Other Start: 12-14-2022 Telephone encounter Ishmael Jacob [facility] Start: 12-08-2022 End: 12-08-2022 ambulatory Ishmael Elsy Other [employer] Other Start: 12-08-2022 Telephone encounter Ishmael Jacob [facility] Start: 12-07-2022 End: 12-08-[address] ISHMAEL JACOB Facility:[facility] Start: 11-25-2022 End: 11-25-2022 ambulatory Ishmael Jacob Other [employer] Other Start: 11-25-2022 Telephone encounter Ishmael Jacob DAVION [facility] Start: 11-23-2022 End: 11-23-2022 ambulatory Ishmael Jacob Other [employer] Other Start: 11-23-2022 Telephone encounter Ishmael Jacob DAVION Jacob [facility] Start: 11-06-2022 End: 11-07-[address] ISHMAEL JACOB Facility:[facility] Start: 11-02-2022 End: 11-02-2022 ambulatory Ishmael Jacob Other [employer] Other Start: 11-02-2022 Office outpatient vi sit 25 minutes Ishmael Jacob PATRICA Jacob [facility] Start: 10-22-2022 Patient encounter status Ishmael Jacob Other [employer] Other Start: 06-19-2022 End: 06-20-2022 ambulatory REBA LARIOS . Facility:[facility] Start: 03-18-2022 Encounter for genera l adult medical examination without abnormal findings DR ISHMAEL JACOB [facility] Start: 03-13-2022 End: 03-14-[address] ISHMAEL JACOB Facility:[facility] Start: 03-13-2022 End: 03-14-2022 Encounter for general adult medical examination without abnormal findings DR ISHMAEL JACOB Facility:[facility] Start: 02-15-2022 End: 02-15-2022 Patient encounter procedure Reba Larios [facility] Start: 05-30-2017 End: 05-31-2017 Ambulatory DEFAULT PHYSICIAN Facility:[facility] Procedures Date Procedure Procedure Detail Performing Clinician Start: 01-09-2025 CRYOTHERAPY SKIN LESION Pankaj Chadwick MD Work Phone: Start: 12-06-2024 SKIN / NAIL BIOPSY Himanshu Chadwick MD Work Phone: Start: 03-13-2022 PSA screening LEV HAUSER Comment on above: Performed By: #### P [facility] #### [facility] [address] [address] [address] Linda Duran Start: 05-10-2015 Extracorporeal shock wave lithotripsy of tendon using ultrasound guidance Reba Larios Start: 11-18-2010 History of repair of inguinal hernia Reba Ric Start: 05-04-2006 Placement of stent i n cardiac conduit Reba Larios Cardiac catheterization Shalom Polanconitzalizeth Plan of Treatment Date Care Activity Detail Author Start: 03-29-2025 Screening for malignant neoplasm of colon [facility] Start: 01-09-2025 End: 01-09-2025 Patient encounter procedure 01/09/2025 11:30 AM EDT Office Visit [facility] [address] [place] [address] Pankaj Chadwick MD [address] [place] [address] Arrived [facility] Comment on above: Arrived Start: 12-06-2024 End: 12-06-2024 Patient encounter procedure 12/06/2024 2:20 PM EST Office Visit [facility] [address] [place] [address] Pankaj Chadwick MD [address] [place] [address] Arrived [facility] Comment on above: Arrived Start: 1960 Screening for malignant neoplasm of colon [facility] Comprehensive metabo lic 1999 panel - Serum or Plasma [facility] Comprehensive metabo lic 1999 panel - Serum or Plasma [facility] Dermatopathology exam Dermatopat hology exam Pathology and Cytology Timed Neoplasm of unspecified behavior of bone, soft tissue, and skin Release Upon Ordering for 1 Occurrences starting 12/06/2024 [facility] Work Phone: Comment on above: Release Upon Ordering for 1 Occurrences starting 12/06/2024 Microalbumin [Mass/volume] in Urine [facility] Immunizations Immunization Date Immunization Notes Care Provider Josephine corryfavian 07-11-2024 influenza virus vaccine, unspecified formulation Reba Larios [facility] 07-11-2024 influenza, seasonal, injectable, preservative free [facility] 09-04-2023 influenza virus vaccine, unspecified formulation Valentina Orzech [facility] 06-24-2022 COVID-19 Pfizer (bivalent) Ishmael Jacob Other [facility] 06-24-2022 COVID-19 Vaccine Pfi zer - Documentation Purposes Only Ishmael Jacob Other [facility] 06-24-2022 influenza virus vaccine, split virus (incl. purified surface antigen) Ishmael Jacob Other [employer] Other 06-24-2022 influenza virus vaccine, unspecified formulation Valentina Orzech [facility] 06-24-2022 influenza, injectabl e, quadrivalent, preservative free Ishmael Jacob Other [facility] 08-31-2021 COVID-19 Vaccine Pfi zer - Documentation Purposes Only Ishmael Jacob Other [facility] 08-12-2021 influenza virus vaccine, unspecified formulation Valentina Orzech [facility] 12-19-2020 COVID-19 Vaccine Johana - Documentation Purposes Only Ishmael Jacob Other [facility] 07-02-2020 influenza virus vaccine, unspecified formulation Valentina Orzech [facility] Payers Date Payer Category Payer Managed Care HMO (unspecified) [employer] [id number] 2023 Private Health Insurance [id number] 2023 Private Health Insurance [id number] 1960 Unknown [id number] [id number] 9.2.593 1960 Unknown [id number] 2.16.840.1.476285.3.57 9.2.593 1960 Unknown [id number] 2.16.840.1.837167.3.57 9.2.593 1960 Unknown [id number] 2.16.840.1.923135.3.57 9.2.593 1960 Unknown [id number] 2.16.840.1.369241.3.57 9.2.593 1960 Unknown [id number] 2.16.840.1.056017.3.57 9.2.593 1960 Unknown [id number] 2.16.840.1.409871.3.57 9.2.1259 1960 Unknown [id number] 2.16.840.1.368859.3.57 9.2.1259 1960 Unknown [id number] 2.16.840.1.945157.3.57 9.2.727 1960 Unknown [id number] 2.16.840.1.898247.3.57 9.2.727 1960 Unknown [id number] 2.16.840.1.811616.3.57 9.2.727 1960 Unknown [id number] 2.16.840.1.060373.3.57 9.2.727 1960 Unknown [id number] 2.16.840.1.044981.3.57 9.2.727 1960 Unknown [id number] 2.16.840.1.550281.3.57 9.2.727 1960 Unknown [id number] 2.16.840.1.636192.3.57 9.2.727 1960 Unknown [id number] 2.16.840.1.290433.3.57 9.2.727 1960 Unknown [id number] 2.16.840.1.797336.3.57 9.2.727 1960 Unknown [id number] 2.16.840.1.217757.3.57 9.2.727 1959 Private Health Insurance [id number] Private Health Insurance [id number] Unknown Unknown Other1 (STD) . [id number] Social History Date Type Detail Facility Start: 02-15-2022 End: 10-31-2024 Tobacco smoking status Never smoked tobacco (finding) [facility] Tobacco smoking status Never [facility] Sex Assigned At Male [facility] Start: 1960 Sex Assigned At Male F [facility] Tobacco smoking stat us NHIS Unknown if ever smoked [facility] Start: 11-23-2019 End: 11-23-2024 Sex Male (finding) [facility] Start: 1960 Sex assigned at Not on file N [facility] Sexual Orientation [facility] Medical Equipment Procedure Code Equipment Code Equipment Origin al Text Equipment Identifier Dates Start: 11-19-2024 Blood Sugar Diagnostic (Onetouch Ultra Test) strip Start: 11-19-2024 Blood Sugar Diagnostic (Onetouch Ultra Test) strip Start: 11-19-2024 End: 11-19-2024 Blood Sugar Diagnostic (Onetouch Ultra Test) strip Start: 11-19-2024 Lancets (Onetouc h Delica Plus Lancet) 33 gauge misc Start: 11-23-2024 Blood Sugar Diagnostic (Onetouch Ultra Test) strip Start: 11-19-2024 End: 11-19-2024 Lancets 33 gauge misc Start: 11-23-2024 End: 11-23-2024 Functional Status Date Assessment Result Facility 10-31-2024 Functional Status N/A [facility] 11-03-2023 Functional Status N/A [facility] [place] Clinical Notes 02-15-2022 to 05-03-2025 Pankaj Chadwick MD - 01/09/2025 11:30 AM EDLisandro Chadwick MD - 12/06/2024 2:20 PM EST Note Date & Type Note Facility 05-03-2025 Note Nurse Consultation N ote Physical Exam Re-draw BMP no charge Assessment/Plan 1. Kidney stones (N20.0: Calculus of kidney) Medications amlodipine-benazepril 10 mg-20 mg oral capsule, 1 cap(s) aspirin 81 mg oral capsule, Oral, q4hr Fish Oil 1200 mg oral capsule, Oral, TID gemfibrozil 600 mg Tab, Oral, BID Jardiance 10 mg oral tablet, 10 mg= 1 tab(s) MetFORMIN (Eqv-Fortamet) 1000 mg oral tablet, extended release, Oral, Daily metoprolol 25 mg ER Tab, Oral, Daily Ozempic 2 mg/3 mL (0.25 mg or 0.5 mg dose) subcutaneous solution, SubCutaneous, qWeek potassium citrate 15 mEq oral tablet, extended release, 30 mEq= 2 tab(s), Oral, BID, 6 refills rosuvastatin 10 mg Tab, Oral, Daily Rybelsus 14 mg oral tablet, 14 mg= 1 tab(s) tamsulosin 0.4 mg Cap, Oral, Daily Allergies No Known Allergies Immunizations Vaccine Date Status influenza virus vaccine, inactivated 07/11/2024 Recorded influenza virus vaccine, inactivated 09/04/2023 Recorded influenza virus vaccine, inactivated 06/24/2022 Recorded SARS-CoV-2 (COVID-19) [id number] 06/24/2022 Recorded SARS-CoV-2 (COVID-19) mRNA [id number] vax 08/31/2021 Recorded influenza virus vaccine, inactivated 08/12/2021 Recorded SARS-CoV-2 (COVID-19) Ad26 vaccine 12/19/2020 Recorded influenza virus vaccine, inactivated 07/02/2020 Recorded [facility] 01-30-2025 Note Patient Education Nephrology Dietary Guidelines to Help [...] for following this plan? Reading food labels ??? Choose foods with no salt added or low-salt labels. Limit your salt (sodium) intake to less than 1,500 mg a day. ??? Choose foods with calcium for each meal and snack. Try to eat about 300 mg of calcium at each meal. Foods that contain 200?500 mg of calcium a serving include: ? 8 oz (237 mL) of milk, oochjnq-uufxktttyxbu-xnntp milk, and calcium-fortifiedfruit juice. Calcium-fortified means that calcium has been [...] much calcium is recommended for you. Shopping ??? Buy plenty of fresh fruits and vegetables. Most people do not need to avoid fruits and vegetables, even if these foods contain nutrients that may contribute to kidney stones. ??? When shopping for convenience foods, choose: ? Whole pieces of fruit. ? Pre-made salads with dressing on the side. ? Low-fat fruit and yogurt smoothies. ??? Avoid buying frozen meals or prepared deli foods. These can be high in sodium. ??? Look for foods with live cultures, such as yogurt and kefir. ??? Choose high-fiber grains, such as whole-wheat breads, oat bran, and wheat cereals. Cooking ??? Do not add salt to food when cooking. Place a salt shaker on the table and allow each person to add their own salt to taste. ??? Use vegetable protein, such as beans, textured vegetable protein (TVP), or tofu, instead of meat in pasta, casseroles, and soups. Meal planning ??? Eat less salt, if told by your dietitian. To do this: ? Avoid eating processed or pre-made food. ? Avoid eating fast food. ??? Eat less animal protein, including cheese, meat, [...] size of the palm of your hand. ??? Eat at least five servings of fresh fruits and vegetables each day. To do this: ? Keep fruits and vegetables on hand for snacks. ? Eat one piece of fruit or a handful of berries with breakfast. ? Have a salad and fruit at lunch. ? Have two kinds of vegetables at dinner. ??? You may be told to limit foods that are high in a substance called oxalate. These include: ? Spinach (cooked), rhubarb, beets, sweet potatoes, and Burmese chard. ? Peanuts. ? Potato chips, panamanian fries, and baked potatoes with skin on. ? Nuts and nut products. ? Chocolate. ??? If you regularly take a diuretic medicine, make sure to eat at least 1 or 2 servings of fruits or vegetables that are high in potassium each day. These include: ? Avocado. ? Banana. ? [place], prune, carrot, or tomato juice. ? Baked potato. ? Cabbage. ? Beans and split peas. Lifestyle ??? Drink enough fluid to keep your urine pale yellow. This is the most important thing you can do. Spread your fluid intake throughout the day. ??? If you drink alcohol: ? Limit how [...] oz glass of hard liquor (44 mL). ??? Lose weight if told by your health care provider. Work with your dietitian to find an eating plan and weight loss strategies that work best for you. General information ??? Talk to your health care provider and [...] as magnesium, fish oil, or vitamin B6. ??? Take fbyr-fns-dbhpaeo and prescription medicines only as told by your health (more content not included)... [facility] 01-09-2025 History of Present illness Narrative Follow up Diagnosis: Actinic Keratosis Location: left forearm posterior Procedure performed: Shave biopsy Date of procedure: 12/06/2024 Current treatment: Here for re-evaluation All pertinent medical history, medications, and allergies were reviewed. General Exam: alert, oriented to person, place, and time, normal affect, well appearing Unaccompanied A focused exam completed based on patient reported problems, see below: 1. Actinic keratosis Left Forearm - Posterior Erythematous scaly papules Patient was counseled regarding these sun-induced growths that can develop into squamous cell carcinoma if left untreated. Discussed treatment with cryotherapy. It was emphasized that any treated lesions that fail to resolve should be re-evaluated. Cryotherapy performed today; see procedure note Diagnosis: Actinic keratosis Indication: Precancerous Location: see skin exam Consent: Verbal consent was obtained and risks were discussed, including, but not limited to risks of scarring, darker or engineering instructor pigmentary changes, recurrence, incomplete removal and infection. Method: Liquid nitrogen was used to treat the lesion(s) with two 5-10 second freeze-thaw cycles. Number of lesions treated: 1 Post-procedure instructions: Instructions were given orally and in writing. The office will be contacted if the lesion fails to resolve despite treatment, or if a side effect develops such as abnormal crusting, scabbing, redness or tenderness Cryotherapy, skin lesion - Left Forearm - Posterior Next Visit: 1 year documented in this encounter [facility] 12-06-2024 History of Present illness Narrative Images from the original note were not included. Lesions: Location: left forearm Duration: 6 months Quality: denies pain, denies itch, denies bleeding Modifying factors: rubs on clothing, aggravated by picking Associated symptoms: non-healing, rough Treatments: none Established patient All pertinent medical history, medications, and allergies were reviewed. General Exam: alert, oriented to person, place, and time, normal affect, well appearing Unaccompanied A focused exam completed based on patient reported problems, see below: 1. Neoplasm of unspecified behavior of bone, soft tissue, and skin Left Forearm - Posterior Hyperkeratotic papule Lesion biopsy Type of biopsy: tangential Informed consent: discussed and consent obtained Informed consent comment: The risks and benefits of the biopsy were discussed. Risks include but are not limited to bleeding, infection, scarring, pain, and nerve damage. An opportunity to ask questions prior to the procedure was permitted and all questions were answered. Patient was prepped and draped in usual sterile fashion: area cleansed with alcohol. Anesthesia: the lesion was anesthetized in a standard fashion Anesthetic: 1% lidocaine w/ epinephrine 1-100,000 buffered w/ 8.4% NaHCO3 Instrument used: DermaBlade Hemostasis achieved with: electrodesiccation Outcome: patient tolerated procedure well Outcome comment: The specimen was placed in a prelabeled formalin container to be sent for pathology Post-procedure details: sterile dressing applied and wound care instructions given Post-procedure details comment: Emphasized need to contact clinic for any signs of infection, uncontrollable bleeding, or complications. Dressing type: bandage Additional details: Photo taken Amount of lidocaine used: 0.3 cc Specimen A - Dermatopathology exam Differential Diagnosis: SCC vs AK Check Margins: yes Size of lesion: 0.6 x 0.6 cm Next Visit: pending biopsy results documented in this encounter [facility] 12-06-2024 Note Patient here for 1 y ear follow up CAD, hypertension, hyperlipidemia, and NSVT. He had routine labs with lipid panel in March 2024, and renal US last month. Patient states Dr. Jacob stopped hydrochlorothiazide a few weeks ago due to lightheadedness. Patient states this has resolved since stopping it. He was started on Jardiance and potassium since last visit. He denies chest pain, SOB, and palpitations. BP at home this morning was 130/80. Review of Systems All other systems reviewed and are negative. [facility] 12-06-2024 Note Cardiovascular Medic [facility] SUBJECTIVE Chief Complaint Patient presents with Hypertension Coronary Artery Disease Hyperlipidemia Chely Meyer is a 64 y.o. male here for follow-up. HPI PMHx: CAD s/p LAD stent, NSVT, PVCs, DM type II He has been overall feeling well since last seen. He was having some LH, PCP stopped his hydrochlorothiazide and LH resolved. BP at home has been 130s/80s before his BP medications. He tries to ride his stationary bike twice a week. He does try to walk his dog daily when the weather is better. Denies c/o CP, dyspnea, orthopnea, PND, LE edema, palpitations, syncope. Previous HPI per Dr Harris Reason for [...] 3-4 beats Previous HPI [address] covington 2005 had abnormal stress had nsvt on [...] absolutely no symptoms takes asa and b hayde and ccb/stephani Statin intolerant Given all the data I do not feel compelled to recommend repeat angiography at this point I think he should stop his diuretic as he is getting some pre renal and sweats alot doing regular heavy work in heat He will contact urologist who put him on it We can then increase his b hayde If he gets symptoms this would change Patient Active Problem List Diagnosis Ventricular premature beats Type 2 diabetes mellitus (CMS/HCC) Essential hypertension Dyslipidemia Drug intolerance Coronary arteriosclerosis Calculus of kidney and ureter Atopic dermatitis NSVT (nonsustained ventricular tachycardia) (CMS/HCC) Nocturia Hypertriglyceridemia Cyst of kidney, acquired Past Medical History: Diagnosis Date Coronary artery disease Diabetes mellitus (CMS/HCC) Hyperlipidemia Hypertension PVC (premature ventricular contraction) Family History Problem Relation Name Age of Onset Hypertension Mother Hyperlipidemia Mother Coronary artery disease Father Leukemia Father Hypertension Father Hyperlipidemia Father Social History Tobacco Use Smoking status: Never Smokeless tobacco: Never Substance Use Topics Alcohol use: Yes Comment: occasional Allergies Allergen Reactions Qphpdde-Gpq-Fnc Reductase Inhibitors Review of Systems Constitutional: Negative for chills, decreased appetite, fever, malaise/fatigue and weight gain. Cardiovascular: Negative for chest pain, dyspnea on exertion, irregular heartbeat, leg swelling, near-syncope, orthopnea, palpitations, paroxysmal nocturnal dyspnea and syncope. Hematologic/Lymphatic: Negative for bleeding problem. Does not bruise/bleed easily. OBJECTIVE Visit Vitals BP 146/82 (BP Location: Right arm, Patient Position: Sitting) Pulse 70 Ht 1.854 m (6' 1 ) Wt 114 kg (251 lb) SpO2 97% BMI 33.12 kg/m??? Smoking Status Never BSA 2.42 m??? Medications: Current Outpatient Medications: amLODIPine-benazepriL (Lotrel) 10-20 mg capsule, 1 capsule in the morning., Disp: , Rfl: aspirin 81 mg EC tablet, in the morning., Disp: , Rfl: benazepril (Lotensi (more content not included)... [facility] 10-31-2024 Hospital Discharge instructions Patient Education 10/31/2024 09:42:58 Benign Prostatic Hyperplasia Benign Prostatic Hyperplasia Benign prostatic hyperplasia (BPH) is an enlarged prostate gland that is caused by the normal aging process. The prostate may get bigger as a man gets older. The condition is not caused by cancer. The prostate is a walnut-sized gland that is involved in the production of semen. It is located in front of the rectum and below the bladder. The bladder stores urine. The urethra carries stored urine out of the body. An enlarged prostate can press on the urethra. This can make it harder to pass urine. The buildup of urine in the bladder can cause infection. Back pressure and infection may progress to bladder damage and kidney (renal) failure. What are the causes? This condition is part of the normal aging process. However, not all men develop problems from this condition. If the prostate enlarges away from the urethra, urine flow will not be blocked. If it enlarges toward the urethra and compresses it, there will be problems passing urine. What increases the risk? This condition is more likely to develop in men older than 50 years. What are the signs or symptoms? Symptoms of this condition include: Getting up often during the night to urinate. Needing to urinate frequently during the day. Difficulty starting urine flow. Decrease in size and strength of your urine stream. Leaking (dribbling) after urinating. Inability to pass urine. This needs immediate treatment. Inability to completely empty your bladder. Pain when you pass urine. This is more common if there is also an infection. Urinary tract infection (UTI). How is this diagnosed? This condition is diagnosed based on your medical history, a physical exam, and your symptoms. Tests will also be done, such as: A post-void bladder scan. This measures any amount of urine that may remain in your bladder after you finish urinating. A digital rectal exam. In a rectal exam, your health care provider checks your prostate by putting a lubricated, gloved finger into your rectum to feel the back of your prostate gland. This exam detects the size of your gland and any abnormal lumps or growths. An exam of your urine (urinalysis). A prostate specific antigen (PSA) screening. This is a blood test used to screen for prostate cancer. An ultrasound. This test uses sound waves to electronically produce a picture of your prostate gland. Your health care provider may refer you to a specialist in kidney and prostate diseases (urologist). How is this treated? Once symptoms begin, your health care provider will monitor your condition (active surveillance or watchful waiting). Treatment for this condition will depend on the severity of your condition. Treatment may include: Observation and yearly exams. This may be the only treatment needed if your condition and symptoms are mild. Medicines to relieve your symptoms, including: ?Medicines to shrink the prostate. ?Medicines to relax the muscle of the prostate. Surgery in severe cases. Surgery may include: ?Prostatectomy. In this procedure, the prostate tissue is removed completely through an open incision or with a laparoscope or robotics. ?Transurethral resection of the prostate (TURP). In this procedure, a tool is inserted through the opening at the tip of the penis (urethra). It is used to cut away tissue of the inner core of the prostate. The pieces are removed through the same opening of the penis. This removes the blockage. ?Transurethral incision (TUIP). In this procedure, small cuts are made in the prostate. This lessens the prostate's pressure on the urethra. ?Transurethral microwave thermotherapy (TUMT). This procedure uses microwaves to create heat. The heat destroys and removes a small amount of prostate tissue. ?Transurethral needle ablation (TUNA). This procedure uses radio frequencies to destroy and remove a small amount of prostate tissue. ?Interstitial laser coagulation (ILC). This procedure uses a laser to destroy and remove a small amount of prostate tissue. ?Transurethral electrovaporization (TUVP). This procedure uses electrodes to destroy and remove a small amount of prostate tissue. ?Prostatic urethral lift. This procedure inserts an implant to push the lobes of the prostate away from the urethra. Follow these instructions at home: Take ikbm-sie-eomfclc and prescription medicines only as told by your health care provider. Monitor your symptoms for any changes. Contact your health care provider with any changes. Avoid drinking large amounts of liquid before going to bed or out in public. Avoid or reduce how much caffeine or alcohol you drink. Give yourself time when you urinate. Keep all follow-up visits. This is important. Contact a health care provider if: You have unexplained back pain. Your symptoms do not get better with treatment. You develop side effects from the medicine you are taking. Your urine becomes very dark or has a bad smell. Your lower abdomen becomes distended and you have trouble passing urine. Get help right away if: You have a fever or chills. You suddenly cannot urinate. You feel light-headed or very dizzy, or you faint. There are large amounts of blood or clots in your urine. Your urinary problems become hard to manage. You develop moderate to severe low back or flank pain. The flank is the side of your body between the ribs and the hip. These symptoms may be an emergency. Get help right away. Call 911. Do not wait to see if the symptoms will go away. Do not drive yourself to the hospital. Summary Benign prostatic hyperplasia (BPH) is an enlarged prostate that is caused by the normal aging process. It is not caused by cancer. An enlarged prostate can press on the urethra. This can make it hard to pass urine. This condition is more likely to develop in men older than 50 years. Get help right away if you suddenly cannot urinate. This information is not intended to replace advice given to you by your health care provider. Make sure you discuss any questions you have with your health care provider. Document Revised: 04/14/2022 Document Reviewed: 04/14/2022 [employer] Patient Education 2023 [employer]. Follow Up Care 10/17/2024 09:48:16 With:Ric MAY, TERRENCE Childs, URO Address: When:Within 3 Month(s) Comments:ednny/CHRIS [facility] 10-31-2024 Note Patient Education Urology Benign Prostatic Hyperplasia Benign prostatic hyperplasia (BPH) is an enlarged prostate gland that is caused by the normal aging process. The prostate may get bigger as a man gets older. The condition is not caused by cancer. The prostate is a walnut-sized gland that is involved in the production of semen. It is located in front of the rectum and below the bladder. The bladder stores urine. The urethra carries stored urine out of the body. An enlarged prostate can press on the urethra. This can make it harder to pass urine. The buildup of urine in the bladder can cause infection. Back pressure and infection may progress to bladder damage and kidney (renal) failure. What are the causes? This condition is part of the normal aging process. However, not all men develop problems from this condition. If the prostate enlarges away from the urethra, urine flow will not be blocked. If it enlarges toward the urethra and compresses it, there will be problems passing urine. What increases the risk? This condition is more likely to develop in men older than 50 years. What are the signs or symptoms? Symptoms of this condition include: ??? Getting up often during the night to urinate. ??? Needing to urinate frequently during the day. ??? Difficulty starting urine flow. ??? Decrease in size and strength of your urine stream. ??? Leaking (dribbling) after urinating. ??? Inability to pass urine. This needs immediate treatment. ??? Inability to completely empty your bladder. ??? Pain when you pass urine. This is more common if there is also an infection. ??? Urinary tract infection (UTI). How is this diagnosed? This condition is diagnosed based on your medical history, a physical exam, and your symptoms. Tests will also be done, such as: ??? A post-void bladder scan. This measures any amount of urine that may remain in your bladder after you finish urinating. ??? A digital rectal exam. In a rectal exam, your health care provider checks your prostate by putting a lubricated, gloved finger into your rectum to feel the back of your prostate gland. This exam detects the size of your gland and any abnormal lumps or growths. ??? An exam of your urine (urinalysis). ??? A prostate specific antigen (PSA) screening. This is a blood test used to screen for prostate cancer. ??? An ultrasound. This test uses sound waves to electronically produce a picture of your prostate gland. Your health care provider may refer you to a specialist in kidney and prostate diseases (urologist). How is this treated? Once symptoms begin, your health care provider will monitor your condition (active surveillance or watchful waiting). Treatment for this condition will depend on the severity of your condition. Treatment may include: ??? Observation and yearly exams. This may be the only treatment needed if your condition and symptoms are mild. ??? Medicines to relieve your symptoms, including: ? Medicines to shrink the prostate. ? Medicines to relax the muscle of the prostate. ??? Surgery in severe cases. Surgery may include: ? Prostatectomy. In this procedure, the prostate tissue is removed completely through an open incision or with a laparoscope or robotics. ? Transurethral resection of the prostate (TURP). In this procedure, a tool is inserted through the opening at the tip of the penis (urethra). It is used to cut away tissue of the inner core of the prostate. The pieces are removed through the same opening of the penis. This removes the blockage. ? Transurethral incision (TUIP). In this procedure, small cuts are made in the prostate. This lessens the prostate's pressure on the urethra. ? Transurethral microwave thermotherapy (TUMT). This procedure uses microwaves to create heat. The heat destroys and removes a small amount of prostate tissue. ? Transurethral needle ablation (TUNA). This procedure uses radio frequencies to destroy and remove a small amount of prostate tissue. ? Interstitial laser coagulation (ILC). This procedure uses a laser to destroy and remove a small amount of prostate tissue. ? Transurethral electrovaporization (TUVP). This procedure uses electrodes to destroy and remove a small amount of prostate tissue. ? Prostatic urethral lift. This procedure inserts an implant to push the lobes of the prostate away from the urethra. Follow these instructions at home: ??? Take tdbf-pxy-nctiwtx and prescription medicines only as told by your health care provider. ??? Monitor your symptoms for any changes. Contact your health care provider with any changes. ??? Avoid drinking large amounts of liquid before going to bed or out in public. ??? Avoid or reduce how much caffeine or alcohol you drink. ??? Give yourself time when you urinate. ??? Keep all follow-up visits. This is important. Contact a health care provider if: ??? You have unexplained back pain. ??? Your symptoms do not get (more content not included)... [facility] 11-21-2023 Evaluation note Encounter Date Diagnosis Assessment Notes Nov, Hyperlipidemi a, mixed (ICD-10 - E78.2) Nov, Type 2 diabetes mellitus with hyperglycemia , without long-term current use of insulin (ICD-10 - E11.65) Nov, ASHD (arterioscler otic heart disease) (ICD-10 - I25.10) [facility] w/ 60% OM - 02/2023 [facility] Other 02-07-2024 Evaluation note* Encounter Date Diagnosis Assessment Notes Treatment Notes Treatment Clinical Notes Nov, Primary hypertension (ICD-10 - I10) [facility] Other 01-15-2024 Evaluation note* Encounter Date Diagnosis Assessment Notes [...] ASHD (arteriosclerotic heart disease) (ICD-10 - I25.10) [facility] w/ 60% OM - 02/2023 This patient is stable without activity related CP, dyspnea or lightheadedness. They are instructed to continue exercise and AHA diet plan. Continue secondary prevention measures. [facility] w/ 60% OM - medically [...] increased PVC, brief run of NSVT - [facility] w/ 60% OM stenosis, medically [...] [BMI ] 34.0-34.9, adult (ICD-10 - Z68.34) [facility] Other 11-14-2023 Evaluation note* Encounter Date Diagnosis Assessment Notes Treatment Notes Treatment Clinical Notes Aug, Type 2 diabetes mellitus with hyperglycemia, without long-term current use of insulin (ICD-10 - E11.65) [facility] Other 10-23-2023 Hospital Discharge instructions Follow Up Care 08/01/2023 16:05:53 With:Ric MAY, Reba Smith, URRena, URO Address: [address], [place] [address] [phone] When: Unknown [facility] 10-02-2023 Evaluation note* Encounter Date Diagnosis Assessment [...] [BMI ] 34.0-34.9, adult (ICD-10 - Z68.34) [facility] Other 06-27-2023 Evaluation note* Encounter Date Diagnosis Assessment Notes Treatment Notes Treatment Clinical Notes Mar, Type 2 diabetes mellitus with hyperglycemia, without long-term current use of insulin (ICD-10 - E11.65) [facility] Other 05-30-2023 Evaluation note* Encounter Date Diagnosis [...] (ICD-10 - Z12.5) Yearly JOIE and PSA [facility] Other 05-01-2023 Evaluation note* Encounter Date Diagnosis Assessment Notes Treatment Notes Treatment Clinical Notes February, Type 2 diabetes mellitus with hyperglycemia, without long-term current use of insulin (ICD-10 - E11.65) [facility] Other 03-21-2023 Evaluation note* Encounter Date Diagnosis Assessment Notes Treatment Notes Treatment Clinical Notes Dec, Type 2 diabetes mellitus with hyperglycemia, without long-term current use of insulin (ICD-10 - E11.65) [facility] Other 02-16-2023 Evaluation note* Encounter Date Diagnosis Assessment Notes Treatment Notes Treatment Clinical Notes Nov, ASHD (arteriosclerotic heart disease) (ICD-10 - I25.10) 16 Nov, 2022 Shortness of breath (ICD-10 - R06.02) [facility] Other 01-24-2023 Evaluation note* Encounter Date Diagnosis [...] exercise for 30 minutes, 3-5 times weekly. [facility] Other 05-09-2022 Hospital Discharge instructions Patient Education 02/15/2022 15:13:26 Kidney Stones, Qvmv-bl-Aydx Kidney Stones Kidney stones are rock-like masses [...] Follow these instructions at home: Medicines Take yodp-wyc-zmcocyd and prescription medicines only as told by [...] 03/14/2009 Document Revised: 02/12/2020 Document Reviewed: 02/12/2020 [employer] Patient Education 2020 [employer] Follow Up Care 01/28/2022 10:44:14 With:Reba Larios MD, URL, URO Address: [facility] Ranjit Jernigan[address] [address]- When:05/18/2022 Comments:w/ renal us and kub [facility] Evaluation + Plan note Future Appointments Appointment Date:04/26/2022 03:15:00 PM Scheduled Provider:Reba Larios MD Location:[facility] Appointment Type:URO Office Visit [facility] Evaluation + Plan note Future Appointments Appointment Date:10/26/2024 03:15:00 PM Scheduled Provider:Reba Larios MD Location:[facility] Appointment Type:URO Office Visit [facility] Evaluation + Plan note Future Appointments Appointment Date:10/26/2024 03:15:00 PM Scheduled Provider:Reba Larios MD Location:[facility] Appointment Type:URO Office Visit Diagnostic Tests Pending * Calculi [facility]ments Appointment Date:01/23/2025 08:00:00 AM Scheduled Provider: Location:[facility] Appointment Type:URO Nurse Visit Appointment Date:01/30/2025 08:00:00 AM Scheduled Provider:Reba Larios MD Location:[facility] Appointment Type:URO Office Visit Future Scheduled Tests Laboratory* Basic Metabolic Panel 01/29/25 [facility] evaluation + Plan note Future Appointments Appointment Date:01/30/2025 08:00:00 AM Scheduled Provider:Reba Larios MD Location:[facility] Appointment Type:URO Office Visit [facility] Evaluation + Plan note Future Appointments Appointment Date:11/06/2025 08:00:00 AM Scheduled Provider:Reba Larios MD Location:[facility] Appointment Type:URO Office Visit Future Scheduled Tests Laboratory* Basic Metabolic Panel 03/10/25 [facility] evaluation noteNo depictTherio Other Evaluation note* Diagnosis Onset Date Resolution Status ASHD (arteriosclerotic heart disease) acute Benign prostatic hyperplasia with lower urinary tract symptoms acute History of nephrolithiasis a cute Hypercholesterolemia acute Hypertension acute Type 2 diabetes mellitus with hyperglycemia acute Wellness examination noneact chrissy [facility] Work Phone: Evaluation note* Diagnosis Onset Date Resolution Status ASHD (arteriosclerotic heart disease) acute Benign prostatic hyperplasia with lower urinary tract symptoms acute History of nephrolithiasis a cute Hypercholesterolemia acute Hypertension acute Obesity acute Type 2 diabetes mellitus with hyperglycemia acute [facility] Work Phone: Evaluation note* Diagnosis Onset Date Resolution Status Admit Date ASHD (arteriosclerotic heart disease) acute November 23, 025 9:22am History of nephrolithiasis acute November 23, 2024 9:22am Hypercholesterolemia acute 2024 9:22am Hypertension acute November 9:22am Obesity acute November 23, 2024 9:22am Type 2 diabetes mellitus wit h hyperglycemia acute November 23, 025 9:22am [facility] Work Phone: Evaluation note* Diagnosis Neoplasm of unspecified behavior of bone, soft tissue, and skin- Primary [facility] Diagnosis Actinic keratosis- Primary [facility] Diagnosis Onset Date Resolution Status Admit Date ASHD (arteriosclerotic heart disease) acute March 14, 2025 9:56am Benign prostatic hyperplasia with lower urinary tract symptoms acute Mar 9:56am History of nephrolithiasis acute March 14, 2025 9:56am Hypercholesterolemia acute March 14, 2025 9:56am Hypertension acute March 14 9:56am Screening PSA (prostate spec ific antigen) acute March 14, 2025 9:56am Type 2 diabetes mellitus wit h hyperglycemia acute March 14, 2025 9:56am Wellness examination noneactive March 14, 2025 9:56am [facility] Work Phone: History general Narrative - Reported* Type Description Date Medical History obesity Medical History type 2 diabetes nani itus with hyperglycemia without intermediate current use of insulin Medical History hypertension Medical History hyperlipidemia Medical History arteriosclerotic heart disease Medical History gross hematuria Medical History nephrolithiasis Medical History uric acid kidney stone Surgical History heart cath stent Surgical History hernia repair Surgical History lithotripsy Hospitalization History see above surgeries [facility] general Narrative - Reported* Type Description Date Medical History obesity Medical History type 2 diabetes nani itus with hyperglycemia 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 Medical History hypertension Medical History hyperlipidemia Medical History arteriosclerotic heart disease Medical History gross hematuria Medical History nephrolithiasis Medical History uric acid kidney stone Surgical History heart cath stent Surgical History hernia repair Surgical History lithotripsy Surgical History LHC: 60% OM, 02/2023` Hospitalization History see above surgeries [facility] Other Hospital course Narrative No data available for this section [facility] Hospital Discharge instructions No data available for this section [facility] No data available for this section [facility] Reason for referral (narrative)* Reason 01/10/23 Referral for dyspnea and abnormal cardiac stress test Diagnosis 1 NSVT (nonsustained v entricular tachycardia) (I47.29) Diagnosis 2 ASHD (arteriosclerot ic heart disease) (I25.10) Referral Organization [facility] Trini harman Referring Provider First Name Ishmael Referring Provider Last Name Elsy Referring Provider Specialty Internal Me stephani Referred Organization [facility] Referred Provider CHELSI MENARD Referred Address [address], [place],[address] Referred Provider Specialty Cardiology Referral Priority Routine [...] 12/21/2022 01:17:10 PM >received today, attachments made, [id number] Jakob Raquel 12/28/2022 11:37:48 AM >faxed first attempt letter [...] history of CAD is worrisome to me. [facility] Other Summary Purpose Family History No Family [...] Family History Records FoundNo Family History Records FoundNo Family History Records FoundNo Family History Records Found Advance Directives No Advanced Directives Records Found Advance Directive Response Recorded Date/ Time Advance Directives No November 02, 2023 3:23pm Advance Directive Response Recorded Date/ Time Advance Directives No November 02, 2023 2:23pm Chief Complaint and Reason for Visit Chief [...] Obesity Type 2 diabetes mellitus with hyperglycemia Chief Complaint Admit Date 4 month f/u November 23, 2024 9:22am Reason for Visit Admit Date ASHD (arteriosclerotic heart disease) Fe bruary 2024 9:22am History of nephrolithiasis November 9:22am Hypercholesterolemia November 23, 2024 9:22am Hypertension November 23, 2024 9:22am Obesity November 23, 2024 9:22am Type 2 diabetes mellitus with hyperglyce randi November 23, 2024 9:22am Chief Complaint Admit Date Wellness March 14, [...] Wellness examination March 14, 2025 9:56 am Additional Source Comments (unrecognized sect ion and content) No Status Records FoundNo Status Records FoundNo Status Records FoundNo Status Records FoundNo Status Records FoundNo Status Records FoundNo Status Records FoundNo Status Records FoundNo Status Records FoundNo Status Records Found INFORMATION SOURCE (unrecogn ized section and content) DATE CREATED AUTHOR 04/05/2018 [facility] DATE CREATED AUTHOR AUTHOR'S ORGANIZ ATION 02/11/2023 [facility] DATE CREATED AUTHOR AUTHOR'S ORGANIZ ATION 12/10/2024 [facility] DATE CREATED AUTHOR AUTHOR'S ORGANIZ ATION 01/12/2025 [facility] DATE CREATED AUTHOR AUTHOR'S ORGANIZ ATION 01/26/2025 [facility] DATE CREATED AUTHOR AUTHOR'S ORGANIZ ATION 03/16/2025 [facility] DATE CREATED AUTHOR AUTHOR'S ORGANIZ ATION 05/04/2025 [facility] DATE CREATED AUTHOR AUTHOR'S ORGANIZ ATION 05/05/2025 [facility] DATE CREATED AUTHOR AUTHOR'S ORGANIZ ATION 05/13/2025 [facility] REASON FOR VISIT (unrecogniz ed section and content) Reason Comments Suspicious Skin Lesion Reason Comments Follow-up Patient Care team informatio n (unrecognized section [...] Care Provide r, Attending Provider Active Start: November 23, 2024 End: November 23, 2024 Team Status: Inactive Member Role Status Dates Ishmael Jacob , DO Primary Care Provide r, Attending Provider Active Start: March 14, 2025 End: March 14, 2025 Goals (unrecognized section and content) Goals may [...] BE BASED ON THE PRIMARY CLINICAL RECORDS. [facility]. provides no warranty or guarantee of the accuracy or completeness of information in this document.
[2025-07-16 21:40] LABS: Alanine Aminotransferase 67 U/L (16-63); Albumin Globulin Ratio 1.3; Albumin Level 4.8 g/dL (3.4-5.0); Alkaline Phosphatase 135 U/L (46-116); Aspartate Amino Transferase 33 U/L (15-37); Globulin 3.7 g/dL; Lipase 66.0 U/L (16.0-77.0); Total Protein 8.5 g/dL (6.4-8.2)
[2025-07-16] MEDS: METOPROLOL TARTRATE 25 MG TABLET 12.5 MG PO (22:02)
[2025-07-16] MEDS: INSULIN ASPART 300 UNIT/3 ML PEN SUBQ (22:03)
[2025-07-17] VITALS (16 sets, daily range): BP systolic 129–160; BP diastolic 78–90; PULSE 53–64; TEMP 36.6–36.9; O2SAT 92–95
[2025-07-17 05:48] LABS: Hematocrit 49.7 % (42.0-54.0); Hemoglobin 17.3 g/dL (14.0-18.0); Immature Granulocytes Abs Auto 0.00 10^3/uL (0.00-0.03); Immature Granulocytes Pct Auto 0.0 % (0.0-0.5); Lymphocytes Absolute Auto 1.7 10^3/uL (1.2-3.8); Mean Corpuscular HGB Conc 34.8 g/dL (29.9-35.2); Mean Corpuscular Hemoglobin 29.4 pg (25.9-34.0); Mean Corpuscular Volume 84.4 fL (80.0-94.0); Platelet Count 124 10^3/uL (150-450); Red Blood Count 5.89 10^6/uL (4.70-6.10); White Blood Count 6.7 10^3/uL (4.0-11.0)
[2025-07-17 06:18] LABS: Lipase 44.0 U/L (16.0-77.0)
[2025-07-17 06:19] LABS: Alanine Aminotransferase 54 U/L (16-63); Alkaline Phosphatase 88 U/L (46-116); Anion Gap 15.4; Aspartate Amino Transferase 24 U/L (15-37); Blood Urea Nitrogen 17.0 mg/dL (7.0-18.0); Calcium 8.5 mg/dL (8.5-10.1); Carbon Dioxide 24.3 mmol/L (21.0-32.0); Chloride 105 mmol/L (98-107); Estimated GFR (African America >60 (>=60 mL/min/1.73m^2); Estimated GFR (Non-African Ame >60 (>=60 mL/min/1.73m^2); Glucose 158 mg/dL (74-106); Magnesium 2.4 mg/dL (1.8-2.4); Potassium 3.7 mmol/L (3.5-5.1); Sodium 141 mmol/L (136-145); Total Protein 7.0 g/dL (6.4-8.2)
[2025-07-17 06:20] LABS: Albumin Globulin Ratio 1.3; Albumin Level 3.9 g/dL (3.4-5.0); Cholesterol 104 mg/dL (<=200); Globulin 3.1 g/dL; HDL Cholesterol 23 mg/dL (40-60); Triglycerides 232 mg/dL (<=150); VLDL CHOLESTEROL 46.4 mg/dL
--- NOTE | 2025-07-17 07:00 | ECG_ITS ---
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 Measurements Intervals [place] Rate: 53 P: 44 FL: 195 QRS: -19 QRSD: 98 T: -6 QT: 412 QTc: 388 Interpretive Statements SINUS BRADYCARDIA SEPTAL MYOCARDIAL INFARCTION [40+ ms Q WAVE IN V1/V2], OF INDETERMINATE AGE WARNING: DATA QUALITY MAY AFFECT INTERPRETATION Compared to ECG 07/16/2025 17:37:06 Myocardial infarct finding now present Sinus rhythm no longer present Ventricular premature complex(es) no longer present Left-axis deviation no longer present Electronically Signed On 07-17-2025 7:56:49 EDT by YOU BOND M.D.
[2025-07-17] MEDS: INSULIN ASPART 300 UNIT/3 ML PEN SUBQ ×4 (09:11→21:55)
[2025-07-17] MEDS: METOPROLOL TARTRATE 25 MG TABLET 12.5 MG PO ×2 (09:11→21:53)
[2025-07-17] MEDS: ENOXAPARIN SODIUM 40 MG/0.4 ML SYRINGE SUBQ (09:12)
--- NOTE | 2025-07-17 09:51 | DIETREC ---
Recommend Heart Healthy diet.
--- NOTE | 2025-07-17 10:46 | SWNOTE1 ---
Medicare Outpatient Observation Notice reviewed and discussed with patient. Pt. verbalized understanding and signed the form. Original given to patient and copy placed in patient?s chart.
--- NOTE | 2025-07-17 10:46 | SWNOTE1 ---
SW met with pt to discuss dc needs. Pt lives at home with his and is independent. Pt has no anticipated discharge needs at this time. SW to follow as needed.
--- NOTE | 2025-07-17 11:32 | PM.HP ---
HPI H&P: HPI History of Present Illness Chief complaint: CHEST PAINS Narrative: Mr. Meyer is a 64-year-old gentleman who came to the emergency room complaining of moderately severe chest pain. Patient started having hiccups yesterday. Subsequently he developed upper chest pain and discomfort. Quite severe associated with belching. He came to the emergency room for an evaluation. Patient denies any shortness of breath. No hemoptysis. He was coughing some. No fever or chills. Troponin is negative. Chest pain had subsided. CT of the chest and abdomen came back unremarkable for any acute abnormalities. No dissection. No central PE. Again, patient denies any shortness of breath. No tachypnea or hypoxemia.Today, patient is feeling well. Patient reports having 90% blockage in the LAD in 2016 for which she had a stent. Patient had stress test 3 years ago and reported to be unremarkable. Opioid HPI Opioid Management Most Recent Pain and Opioid Data: Last Pain Scale 0 Today, 10:05 Last Pain Assessment 07/16/25, 22:00 Last ORT Total Score 0 07/16/25, 21:30 Last ORT Risk Category Low Risk 07/16/25, 21:30 Review of Systems ROS Status of ROS 10 or more systems reviewed and unremarkable except as noted in history and below PFSH PFSH Medical History (Updated 07/17/25 @ 11:34 by Dorys Hancock MD) Kidney stone ?N20.0 - Calculus of kidney (ICD-10) Surgical History (Updated 07/16/25 @ 22:30 by Lina Garcia RN) History of lithotripsy ?Z98.890 - Other specified postprocedural states (ICD-10) History of hernia repair ?Z98.890 - Other specified postprocedural states (ICD-10) ?Z87.19 - Personal history of other diseases of the digestive system (ICD-10) History of cardiac cath ?Z98.890 - Other specified postprocedural states (ICD-10) History of heart artery stent ?Z95.5 - Presence of coronary angioplasty implant and graft (ICD-10) Family History (Updated 07/16/25 @ 21:41 by Lina Garcia RN) Father Family history of CHF (congestive heart failure) Family history of cancer Family history of myocardial infarction Sister Family history of CHF (congestive heart failure) Mother Family history of hypertension Brother Family history of hypertension Social History (Updated 07/16/25 @ 21:42 by Lina Garcia RN) Within the past year, how often did you have a drink containing alcohol: monthly or less Within the past year, how many standard drinks containing alcohol did you have on a typical day: 1 or 2 Within the past year, how often did you have six or more drinks on one occasion: never Total score: 0 Score interpretation: A score less than 4 is consistent with normal alcohol consumption. Smoking status: Never smoker Non-prescribed substance use: denies use Highest level of school completed/degree received: high school graduate Are you now , , , , never or living with a partner: living with partner Little interest or pleasure in doing things: not at all Feeling down, depressed, or hopeless: not at all Do you think of yourself as: straight/heterosexual Gender Identity: male Meds Home Medications and Allergies Home Medications ?Medication ?Instructions ?Recorded ?Confirmed ?Type amlodipine 10 mg-benazepril 20 mg 1 cap PO DAILY 07/16/25 07/16/25 History capsule aspirin 81 mg tablet 81 mg PO DAILY 07/16/25 07/16/25 History benazepril 10 mg tablet 10 mg PO .QHS 07/16/25 07/17/25 History empagliflozin 25 mg tablet 25 mg PO DAILY 07/16/25 07/16/25 History (Jardiance) gemfibrozil 600 mg tablet 600 mg PO BID 07/16/25 07/16/25 History metformin 1,000 mg tablet 1,000 mg PO BID 07/16/25 07/16/25 History metoprolol succinate 25 mg 25 mg PO DAILY 07/16/25 07/16/25 History tablet,extended release 24 hr omega 2-rmt-qco-fish oil 1,200 mg 1 cap PO BID 07/16/25 07/16/25 History (144 mg-216 mg) capsule (Fish Oil) potassium citrate 15 mEq (1,620 15 meq PO BID 07/16/25 07/16/25 History mg) tablet,extended release rosuvastatin 10 mg tablet 10 mg PO DAILY 07/16/25 07/16/25 History tamsulosin 0.4 mg capsule 0.4 mg PO DAILY 07/16/25 07/16/25 History semaglutide 14 mg tablet (Rybelsus) 14 mg PO DAILY 07/17/25 07/17/25 History Allergies Allergy/AdvReac Type Severity Reaction Status Date / Time No Known Drug Allergies Allergy Verified 07/16/25 17:17 Exam Narrative Exam Narrative: [pt is awake and alert. oriented to place, time and person HEENT: [place] conjunctiva and NL buccal mucosa Neck: Supple, no tenderness Endocrine: No Thyromegaly. Vascular: No JVD or carotid bruit. Lymphatic: No cervical lymphadenopathy. Chest: CTA no DTP. Heart RRR, no extra sound or murmur. Abd: Soft, no tenderness, no rebound and no rigidity. Increase abd girth therefore clinically I could not exclude the possibility of intra abd mass or organomegaly. LE: No cyanosis or clubbing, no varices or edema. Neuro: A A O. Nl speech, comprehension and attention. Nl and symetrical motor and tone examination through out. []] Constitutional Vital Signs, click to edit/add: Last Vital Signs Temp 98.5 F 07/17/25 08:45 Pulse 60 07/17/25 10:00 Resp 16 07/17/25 08:45 BP 160/80 H 07/17/25 08:45 Pulse Ox 94 L 07/17/25 08:45 O2 Del Method Room Air 07/17/25 08:45 Results Labs Labs: Short CBC 07/16/25 07/17/25 Range/Units 17:24 04:46 WBC 8.3 6.7 (4.0-11.0) 10^3/uL Hgb 18.6 H 17.3 (14.0-18.0) g/dL Hct 53.2 49.7 (42.0-54.0) % Plt Count 155 124 L (150-450) 10^3/uL BMP 07/16/25 07/17/25 17:24 04:46 Sodium 139 141 Potassium 3.8 3.7 Chloride 101 105 Carbon Dioxide 21.9 24.3 BUN 24.0 H 17.0 Creatinine 1.18 0.98 Glucose 227 H 158 H Calcium 9.3 8.5 Liver Function 07/16/25 07/17/25 Range/Units 17:24 04:46 Total Bilirubin 0.6 0.9 (0.2-1.0) mg/dL Direct Bilirubin 0.2 (0.0-0.2) mg/dL AST 33 24 (15-37) U/L ALT 67 H 54 (16-63) U/L Alkaline Phosphatase 135 H 88 (46-116) U/L Albumin 4.8 3.9 (3.4-5.0) g/dL Assessment and Plan Assessment and Plan (1) Chest pain: (2) CAD (coronary artery disease): Plan Chest pain as described above. Somewhat atypical cardiac pain. Started after significant hiccups. No shortness of breath. No hypoxemia. No tachypnea. EKG does not show ST elevation or depression. Serial troponins are negative. CT of the chest and abdomen does not show any acute thoracic or abdominal process. No dissection. No central PE Patient is asymptomatic at this time. Patient is known to have CAD. Calcification seen on CT in the LAD. Patient had stent there in 2005. Patient is a diabetic and hypertensive. I discussed various options with patient. Patient wants to go home. I had some hesitation and discomfort with patient going home. No cardiology service available at [facility] today. Cardiology is available tomorrow No justification for transfer to tertiary care center. I talked the patient about doing stress test. He wants to go and have it done in the outpatient setting however patient is going on a trip next Tuesday to [place]. Conversation went [id number]. He is in agreement to have stress test tomorrow morning. Hopefully patient will be seen by cardiology tomorrow as well. Diabetes, hypertension Resume preadmission home medication. Chronic, subacute medical conditions not listed above, abnormal labs and imaging. These would need to be addressed. Could be addressed later on or in the outpatient setting by PCP collaboration with other needed outpatient providers when time and condition are appropriate.
--- NOTE | 2025-07-17 11:40 | CM.NOTE ---
Pt to have nuclear exercise stress test tomorrow. Radiology aware of order. Pt switched to inpatient status.
--- NOTE | 2025-07-17 13:26 | SWNOTE1 ---
Important Message from Medicare reviewed and discussed with patient. Pt. verbalized understanding and signed the form. Original given to patient and copy placed in patient?s chart.
[2025-07-17] MEDS: DAPAGLIFLOZIN 5 MG TABLET 10 MG PO (13:30)
[2025-07-17] MEDS: POTASSIUM CITRATE 10 MEQ ER TABLET PO (13:30)
[2025-07-17] MEDS: ASPIRIN 81 MG TAB.CHEW PO (13:30)
[2025-07-17] MEDS: AMLODIPINE BESYLATE 5 MG TABLET 10 MG PO (13:31)
[2025-07-17] MEDS: TAMSULOSIN HCL 0.4 MG CAPSULE PO (13:31)
[2025-07-17] MEDS: GEMFIBROZIL 600 MG TABLET PO (21:53)
[2025-07-17] MEDS: LISINOPRIL 10 MG TABLET PO (21:53)
[2025-07-18] VITALS (15 sets, daily range): BP systolic 129–169; BP diastolic 69–88; PULSE 52–77; TEMP 36.3–37; O2SAT 94
--- NOTE | 2025-07-18 06:30 | NM_ITS ---
Patient Name: CHELY SIDDIQI MR#: [id number] : 1960 Exam Date: 07/18/2025 Ordering Doctor: R[facility] REPORT PROCEDURE: NM PANKAJ PERF SPECT REST STR COMPARISON: None. INDICATIONS: chest pain TECHNIQUE: Exam Description: Stress/Rest one day protocol gated SPECT Rest Imagin.0 mCi Tc-99m Cardiolite IV on 07/18/2025 Stress Imaging 31.9 mCi Tc-99m Cardiolite IV on 07/18/2025 Exercise Protocol: Josue Heart Rate (bpm): Rest: 71 Max: 134 PMHR: 86 Blood Pressure: Rest: 168/72 Max: 202/90 Exercise Time: Minutes: 7 Seconds: 13 Stage Reached: Stage: 3 Mets 10.1 Symptoms: Rest and peak stress ECG findings were pending and the exercise portion of the study was pending per attending physician [facility] . For more details please see separate cardiac stress test report. FINDINGS: QUALITY OF STUDY: Fair PERFUSION DEFECT: None LOCATION: SIZE: SEVERITY: TYPE: WALL MOTION: Normal LV SIZE: 115 mL. TID / TCD: 0.9 LVEF: Calculated EF 56%. SUMMARY: Myocardial perfusion imaging study CONCLUSION: -No ischemia is noted in myocardial perfusion stress study. -Normal myocardial perfusion study. -Normal global left ventricular function -No transient ischemic dilatation. -ECG Stress will be reported separately Dictated by: Manny Decker MD on 07/18/2025 at 12:29 Approved by: Manny Decker MD on 07/18/2025 at 12:39
--- NOTE | 2025-07-18 07:27 | PM.DS1 ---
DS: Providers Provider Date of admission: 07/17/25 11:36 Primary care physician: Ishmael Jacob DO Consults: 07/17/25 08:04 Consult to Cardiology Routine Reason for consultation: Chest pain DS: Diagnosis Discharge Diagnosis (1) Chest pain: (2) CAD (coronary artery disease): Plan As listed above, below and others that are not listed DS: Summary Hospital Course Hospital Course: Mr. Meyer is a 65-year-old gentleman who came in with chest pain. Chest pain as described above. Somewhat atypical cardiac pain. Started after significant hiccups. No shortness of breath. No hypoxemia. No tachypnea. EKG does not show ST elevation or depression. Serial troponins are negative. CT of the chest and abdomen does not show any acute thoracic or abdominal process. No dissection. No central PE Patient is asymptomatic at this time. Patient is known to have CAD. Calcification seen on CT in the LAD. Patient had stent there in 2005. Patient is a diabetic and hypertensive. I discussed various options with patient. Patient wants to go home. I had some hesitation and discomfort with patient going home. No cardiology service available at [facility] today. Cardiology is available until today 07/18 No justification for transfer to tertiary care center. I talked the patient about doing stress test. He wants to go and have it done in the outpatient setting however patient is going on a trip next Tuesday to [place]. Conversation went [id number]. He is in agreement to have stress test on 07/18 morning. Hopefully patient will be seen by cardiology today as well in the provide further recommendation Patient will be discharged home if stress test negative and cleared by cardiology. Patient is to follow-up with the PCP postdischarge Diabetes, hypertension Resume preadmission home medication. Chronic, subacute medical conditions not listed above, abnormal labs and imaging (please refer to CT report for incidental findings ) . These would need to be addressed. Could be addressed later on or in the outpatient setting by PCP collaboration with other needed outpatient providers when time and condition are appropriate. Patient has multiple complex medical issues as listed above and others that are not listed. All appear to be stable. Patient is chest pain-free. Patient will be discharged home if cleared by cardiology and having a negative stress test today. I do not have any clear or strong clinical justification to extend inpatient hospitalization. Patient however will require close and frequent monitoring as well as additional work-up, investigation and therapeutic intervention that could take place from this point on post discharge. That is to prevent relapse, decompensation, rehospitalization and other medical implications.. I instructed patient to ask her primary care doctor to obtain [facility] record entirely to address abnormalities seen on labs and imaging that I have and have not addressed during this hospitalization, follow-up on pending blood work, imaging and pathology is if available and to follow-up on needed medical care in the outpatient setting. Time Spent with Patient Time attestation: Total time spent providing and/or coordinating discharge services: Time spent: greater than 30 minutes Exam Narrative Exam Narrative: [pt is awake and alert. oriented to place, time and person HEENT: [place] conjunctiva and NL buccal mucosa Neck: Supple, no tenderness Endocrine: No Thyromegaly. Vascular: No JVD or carotid bruit. Lymphatic: No cervical lymphadenopathy. Chest: CTA no DTP. Heart RRR, no extra sound or murmur. Abd: Soft, no tenderness, no rebound and no rigidity. Increase abd girth therefore clinically I could not exclude the possibility of intra abd mass or organomegaly. LE: No cyanosis or clubbing, no varices or edema. Neuro: A A O. Nl speech, comprehension and attention. Nl and symetrical motor and tone examination through out. []] Constitutional Vital Signs, click to edit/add: Last Vital Signs Temp 97.7 F 07/18/25 03:29 Pulse 53 L 07/18/25 06:08 Resp 18 07/18/25 03:29 BP 145/81 H 07/18/25 03:29 Pulse Ox 94 L 07/18/25 03:29 O2 Del Method Room Air 07/18/25 03:29 DS: Data Data Completed and Pending Labs on day of discharge: Labs from last 24 hours 07/17/25 07/17/25 07/17/25 21:21 16:38 12:00 POC Glucose 225 H 144 H 210 H 07/17/25 08:47 POC Glucose 152 H Discharge Plan Discharge Disposition: Home, Self-Care Discharge Medications: Continued amlodipine-benazepril 10-20 mg capsule 1 cap PO DAILY gemfibrozil 600 mg tablet 600 mg PO BID metformin 1,000 mg tablet 1,000 mg PO BID metoprolol succinate 25 mg tablet extended release 24 hr 25 mg PO DAILY rosuvastatin 10 mg tablet 10 mg PO DAILY tamsulosin 0.4 mg capsule 0.4 mg PO DAILY aspirin 81 mg tablet 81 mg PO DAILY Jardiance 25 mg tablet 25 mg PO DAILY omega 2-dfz-boy-fish oil [Fish Oil] 1,200 (144-216) mg capsule 1 cap PO BID Rybelsus 14 mg tablet 14 mg PO DAILY Changed potassium citrate 15 mEq tablet extended release 15 meq PO DAILY Qty: 0 0RF Discontinued benazepril 10 mg tablet 10 mg PO .[facility] Print Language: Spanish Activity Restrictions/Additional Instructions: I may not have addressed or treated all of your medical illnesses or the abnormal blood work or imaging studies during this hospitalization. Please ask your primary care provider to obtain [facility] records entirely to follow up on all of the abnormal physical, laboratory, and imaging findings that I have not addressed. Please return back to the emergency room or seek medical attention if your symptoms worsen or return. Check your blood sugar 3 times a day before meals. Document these numbers on a blood glucose log and bring them with you to your follow-up appointment with your primary care doctor. Communicate with your primary care doctor or store protection specialist if your blood sugar is under 100 or above 300 on 2 consecutive checks. Communicate with your primary care doctor or store protection specialist if you have any questions about your diabetes medications. Signs of a low blood sugar include sweating, racing heart, dizziness and/or weakness. Check your blood sugar if you have any of the symptoms. Discharging you from [facility] does not mean that your medical care ends here and now. You may still need additional monitoring, work up, investigation, and treatment plan to be handled from this point on by out patient providers including your primary care provider and specialists. For any medication question, please contact your retail pharmacist or your primary care provider. Thank you. Forms: Portal Instructions Referrals: Ishmael Jacob DO [Primary Care Provider, Internal Medicine]
--- NOTE | 2025-07-18 08:00 | CM.NOTE ---
Rounds made with Dr. Hancock, pt will have stress test this AM. Possible discharge to home after stress test complete and drying room attendant consults with pt. Pt will f/u with PCP and Cardiology ([facility]).
[2025-07-18] MEDS: ENOXAPARIN SODIUM 40 MG/0.4 ML SYRINGE SUBQ (08:51)
[2025-07-18] MEDS: TAMSULOSIN HCL 0.4 MG CAPSULE PO (08:51)
[2025-07-18] MEDS: METOPROLOL TARTRATE 25 MG TABLET 12.5 MG PO (08:51)
[2025-07-18] MEDS: AMLODIPINE BESYLATE 5 MG TABLET 10 MG PO (08:53)
[2025-07-18] MEDS: DAPAGLIFLOZIN 5 MG TABLET 10 MG PO (08:53)
[2025-07-18] MEDS: GEMFIBROZIL 600 MG TABLET PO (08:53)
[2025-07-18] MEDS: POTASSIUM CITRATE 10 MEQ ER TABLET PO (08:53)
[2025-07-18] MEDS: ASPIRIN 81 MG TAB.CHEW PO (08:55)
--- NOTE | 2025-07-18 10:07 | PC.NURSE ---
Nursing Note Cardiac Stress Test Reviewed: Medication, allergies and patient history reviewed. Stress Test: [x ] Patient tolerated stress test well. [ ] Patient unable to tolerate walking on treadmill. Switched to Lexiscan stress test. [x ] No chest pain noted per patient [ ] Chest pain that resolved prior to leaving stress lab. [ ] No dyspnea noted. [x ] Dyspnea that resolved prior to leaving stress lab. [x ] Patient left stress lab asymptomatic and hemodynamically stable. [ ] Patient taken to the Emergency Room due to non-resolving symptoms following stress test. [x ] Patient achieved target heart rate. [ ] Patient unable to achieve target heart rate. [ ] Aminophylline administered as reversal agent to Lexiscan (Regadenoson). [ ] Nitro administered. Nursing Comments:Pt tolerated test well. No CP noted but had SOB and some leg pain from the incline. Pt recovered within 4 minutes of rest. Pt was taken back up to [place] room via wheelchair after test.
[2025-07-18] MEDS: INSULIN ASPART 300 UNIT/3 ML PEN SUBQ ×2 (12:52→16:55)
--- NOTE | 2025-07-18 17:58 | PM.CACN ---
History of Present Illness History of Present Illness Consult date: 07/18/25 Requesting physician: Yen Fulton Consult reason: chest pain Chief complaint: CHEST PAINS Narrative: Patient is a 64 y/o M with known cardiac hx of CAD s/p LAD stent, HTN, HLD, NSVT who presented to [facility] with c/o chest pain. Sx's started after he was eating deli meat. He notes shortly after he ate he developed hiccups that then turned into upper chest pain. Pain felt like a squeezing sensation. He tried to take 2 baby ASA but he had trouble with this as it was causing him to gag and cough but he was able to get them down eventually. He then came to the ER where he received 2 additional doses of baby ASA and sx's resolved. EKG's showed occasional PVCs, but no ischemic changes. Troponin was negative x3. No further sx's of chest pain since his admission. Patient underwent a stress test this AM. Nuclear portion showed no evidence of ischemia. Pending EKG portion of stress test results. Pt states he feels well. Denies c/o CP, dyspnea, orthopnea, PND, LE edema, dizziness/LH, palpitations. Review of Systems ROS Status of ROS 10 or more systems reviewed and unremarkable except as noted in history and below Cardiovascular Reports: chest pain [facility] Medical History (Updated 07/17/25 @ 11:34 by Dorys Hancock MD) Kidney stone ?N20.0 - Calculus of kidney (ICD-10) Surgical History (Updated 07/16/25 @ 22:30 by Lina Garcia RN) History of lithotripsy ?Z98.890 - Other specified postprocedural states (ICD-10) History of hernia repair ?Z98.890 - Other specified postprocedural states (ICD-10) ?Z87.19 - Personal history of other diseases of the digestive system (ICD-10) History of cardiac cath ?Z98.890 - Other specified postprocedural states (ICD-10) History of heart artery stent ?Z95.5 - Presence of coronary angioplasty implant and graft (ICD-10) Family History (Updated 07/16/25 @ 21:41 by Lina Garcia RN) Father Family history of CHF (congestive heart failure) Family history of cancer Family history of myocardial infarction Sister Family history of CHF (congestive heart failure) Mother Family history of hypertension Brother Family history of hypertension Social History (Updated 07/16/25 @ 21:42 by Lina Garcia RN) Within the past year, how often did you have a drink containing alcohol: monthly or less Within the past year, how many standard drinks containing alcohol did you have on a typical day: 1 or 2 Within the past year, how often did you have six or more drinks on one occasion: never Total score: 0 Score interpretation: A score less than 4 is consistent with normal alcohol consumption. Smoking status: Never smoker Non-prescribed substance use: denies use Highest level of school completed/degree received: high school graduate Are you now , , , , never or living with a partner: living with partner Little interest or pleasure in doing things: not at all Feeling down, depressed, or hopeless: not at all Do you think of yourself as: straight/heterosexual Gender Identity: male Meds Home Medications and Allergies Home Medications ?Medication ?Instructions ?Recorded ?Confirmed ?Type amlodipine 10 mg-benazepril 20 mg 1 cap PO DAILY 07/16/25 07/16/25 History capsule aspirin 81 mg tablet 81 mg PO DAILY 07/16/25 07/16/25 History empagliflozin 25 mg tablet 25 mg PO DAILY 07/16/25 07/16/25 History (Jardiance) gemfibrozil 600 mg tablet 600 mg PO BID 07/16/25 07/16/25 History metformin 1,000 mg tablet 1,000 mg PO BID 07/16/25 07/16/25 History metoprolol succinate 25 mg 25 mg PO DAILY 07/16/25 07/16/25 History tablet,extended release 24 hr omega 9-huk-ova-fish oil 1,200 mg 1 cap PO BID 07/16/25 07/16/25 History (144 mg-216 mg) capsule (Fish Oil) rosuvastatin 10 mg tablet 10 mg PO DAILY 07/16/25 07/16/25 History tamsulosin 0.4 mg capsule 0.4 mg PO DAILY 07/16/25 07/16/25 History semaglutide 14 mg tablet (Rybelsus) 14 mg PO DAILY 07/17/25 07/17/25 History isosorbide mononitrate 30 mg 30 mg PO DAILY #30 tabs 07/18/25 Rx tablet,extended release 24 hr nitroglycerin 0.4 mg sublingual 0.4 mg sublingual Q5M PRN chest 07/18/25 Rx tablet pain #20 tabs potassium citrate 15 mEq (1,620 15 meq PO DAILY #0 tabs 07/18/25 07/16/25 Rx mg) tablet,extended release Allergies Allergy/AdvReac Type Severity Reaction Status Date / Time No Known Drug Allergies Allergy Verified 07/16/25 17:17 Exam Constitutional Vital Signs, click to edit/add: Last Vital Signs Temp 97.3 F L 07/18/25 15:59 Pulse 64 07/18/25 17:54 Resp 18 07/18/25 15:59 BP 129/83 07/18/25 15:59 Pulse Ox 94 L 07/18/25 15:59 O2 Del Method Room Air 07/18/25 15:59 Common normals: no apparent distress, oriented x3 and alert HENMT Common normals: normocephalic and head/scalp atraumatic Eye Common normals: EOMs intact bilaterally and conjunctivae normal Neck & C-Spine Common normals: full ROM and supple Chest Common normals: inspection of chest normal Respiratory Common normals: normal respiratory effort, no retractions, no use of accessory muscles and clear to auscultation bilaterally Cardio Common normals: no JVD, regular rate, regular rhythm, S1 normal heart sound, S2 normal heart sound, no gallops, no clicks and no murmurs Peripheral pulses: radial pulses present and posterior tibial pulses present GI Common normals: Normal to inspection, nondistended, normoactive bowel sounds present Extremity Common normals: normal to inspection, full ROM and no clubbing, cyanosis or edema Neuro Common normals: oriented x3 and moves all extremities Results Labs and Meds Lab results: Intake and Output 07/18/25 07/18/25 07/18/25 07:59 15:59 23:59 Intake Total 1000 / 1000 Balance 1000 / 1000 Intake: IV 1000 / 1000 Lactated Ringer's Solution 1, 1000 / 1000 000 ml @ 75 mls/hr IV .[id number] JORDYN Rx#:[id number] Other: # Voids 1 Assessment and Plan Assessment and Plan (1) Chest pain: (2) CAD (coronary artery disease): Plan #Chest pain, atypical #CAD s/p PCI LAD, noted to have 60% stenosis on OM1 per 2022 cath -Chest pain sx's atypical for cardiac etiology. Troponin negative x3. No ischemic changes. -Stress test completed today. Nuclear portion showed no evidence of ischemia, pending results from EKG portion. -CP sx's may be related to coronary or esophageal spasms. Will order for Imdur 30mg daily - discussed potential s/e of headaches with pt. He will let us know if this bothers him. Also recommend discharging him with PRN nitro. -Continue ASA, statin, BB #HTN -BP significantly elevated during stress test today -He notes BP readings at home of 130-140s/70-80s. -Starting imdur as noted above which can also help BP. -BP currently controlled. -Continue other BP medications as well. #HLD -On gemfibrozil and rosuvastatin Please let us know if you have any further questions or concerns. Thank you. Jinny Rodriguez APRN-[facility] Cardiovascular Medicine
--- NOTE | 2025-07-18 18:39 | PC.NURSE ---
Saline locked discont., right AC. Catheter intact. Pt tolerated well.
--- NOTE | 2025-07-19 10:40 | PM.STRESS ---
Stress Test Stress Test Allergies Allergy/AdvReac Type Severity Reaction Status Date / Time No Known Drug Allergies Allergy Verified 07/16/25 17:17 Requesting physician: Dorys Hancock Procedure: Treadmill nuclear stress test General Information: Reason for Stress Test: [Chest pain] Cardiac History and Risk Factors: [Hypertension, hyperlipidemia, diabetes mellitus, gender, history of cardiovascular disease] Resting 12 - Lead Electrocardiogram: Resting twelve-lead EKG showed normal sinus rhythm, heart rate 67 bpm, normal EKG. Resting blood pressure 168/72 mmHg Patient was exercised according to standard Josue protocol and he was able to finish 7 minutes and 13 seconds consistent with stage III, achieving max 10.10 METS peak heart rate of 134 bpm which represents 86% of age-predicted maximum heart rate and max blood pressure 202/90 mmHg. Exercise was terminated secondary to achievement target heart rate. Patient was short of breath at peak exercise. The patient did not experience any chest neck jaw or arm discomfort. Patient was monitored up to 6 minutes into recovery phase with heart rate back to 81 bpm and blood pressure to 164/82 mmHg EKG during exercise, at peak exercise, and during recovery phase did not show significant ST changes. Few isolated PVCs were noted Stress Test: Protocol: [Josue] Exercise Capacity: [Normal] Blood Pressure Response: [Resting hypertension with exaggerated hypertensive response] Rhythm: [Sinus rhythm, few isolated PVCs noted] ST - Response: [No change] Patient Response: [No chest pain] Interpretation: Maximal stress test achieving 86% of age-predicted maximum heart rate Normal exercise tolerance Resting hypertension with exaggerated hypertensive response to exercise The stress test is negative for exercise-induced ischemic symptoms or EKG changes. Few isolated PVCs were noted. The nuclear myocardial perfusion images result is reported separately Jamel Fitzpatrick MD, FACC
--- NOTE | 2025-07-19 12:29 | CM.DCFOLLOWU ---
1st attempt 07/19/25, no answer
== END 2025-07-18 18:27 | disposition home or self-care (01) | DRG 303 ==
LOC: ER 20:18 → MS 21:22
PROVIDERS: Student in an Organized Health Care Education/Training Program; Admitting Provider Internal Medicine; Emergency Provider Internal Medicine; PCP Internal Medicine; Visit Provider Internal Medicine
DX: I25.10 Atherosclerotic heart disease of native coronary artery without angina pectoris (principal); R07.89 Other chest pain; I10 Essential (primary) hypertension; Z95.5 Presence of coronary angioplasty implant and graft; Z79.82 Long term (current) use of aspirin; Z79.84 Long term (current) use of oral hypoglycemic drugs; Z79.899 Other long term (current) drug therapy; Z87.442 Personal history of urinary calculi; E11.65 Type 2 diabetes mellitus with hyperglycemia; K80.20 Calculus of gallbladder without cholecystitis without obstruction; N28.1 Cyst of kidney, acquired; E78.5 Hyperlipidemia, unspecified
CPT/HCPCS: 36415; 71046; 71275; 74174; 78452; 80048; 80053; 80061; 80076; 82948; 83690; 83735; 84484; 85025; 85610; 85730; 93005; 93017; 99285; A9500; G0378; J1650; Q9967

== ENCOUNTER 2025-07-29 06:52 | Outpatient (OUT) | payer MEDICARE, SELFPAY ==
--- OUTSIDE RECORDS SUMMARY | 2025-07-29 06:55 | XMS_ITS | CCD ---
Author Organization [facility] CliniSywa Care Team Providers Care Dried Fruit Washer Name Role Phone PHYSICIAN, DEFAULT Unavailable Unavailable PHYSICIAN, DEFAULT Unavailable EVIN Barreto Unavailable Unavailable ISHMAEL JACOB Primary Care Physician Elsy, Ishmael Unavailable LEV GARCIA Consulting Unavailable [...] ABDALLA Attending Unavailable LueReba MPrabhu Attending Unavailable LueReba Attending Unavailable MD VLADIMIR PALMER Admitting Unav ailable MD VLADIMIR PALMER Attending Unav ailable Reba Larios Admitting Unavailable [...] HMG-CoA reductase inhibitor Drug allergy 3 Unknown [employer] Other (5 sources) Other Allergy to substance 5 Other [facility] Healthcare (1 source) Hmg-Coa Reductase Inhibitors (Statins); Translations: [KDBUEBR-NUH-ST A REDUCTASE INHIBITORS] Propensity to adverse reactions to drug (disorder) 3 [facility] Repository Medications Current Medications Medication [...] Status: Ordered take 1 capsule by mo cox monett once daily Fish Oil 1200 MG 1 [...] Date: 02/15/22 Status: Ordered Repeat number: 1 [place] 0-Gok-Qsx-Fish Oil (Fish Oil) 1,200 (144-216) mg capsule (4 sources) Start: 03-12-2024 take 1 capsule by mouth once daily [place] 7-Xxo-Edx-Fish Oil (Fish Oil) 1,200 (144-216) mg capsule Active 1 CAP PO Daily March 11, 2024 11:00pm Start: 03-12-2024 take 1 capsule by mo cox monett once daily [place] 6-Yni-Qel-Fish Oil (Fish Oil) 1,200 (144-216) mg capsule [...] BID, # 120 tab(s), Refills(s) 6, Pharmacy: [facility]/pharmacy #[id number], 185, cm, 01/30/25 8:17:00 EDT, Height/Length [...] Coronary arteriosclerosis; 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 Language Information Language assistance services are available as needed. Normal [facility] BMPon 05-03-2025 Anion gap [Moles/Vol] 13 mmol/L Normal 6-16 [facility] Comment on above: Performed By: #### 2 [id number] #### [facility] [address] [place] [address] BUN/Creat Ratio 17 No Units Normal 10-20 [facility] Comment on above: Performed By: #### 2 [id number] #### [facility] [address] [place] [address] Calcium [Mass/Vol] 9.8 mg/dL Normal 8.9-11.1 [facility] Comment on above: Performed By: #### 2 [id number] #### [facility] [address] [place] [address] Chloride [Moles/Vol] 99 mmol/L Low 101-111 [facility] Comment on above: Performed By: #### 2 [id number] #### [facility] [address] [place] [address] CO2 [Moles/Vol] 24 mmol/L Normal 21-31 [facility] Comment on above: Performed By: #### 2 [id number] #### [facility] [address] [place] [address] Creatinine [Mass/Vol] 1.1 mg/dL Normal 0.5-1.3 [facility] Comment on above: Performed By: #### 2 [id number] #### [facility] [address] [place] [address] Glucose [Mass/Vol] 218 mg/dL High 55-199 [facility] Comment on above: Performed By: #### 2 [id number] #### [facility] [address] [place] [address] Potassium [Moles/Vol] 4.1 mmol/L Normal 3.5-5.3 [facility] Comment on above: Performed By: #### 2 [id number] #### [facility] [address] [place] [address] Sodium [Moles/Vol] 132 mmol/L Low 135-145 [facility] Comment on above: Performed By: #### 2 [id number] #### [facility] [address] [place] [address] Urea nitrogen [Mass/Vol] 19 mg/dL Normal 5-21 [facility] Comment on above: Performed By: #### 2 [id number] #### [facility] [address] [place] [address] eGFRon 05-03-2025 eGFR 75 mL/min/1.73 m2 Normal >=59 [facility] Comment on above: Performed By: #### 1 [id number] #### [facility] [address] [place] [address] Ambulatory Visit Summaryon 0 05-01-2025 Ambulatory Visit [...] MAY, Reba Smith Where: [facility] [address] [place] [address]- Medications What How Much When Instructions Unchanged [...] signed up for this yet, please contact [employer] at [phone] to get signed up today. Language Information Language assistance services are available as needed. Kathrine [facility] Ambulatory Visit Summaryon 0 01-30-2025 [...] AM EDT With: Where: [facility] [address] [place] [address]- Tuesday2025 8:00 AM EST With: Reba Larios MD Where: [facility] [address] [facility] [place] [address]- You Need to Schedule the Following Appointments [...] specific in (more content not included)... Normal [facility] Reminderson 01-30-2025 Reminders Reminders From: Debbi Webster To: MEGHAN Larios; Sent: 01/30/2025 08:33:59 EDT Show up: 10/01/2025 07:33:00 EST Subject: FLORENCIO at [facility] Due Date/Time: 10/01/2025 07:33:00 EST Reminder Message FLORENCIO prior to appt in 10/2025. [facility]. Oder placed. Normal [facility] Urology Office/Clinic Noteon 01-30-2025 Urology [...] 2023) - 90% Uric Acid, 10% CaOx Mcduffie. No longer taking HCTZ for blood pressure [...] dosage to 30mEq bid. -Fluids, lemon and/or wy[place] as tolerated, moderate animal proteins -Potassium citrate [...] oral capsul (more content not included)... Normal [facility] Comment on above: Result Comment: Elec tronically Signed By: Reba Larios MD\.br\Date and Time Signed: 01/30/25 08:33 EDT\.br\Electronically Co-Signed By: Debbi Webster\.br\Date and Time Co-Signed: 01/30/25 08:26 EDT\.br\Electronically Co-Signed By: Debbi Webster\.br\Date and Time Co-Signed: 01/30/25 08:28 EDT BMPon 01-23-2025 Anion gap [Moles/Vol] 15 mmol/L Normal 6-16 [facility] Comment on above: Performed By: #### 2 [id number] #### [facility] [address] [place] [address] Calcium [Mass/Vol] 9.2 mg/dL Normal 8.9-11.1 [facility] Comment on above: Performed By: #### 2 [id number] #### [facility] [address] [place] [address] Chloride [Moles/Vol] 101 mmol/L Normal 101-111 [facility] Comment on above: Performed By: #### 2 [id number] #### [facility] [address] [place] [address] CO2 [Moles/Vol] 22 mmol/L Normal 21-31 [facility] Comment on above: Performed By: #### 2 [id number] #### [facility] [address] [place] [address] Creatinine [Mass/Vol] 1.0 mg/dL Normal 0.5-1.3 [facility] Comment on above: Performed By: #### 2 [id number] #### [facility] [address] [place] [address] Glucose [Mass/Vol] 264 mg/dL High 55-199 [facility] Comment on above: Performed By: #### 2 [id number] #### [facility] [address] [place] [address] Potassium [Moles/Vol] 4.2 mmol/L Normal 3.5-5.3 [facility] Comment on above: Performed By: #### 2 [id number] #### [facility] [address] [place] [address] Sodium [Moles/Vol] 134 mmol/L Low 135-145 [facility] Comment on above: Performed By: #### 2 [id number] #### [facility] [address] [place] [address] Urea nitrogen [Mass/Vol] 19 mg/dL Normal 5-21 [facility] Comment on above: Performed By: #### 2 [id number] #### [facility] [address] [place] [address] Urea nitrogen/Creatinine [Mass ratio] 19 No Units Normal 10-20 [facility] Comment on above: Performed By: #### 2 [id number] #### [facility] [address] [place] [address] CHEMISTRYOrdered By: SYSTEM SYSTEM on 01-23-2025 Anion [...] 01-23-2025 eGFR 84 mL/min/1.73 m2 Normal >=59 [facility] Comment on above: Performed By: #### 1 [id number] #### [facility] [address] [place] [address] No Panel Informationon 01-09 [facility] No Panel Informationon 12-06 Type of biopsy: [...] taken Amount of lidocaine used: 0.3 cc [facility] Office Visiton 12-06-2024 Follow-up visit [id number] Renay Meyer 1960 M Date Provider Department Center 12/06/2024 [facility] Family History Problem Relation Age of Onset Hypertension Mother Hyperlipidemia Mother Coronary artery disease Father Leukemia Father Hypertension Father Hyperlipidemia Father Family Status - Relation Status Age at Mother Father Level of Service:87112 [place] OFFICE/OUTPATIENT ESTABLISHED LOW MDM 20 MIN Reason for Visit and Comments: Hypertension [900742] Coronary Artery Disease [187] Hyperlipidemia [182] Normal [facility] Ambulatory Visit Summaryon 0 10-31-2024 [...] AM EDT With: Where: [facility] [address] [address]- Tuesday 8:00 AM EDT With: Reba Larios MD Where: [facility] [address] [place] [address]- You Need to Schedule the Following Appointments [...] times a day Refills: 11 Pickup at [facility]/pharmacy #[id number] Unchanged amlodipine-benazepril (amlodipine-benazepril 10 mg-20 mg [...] physician if questions or concerns Pharmacy Information [facility]/pharmacy #[id number]: [address] [place] [id number] [phone] Allergies No Known Allergies Problems Ongoing - [...] Wilman (more content not included)... Normal [facility] Urology Office/Clinic Noteon 10-31-2024 Urology Office/Clinic Note [...] 2023) - 90% Uric Acid, 10% CaOx Mcduffie Discussed metabolic workup and medical management of [...] w/o Microscopy (more content not included)... Normal [facility] Comment on above: Result Comment: Elec tronically Signed By: Reba Larios MD\.br\Date and Time Signed: 10/31/24 10:08 EST\.br\Electronically Co-Signed By: Yolanda Zheng\.br\Date and Time Co-Signed: 10/31/24 09:44 EST CBC AUTO DIFFon 02-04-2023 BASO # 0.0 103/ul Normal 0.0-0.1 [facility] Comment on above: Performed By: #### C BC #### [facility] [address] [place] [address] [address] Linda Duran Basophils/100 WBC (Bld) 0.4 % Normal 0.2-2.0 [facility] Comment on above: Performed By: #### C BC #### [facility] [address] [place] [address] [address] Linda Duran EO # 0.1 103/ul Normal 0.0-0.7 [facility] Comment on above: Performed By: #### C BC #### [facility] [address] [place] [address] Dr. Linda Duran Eosinophils/100 WBC (Bld) 2.0 % Normal 0.9-7.0 [facility] Comment on above: Performed By: #### C BC #### [facility] [address] [place] [address] Dr. Linda Duran Erythrocyte distribution width (RBC) [Ratio] 12.5 % Normal 11.0-15.0 [facility] Comment on above: Performed By: #### C BC #### [facility] [address] [place] [address] Dr. Linda Duran Hematocrit (Bld) [Volume fraction] 43.9 % Normal 42.0-54.0 [facility] Comment on above: Performed By: #### C BC #### [facility] [address] [place] [address] Dr. Linda Duran Hemoglobin (Bld) [Mass/Vol] 15.0 g/dL Normal 14.0-18.0 [facility] Comment on above: Performed By: #### C BC #### [facility] [address] [place] [address] Dr. Linda Duran IG # 0.01 10e3/ul Normal 0.00-0.03 [facility] Comment on above: Performed By: #### C BC #### [facility] [address] [place] [address] Dr. Linda Duran IG % 0.1 % Normal 0.0-0.5 [facility] Comment on above: Performed By: #### C BC #### [facility] [address] [place] [address] Dr. Linda Duran LYMPH # 2.2 103/ul Normal 1.2-3.8 [facility] Comment on above: Performed By: #### C BC #### [facility] [address] [place] [address] Dr. Linda Duran Lymphocytes/100 WBC (Bld) 30.6 % Normal 20.5-60.0 [facility] Comment on above: Performed By: #### C BC #### [facility] [address] [place] [address] Dr. Linda Duran MANUAL DIFF REQ NO Normal [facility] Comment on above: Performed By: #### C BC #### [facility] [address] [place] [address] Dr. Linda Duran MCH (RBC) [Entitic mass] 29.3 pg Normal 25.9-34.0 [facility] Comment on above: Performed By: #### C BC #### [facility] [address] [place] [address] Dr. Linda Duran MCHC (RBC) [Mass/Vol] 34.2 g/dL Normal 29.9-35.2 [facility] Comment on above: Performed By: #### C BC #### [facility] [address] [place] [address] Dr. Linda Duran MCV (RBC) [Entitic vol] 85.7 fL Normal 80.0-94.0 [facility] Comment on above: Performed By: #### C BC #### [facility] [address] [place] [address] Dr. Linda Duran MONO # 0.9 103/ul Critically high 0.3-0.8 [facility] Comment on above: Performed By: #### C BC #### [facility] [address] [place] [address] Dr. Linda Duran Monocytes/100 WBC (Bld) 12.0 % Normal 1.7-12.0 [facility] Comment on above: Performed By: #### C BC #### [facility] [address] [place] [address] Dr. Linda Duran NEUT # 3.9 103/ul Normal 1.4-6.5 [facility] Comment on above: Performed By: #### C BC #### [facility] [address] [place] [address] Dr. Linda Duran Neutrophils/100 WBC (Bld) 54.9 % Normal 43.0-75.0 [facility] Comment on above: Performed By: #### C BC #### [facility] [address] [place] [address] Dr. Linda Duran Platelet mean volume (Bld) [Entitic vol] 10.3 fL Normal 9.5-13.5 [facility] Comment on above: Performed By: #### C BC #### [facility] [address] [place] [address] Dr. Linda Duran PLT 163 103/ul Normal 150-450 [facility] Comment on above: Performed By: #### C BC #### [facility] [address] [place] [address] Dr. Linda Duran RBC 5.12 106/ul Normal 4.70-6.10 [facility] Comment on above: Performed By: #### C BC #### [facility] [address] [place] [address] Dr. Linda Duran WBC 7.1 103/ul Normal 4.0-11.0 [facility] Comment on above: Performed By: #### C BC #### [facility] [address] [place] [address] Dr. Linda Duran PROF CHEM 8 (BAS METB)on Anion gap [Moles/Vol] 12.0 mmol/L Normal [facility] Comment on above: Performed By: #### B MP #### [facility] [address] [place] [address] Dr. Linda Duran Calcium [Mass/Vol] 9.2 mg/dL Normal 8.5-10.1 [facility] Comment on above: Performed By: #### B MP #### [facility] [address] [place] [address] Dr. Linda Duran Chloride [Moles/Vol] 101 mmol/L Normal 98-107 [facility] Comment on above: Performed By: #### B MP #### [facility] [address] [place] [address] Dr. Linda Duran CO2 [Moles/Vol] 30.0 mmol/L Normal 21.0-32.0 [facility] Comment on above: Performed By: #### B MP #### [facility] [address] [place] [address] Dr. Linda Duran Creatinine [Mass/Vol] 1.13 mg/dL Normal 0.70-1.30 [facility] Comment on above: Performed By: #### B MP #### [facility] [address] [place] [address] [address] Linda Duran EGFR-AF EGYPTIAN >60 Normal >=60 [facility] Comment on above: Performed By: #### B MP #### [facility] [address] [place] [address] [address] Linda Duran EGFR-NON AF EGYPTIAN >60 Normal >=60 [facility] Comment on above: Performed By: #### B MP #### [facility] [address] [place] [address] [address] Linda Duran Glucose [Mass/Vol] 154 mg/dL Critically high 74-106 [facility] Comment on above: Performed By: #### B MP #### [facility] [address] [place] [address] Dr. Linda Duran Potassium [Moles/Vol] 4.0 mmol/L Normal 3.5-5.1 [facility] Comment on above: Performed By: #### B MP #### [facility] [address] [place] [address] Dr. Linda Duran Sodium [Moles/Vol] 139 mmol/L Normal 136-145 [facility] Comment on above: Performed By: #### B MP #### [facility] [address] [place] [address] [address] Linda Duran Urea nitrogen [Mass/Vol] 30.0 mg/dL Critically high 7.0-18.0 [facility] Comment on above: Performed By: #### B MP #### [facility] [address] [place] [address] [address] Linda Duran Urea nitrogen/Creatinine [Mass ratio] 26.5 mg/mg Normal [facility] Comment on above: Performed By: #### B MP #### [facility] [address] [place] [address] Dr. Linda Duran NM STRESS/REST MULTIon 12-16 NM STRESS/REST MULTI Patient: STONEY MEYER Exam Date: 12/16/2022 : 1960 Gender:M Ordering : DR ISHMAEL JACOB D.O. Admission #: [id number] Family : Order #: [id number] CLICK HERE TO VIEW EXAM RADIOLOGY REPORT [...] Salomon M.D. on 12/17/2022 at 06:45 Normal [facility] ECHOCARDIO M/2D COMPLETEon 0 12-07-2022 ECHOCARDIO M/2D COMPLETE Patient Name Site Name CHELY MEYER [facility] Account No Medical Record Number Age Sex Date Time [id number] [facility]:[id number] M 12/07/2022 07:28 At the Request [...] Sanford M.D. on 12/07/2022 at 19:05 Normal [facility] XR CHEST 2 Von 11-06-2022 XR CHEST [...] by: KENYETTA WINKLER Date: 2022-11-06 10:56 Normal [facility] US KIDNEYS BLADDERon 06-19- 022 US KIDNEYS [...] KENYETTA WINKLER Date: 2022-06-19 11:28 Normal [facility] XR KUB 1 VIEWon 06-19-2022 XR [...] KENYETTA WINKLER Date: 2022-06-19 11:30 Normal [facility] TOTALBILIRUBINon 03-14-2022 Bilirubin [Mass/Vol] 0.8 mg/dL Normal 0.0-1.2 [facility] Comment on above: Performed By: #### T BILLC #### [facility] [address] [place] [address] Dr. Linda Duran CBC AUTO DIFFon 03-13-2022 BASO # 0.0 103/ul Normal 0.0-0.1 [facility] Comment on above: Performed By: #### C BC #### [facility] [address] [place] [address] Dr. Linda Duran Basophils/100 WBC (Bld) 0.6 % Normal 0.2-2.0 [facility] Comment on above: Performed By: #### C BC #### [facility] [address] [place] [address] Dr. Linda Duran EO # 0.2 103/ul Normal 0.0-0.7 [facility] Comment on above: Performed By: #### C BC #### [facility] [address] [place] [address] Dr. Linda Duran Eosinophils/100 WBC (Bld) 3.3 % Normal 0.9-7.0 [facility] Comment on above: Performed By: #### C BC #### [facility] [address] [place] [address] Dr. Linda Duran Erythrocyte distribution width (RBC) [Ratio] 12.1 % Normal 11.0-15.0 [facility] Comment on above: Performed By: #### C BC #### [facility] [address] [place] [address] Dr. Linda Duran Hematocrit (Bld) [Volume fraction] 43.5 % Normal 42.0-54.0 [facility] Comment on above: Performed By: #### C BC #### [facility] [address] [place] [address] Dr. Linda Duran Hemoglobin (Bld) [Mass/Vol] 15.5 g/dL Normal 14.0-18.0 [facility] Comment on above: Performed By: #### C BC #### [facility] [address] [place] [address] Dr. Linda Duran IG # 0.01 10e3/ul Normal 0.00-0.03 [facility] Comment on above: Performed By: #### C BC #### [facility] [address] [place] [address] Dr. Linda Duran IG % 0.2 % Normal 0.0-0.5 [facility] Comment on above: Performed By: #### C BC #### [facility] [address] [place] [address] Dr. Linda Duran LYMPH # 1.5 103/ul Normal 1.2-3.8 [facility] Comment on above: Performed By: #### C BC #### [facility] [address] [place] [address] Dr. Linda Duran Lymphocytes/100 WBC (Bld) 28.5 % Normal 20.5-60.0 [facility] Comment on above: Performed By: #### C BC #### [facility] [address] [place] [address] Dr. Linda Duran MANUAL DIFF REQ NO Normal [facility] Comment on above: Performed By: #### C BC #### [facility] [address] [place] [address] Dr. Linda Duran MCH (RBC) [Entitic mass] 29.8 pg Normal 25.9-34.0 [facility] Comment on above: Performed By: #### C BC #### [facility] [address] [place] [address] Dr. Linda Duran MCHC (RBC) [Mass/Vol] 35.6 g/dL Critically high 29.9-35.2 [facility] Comment on above: Performed By: #### C BC #### [facility] [address] [place] [address] Dr. Linda Duran MCV (RBC) [Entitic vol] 83.7 fL Normal 80.0-94.0 [facility] Comment on above: Performed By: #### C BC #### [facility] [address] [place] [address] Dr. Linda Duran MONO # 0.6 103/ul Normal 0.3-0.8 [facility] Comment on above: Performed By: #### C BC #### [facility] [address] [place] [address] Dr. Linda Duran Monocytes/100 WBC (Bld) 11.1 % Normal 1.7-12.0 [facility] Comment on above: Performed By: #### C BC #### [facility] Laboratory [address] [place] [address] Dr. Linda Duran NEUT # 2.9 103/ul Normal 1.4-6.5 [facility] Comment on above: Performed By: #### C BC #### [facility] [address] [place] [address] Dr. Linda Duran Neutrophils/100 WBC (Bld) 56.3 % Normal 43.0-75.0 [facility] Comment on above: Performed By: #### C BC #### [facility] [address] [place] [address] Dr. Linda Duran Platelet mean volume (Bld) [Entitic vol] 10.7 fL Normal 9.5-13.5 [facility] Comment on above: Performed By: #### C BC #### [facility] [address] [place] [address] Dr. Linda Duran PLT 148 103/ul Critically low 150-450 [facility] Comment on above: Performed By: #### C BC #### [facility] [address] [place] [address] Dr. Linda Duran RBC 5.20 106/ul Normal 4.70-6.10 [facility] Comment on above: Performed By: #### C BC #### [facility] [address] [place] [address] Dr. Linda Duran WBC 5.1 103/ul Normal 4.0-11.0 [facility] Comment on above: Performed By: #### C BC #### [facility] [address] [place] [address] Dr. Linda Duran GLYCOHEMOGLOBIN A1Con 2021 ADA RECOMMENDATION SEE BELOW Normal [facility] Comment on above: Result Comment: ADA RECOMMENDED LIMIT 4.0 - 6.0 ADA THERAPEUTIC TARGET < 7.0 ACTION SUGGESTED > 7.0 Performed By: #### A 1C #### [facility] [address] [place] [address] Dr. Linda Duran Glucose [Mass/Vol] 180 mg/dL Normal [facility] Comment on above: Performed By: #### A 1C #### [facility] [address] [place] [address] Dr. Linda Duran HbA1c (Bld) [Mass fraction] 7.9 % Critically high 4.5-6.2 [facility] Comment on above: Performed By: #### A 1C #### [facility] [address] [place] [address] Dr. Linda Duran LIPID PROFILEon 03-13-2022 CHOL-HDL RATIO NORM SEE BELOW Normal [facility] Comment on above: Result Comment: 3.3 - 4.4 LOW RISK 4.4 - 7.1 AVERAGE RISK 7.1 - 11.0 MODERATE RISK >11.0 HIGH RISK Performed By: #### L IPID, CMP ####[facility] [address] [id number]. Linda Duran Cholesterol [Mass/Vol] 137 mg/dL Normal <=200 [facility] Comment on above: Performed By: #### L IPID, CMP ####[facility] [address] [id number]. Linda Duran Cholesterol in HDL [Mass/Vol] 22 mg/dL Critically low 40-60 [facility] Comment on above: Performed By: #### L IPID, CMP ####[facility] [address] [place] [id number]. Linda Duran Cholesterol in LDL [Mass/Vol] 57.2 mg/dL Normal [facility] Comment on above: Performed By: #### L IPID, CMP ####[facility] [address] [address]Dr. Linda Duran Cholesterol.total/Ch olesterol in HDL [Mass ratio] 6.2 {ratio} Normal [facility] Comment on above: Performed By: #### L IPID, CMP ####[facility] [address] [place] [id number]. Linda Duran HDL NORMAL > or = 60 mg/dl - LO W CARDIOVASCULAR RISK <40 mg/dl - HIGH CARDIOVASCULAR RISK Normal [facility] Comment on above: Performed By: #### L IPID, CMP ####[facility] [address] [place] [address]Dr. Linda Duran LDL CALC NORMAL SEE BELOW Normal [facility] Comment on above: Result Comment: <100 mg/dl OPTIMAL 100 - 129 mg/dl NEAR OR ABOVE OPTIMAL 130 - 159 mg/dl BORDERLINE HIGH 160 - 189 mg/dl HIGH >190 mg/dl VERY HIGH Performed By: #### L IPID, CMP ####[facility] [address] [place] [address]Dr. Linda Duran Triglyceride [Mass/Vol] 289 mg/dL Critically high <=150 [facility] Comment on above: Performed By: #### L IPID, CMP ####[facility] [address] [place] [address]Dr. Linda Duran VLDL CALC 57.8 mg/dL Normal [facility] Comment on above: Performed By: #### L IPID, CMP ####[facility] [address] [place] [address]Dr. Linda Duran MICROALBUMIN, RAND URon 06-0 mALB 3.8 mg/L Normal <=30.0 [facility] Comment on above: Performed By: #### M ALBR ####[facility] [address] [place], [place] [address]Dr. Linda Duran PROF 14(COMP METB)on 022 Albumin [Mass/Vol] 4.3 g/dL Normal 3.4-5.0 [facility] Comment on above: Performed By: #### L IPID, CMP ####[facility] [address] [place], [place] [address]Dr. Linda Duran Albumin/Globulin [Mass ratio] 1.3 {ratio} Normal [facility] Comment on above: Performed By: #### L IPID, CMP ####[facility] [address] [place], [place] [address]Dr. Linda Duran ALP [Catalytic activity/Vol] 78 U/L Normal 46-116 [facility] Comment on above: Performed By: #### L IPID, CMP ####[facility] [address] [place], [place] [address]Dr. Linda Duran ALT [Catalytic activity/Vol] 56 U/L Normal 16-63 [facility] Comment on above: Performed By: #### L IPID, CMP ####[facility] [address] [place], [place] [address]Dr. Linda Duran Anion gap [Moles/Vol] 14.1 mmol/L Normal [facility] Comment on above: Performed By: #### L IPID, CMP ####[facility] [address] [place] [address]Dr. Linda Duran AST [Catalytic activity/Vol] 40 U/L Critically high 15-37 [facility] Comment on above: Performed By: #### L IPID, CMP ####[facility] [address] [place] [address]Dr. Linda Duran Calcium [Mass/Vol] 8.5 mg/dL Normal 8.5-10.1 [facility] Comment on above: Performed By: #### L IPID, CMP ####[facility] [address] [place] [address]Dr. Linda Duran Chloride [Moles/Vol] 101 mmol/L Normal 98-107 [facility] Comment on above: Performed By: #### L IPID, CMP ####[facility] [address] [place], [place] [address]Dr. Linda Duran CO2 [Moles/Vol] 24.9 mmol/L Normal 21.0-32.0 [facility] Comment on above: Performed By: #### L IPID, CMP ####[facility] [address] [place], [place] [address]Dr. Linda Duran Creatinine [Mass/Vol] 0.95 mg/dL Normal 0.70-1.30 [facility] Comment on above: Performed By: #### L IPID, CMP ####[facility] [address] [place], [place] [address]Dr. Linda Duran EGFR-AF EGYPTIAN >60 Normal >=60 [facility] Comment on above: Performed By: #### L IPID, CMP ####[facility] [address] [place], [place] [address]Dr. Linda Duran EGFR-NON AF EGYPTIAN >60 Normal >=60 [facility] Comment on above: Performed By: #### L IPID, CMP ####[facility] [address] [place], [place] [address]Dr. Linda Duran Globulin (S) [Mass/Vol] 3.3 g/dL Normal [facility] Comment on above: Performed By: #### L IPID, CMP ####[facility] [address] [place], [place] [address]Dr. Linda Duran Glucose [Mass/Vol] 194 mg/dL Critically high 74-106 [facility] Comment on above: Performed By: #### L IPID, CMP ####[facility] [address] [place] [address]Dr. Linda Roger Potassium [Moles/Vol] 4.0 mmol/L Normal 3.5-5.1 [facility] Comment on above: Performed By: #### L IPID, CMP ####[facility] [address] [place] [address]Dr. Linda Duran Protein [Mass/Vol] 7.6 g/dL Normal 6.4-8.2 [facility] Comment on above: Performed By: #### L IPID, CMP ####[facility] [address] [place] [address]Dr. Linda Duran Sodium [Moles/Vol] 136 mmol/L Normal 136-145 [facility] Comment on above: Performed By: #### L IPID, CMP ####[facility] [address] [place], [place] [address]Dr. Linda Duran Urea nitrogen [Mass/Vol] 25.0 mg/dL Critically high 7.0-18.0 [facility] Comment on above: Performed By: #### L IPID, CMP ####[facility] [address] [place], [place] [address]Dr. Linda Duran Urea nitrogen/Creatinine [Mass ratio] 26.3 mg/mg Normal [facility] Comment on above: Performed By: #### L IPID, CMP ####[facility] [address] [place], [place] [address]Dr. Linda Roger Vital Signs Date Time Vital Sign Value Performing Clinician Facility 03-14-2025 10: Body height 180.34 cm [facility] 03-14-2025 10: Body mass index (BMI) [Ratio] 35.3 kg/m2 [facility] 03-14-2025 10: Body weight 114.98 kg [facility] 03-14-2025 10: Diastolic blood pressure 85 mm[Hg] [facility] 03-14-2025 10:10-0400 Heart rate 72 /min [facility] 03-14-2025 10:10-0400 Respiratory rate 12 /min [facility] 03-14-2025 10:10-0400 Systolic blood pressure 134 mm[Hg] [facility] 11-23-2024 09:27-0500 Body height 180.34 cm [facility] 11-23-2024 09:27-0500 Body mass index (BMI) [Ratio] 34.3 kg/m2 [facility] 11-23-2024 09:27-0500 Body weight 111.81 kg [facility] 11-23-2024 09:27-0500 Diastolic blood pressure 89 mm[Hg] [facility] 11-23-2024 09:27-0500 Heart rate 80 /min [facility] 11-23-2024 09:27-0500 Respiratory rate 12 /min [facility] 11-23-2024 09:27-0500 Systolic blood pressure 139 mm[Hg] [facility] 10-31-2024 08:59-0500 Blood Pressure Location Reba Lue [facility] 10-31-2024 08:59-0500 Body temperature 98.6 [degF] Reba Lue [facility] 10-31-2024 08:59-0500 Diastolic blood pressure 89 mm[Hg] Reba Lue [facility] 10-31-2024 08:59-0500 Heart rate 78 /min Reba Lue [facility] 10-31-2024 08:59-0500 Respiratory rate 18 /min Reba Lue [facility] 10-31-2024 08:59-0500 Systolic blood pressure 140 mm[Hg] Reba Lue [facility] 07-11-2024 09:37-0400 Body mass index (BMI) [Ratio] 34.7 kg/m2 [facility] 07-11-2024 09:37-0400 Diastolic blood pressure 80 mm[Hg] [facility] 07-11-2024 09:37-0400 Systolic blood pressure 130 mm[Hg] [facility] 07-11-2024 09:16-0400 Body height 180.34 cm [facility] 07-11-2024 09:16-0400 Body weight 112.94 kg [facility] 07-11-2024 09:16-0400 Heart rate 65 /min [facility] 07-11-2024 09:16-0400 Respiratory rate 12 /min [facility] 03-12-2024 15:43-0400 Body height 180.34 cm [facility] 03-12-2024 15:43-0400 Body mass index (BMI) [Ratio] 34.9 kg/m2 [facility] 03-12-2024 15:43-0400 Body weight 113.45 kg [facility] 03-12-2024 15:43-0400 Diastolic blood pressure 87 mm[Hg] [facility] 03-12-2024 15:43-0400 Heart rate 66 /min [facility] 03-12-2024 15:43-0400 Respiratory rate 12 /min [facility] 03-12-2024 15:43-0400 Systolic blood pressure 144 mm[Hg] [facility] 10-24-2023 15:30-0500 Body height 180.34 cm Ishmael Ball Other [facility] [employer] Other 10-24-2023 15:30-0500 Body mass index (BMI) [Ratio] 34.53 kg/m2 Ishmael Ball Other [facility] [employer] Other 10-24-2023 15:30-0500 Body weight 112.31 kg Ishmael Ball Other [facility] [employer] Other 10-24-2023 15:30-0500 Diastolic blood pressure 84 mm[Hg] Ishmael Ball Other [employer] Other 10-24-2023 15:30-0500 Respiratory rate 12 /min Ishmael Ball Other [employer] Other 10-24-2023 15:30-0500 Systolic blood pressure 138 mm[Hg] Ishmael Ball Other [employer] Other 07-11-2023 15:30-0400 Body height 180.34 cm Ishmael Ball Other [employer] Other 07-11-2023 15:30-0400 Body mass index (BMI) [Ratio] 34.86 kg/m2 Ishmael Ball Other [employer] Other 07-11-2023 15:30-0400 Body weight 113.4 kg Ishmael Ball Other [employer] Other 07-11-2023 15:30-0400 Diastolic blood pressure 84 mm[Hg] Ishmael Ball Other [employer] Other 07-11-2023 15:30-0400 Respiratory rate 12 /min Ishmael Ball Other [employer] Other 07-11-2023 15:30-0400 Systolic blood pressure 135 mm[Hg] Ishmael Ball Other [employer] Other 03-08-2023 15:30-0400 Body height 180.34 cm Ishmael Ball Other [employer] Other 03-08-2023 15:30-0400 Body mass index (BMI) [Ratio] 35.06 kg/m2 Ishmael Ball Other [employer] Other 03-08-2023 15:30-0400 Body weight 114.04 kg Ishmael Ball Other [employer] Other 03-08-2023 15:30-0400 Diastolic blood pressure 82 mm[Hg] Ishmael Ball Other [employer] Other 03-08-2023 15:30-0400 Respiratory rate 12 /min Ishmael Ball Other [employer] Other 03-08-2023 15:30-0400 Systolic blood pressure 142 mm[Hg] Ishmael Ball Other [employer] Other 11-02-2022 16:30-0500 Body height 180.34 cm Ishmael Ball Other [employer] Other 11-02-2022 16:30-0500 Body mass index (BMI) [Ratio] 35.17 kg/m2 Ishmael Ball Other [employer] Other 11-02-2022 16:30-0500 Body weight 114.4 kg Ishmael Ball Other [employer] Other 11-02-2022 16:30-0500 Diastolic blood pressure 70 mm[Hg] Ishmael Ball Other [employer] Other 11-02-2022 16:30-0500 Respiratory rate 12 /min Ishmael Ball Other [employer] Other 11-02-2022 16:30-0500 Systolic blood pressure 122 mm[Hg] Ishmael Ball Other [employer] Other 02-15-2022 14:38-0400 Blood Pressure Location Reba Larios [facility] [place] [employer] 02-15-2022 14:38-0400 Diastolic blood pressure 78 mm[Hg] Reba Lue [facility] [place] [employer] 02-15-2022 14:38-0400 Heart rate 72 /min Reba Lue [facility] [place] [employer] 02-15-2022 14:38-0400 Respiratory rate 16 /min Reba Lue [facility] [place] [employer] 02-15-2022 14:38-0400 Systolic blood pressure 130 mm[Hg] Reba Lue [facility] [place] [employer] Encounters Encounter Date Encounter Type Care Provider Facility Start: 11-06-2025 ambulatory Reba M. Lue Facility:[facility] Start: 05-03-2025 End: 05-03-2025 ambulatory Chung ABDALLA Facility:[facility] Start: 05-03-2025 End: 05-03-2025 Patient encounter procedure Chung ABDALLA [facility] [place] Start: 05-01-2025 End: 05-01-2025 ambulatory Reba M. Lue Facility:[facility] Start: 05-01-2025 End: 05-01-2025 Patient encounter procedure Reba M. Lue [facility] [place] Start: 03-15-2025 End: 03-15-2025 Emergency department patient visit [facility] Start: 03-14-2025 End: 03-14-2025 ambulatory [facility] Work Phone: Start: 03-14-2025 End: 03-14-2025 Encounter for general adult medical examination without abnormal findings [facility] Start: 03-14-2025 End: 03-14-2025 [facility]: Start: 01-30-2025 End: 01-30-2025 ambulatory Reba BogdanPrabhu Santosmargaret Facility:[facility] Start: 01-23-2025 End: 01-23-2025 Lab Drop off Reba Larios [facility] Start: 01-23-2025 End: 01-23-2025 ambulatory Reba McfaddenPrabhu Ric Facility:[facility] Start: 01-09-2025 End: 01-09-2025 Bamboo flowsinder Chadwick MD Work Phone: [facility] Start: 01-09-2025 End: 01-09-2025 Bamboo flowsinder Chadwick MD Work Phone: [facility] Start: 01-09-2025 End: 01-09-2025 Patient encounter procedure Pankaj Chadwick MD Work [...] [facility] Start: 12-06-2024 End: 12-06-2024 [employer] flowsheet Pankaj Chadwick MD Work Phone: [facility] Start: 12-06-2024 End: 12-06-2024 ambulatory BRAN [facility] Start: 11-23-2024 End: 11-23-2024 ambulatory [facility] Work Phone: Start: 11-23-2024 End: 11-23-2024 Patient encounter [facility] Work Phone: Start: 10-31-2024 End: 10-31-2024 ambulatory Reba Larios Facility:[facility] Start: 10-31-2024 End: 10-31-2024 Patient encounter procedure Reba Larios [facility] Start: 10-26-2024 ambulatory Reba Larios Facility:[facility] Start: 07-11-2024 End: 07-11-2024 ambulatory [facility] Work Phone: Start: 07-11-2024 End: 07-11-2024 Patient encounter procedure [facility] Work Phone: Start: 03-12-2024 End: 03-12-2024 ambulatory [facility] Work Phone: Start: 03-12-2024 End: 03-12-2024 Encounter for general adult medical examination without abnormal findings [facility] Start: 03-12-2024 End: 03-12-2024 Patient encounter procedure [facility] Work Phone: Start: 12-19-2023 Non-patient / Non-visit [facility] [employer] Work Phone: Start: 11-21-2023 End: 11-21-2023 ambulatory Ishmael Jacob Other [place] [employer] Other Start: 11-21-2023 Telephone encounter Ishmael Ball [facility] Start: 11-16-2023 End: 11-16-2023 ambulatory Ishmael Ball Other [employer] Other Start: 11-16-2023 Telephone encounter Ishmael Ball [facility] Start: 11-03-2023 End: 11-03-2023 Lab Drop off Valentina X Orzech [facility] Start: 11-03-2023 End: 11-03-2023 Patient encounter procedure Valentina X Orzech [facility] [place] Start: 10-31-2023 End: 10-31-2023 ambulatory Ishmael Ball Other [employer] Other Start: 10-31-2023 Telephone encounter Ishmael Ball [facility] Start: 10-24-2023 End: 10-24-2023 ambulatory Ishmael Ball Other [employer] Other Start: 10-24-2023 Office outpatient vi sit 25 minutes Ishmael Ball [facility] Start: 08-23-2023 End: 08-23-2023 ambulatory Ishmael Ball Other [employer] Other Start: 08-23-2023 Telephone encounter Ishmael Ball [facility] Start: 07-11-2023 End: 07-11-2023 ambulatory Ishmael Ball Other [employer] Other Start: 07-11-2023 Office outpatient vi sit 25 minutes Ishmael Ball [facility] Start: 04-05-2023 End: 04-05-2023 ambulatory Ishmael Ball Other [employer] Other Start: 04-05-2023 Telephone encounter Ishmael Ball [facility] Start: 03-08-2023 End: 03-08-2023 ambulatory Ishmael Jacob Other [employer] Other Start: 03-08-2023 Encounter for genera l adult medical examination without abnormal findings Ishmael Jacob [facility] Start: 03-08-2023 Periodic preventive med est patient 40-64yrs Ishmael Jacob [facility] Start: 02-07-2023 End: 02-07-2023 ambulatory Ishmael Jacob Other [employer] Other Start: 02-07-2023 Telephone encounter Ishmael Jacob [facility] Start: 02-04-2023 End: 02-05-2023 ambulatory LEV GARCIA Facility:[facility] Start: 12-28-2022 End: 12-28-2022 ambulatory Ishmael Jacob Other [employer] Other Start: 12-28-2022 Telephone encounter Ishmael Jacob [facility] Start: 12-20-2022 End: 12-20-2022 ambulatory Ishmael Jacob Other [employer] Other Start: 12-20-2022 Telephone encounter Ishmael Jacob [facility] Start: 12-16-2022 End: 12-17-[address] ISHMAEL JACOB Facility:[facility] Start: 12-14-2022 End: 12-14-2022 ambulatory Ishmael Elsy Other [employer] Other Start: 12-14-2022 Telephone encounter Ishmael Jacob [facility] Start: 12-08-2022 End: 12-08-2022 ambulatory Ishmael Elsy Other [employer] Other Start: 12-08-2022 Telephone encounter Ishmael Jacob [facility] Start: 12-07-2022 End: 12-08-[address] ISHMAEL JACOB Facility:[facility] Start: 11-25-2022 End: 11-25-2022 ambulatory Ishmael Jacob Other [employer] Other Start: 11-25-2022 Telephone encounter Ishmael Jacob DAVION Jacob [facility] Start: 11-23-2022 End: 11-23-2022 ambulatory Ishmael Jacob Other [employer] Other Start: 11-23-2022 Telephone encounter Ishmael Jacob DAVION Jacob [facility] Start: 11-06-2022 End: 11-07-[address] ISHMAEL JACOB Facility:[facility] Start: 11-02-2022 End: 11-02-2022 ambulatory Ishmael Jacob Other [employer] Other Start: 11-02-2022 Office outpatient vi sit 25 minutes Ishmael Jacob PATRICA Jacob [facility] Start: 10-22-2022 Patient encounter status Ishmael Jacob Other [employer] Other Start: 06-19-2022 End: 06-20-2022 ambulatory REBA LARIOS . Facility:[facility] Start: 03-18-2022 Encounter for genera l adult medical examination without abnormal findings DR ISHMAEL JACOB [facility] Start: 03-13-2022 End: 03-14-[address] ISHMAEL JACOB Facility:[facility] Start: 03-13-2022 End: 03-14-2022 Encounter for general adult medical examination without abnormal findings DR ISHMAEL JACOB Facility:[facility] Start: 02-15-2022 End: 02-15-2022 Patient encounter procedure Reba Larios [facility] Start: 05-30-2017 End: 05-31-2017 Ambulatory DEFAULT PHYSICIAN Facility:[facility] Procedures Date Procedure Procedure Detail Performing Clinician Start: 01-09-2025 CRYOTHERAPY SKIN LESION Pankaj Chadwick MD Work Phone: Start: 12-06-2024 SKIN / NAIL BIOPSY Himanshu Chadwick MD Work Phone: Start: 03-13-2022 PSA screening LEV HAUSER Comment on above: Performed By: #### P [facility] #### [facility] [address] [address] [address] Linda Duran Start: 05-10-2015 Extracorporeal shock wave lithotripsy of tendon using ultrasound guidance Reba Larios Start: 11-18-2010 History of repair of inguinal hernia Reba Ric Start: 05-04-2006 Placement of stent i n cardiac conduit Reba Larios Cardiac catheterization Shalom Polanconitzalizeth Plan of Treatment Date Care Activity Detail Author Start: 03-29-2025 Screening for malignant neoplasm of colon [facility] Start: 01-09-2025 End: 01-09-2025 Patient encounter procedure 01/09/2025 11:30 AM EDT Office Visit [facility] [address] [place] [address] Pankaj Chadwick MD [address] [place] [address] Arrived [facility] Comment on above: Arrived Start: 12-06-2024 End: 12-06-2024 Patient encounter procedure 12/06/2024 2:20 PM EST Office Visit [facility] [address] [place] [address] Pankaj Chadwick MD [address] [place] [address] Arrived [facility] Comment on above: Arrived Start: 1960 Screening for malignant neoplasm of colon [facility] Comprehensive metabo lic 1999 panel - Serum or Plasma [facility] Comprehensive metabo lic 1999 panel - Serum or Plasma [facility] Dermatopathology exam Dermatopat hology exam Pathology and Cytology Timed Neoplasm of unspecified behavior of bone, soft tissue, and skin Release Upon Ordering for 1 Occurrences starting 12/06/2024 [facility] Work Phone: Comment on above: Release Upon Ordering for 1 Occurrences starting 12/06/2024 Microalbumin [Mass/volume] in Urine [facility] Immunizations Immunization Date Immunization Notes Care Provider Josephine corryfavian 07-11-2024 influenza virus vaccine, unspecified formulation Reba Larios [facility] 07-11-2024 influenza, seasonal, injectable, preservative free [facility] 09-04-2023 influenza virus vaccine, unspecified formulation Valentina Orzech [facility] 06-24-2022 COVID-19 Pfizer (bivalent) Ishmael Jacob Other [facility] 06-24-2022 COVID-19 Vaccine Pfi zer - Documentation Purposes Only Ishmael Jacob Other [facility] 06-24-2022 influenza virus vaccine, split virus (incl. purified surface antigen) Ishmael Jacob Other [employer] Other 06-24-2022 influenza virus vaccine, unspecified formulation Valentina Orzech [facility] 06-24-2022 influenza, injectabl e, quadrivalent, preservative free Ishmael Jacob Other [facility] 08-31-2021 COVID-19 Vaccine Pfi zer - Documentation Purposes Only Ishmael Jacob Other [facility] 08-12-2021 influenza virus vaccine, unspecified formulation Valentina Orzech [facility] 12-19-2020 COVID-19 Vaccine Johana - Documentation Purposes Only Ishmael Jacob Other [facility] 07-02-2020 influenza virus vaccine, unspecified formulation Valentina Orzech [facility] Payers Date Payer Category Payer Managed Care HMO (unspecified) [employer] [id number] 2023 Private Health Insurance [id number] 2023 Private Health Insurance [id number] 1960 Unknown [id number] 2.16.840.1.594418.3.57 9.2.593 1960 Unknown [id number] 2.16.840.1.208005.3.57 9.2.593 1960 Unknown [id number] 2.16.840.1.375536.3.57 9.2.593 1960 Unknown [id number] 2.16.840.1.458948.3.57 9.2.593 1960 Unknown [id number] 2.16.840.1.377067.3.57 9.2.593 1960 Unknown [id number] 2.16.840.1.706855.3.57 9.2.593 1960 Unknown [id number] 2.16.840.1.007992.3.57 9.2.1259 1960 Unknown [id number] 2.16.840.1.947824.3.57 9.2.1259 1960 Unknown [id number] 2.16.840.1.176551.3.57 9.2.727 1960 Unknown [id number] 2.16.840.1.597979.3.57 9.2.727 1960 Unknown [id number] 2.16.840.1.933170.3.57 9.2.727 1960 Unknown [id number] 2.16.840.1.389783.3.57 9.2.727 1960 Unknown [id number] 2.16.840.1.369678.3.57 9.2.727 1960 Unknown [id number] 2.16.840.1.927643.3.57 9.2.727 1960 Unknown [id number] 2.16.840.1.550565.3.57 9.2.727 1960 Unknown [id number] 2.16.840.1.589691.3.57 9.2.727 1960 Unknown [id number] 2.16.840.1.138966.3.57 9.2.727 1960 Unknown [id number] 2.16.840.1.193185.3.57 9.2.727 1959 Private Health Insurance [id number] 2.16.840.1.694319.19 Private Health Insurance [id number] 2.16.840.1.512700.19 Unknown Unknown Other1 (STD) . [id number] Social History Date Type Detail Facility Start: 02-15-2022 End: 10-31-2024 Tobacco smoking status Never smoked tobacco (finding) [facility] Tobacco smoking status Never [facility] Sex Assigned At Male [facility] Start: 1960 Sex Assigned At Male [facility] Tobacco smoking stat us NHIS Unknown if ever smoked [facility] Start: 11-23-2019 End: 11-23-2024 Sex Male (finding) [facility] Start: 1960 Sex assigned at Not on file [facility] Sexual Orientation [facility] Medical Equipment Procedure Code Equipment [...] 10-31-2024 Functional Status N/A [facility] 11-03-2023 Functional Status N/A [facility] Clinical Notes 02-15-2022 to 05-03-2025 Pankaj Chadwick [...] virus vaccine, inactivated 06/24/2022 Recorded SARS-CoV-2 (COVID-19) [id number] 06/24/2022 Recorded SARS-CoV-2 (COVID-19) mRNA BNT-162b2 vax 08/31/2021 Recorded influenza virus vaccine, inactivated 08/12/2021 Recorded SARS-CoV-2 (COVID-19) Ad26 vaccine 12/19/2020 Recorded influenza virus vaccine, inactivated 07/02/2020 Recorded [facility] 01-30-2025 Note Patient Education Nephrology [...] ? 8 oz (237 mL) of milk, jnruphy-gwncdpvzzujf-nsbfz milk, and calcium-fortifiedfruit juice. Calcium-fortified means that [...] Spinach (cooked), rhubarb, beets, sweet potatoes, and Estonian chard. ? Peanuts. ? Potato chips, macedonian fries, and baked potatoes with skin on. ? Nuts and nut products. ? Chocolate. ??? If you regularly take a diuretic medicine, make sure to eat at least 1 or 2 servings of fruits or vegetables that are high in potassium each day. These include: ? Avocado. ? Banana. ? [place], prune, carrot, or tomato juice. ? Baked [...] fish oil, or vitamin B6. ??? Take cobg-msb-fstxkyt and prescription medicines only as told by your health (more content not included)... [facility] 01-09-2025 History of Present illness [...] limited to risks of scarring, darker or candlemaker pigmentary changes, recurrence, incomplete removal and infection. [...] Visit: 1 year documented in this encounter [facility] 12-06-2024 History of Present illness Narrative Images [...] pending biopsy results documented in this encounter [facility] 12-06-2024 Note Patient here for 1 y [...] All other systems reviewed and are negative. [facility] 12-06-2024 Note Cardiovascular Medic [facility] SUBJECTIVE Chief Complaint Patient presents with [...] use: Yes Comment: occasional Allergies Allergen Reactions Iiqfxdz-Qrp-Lge Reductase Inhibitors Review of Systems Constitutional: Negative [...] Rfl: benazepril (Lotensi (more content not included)... [facility] 10-31-2024 Hospital Discharge instructions Patient [...] urethra. Follow these instructions at home: Take rzdz-slu-swlmlbq and prescription medicines only as told by [...] provider. Document Revised: 04/14/2022 Document Reviewed: 04/14/2022 [employer] Patient Education 2023 [email or web address]. Follow Up Care 10/17/2024 09:48:16 With:Ric MAY, TERRENCE Childs, URO Address: When:Within 3 Month(s) Comments:denny/CHRIS [facility] 10-31-2024 Note Patient Education Urology Benign Prostatic [...] Follow these instructions at home: ??? Take ugnx-lby-omebcjp and prescription medicines only as told by [...] do not get (more content not included)... [facility] 11-21-2023 Evaluation note Encounter Date Diagnosis Assessment Notes Nov, Hyperlipidemi a, mixed (ICD-10 - E78.2) Nov, Type 2 diabetes mellitus with hyperglycemia , without long-term current use of insulin (ICD-10 - E11.65) Nov, ASHD (arterioscler otic heart disease) (ICD-10 - I25.10) [facility] w/ 60% OM - 02/2023 [employer] Other 02-07-2024 Evaluation note* Encounter Date Diagnosis Assessment Notes Treatment Notes Treatment Clinical Notes Nov, Primary hypertension (ICD-10 - I10) [facility] Other 01-15-2024 Evaluation note* Encounter Date Diagnosis [...] ASHD (arteriosclerotic heart disease) (ICD-10 - I25.10) [facility] w/ 60% OM - 02/2023 This patient is stable without activity related CP, dyspnea or lightheadedness. They are instructed to continue exercise and AHA diet plan. Continue secondary prevention measures. [facility] w/ 60% OM - medically treated [...] increased PVC, brief run of NSVT - [facility] w/ 60% OM stenosis, medically treated [...] [BMI ] 34.0-34.9, adult (ICD-10 - Z68.34) [employer] Other 11-14-2023 Evaluation note* Encounter Date Diagnosis Assessment Notes Treatment Notes Treatment Clinical Notes Aug, Type 2 diabetes mellitus with hyperglycemia, without long-term current use of insulin (ICD-10 - E11.65) [employer] Other 10-23-2023 Hospital Discharge instructions Follow Up Care 08/01/2023 16:05:53 With:Ric MAY, Reba Smith, URRena, URO Address: [address], [place] [phone] When: Unknown [facility] 10-02-2023 Evaluation note* Encounter Date Diagnosis Assessment [...] [BMI ] 34.0-34.9, adult (ICD-10 - Z68.34) [employer] Other 06-27-2023 Evaluation note* Encounter Date Diagnosis Assessment Notes Treatment Notes Treatment Clinical Notes Mar, Type 2 diabetes mellitus with hyperglycemia, without long-term current use of insulin (ICD-10 - E11.65) [employer] Other 05-30-2023 Evaluation note* Encounter Date Diagnosis [...] (ICD-10 - Z12.5) Yearly JOIE and PSA [employer] Other 05-01-2023 Evaluation note* Encounter Date Diagnosis Assessment Notes Treatment Notes Treatment Clinical Notes February, Type 2 diabetes mellitus with hyperglycemia, without long-term current use of insulin (ICD-10 - E11.65) [employer] Other 03-21-2023 Evaluation note* Encounter Date Diagnosis Assessment Notes Treatment Notes Treatment Clinical Notes Dec, Type 2 diabetes mellitus with hyperglycemia, without long-term current use of insulin (ICD-10 - E11.65) [employer] Other 02-16-2023 Evaluation note* Encounter Date Diagnosis Assessment Notes Treatment Notes Treatment Clinical Notes Nov, ASHD (arteriosclerotic heart disease) (ICD-10 - I25.10) 16 Nov, 2022 Shortness of breath (ICD-10 - R06.02) [employer] Other 01-24-2023 Evaluation note* Encounter Date [...] exercise for 30 minutes, 3-5 times weekly. [employer] Other 05-09-2022 Hospital Discharge instructions Patient Education 02/15/2022 15:13:26 Kidney Stones, Blso-ji-Ysox Kidney Stones Kidney stones are rock-like masses [...] Follow these instructions at home: Medicines Take zetc-nra-zfhycxf and prescription medicines only as told by [...] 03/14/2009 Document Revised: 02/12/2020 Document Reviewed: 02/12/2020 [employer] Patient Education 2020 [employer] Follow Up Care 01/28/2022 10:44:14 With:Reba Larios MD, URL, URO Address: [facility] [address] [address]- When:05/18/2022 Comments:w/ renal us and kub [facility] Evaluation + Plan note Future Appointments Appointment Date:04/26/2022 03:15:00 PM Scheduled Provider:Reba Larios MD Location:[facility] Appointment Type:URO Office Visit [facility] Evaluation + Plan note Future Appointments Appointment Date:10/26/2024 03:15:00 PM Scheduled Provider:Reba Larios MD Location:[facility] Appointment Type:URO Office Visit [facility] Evaluation + Plan note Future Appointments Appointment Date:10/26/2024 03:15:00 PM Scheduled Provider:Reba Larios MD Location:[facility] Appointment Type:URO Office Visit Diagnostic Tests Pending * Calculi Analysis [facility] Future App[facility]ments Appointment Date:01/23/2025 08:00:00 AM Scheduled Provider: Location:[facility] Appointment Type:URO Nurse Visit Appointment Date:01/30/2025 08:00:00 AM Scheduled Provider:Reba Larios MD Location:[facility] Appointment Type:URO Office Visit Future Scheduled Tests Laboratory* Basic Metabolic Panel 01/29/25 [facility] evaluation + Plan note Future Appointments Appointment Date:01/30/2025 08:00:00 AM Scheduled Provider:Reba Larios MD Location:[facility] Appointment Type:URO Office Visit [facility] Evaluation + Plan note Future Appointments Appointment Date:11/06/2025 08:00:00 AM Scheduled Provider:Reba Larios MD Location:[facility] Appointment Type:URO Office Visit Future Scheduled Tests Laboratory* Basic Metabolic Panel 03/10/25 [facility] evaluation noteNo [employer] Other Evaluation note* Diagnosis Onset Date Resolution Status ASHD (arteriosclerotic heart disease) acute Benign prostatic hyperplasia with lower urinary tract symptoms acute History of nephrolithiasis a cute Hypercholesterolemia acute Hypertension acute Type 2 diabetes mellitus with hyperglycemia acute Wellness examination noneact chrissy [facility] Work Phone: Evaluation note* Diagnosis Onset Date Resolution Status ASHD (arteriosclerotic heart disease) acute Benign prostatic hyperplasia with lower urinary tract symptoms acute History of nephrolithiasis a cute Hypercholesterolemia acute Hypertension acute Obesity acute Type 2 diabetes mellitus with hyperglycemia acute [facility] Work Phone: Evaluation note* Diagnosis Onset Date Resolution Status Admit Date ASHD (arteriosclerotic heart disease) acute November 23, 025 9:22am History of nephrolithiasis acute November 23, 2024 9:22am Hypercholesterolemia acute 2024 9:22am Hypertension acute November 9:22am Obesity acute November 23, 2024 9:22am Type 2 diabetes mellitus wit h hyperglycemia acute November 23, 025 9:22am [facility] Work Phone: Evaluation note* Diagnosis Neoplasm of [...] Wellness examination noneactive March 14, 2025 9:56am [facility] Work Phone: History general Narrative - Reported* Type Description Date Medical History obesity Medical History type 2 diabetes nani itus with hyperglycemia without longterm current use of insulin Medical History hypertension Medical History hyperlipidemia Medical History arteriosclerotic heart disease Medical History gross hematuria Medical History nephrolithiasis Medical History uric acid kidney stone Surgical History heart cath stent Surgical History hernia repair Surgical History lithotripsy Hospitalization History see above surgeries [employer] Other Hisrlkw general Narrative - Reported* Type Description Date Medical History obesity Medical History type 2 diabetes nani itus with hyperglycemia without terminal manager current use of insulin Medical History hypertension Medical History hyperlipidemia Medical History arteriosclerotic heart disease Medical History gross hematuria Medical History nephrolithiasis Medical History uric acid kidney stone Surgical History heart cath stent Surgical History hernia repair Surgical History lithotripsy Surgical History [facility]: 60% OM, 02/2023` Hospitalization History see above surgeries [employer] Other Hospital course Narrative No data available for this section [facility] Hospital Discharge instructions No data available for this section [facility] No data available for this section [facility] Reason for referral (narrative)* Reason 01/10/23 Referral for dyspnea and abnormal cardiac stress test Diagnosis 1 NSVT (nonsustained v entricular tachycardia) (I47.29) Diagnosis 2 ASHD (arteriosclerot ic heart disease) (I25.10) Referral Organization [facility] Trini harman Referring Provider First Name Ishmael Referring Provider Last Name Elsy Referring Provider Specialty Internal Me stephani Referred Organization [facility] Referred Provider CHELSI MENARD Referred Address [address], [place],[address] Referred Provider Specialty Cardiology Referral Priority Routine [...] 12/21/2022 01:17:10 PM >received today, attachments made, [id number] Jakob Raquel 12/28/2022 11:37:48 AM >faxed first [...] history of CAD is worrisome to me. [employer] Other Summary Purpose Family History No Family [...] section and content) DATE CREATED AUTHOR 04/05/2018 [facility] DATE CREATED AUTHOR AUTHOR'S ORGANIZ ATION 02/11/2023 [facility] DATE CREATED AUTHOR AUTHOR'S ORGANIZ ATION 12/10/2024 [facility] DATE CREATED AUTHOR AUTHOR'S ORGANIZ ATION 01/12/2025 [facility] DATE CREATED AUTHOR AUTHOR'S ORGANIZ ATION 01/26/2025 [place] DATE CREATED AUTHOR AUTHOR'S ORGANIZ ATION 03/16/[address] [facility] DATE CREATED AUTHOR AUTHOR'S ORGANIZ ATION 05/04/2025 [place] DATE CREATED AUTHOR AUTHOR'S ORGANIZ ATION 05/05/2025 [place] DATE CREATED AUTHOR AUTHOR'S ORGANIZ ATION 05/13/2025 [place] REASON FOR VISIT (unrecogniz ed section and [...] BE BASED ON THE PRIMARY CLINICAL RECORDS. [employer] [facility]. provides no warranty or guarantee of the accuracy or completeness of information in this document.
--- NOTE | 2025-07-29 07:00 | CA_ITS ---
Patient Name: CHELY SIDDIQI MR#: [id number] : 1960 Exam Date: 07/29/2025 Ordering Doctor: BRAN VANEGAS CNP ECHOCARDIOGRAM REPORT PROCEDURE: CA ECHO DOPPLER COMPLETE INDICATIONS: Chest pain, hypertension, cardiac stent, diabetes COMPARISON: None. DESCRIPTION: COMPLETE ECHOCARDIOGRAM Real-time transthoracic echocardiography with 2D, M-mode, spectral and color flow Doppler performed. QUALITY: Technical quality was good. LEFT VENTRICLE: Normal chamber size. Thickened septal wall. Calculated left ventricular ejection fraction is 71%. LV EF: Normal left ventricular ejection fraction, (>55%). DIASTOLIC: Diastolic function is indeterminate. ATRIAL SEPTUM: Visually appears intact. LEFT ATRIUM: Normal chamber size. RIGHT ATRIUM: Normal chamber size. RIGHT VENTRICLE: Normal chamber size. Normal right ventricular systolic function. TRICUSPID VALVE: Normal mobility and thickness. No stenosis with trivial regurgitation. Doppler studies reveal mildly (35-45) elevated right sided pressures. RVSP 41 mmHg MITRAL VALVE: Normal mobility and thickness. No evidence of mitral valve stenosis. Mild mitral annular calcification. Trivial mitral regurgitation. AORTIC VALVE: Normal trileaflet appearance. Thickened aortic valve. Normal leaflet mobility. No evidence of aortic valve stenosis. Trivial aortic regurgitation. AORTIC ROOT: Normal diameter and appearance. Ascending aorta is normal in size. PULMONIC VALVE: Normal thickness and mobility. No stenosis. No regurgitation. PERICARDIUM: No evidence of pericardial effusion. IVC: Collapses with inspirations. IVC is dilated (2.2cm) CONCLUSION: 1. Global left ventricular systolic function is normal; visually estimated ejection fraction is 60 to 65% 2. Normal right ventricular size and systolic function 3. Diastolic function is indeterminate 4. Mildly elevated right-sided pressures; RVSP 41 mmHg 5. No significant valvular abnormalities Adult Echocardiography Procedure Report Left Ventricle LVEDD (3.7 - 5.6 cm): 5.51 cm LVESD (2.2 - 4.0 cm): 3.68 cm LVIVS thickness (0.6 - 1.2 cm): 1.36 cm LVPW thickness (0.5 - 1.0 cm): 0.98 cm e': 0.09 m/s E - e': 7.06 LVOT Max Gradient: 3.19 mm[Hg] LVOT Area (cm2): 0.89 m/s Peak Velocity (LVOT): 0.89 m/s Mean Velocity (LVOT): 0.55 m/s LVOT Diameter 2.37 cm Left Ventricular Ejection Fraction: 71.11 % Left Atrium LA Volume Index (2D A2C): 30.72 ml/m2 Left Atrium Systolic Dimension: 5.20 cm Mitral Valve MV E to A Ratio: 0.83 Mitral Valve A-Wave Peak Velocity: 0.74 m/s Mitral Valve E-Wave Peak Velocity: 0.61 m/s Right Ventricle Aorta AO Root Diam: 3.61 cm Ascending Ao Diam: 3.49 cm Aortic Valve AoV Area (Peak Jamaal): 3.12 cm2, 3.12 cm2 AoV Area (VTI): 3.45 cm2, 3.45 cm2 Peak Velocity(Antegrade Flow): 1.26 m/s Peak Gradient(Antegrade Flow): 6.33 mm[Hg] Mean Velocity(Antegrade Flow): 0.80 m/s Mean Gradient(Antegrade Flow): 3.07 mm[Hg] Velocity Time Integral: 25.84 cm Tricuspid Valve Peak Velocity (Regurgitant Flow): 2.86 m/s Pulmonic Valve Mean Gradient: 1.48 mm[Hg] Mean Velocity: 0.56 m/s Peak Velocity: 0.93 m/s, 0.96 m/s Peak Gradient: 3.66 mm[Hg], 3.46 mm[Hg] Right Atrium Right Atrium Systolic Pressure: 43.37 ml, 43.37 ml Dictated by: Yen Fulton M.D. on 07/29/2025 at 15:31 Approved by: Yen Fulton M.D. on 07/29/2025 at 15:35
== END 2025-07-29 06:53 | disposition home or self-care (01) ==
LOC: CARD 06:53
PROVIDERS: PCP Internal Medicine; Visit Provider Nurse Practitioner Family
DX: R07.89 Other chest pain (principal); I25.110 Atherosclerotic heart disease of native coronary artery with unstable angina pectoris; I47.29 Other ventricular tachycardia; I11.9 Hypertensive heart disease without heart failure
CPT/HCPCS: 93306

== ENCOUNTER 2025-09-30 08:26 | Outpatient (OUT) | payer MEDICARE, OTHER, SELFPAY ==
--- OUTSIDE RECORDS SUMMARY | 2025-09-30 08:29 | XMS_ITS | Clinical Summary ---
Author Organization [facility] Address [address] [place] [address] Care Team Providers Care Frozen Meat Cutter Name Role Phone Ishmael Jacob DO Primary Care Provider [phone] Allergies Active AllergyReactionsCriticalityNoted DjiaKmndloaoLhnfgEtabf66/27/2025 Yfpurbr-Cjx-Lcr Reductase Csirzicetu56/03/2023 Medications MedicationSigDispense QuantityRefillsLast FilledStart DateEnd DateStatus tamsulosin (Flomax) 0.4 mg 24 hr capsule tamsulosin 0.4 mg capsuleActive metoprolol succinate XL (Toprol-XL) 25 mg 24 hr tablet metoprolol succinate ER 25 mg tablet,extended release 24 hrActive metFORMIN (Glucophage) 1,000 mg tablet every 12 (twelve) hours.Active aspirin 81 mg EC tablet in the morning.Active amLODIPine-benazepriL (Lotrel) 10-20 mg capsule 1 capsule in the morning.07/14/2018Active omega 8-ouz-hhe-fish oil (Fish OiL) 100-160-1,000 mg capsule Fish Oil 1200mg BIDActive benazepril (Lotensin) 10 mg tablet Take 10 mg by mouth in the morning.Active Jardiance 10 mg Take 10 mg by mouth in the morning.Active potassium citrate CR (Urocit-K-15) 15 mEq ER tablet Take 15 mEq by mouth in the morning and at bedtime.Active semaglutide (Rybelsus) 7 mg tablet Take 7 mg by mouth in the morning.Active isosorbide mononitrate ER (Imdur) 30 mg 24 hr tablet Take 30 mg by mouth in the morning.5Active nitroglycerin (Nitrostat) 0.[address] 0.4 mg under the tongue if needed.5Active fish oil concentrate (Fish OiL) 120-180 mg capsule Take 1 g by mouth in the morning.Active rosuvastatin (Crestor) 20 mg tablet Indications:Coronary artery disease with unstable angina pectoris, unspecified vessel or lesion type, unspecified whether pechanga or transplanted heart (CMS/HCC),Benign hypertensive heart disease without congestive heart failureTake 1 tablet (20 mg) by mouth in the morning. 30 tablet [id number] Active Problems ProblemNoted DateDiagnosed DateBenign prostatic hyperplasia with lower urinary tract qmcfylgh36/22/2025History of qttnnmhpaqxkaqj95/22/1532Jejrvqm38/22/2025 Screening PSA (prostate specific antigen)07/31/2025 Overview (07/31/2025): PSA: 0.33 - 03/2025 Type 2 diabetes mellitus with lyglfeoswwrcb45/22/1717Shxnaxpt87/15/2023 05/24/20232687Xuwkqqoohkhmuakscpya07/15/202308/15/2023 Assessment & Plan (11/11/2023 12:27 PM EST): Continue lopid and crestor Cyst of kidney, dzqlqppr36NSVT (nonsustained ventricular tachycardia)01/27/2023 Assessment & Plan (11/11/2023 12:28 PM EST): Continue toprol, no concenring symptoms, palpitations, near syncope or syncope and pt remains quiteactive without limiting symptoms Assessment & Plan (01/27/2023 12:44 PM EDT): -will rule out worsening CAD, if negative we can consider ablation for PVC/VT Atopic jspolrgbpu41/30/2023Ventricular premature beats10/29/2016 Assessment & Plan (01/27/2023 12:43 PM EDT): -hx of this which resolved with stent and managed with medications -with return of PVC and NSVT will need C to rule out additional ischemia consdering hx of LAD stent -if no new concerns for CAD will then proceed with ablation Type 2 diabetes adeoqwzx13/20/2017 Assessment & Plan (01/27/2023 12:43 PM EDT): -states he has been controlled, Do not have an A1C to reference -not on insulin, managed per PCP Essential jtwwbswefpwd86/20/2017 Assessment & Plan (11/11/2023 12:27 PM EST): Hypertension is well controlled 129/80 Continue lotensin, hydrochlorothiazide and toprol Assessment & Plan (01/27/2023 12:42 PM EDT): - Blood pressure is mildly elevated today -he will trend BP for me at home as he states he is typically not elevated -ct hydrochlorothiazide 25mg,amlodipine/benazapril 10-20mg, toprol xl 25mg Mfeisnfqzzmp51/20/2017Drug sbuwtdsiesa99/20/2017Coronary arteriosclerosis 10/29/2016 Assessment & Plan (11/11/2023 12:26 [...] with PVC/VT ablation Calculus of kidney and werxfe2110/29/2016 Encounters DateTypeDepartmentCare RfkcSvrqzroinev57/22/2025 11:40 AM EDTOffice Visit [facility] [address] [address] Jose Elizabeth MD Other chest pain (Primary Dx); Coronary artery disease with unstable angina pectoris, unspecified vessel or lesion type, unspecified whether pechanga or transplanted heart (CMS/HCC); NSVT (nonsustained ventricular tachycardia) (CMS/HCC); Benign hypertensive heart disease without congestive heart hjnqjqr7707/31/2025 Orders Only [facility] [address] [place] [address] Aislinn Cramer MA Mixed hyperlipidemia (Primary Dx)from Last 3 Months Immunizations ImmunizationAdministration DatesNext DueCovid (Pfizer) Bivalent Booster =>12 YRS 06/24/2022Influenza, injectable, MDCK, preservative free, kybmsemchaic18/03/2021 ,07/02/2020Influenza, injectable, quadrivalent, preservative free06/24/2022 Pfizer SARS-CoV-2 Lbpcgoaahjh62/22/2021 Family History Medical HistoryRelationNameCommentsCoronary artery diseaseFatherHyperlipidemia FatherHypertensionFatherLeukemiaFatherHyperlipidemiaMotherHypertensionMother RelationNameStatusCommentsFatherDeceasedMotherDeceased Social History Tobacco UseTypesPacks/DayYears UsedDateSmoking Tobacco: NeverSmokeless Tobacco: Never Tobacco Cessation:Counseling Given: Not Answered Alcohol UseStandard Drinks/WeekCommentsYes0 (1 standard drink = 0.6 oz pure alcohol)occasionalUT Safety & EnvironmentAnswerDate RecordedFear of Current or Ex-PartnerNot on file12/01/2023Emotionally AbusedNot on file12/01/2023hysically AbusedNot on file12/01/2023Sexually AbusedNot on file12/01/2023hysically or Sexually AbusedNot on file12/01/2023Sex and Gender InformationValueDate Recorded Sex Assigned at KtvweEeub38/13/2025 11:24 AM EDTLegal FsuMcse8704/07/2022 10:19 PM EDTGender KcztbtzgSuhq80/13/2025 11:24 AM EDTSexual OrientationDon't know 07/22/2025 11:24 AM EDT Last Filed Vital Signs Vital SignReadingTime TakenCommentsBlood Ehmtamnx077/7107/31/2025 11:44 AM EDT Drwwo257307/31/2025 11:44 AM EDTTemperature--Respiratory Gbvr3971 12:19 PM EDTOxygen Ghwnsuijoe14%07/31/2025 11:44 AM EDTInhaled Oxygen Concentration-- Tmtbke747 kg (251 lb)07/31/2025 11:44 AM VKTLhaspd955.4 cm (6' 1 )07/31/2025 11:44 AM EDTBody Mass Index33.121 11:44 AM EDT Plan of Treatment Health MaintenanceDue DateLast DoneCommentsCT Nolalvvzedqn1960Colonoscopy 1960Diabetes: Hemoglobin A1C1960FOBT1960Medicare Annual Wellness (AWV)1960Medicare Initial Physical (IPPE)1960igmoidoscopy 1960Diabetes: Retinopathy Kioffyuxp53/09/1970Depression Screening 1972Diabetes: Urine Protein Tjghndlff91/09/1979Pneumococcal Vaccine: 50+ Years (1 of 2 - PCV)1979Adult Kngkhpc8807/18/1982Zoster Vaccines (1 of 2) 2010COVID-19 Vaccine ( - season), 06/24/2022, 06/24/2022, Additional history existsInfluenza Vaccine (#1), 07/11/2024, 09/04/2023, Additional history existsFall Risk Wpljsypmp58/09/2025 FIT, 2Colorectal Cancer Otgeaogin63/08/2028FIT-DNA HIB VaccinesAged OutNo longer eligible based on patient's age to complete this topicHPV VaccinesAged OutNo longer eligible based on patient's age to complete this topicIPV VaccinesAged OutNo longer eligible based on patient's age to complete this topicMeningococcal B VaccineAged OutNo longer eligible based on patient's age to complete this topicMeningococcal VaccineAged OutNo longer eligible based on patient's age to complete this topicRotavirus VaccinesAged OutNo longer eligible based on patient's age to complete this topic Insurance Care Teams Team MemberRelationshipSpecialtyStart DateEnd Ishmael Jacob DO [address] [place] [address] [place] [id number] [facility]01/05/23
--- OUTSIDE RECORDS SUMMARY | 2025-09-30 08:29 | XMS_ITS | Clinical Summary ---
Author Organization [facility] Address [address] [place] [address] Care Team Providers Care Automation Operator Name Role Phone Unavailable Primary Care Provider Unavailabl e Allergies Active AllergyReactionsCriticalityNoted CqckTgezgcmeHkpcnJjnvl07/27/2025Statins 01/10/2023 Medications MedicationSigDispense QuantityRefillsLast FilledStart DateEnd DateStatus aspirin 81 MG EC tablet Take 1 tablet by mouth DailyActive benazepril (Lotensin) 10 MG tablet Take 10 mg by mouth DailyActive Jardiance 10 MG Take 10 mg by mouth in the morning.5Active YekraTouch Ultra Test test strip USE TO TEST BLOOD SUGAR EVERY DAY5Active hydroCHLOROthiazide (HYDRODiuril) 25 MG tablet Take 25 mg by mouth Daily5Active Lancets (YekraTouch Delica Plus Nzxjto68V) misc USE TO TEST BLOOD SUGAR ONCE A DAY5Active potassium citrate CR (Urocit-K-15) 15 mEq ER tablet Take 15 mEq by mouth in the morning and 15 mEq in the evening.5Active omega-3 (fish oil) 1000 MG capsule Fish Oil 1200mg BIDActive rosuvastatin (Crestor) 10 MG tablet Take 10 mg by mouth in the morning.Active Rybelsus 3 MG tablet Take 3 mg by mouth DailyActive Active Problems ProblemNoted DateDiagnosed DateUric acid kidney stone01/09/2025Renal cyst 01/09/2025PH associated with ubxbpppo71/02/0910Xiymrker87/02/2025yst of kidney, nffagevq61/15/9090Zmazfwfrnjarhfwzxure25/15/5886Nnememvh27/15/2023NSVT (nonsustained ventricular tachycardia)01/27/2023topic cwpzvwlada18/30/2023 Calculus of kidney and xieyzm8810/29/2016Coronary qiosnsrnrcqvfagr94/20/2017Drug mukkejuthuv08/20/8422Rcylbataqmvi11/20/2017Essential brywckemshbl21/20/2017Type 2 diabetes vficdstn18/20/2017Ventricular premature beats10/29/2016 Social History Tobacco UseTypesPacks/DayYears UsedDateSmoking Tobacco: Never AssessedSex and Gender InformationValueDate RecordedSex Assigned at BirthNot on fileLegal Sex Male12/22/2022 6:37 PM EDTGender IdentityNot on fileSexual OrientationNot on file Plan of Treatment Health MaintenanceDue DateLast DoneCommentsCT Knqlqwhrdsjy1960Colonoscopy 1960FIT1960FOBT1960 2408Haebxnooiywpt1960Pneumococcal Vaccine: 65+ Years (1 of 1 - PCV)2010Colorectal Cancer Scasjyqrd32/20/2025 FIT-DNA, 03/14/2019COVID-19 Vaccine (2024- season) , 06/24/2022, 08/31/2021, Additional history existsInfluenza Vaccine (#1)/11/2023, 09/04/2023, 06/24/2022, Additional history exists Insurance
[2025-09-30 09:11] LABS: Cholesterol 95 mg/dL (<=200); HDL Cholesterol 25 mg/dL (40-60); Triglycerides 198 mg/dL (<=150); VLDL CHOLESTEROL 39.6 mg/dL
== END 2025-09-30 08:27 | disposition home or self-care (01) ==
LOC: LAB 08:27
PROVIDERS: PCP Internal Medicine; Visit Provider Internal Medicine Cardiovascular Disease
DX: E78.2 Mixed hyperlipidemia (principal)
CPT/HCPCS: 36415; 80061